=== PATIENT | male | born 1955 | race Caucasian/White ===

== ENCOUNTER 2016-05-22 11:50 | Inpatient (IN) | payer OTHER ==
[2016-05-22] MEDS ORDERED: Haloperidol INJ IV/IM* 5 MG/ML AMP ONE (11:55)
[2016-05-22] MEDS ORDERED: LORazepam INJ* 2 MG/ML 1 ML VIAL ONE ×2 (11:55→12:03)
[2016-05-22] MEDS ORDERED: diPHENhydraMINE IV* 50 MG/ML 1 ml VIAL (BENADRYL) ONE (11:55)
[2016-05-22] MEDS ORDERED: NS 0.9% 1000 ML* 1,000 ML IV ONE ×2 (11:57→13:16)
[2016-05-22] MEDS ORDERED: LORazepam INJ* 2 MG/ML 1 ML VIAL IV PUSH ONE ×3 (12:01→15:13)
[2016-05-22] MEDS ORDERED: Diltiazem IV VIAL* 125 MG/25 ML VIAL ONE (12:24)
[2016-05-22] MEDS ORDERED: Diltiazem IV* 5 MG/ML 5 ML VIAL (for loading dose/IV Push) (25 MG) IV SLOW PU ONE (12:24)
[2016-05-22 12:38] LABS: Hematocrit 53 % (42-52); Hemoglobin 17.6 g/dl (14.0-18.0); Mean Corpuscular HGB Conc 33 g/dl (31-36); Mean Corpuscular Hemoglobin 30 pg (27-31); Mean Corpuscular Volume 91 fL (80-94); Red Blood Count 5.82 10^6/ul (4.0-5.4); Red Cell Distribution Width 14 % (10.5-15); White Blood Count 20.9 10^3/ul (3.5-10.8)
[2016-05-22 12:39] LABS: Add Diff/Slide Review? Slide Review Added; Comments Flag Yes
[2016-05-22 12:45] LABS: ALT 24 U/L (7-52); AST 45 U/L (13-39); Albumin 4.4 g/dL (3.2-5.2); Alkaline Phosphatase 101 U/L (34-104); Anion Gap 15 mmol/L (2-11); Blood Urea Nitrogen 34 mg/dL (6-24); CO2 Carbon Dioxide 18 mmol/L (22-32); Calcium 10.8 mg/dL (8.6-10.3); Chloride 109 mmol/L (101-111); Creatine Kinase 1302 U/L (10-223); EGFR African American 71.8 (>60); EGFR Non-African American 55.8 (>60); Globulin 4.2 g/dL (2-4); Glucose 141 mg/dL (70-100); Potassium 3.7 mmol/L (3.5-5.0); Sodium 142 mmol/L (133-145); Total Protein 8.6 g/dL (6.4-8.9)
--- NOTE | 2016-05-22 13:02 | RAD ---
INDICATION: Altered mental status COMPARISON: Similar CT of the brain dated November 12, 2013 TECHNIQUE: Contiguous axial sections of the brain were obtained from the skull base to the vertex without contrast. FINDINGS: The ventricles, cisterns and sulci are within normal limits. There is mild periventricular and subcortical white matter hypoattenuation with more focal areas of hypoattenuation at the left frontal lobe white matter tracts and bilateral basal ganglia that are similar to the previous CT examination.. Otherwise the reynolds-white matter differentiation is adequately maintained and there is no sulcal effacement. No significant focal abnormality or mass effect is present. There is no evidence for intracranial hemorrhage. There are coarse atherosclerotic calcifications at the right greater than left vertebral artery and bilateral petrous carotid arteries. No significant focal osseous abnormality is present. There is moderate mucosal thickening of the left greater than right maxillary sinuses, sphenoid sinuses and ethmoid air cells. This has all progressed compared to the previous CT examination. The calvarium is grossly intact and the mastoid air cells are adequately aerated. IMPRESSION: 1. CT findings are most compatible with chronic microvascular disease that appears mostly similar to the November 12, 2013 CT examination. If the patient is exhibiting focal neurologic deficits further characterization of low-density foci in the basal ganglia can be obtained with MRI of the brain. 2. Interval increase in severity of paranasal sinus mucosal disease.
[2016-05-22 13:14] LABS: Mean Platelet Volume 10 um3 (7.4-10.4)
--- NOTE | 2016-05-22 13:20 | RAD ---
Indication: Confusion. Single frontal view of the chest performed at 1245 hours was reviewed. Comparison is made with previous exam dated December 26, 2013. Cardiomegaly is noted. Lung burleson demonstrate no pleural fluid, pneumonia or pneumothorax. IMPRESSION: NO ACTIVE CARDIOPULMONARY DISEASE IS NOTED.
[2016-05-22] MEDS ORDERED: Diltiazem DRIP* 100 MG/100 ML ADDV.BAG IVPB ONE (13:26)
[2016-05-22 13:28] LABS: PCO2 Arterial 28 mmHg (35-45)
[2016-05-22 13:34] LABS: Acetaminophen < 15 mcg/mL; Alcohol < 10 mg/dL (<10); Salicylate < 2.50 mg/dL (<30)
[2016-05-22 13:38] LABS: Troponin I 0.04 ng/mL (<0.04)
[2016-05-22 13:43] LABS: TSH (Thyroid Stimulating Horm) 0.48 mcIU/mL (0.34-5.60)
[2016-05-22] MEDS ORDERED: NS 0.9% 1000 ML* 1,000 ML IV SCH ×3 (13:45→16:00)
[2016-05-22] MEDS: NS 0.9% 1000 ML* 2,000 ML IV ONE ×2 (14:00→14:38)
[2016-05-22 14:23] LABS: Urine Bacteria Absent (Absent); Urine Bilirubin Negative (Negative); Urine Glucose Negative (Negative); Urine Nitrite Negative (Negative)
[2016-05-22] MEDS ORDERED: Ondansetron INJ* 2 MG/ML VIAL IV PRN (14:24)
[2016-05-22] MEDS ORDERED: Acetaminophen SUPP* 650 MG SUPP PR PRN (14:24)
[2016-05-22 14:26] LABS: Benzodiazepine Urine Screen None Detected (None Detect)
[2016-05-22] MEDS ORDERED: Albuterol 2.5 MG/3 ML NEB.SOL* (0.083%) INH PRN (14:39)
[2016-05-22] MEDS ORDERED: Diltiazem DRIP* 100 MG/100 ML ADDV.BAG IVPB SCH (15:00)
[2016-05-22] MEDS ORDERED: Vancomycin(*) 1,000 MG in NS 0.9% 250 ML* 250 ML IVPB ONE (15:00)
[2016-05-22 15:04] LABS: Phosphorus 2.9 mg/dL (2.5-5.0)
[2016-05-22] MEDS ORDERED: Dexmedetomidine* 50 ML ONE (15:08)
[2016-05-22] MEDS ORDERED: Propofol* 10 MG/ML 20 ML BTL IV PUSH ONE (15:25)
[2016-05-22] MEDS ORDERED: Propofol* 100 ML ONE (15:25)
[2016-05-22] MEDS ORDERED: Acyclovir IV(*) 780 MG in NS 0.9% 250 ML* 250 ML IVPB SCH (15:30)
[2016-05-22] MEDS ORDERED: Rocuronium* 10 MG/ML VIAL IV ONE (15:56)
[2016-05-22 16:14] LABS: Troponin I 0.04 ng/mL (<0.04)
[2016-05-22 16:15] LABS: BUN/Creatinine Ratio 30.4 (8-20); Calcium 9.1 mg/dL (8.6-10.3); EGFR African American 95.8 (>60); EGFR Non-African American 74.5 (>60)
[2016-05-22 16:21] LABS: Potassium 3.6 mmol/L (3.5-5.0)
--- NOTE | 2016-05-22 16:24 | RAD ---
INDICATION: Status post intubation. COMPARISON: Comparison is made with a prior study of the same date from approximately 3 hours earlier. TECHNIQUE: A portable view of the chest was obtained. FINDINGS: The patient is status post intubation. There is an endotracheal tube which projects over the midline located approximately 3 cm above the maki. There is a nasogastric tube which demonstrates normal course. The catheter tip projects in the left upper quadrant. The heart is within normal limits in size. The lungs are underinflated and clear with the exception of minimal atelectasis at both lung bases. IMPRESSION: STATUS POST INTUBATION AND NASOGASTRIC TUBE PLACEMENT.
[2016-05-22] MEDS ORDERED: Piperac/Tazob 3.375 gm in NS* 3.375 GM/100 ML BAG IVPB ONE (16:30)
[2016-05-22] MEDS ORDERED: Digoxin IV* 0.5 MG/2 ML AMP (0.25 MG/ML) IV SLOW PU ONE ×2 (16:38→20:00)
--- NOTE | 2016-05-22 16:53 | PN ---
Progress Note - Progress Note Note: Critical Care Procedure Note Endotracheal intubation Indication..respiratory distress and encephalopathy Propofol 100 mcg IV x1 Rocuronium 75 mg IV x1 Fiberoptic Intubation Copious secretions...green and very tenacious suctioned overlying airway and within airway #8 ETT passed w/o difficulty Epiglottis and cords sharp Inserted to 25 cm and secured Good BS bilat Good color change with Easy Cap CXR with good position of ETT No complications
[2016-05-22] MEDS: Pantoprazole IV* 40 MG IV SCH (16:57)
[2016-05-22] MEDS: Propofol* 100 ML IV SCH ×2 (16:58→21:12)
[2016-05-22] MEDS ORDERED: fentaNYL* 50 MCG/ML 5 ML VIAL (250 MCG VIAL) IV ONE (17:00)
--- NOTE | 2016-05-22 17:24 | HP ---
H&P (Free Text) History and Physical: Critical Care Medicine Admission Note (H&P) 60 yo male presenting to ER with encephalopathy. Patient known to staff re prior admitts involving EtOH and other substance abuse. Patient has apparently been on couch "sleeping" for some 36 hours or more. In ER data revealed a prominent leucocytosis, hemoconcentration c/w hypovolemia, and he was quite delirious requiring IV sedative pushes. He was given a few liters of IV fluids and started on antibiotics. He was quite delirious and hyperactive in bed. A CT Head was without acute findings and his tox screen reveals cocaine metabolites. Tried Precedex infusion which failed to settle patient. Finally elected to intubate patient to ride out what appears to be a toxic-metabolic encephalopathy.. At intubation copious purulent secretions encountered. Also course in ER remarkable for rapid A Fib for which Cardizem gtt initiated. Upon arrival to ICU asked to assume care of patient by Hospitalist service ( Gus Vega). PMH Chronic Pain, L1 compression fracture, BPH, COPD, MRSA bacteremia due to septic thrombophlebitis of upper extremity veins, Erosive Esophagitis NKDA Fam Hx, Soc Hx, and ROS unable to querry because of his condition SBP 100-150 HR 140 irreg FiO2 50% PEEP 5 TV 500 Freq 16 SpO2 100 Skin no diaphoresis, no cyanosis Sclerae anicteric Oral mucosa pink Oral ETT and GT Lungs with bilateral BS, no wheezes Cor Irreg, tachy no rub, no murmur Abd soft distension russ Ext no edema PIV x2 LUE PIV x1 RUE CXR ETT in place no atelectasis, no PVC, possibly small Lt and Rt basilar infiltrate WBC 20.9 Hgb 17.6 Plt 345 Lact 1.6 Trop 0.04 x2 CPK 1934 Mg 2.0 Pi 2.9 Gluc 127 K 3.6 Na 146 Cl 114 BUN/Creat 31/1.0 AST 45 ALT 24 Alb 4.4 IMP: Toxic-Metabolic Encephalopathy manifest as agitated delirium due to a combination of dehydration, sepsis, substance abuse and withdrawal Acute Respiratory Failure secondary to above with need to secure airway in face of sedation management Suspect purulent tracheobronchitis if not incipient pneumonia given what I was suctioning from his airway Lactic acidosis resolved Hyperchloremia due to dehydration and NS infusions Hemoconcentration due to hypovolemia Very mild rhabdomyolysis Hx COPD Hx MRSA Bacteremia due to septic thrombophlebitis Hx Chronic pain disorder PLAN/REC: Full MV support Propofol and Fentanyl gtts Vanco and zosyn for now Check Sput Cx...collected Keep HOB raised Protonix DVT Prophyl Suctioning PRN IV hydration Thiamine, folate, MVI Proventil PRN Bedrest for now Monitor labs including chems, ABG, CPK T>55 min CCM services rendered...exclusive of intubation related time Discussed with Nursing multiple times, Pharmacy, and Rekha Vega
[2016-05-22] MEDS: fentaNYL PCA* 20 ML PCA SCH (17:28)
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
[2016-05-22 18:16] LABS: FIO2 45; Resp Rate 16; Ventilator Volume 500
[2016-05-22 18:21] LABS: PCO2 Arterial 36 mmHg (35-45)
[2016-05-22] MEDS ORDERED: Thiamine IV* 100 MG/ML 2 ML VIAL IV ONE (18:34)
[2016-05-22] MEDS ORDERED: Folic Acid IV* 1 MG/0.2 ML SYRINGE IV SCH (19:00)
[2016-05-22] MEDS ORDERED: NS 0.9% 50 ML* 50 ML ONE (20:03)
[2016-05-22] MEDS: Folic Acid IV* 1 MG in NS 0.9% 50 ML* 50 ML IV SCH (20:15)
[2016-05-22] MEDS: Heparin VIAL(*) 5000 UNITS/ML VIAL (FIVE THOUSAND) SUBCUT SCH (21:11)
[2016-05-22] MEDS ORDERED: Vancomycin per Pharmacy* NOTE FOLLOW UP PRN (21:22)
[2016-05-22] MEDS: Vancomycin(*) 1,250 MG in NS 0.9% 250 ML* 250 ML IVPB SCH (22:04)
[2016-05-22] MEDS: Piperac/Tazob 3.375 gm in NS* 3.375 GM/100 ML BAG IVPB SCH (22:13)
--- NOTE | 2016-05-22 23:35 | HP ---
HISTORY AND PHYSICAL: DATE OF ADMISSION: 05/22/16 PRIMARY CARE PROVIDER: Unknown. ATTENDING PHYSICIAN WHILE IN THE HOSPITAL: Dr. Aaron Justin *(report dictated by Gus Vega, JOE). CONSULTING FILLER WIPER: Dr. Levon Kent. CHIEF COMPLAINT: Altered mental status. HISTORY OF PRESENT ILLNESS: I would like to preface this report by saying the patient has a significant amount of altered mental status. He is really unable to give much history at this point. Most of the H and P is obtained from discussion with the bedside nurse, discussion with the patient's significant other, in addition to this discussion with and reviewing EMS reports. Mr. Conway is a 60-year-old male patient who has had a pretty significant medical history. He has a history of DTs in the past, polysubstance abuse, psychosis. He has had toxic metabolic encephalopathy in the past, ETOH abuse, hypertension, hyperlipidemia, GERD, chronic back pain, COPD. He has a history of kidney stones in the past; history of a septic thrombophlebitis of the basilic subclavian, cephalic, and right internal jugular veins in the past requiring 6 weeks of IV antibiotics. He comes in today with an altered mental status of unclear etiology. According to the patient's girlfriend and significant other, yesterday he seemed very drowsy, lethargic. He had slept most of the day. He basically was in bed all day. At some point, he had gotten up in the middle of the night to go to the couch and she found him this morning on the couch incontinent of urine, also drooling, and he was swinging his arms and he was restless and appeared to be extremely agitated. She knew something was wrong. She called 911. He had not taken his medications in the last couple of days, and to her knowledge, he had not been ingesting any substances or using any substances to her knowledge and there has been no ETOH reported. The patient was picked up by EMS. He was noted to be combative. He was given Haldol and Ativan and came in to the ER, and EMS reported to the nursing staff that he was noted to be again essentially nonverbal, combative, and swinging, and by the time he came here, he was noted to be lethargic, responsive to pain only, and there were no reports recently of change in medications and no reports of any nausea, vomiting, diarrhea, or any urinary symptoms per the significant other, and there has been no reports of recent fevers, URI symptoms, or any complaints of abdominal discomfort or shortness of breath. The patient is really unable to give any complaints now. It was found in the ER that he had multiple electrolyte abnormalities. In addition to this, he had a white count of almost 21,000. Hospitalist service was asked to evaluate for admission. PAST MEDICAL HISTORY: Significant for: 1. DTs. 2. Polysubstance abuse. 3. Psychosis. 4. History of toxic metabolic encephalopathy. 5. ETOH abuse. 6. Hypertension. 7. Hyperlipidemia. 8. GERD. 9. Chronic back pain. 10. COPD. 11. Nephrolithiasis. 12. DVT. 13. History of bacteremia secondary to a septic thrombophlebitis and requiring 6 weeks of IV antibiotics. PAST SURGICAL HISTORY: Unable to be obtained at this point. HOME MEDICATIONS: According to the pharmacy that we are able to obtain include: 1. Baclofen 5 to 10 mg every 8 hours as needed. 2. Requip 0.5 mg p.o. at bedtime. 3. Glucosamine chondroitin 1 tablet daily. 4. Gabapentin 1200 mg p.o. q.i.d. 5. Benadryl 25 mg at bedtime as needed. 6. Ambien 10 mg at bedtime as needed. 7. Magnesium oxide 400 mg daily. 8. Colace 100 mg p.o. b.i.d. as needed. 9. Ultram 50 mg every 4 hours as needed. 10. Ibuprofen 600 mg p.o. every 6 hours. 11. Percocet 1 tablet p.o. every 12 hours. 12. Lisinopril/hydrochlorothiazide 1 tablet p.o. daily. 13. Omeprazole 40 mg p.o. b.i.d. ALLERGIES TO MEDICATIONS: Include no known drug allergies. FAMILY HISTORY: Unable to be obtained. SOCIAL HISTORY: He lives with his friend who is also the surrogate decision maker, Rosa M, and a significant other. Rosa M does state that he does continue to smoke. There has been no reports of ETOH abuse. He rarely drinks alcohol now according to her, and there have been no reports of illicit drug use according to Rosa M. REVIEW OF SYSTEMS: Unable to be obtained. PHYSICAL EXAMINATION GENERAL: At this time, Mr. Conway is a 60-year-old male patient. He is sitting in the ER bed. He appears to be lethargic. He does not appear to be in any acute distress. He appears to be older than the listed age. VITAL SIGNS: Last blood pressure was 126/85 with a pulse of 150, respirations are 26, his O2 sat was 94% on 2 L. HEENT: Head atraumatic. Eyes: Pupils are equal and reactive to light. Sclerae are anicteric. Throat: Oral mucosa appears to be dry. No oropharyngeal erythema. NECK: Supple. LUNGS: He had rhonchi in the upper lobes. Equal diaphragmatic expansion. HEART: Sounds S1, S2. Irregularly irregular rate. No murmurs, rubs, or gallops. ABDOMEN: Soft, flat, nontender. Bowel sounds present. EXTREMITIES: Pulses 2+ throughout. He is moving all 4 extremities, restless. NEUROLOGIC: He will respond to pain only with sternal rub. He will try to fight me and remove my arms, but that is it. He will not follow any commands. He has no gross focal deficits. He is moving all 4 extremities, particularly when arousing him with painful stimuli, he withdraws all 4 extremities, and there is no facial drooping. SKIN: Intact. LABORATORY DATA AND DIAGNOSTIC STUDIES: Today reveal a WBC of 20.9, RBC of 5.82, hemoglobin 17.6, hematocrit 53, platelet count 345. Blood gas revealed a pH of 7.45, PCO2 of 28, his PO2 was 66, bicarb 22. His sodium was 142, potassium of 3.7, chloride of 109, bicarb 18, BUN 34, creatinine of 1.30, his baseline is 0.9. His glucose is 141. His lactic was 3.6. His calcium was 10.8. His magnesium was 2.0. Total bili 0.9, AST 45, ALT 24, alk phos 101. Ammonia 51. CK was 1302. Troponin 0.04. TSH of 0.48. Albumin 4.4. Urine showed trace ketones, 1+ blood, 1+ wbc. Toxicology was positive for cocaine. He had an EKG obtained today, initially showing a sinus tachycardia with a rate of [address] depressions. He has had ST depressions in the past, it is more pronounced now. He is now noted to be in atrial fibrillation. He had a chest x-ray obtained today, and on my review, I did not appreciate any acute infiltrates, effusions, or pulmonary edema. He had a brain CT obtained today, which showed CT findings most compatible with chronic microvascular disease, appears mostly similar to the 2014 CT exam. The patient is exhibiting focal neurological deficits. Further characterization of low density foci in the basal ganglia can be obtained with MRI of the brain, interval increase in the severity of paranasal sinus mucosal disease. Old medical records were reviewed. ASSESSMENT AND PLAN: Mr. Conway is a 60-year-old male patient coming in to the ER today with complaints of altered mental status. Hospitalist service was asked to evaluate for admission. He will be admitted under inpatient status for : 1. Altered mental status: Etiology is unclear. Certainly, the differential is broad. He appears to be septic, which may be causing a toxic encephalopathy causing the altered mental status. His U-Tox was negative with the exception of cocaine. So, I think at this point what we need to do is focus on trying to find an infectious component that may be causing the altered mental status. So , I am going to go ahead and panculture him and I think he needs to have a spinal tap, but unfortunately at this point, I do not think he would be able to tolerate it. He would be fighting us and combative, so I am going to treat him empirically with acyclovir, vancomycin, and Rocephin and we will do neuro checks every 2 hours. In addition to this, I am going to get an EEG. I am also getting an elevator mechanic apprentice consult. 2. Sepsis: Again, source is unclear. He has had septic thrombophlebitis in the past. His white count is up. He appears to be severely septic at this point. He will get 3 L of fluids upfront. He will have vancomycin and Rocephin ordered. We will go ahead and we will continue to follow his blood cultures, flu swab. Chest x- ray was done. Try to get a spinal tap when it is safe to do so. His lactic was 3.6. I am going to repeat this after the fluid boluses. 3. Atrial fibrillation: Again, his troponin is up with the atrial fibrillation. I suspect this is probably demand. He also was cocaine positive. This all can cause the troponin to be elevated. We are just going to trend those for the time being, and the atrial fibrillation also could be from the cocaine as well. We will put him on a diltiazem drip. I am not going to anticoagulate him in case we need to do any invasive procedures. I think the AFib is probably being brought on by the cocaine; in addition to this, the fact that he appears to be profoundly ill and I think if we treat the underlying cause, this should hopefully fix his atrial fibrillation. At some point, he may benefit from anticoagulation. 4. Elevated CK: Again, could be from the cocaine, but again I am also concerned that he may have had a seizure. So, we will get an EEG. We will trend these and hydrate him. 5. Acute renal failure, probably secondary to prerenal causes such as dehydration, but I am sending off a FENa and a renal ultrasound. In addition to this, there may be some acute tubular necrosis from the septic picture. We will monitor these and hold nephrotoxic drugs. 6. History of polysubstance abuse and cocaine use: Again, when he is better, we will get a Social Work consult. The says he has not been drinking. We will monitor him for delirium tremens if need to. Anyways, if he does exhibit any signs of withdrawal, obviously we will start him on the [facility] protocol. 7. Hyperlipidemia: We will hold medications at this point. 8. History of chronic obstructive pulmonary disease: We will continue with p.r.n. albuterol. 9. History of DVT: I am just going to put him on prophylactic heparin. He is no longer on full anticoagulation. 10. Chronic pain: We are going to hold any narcotics at this point. 11. Hypertension: We will hold his lisinopril and hydrochlorothiazide in the setting of acute illness. 12. Gastroesophageal reflux disease: He is n.p.o. I will put him on IV Protonix. 13. DVT prophylaxis: Again, he will be placed on subcu heparin. 14. Code status: He is a full code. 15. Fluids, electrolytes, and nutrition: He is n.p.o. TIME SPENT: Time spent on the admission with critical care time was 80 minutes ; greater than half the time was spent [id number] with the patient obtaining my history and physical, other half the time spent implementing the plan of care. I did discuss the plan of care with my attending and I also placed a consult to our elevator mechanic apprentice, Dr. Levon Kent. GUS VEGA NP CC: Dr. Levon Kent. * [id number]/CPS #: [id number] STEPH
[2016-05-23] MEDS ORDERED: Chlorhexidine MOUTHWASH 0.12%* 15 ML UDC ONE (00:28)
[2016-05-23] MEDS: Propofol* 100 ML IV SCH ×7 (00:39→22:32)
[2016-05-23] MEDS: Chlorhexidine MOUTHWASH 0.12%* 15 ML UDC TOPICAL SCH ×6 (01:06→20:45)
[2016-05-23] MEDS ORDERED: NS 0.9% 250 ML* 250 ML ONE (04:50)
[2016-05-23] MEDS: Vancomycin(*) 1,250 MG in NS 0.9% 250 ML* 250 ML IVPB SCH ×3 (05:25→22:29)
[2016-05-23] MEDS: Piperac/Tazob 3.375 gm in NS* 3.375 GM/100 ML BAG IVPB SCH ×3 (05:26→22:29)
[2016-05-23] MEDS: Heparin VIAL(*) 5000 UNITS/ML VIAL (FIVE THOUSAND) SUBCUT SCH ×3 (05:26→22:29)
[2016-05-23 05:34] LABS: Hematocrit 42 % (42-52); Hemoglobin 13.9 g/dl (14.0-18.0); Mean Corpuscular HGB Conc 33 g/dl (31-36); Mean Corpuscular Hemoglobin 31 pg (27-31); Mean Corpuscular Volume 92 fL (80-94); Mean Platelet Volume 9 um3 (7.4-10.4); Red Blood Count 4.55 10^6/ul (4.0-5.4); Red Cell Distribution Width 15 % (10.5-15); White Blood Count 9.8 10^3/ul (3.5-10.8)
[2016-05-23 05:50] LABS: BUN/Creatinine Ratio 29.3 (8-20); Calcium 8.7 mg/dL (8.6-10.3); EGFR African American 107.9 (>60); EGFR Non-African American 83.9 (>60)
[2016-05-23 05:52] LABS: Potassium 4.2 mmol/L (3.5-5.0); Troponin I 0.04 ng/mL (<0.04)
[2016-05-23 06:05] LABS: FIO2 35; Resp Rate 18; Ventilator Volume 500
[2016-05-23 06:06] LABS: PCO2 Arterial 37 mmHg (35-45)
--- NOTE | 2016-05-23 08:10 | PN ---
Progress Note - Progress Note Note: CCM Progress Note Quiet night overall Sedated with Propofol and Fentanyl gtts Converted back to SR Large volume gastric drainage at one point overnight...subsided SBP 86-96 MAP 66 HR 68 reg UO OK I/Os (+)5.4 liters APV/CMV FiO2 35% PEEP 5 TV 500 Freq 16 SpO2 97-98 Skin no diaphoresis, no cyanosis, (+)tattoos Sclerae anicteric Oral mucosa pink Oral ETT and GT Lungs with bilateral BS, no wheezes, no rhonchi Cor RRR no rub, no murmur Abd soft distension, nontender russ Ext no edema PIV x2 LUE PIV x1 RUE CXR ETT in place no PVC, small retrocardiac infiltrate and possibly small Rt medial-basilar infiltrate WBC 9.8 Hgb 13.9 Plt 182 7.43/37/75 Trop 0.04 x3 CPK 1414 K 4.2 Na 144 BUN/Creat 27/0.9 Sput Cx 4(+) WBC with 4(+) GPC IMP: Toxic-Metabolic Encephalopathy manifest as agitated delirium due to a combination of dehydration, sepsis, substance abuse and withdrawal Acute Respiratory Failure secondary to above with need to secure airway in face of sedation management Purulent tracheobronchitis and perhaps small basilar pneumonic infiltrates (vs atelectasis) Sepsis...resolution of leucocytosis suggests appropriate Abx choices in place Hypovolemia....I believe he is now adequately hydrated Hemoconcentration ....subside Very mild rhabdomyolysis...CPK trending down Hx COPD...no bronchospasm evident Hx MRSA Bacteremia due to septic thrombophlebitis Hx Chronic pain disorder PLAN/REC: Full MV support...pending subsidence of delirium Wean down Propofol and Fentanyl gtts as tolerated...goal of enough to secure synchrony with ventilator and permit effective care delivery Vanco and Zosyn for now Daily review of cultures for data to direct Abx Keep HOB raised Protonix DVT Prophyl Suctioning PRN IV hydration to continue Thiamine, folate, Proventil PRN Bedrest for now Monitor labs T>35 min CCM services rendered Discussed with Nursing, Pharmacy, Nutrition, and the rest of the ICU Multidisciplinary team this AM
--- NOTE | 2016-05-23 08:20 | RAD ---
HISTORY: Respiratory failure, dyspnea COMPARISONS: May 22, 2016 VIEWS:1: Single frontal portable view of the chest at 6:17 AM FINDINGS: LINES AND TUBES: The endotracheal tube is noted with the tip overlying the trachea between the clavicles and the maki. A gastric tube is noted. The tip is in the left upper quadrant in a prepyloric position. CARDIOMEDIASTINAL SILHOUETTE: The cardiomediastinal silhouette is normal for portable technique. PLEURA: The costophrenic angles are sharp. No pleural abnormalities are noted. LUNG PARENCHYMA: The lung volumes are low. There is minimal linear opacification of the left lung base ABDOMEN: The upper abdomen is clear. There is no subphrenic gas. BONES AND SOFT TISSUES: No bone or soft tissue abnormalities are noted. IMPRESSION: 1. LINES AND TUBES ABOVE. 2. LOW LUNG VOLUMES WITH LINEAR ATELECTASIS OF THE LEFT LUNG BASE
--- NOTE | 2016-05-23 08:48 | EEG ---
ELECTROENCEPHALOGRAPHY: DATE OF STUDY: 05/22/16 PATIENT OF: Gus Vega NP CLINICAL PROBLEM: This is a 60-year-old patient of Gus Vega NP, who is evaluated for encephalopathy after being apparently encephalopathic and down on the ground between 24 and 36 hours. He had a positive tox screen for cocaine and has a history of polysubstance abuse. REPORT: With the patient intubated, background cerebral activity consisted of moderate amplitude 3 to 5 Hz diffuse slowing with periods of 1 to 2 seconds of relative attenuation. At times, this slowing reaches 6 to 7 Hz and occasionally sharply contoured. There is no clearcut epileptiform potentials. No subclinical seizures are noted. CLINICAL IMPRESSION: This EEG is abnormal because of diffuse slowing with periods of attenuation as described above. This finding is consistent with a significant generalized encephalopathy, but not specific as to etiology. [id number]/CPS #: [id number] MTDD
[2016-05-23] MEDS ORDERED: NS 0.9% 50 ML* 50 ML ONE (10:12)
--- NOTE | 2016-05-23 10:18 | ECHO ---
Patient: CHRISTOPH MONTENEGRO Rec#: [id number] : 1955 Date: 05/23/2016 Age: 60y Height: 188 cm / 74.0 in Weight: 97.1 kg / 214.0 lbs Sex: M BSA: 2.2 Room#: ICU 5 Admit Date#: 05/22/2016 Type: Inpatient Referring: Levon Kent MD Reading: Brian Barrera MD Retail Salesworker: Rocio Botello RN RDCS CC: Guru Pappas MD Transthoracic Echocardiogram Indication: Atrial fibrillation BP: 93/64 HR: 67 Rhythm: NSR Findings History: COPD, HTN, HLD, ETOH use, polysubstance abuse, toxic metabolic encephalopathy, psychosis, erosive esophagitis, chronic pain disorder Technical Comments: The study is technically limited due to poor parasternal windows. The study is technically limited due to the patient's history of COPD. The study is technically limited due to the patient's smoking history. The study is technically limited due to patient being intubated and on a ventilator. Completed at 0945. Left Ventricle: The left ventricular chamber size is normal. Mild to moderate concentric left ventricular hypertrophy is observed. There is normal left ventricular systolic function.Focal wall motion analysis is not possible due to poor images. The estimated ejection fraction is 55-60%. The assessment of diastolic function is non-diagnostic. The patient was unable to perform a Valsalva maneuver. Left Atrium: The left atrial chamber size is normal. Right Ventricle: The right ventricle is not well visualized. The right ventricular cavity size is normal. Right Atrium: The right atrium is mildly dilated. Aortic Valve: The aortic valve is trileaflet. There is no evidence of aortic regurgitation. There is no evidence of aortic stenosis. Mitral Valve: The mitral valve leaflets appear normal. There is a trace of mitral regurgitation. There is no evidence of mitral stenosis. Tricuspid Valve: The tricuspid valve leaflets are normal. There is trace tricuspid regurgitation. Unable to estimate the right ventricular systolic pressure. Pulmonic Valve: The pulmonic valve structure is not well visualized. There is a trace pulmonic regurgitation. There is no pulmonic stenosis. Pericardium: There is no significant pericardial effusion. A pericardial fat pad is visualized. Aorta: There is mild dilatation of the ascending aorta. The aortic arch is not well visualized. There is mild dilatation of the aortic root. Pulmonary Artery: The main pulmonary artery appears normal. Venous: Unable to accurately comment on the size collapsibility of the IVC as the patient in known to be on mechanical ventilation. Conclusions Poor quality study with suboptimal images foer interpretation. Mild to moderate concentric left ventricular hypertrophy is observed. There is normal left ventricular systolic function. Focal wall motion analysis is not possible due to poor images. The estimated ejection fraction is 55-60%. No significant valvular disease as best as can be assessed due to poor images: There is a trace of mitral regurgitation. There is trace tricuspid regurgitation. There is a trace pulmonic regurgitation. No significant change compared to report of study from 12/08/2013, LVEF slightly less (was 55-60%), but accuracy of this is limited given poor images for accurate assessment. Measurements Name Value Normal Range RVDdMajor (2D) 3.5 cm (2.2 - 4.4) RVAW (2D) 0.8 cm (0.2 - 0.5) RAd ISD 4CH 5.3 cm (3.4 - 4.9) RA (A4C)W 3.7 cm (2.9 - 4.6) IVSd (2D) 1.5 cm (0.6 - 1) LVPWd (2D) 1.1 cm (0.6 - 1) LVIDd (2D) 4.1 cm (3.6 - 5.4) Aortic Annulus 2.5 cm (1.4 - 2.6) Ao root diameter (2D) 3.8 cm (2.1 - 3.5) Ascending Ao 3.5 cm (2.1 - 3.4) LA dimension (AP) 2D 3.4 cm (2.3 - 3.8) LAd ISD 4CH 5.1 cm (2.9 - 5.3) LA ISD 4CH W 4.2 cm (2.5 - 4.5) Name Value Normal Range LA ESV SP 4CH (A/L) 51 ml - LA ESV SP 2CH (A/L) 49 ml - LA ESV BP (A/L) 52 ml - LA ESV BP (A/L) index 23 ml/m2 - LA ESV SP 4CH (MOD) 47 ml - LA ESV SP 2CH (MOD) 46 ml - Name Value Normal Range MV E-wave Vmax 0.68 m/sec - MV deceleration time 230 msec - MV A-wave Vmax 0.56 m/sec - MV E:A ratio 1.2 ratio - LV septal e' Vmax 0.08 m/sec - LV lateral e' Vmax 0.13 m/sec - LV E:e' septal ratio 8.5 ratio - LV E:e' lateral ratio 5.2 ratio - Name Value Normal Range AV Vmax 1.4 m/sec - LVOT Vmax 1.3 m/sec - Name Value Normal Range PV Vmax 0.72 m/sec -
[2016-05-23] MEDS: Folic Acid IV* 1 MG in NS 0.9% 50 ML* 50 ML IV SCH (10:27)
[2016-05-23] MEDS: D5NS 0.9% 1000 ML BAG* 1,000 ML IV SCH ×2 (10:29→18:38)
[2016-05-23] MEDS ORDERED: Digoxin IV* 0.5 MG/2 ML AMP (0.25 MG/ML) IV SLOW PU ONE (10:41)
[2016-05-23] MEDS: fentaNYL PCA* 20 ML PCA SCH ×2 (10:45→19:23)
[2016-05-23] MEDS: Pantoprazole IV* 40 MG IV SCH (13:45)
[2016-05-23] MEDS ORDERED: Vancomycin Trough Check NOTE FOLLOW UP ONE (14:00)
[2016-05-23] MEDS ORDERED: Pantoprazole IV* 80 MG in NS 0.9% 250 ML* 250 ML IVPB SCH (22:30)
[2016-05-23] MEDS ORDERED: Pantoprazole IV* 40 MG ONE (22:43)
[2016-05-23] MEDS: Dexmedetomidine* 50 ML IVPB SCH (22:52)
[2016-05-24] MEDS: Chlorhexidine MOUTHWASH 0.12%* 15 ML UDC TOPICAL SCH ×7 (00:15→23:27)
[2016-05-24] MEDS: D5NS 0.9% 1000 ML BAG* 1,000 ML IV SCH (02:00)
[2016-05-24] MEDS: Propofol* 100 ML IV SCH ×7 (02:00→23:23)
[2016-05-24] MEDS: Dexmedetomidine* 50 ML IVPB SCH ×2 (02:13→05:06)
--- NOTE | 2016-05-24 03:43 | PN ---
Progress Note - Progress Note Note: Nursing called for change in OG tube output. Upon arrival he is now draining fine coffee ground material which is heme positive. He is on pantoprazole 40mg IV daily. He was given an additional 40mg IV and started on pantoprazole GTT 8mg /hr [id number]. His heparin held & SCDs initiated. CBC in AM & H/H Q6H x3 afterwards.
[2016-05-24] MEDS: fentaNYL PCA* 20 ML PCA SCH ×2 (04:12→13:05)
[2016-05-24] MEDS: Piperac/Tazob 3.375 gm in NS* 3.375 GM/100 ML BAG IVPB SCH (05:17)
[2016-05-24] MEDS: Vancomycin(*) 1,250 MG in NS 0.9% 250 ML* 250 ML IVPB SCH (05:17)
[2016-05-24 06:22] LABS: Hematocrit 38 % (42-52); Hemoglobin 12.7 g/dl (14.0-18.0); Mean Corpuscular HGB Conc 34 g/dl (31-36); Mean Corpuscular Hemoglobin 31 pg (27-31); Mean Corpuscular Volume 92 fL (80-94); Mean Platelet Volume 9 um3 (7.4-10.4); Red Blood Count 4.11 10^6/ul (4.0-5.4); Red Cell Distribution Width 14 % (10.5-15); White Blood Count 6.1 10^3/ul (3.5-10.8)
[2016-05-24 06:33] LABS: BUN/Creatinine Ratio 32.9 (8-20); Calcium 8.3 mg/dL (8.6-10.3); EGFR African American 147.9 (>60); Magnesium 1.7 mg/dL (1.9-2.7); Phosphorus 3.1 mg/dL (2.5-5.0); Potassium 3.2 mmol/L (3.5-5.0)
[2016-05-24] MEDS ORDERED: Atropine SYRINGE* 0.1 MG/ML 10 ML SYRINGE (1 MG) ONE (06:42)
[2016-05-24 06:51] LABS: Digoxin 0.9 ng/ml (0.8-2.0)
[2016-05-24] MEDS ORDERED: Pantoprazole IV* 40 MG ONE (07:34)
[2016-05-24] MEDS ORDERED: Magnesium Sulfate 2 GM IV* 2 GM/50 ML BAG IVPB ONE (07:38)
--- NOTE | 2016-05-24 08:17 | PN ---
Progress Note - Progress Note Note: [facility] Progress Note Resumption of Precedex gtt overnight in addition to Fentanyl and Propofol gtts noted....met with hypotension and bradycardia....,Precedex gtt stopped Some coffee grounds overnight....Protonix gtt initiated and SCDs applied (with discontinuation of SQ Heparin) SBP ~100 HR 58 reg UO ~1400 ml I/Os ~(+)5.1 liters I/Os total last 2 days (+)10 liters APV/CMV FiO2 35% PEEP 5 TV 500 PkAWP ~27 EtCO2 27 SpO2 97 Skin no diaphoresis, no cyanosis, (+)tattoos Sclerae anicteric Oral mucosa pink Oral ETT and GT Lungs with bilateral BS, no wheezes, no rhonchi Cor RRR no rub, no murmur Abd soft distension, nontender russ Ext no edema PIV x2 LUE PIV x1 RUE WBC 6.1 Hgb 12.7 Plt 181 K 3.2 Na 146 BUN/Creat 27/0.7 Mg 1.7 Pi 3.1 Dig 0.9 Sput Cx 4(+) WBC with 4(+) GPC......3(+) S aureus IMP: Toxic-Metabolic Encephalopathy manifest as agitated delirium due to a combination of dehydration, sepsis, substance abuse and withdrawal Acute Respiratory Failure secondary to above with need to secure airway in face of sedation management Purulent tracheobronchitis and perhaps small basilar pneumonic infiltrates (vs atelectasis) ...S aureus identified Sepsis...resolution of leucocytosis suggests appropriate Abx choices in place Hypovolemia....resolved Coffee grds....suspect due to suction trauma from continuos suction Hx COPD...no bronchospasm evident Hx MRSA Bacteremia due to septic thrombophlebitis Hx Chronic pain disorder Hypokalemia Hypomagnesemia PLAN/REC: Wean down Propofol and Fentanyl gtts progressively Assess for weaning and if reasonable to advance weaning from ventilator as tolerated Vanco to continue pending identification whether is MRSA or not Expect to D/C Zosyn if no other microbes identified Daily review of cultures for data to direct Abx Keep HOB raised D/C Protonix gtt.....use Protonix BID IVPB and stop continuous NG suction DVT Prophyl with SCDs Suctioning via ETT PRN Change IVF to D5 1/2 NS with K D/C Folate Proventil PRN Bedrest for now Monitor labs T>35 min CCM services rendered Discussed with Nurse and ICU Multidisciplinary team this AM
[2016-05-24] MEDS: Pantoprazole IV* 40 MG IV SCH ×2 (09:26→20:33)
[2016-05-24] MEDS: D5W 1/2 NS 40 Meq KCL 1000 ML* 1,000 ML IV SCH ×2 (09:27→23:00)
[2016-05-24] MEDS ORDERED: Haloperidol INJ IV/IM* 5 MG/ML AMP IV SLOW PU PRN (11:25)
[2016-05-24] MEDS ORDERED: Haloperidol INJ IV/IM* 5 MG/ML AMP ONE (11:29)
[2016-05-24] MEDS: ceFAZolin 2 GM PREMIX(*) 2 GM/50 ML BAG IVPB SCH ×2 (14:22→21:46)
[2016-05-24 18:30] LABS: Hematocrit 39 % (42-52); Hemoglobin 13.1 g/dl (14.0-18.0); Mean Corpuscular HGB Conc 33 g/dl (31-36); Mean Corpuscular Hemoglobin 31 pg (27-31); Mean Corpuscular Volume 91 fL (80-94); Mean Platelet Volume 9 um3 (7.4-10.4); Red Blood Count 4.31 10^6/ul (4.0-5.4); Red Cell Distribution Width 15 % (10.5-15); White Blood Count 6.2 10^3/ul (3.5-10.8)
[2016-05-25] MEDS: Propofol* 100 ML IV SCH ×3 (02:17→08:21)
[2016-05-25] MEDS: Chlorhexidine MOUTHWASH 0.12%* 15 ML UDC TOPICAL SCH ×5 (05:24→21:58)
[2016-05-25] MEDS: ceFAZolin 2 GM PREMIX(*) 2 GM/50 ML BAG IVPB SCH ×3 (05:24→21:59)
[2016-05-25 06:00] LABS: Hematocrit 39 % (42-52); Mean Corpuscular HGB Conc 33 g/dl (31-36); Mean Corpuscular Hemoglobin 30 pg (27-31); Mean Corpuscular Volume 92 fL (80-94); Mean Platelet Volume 9 um3 (7.4-10.4); Red Blood Count 4.28 10^6/ul (4.0-5.4); Red Cell Distribution Width 14 % (10.5-15); White Blood Count 6.5 10^3/ul (3.5-10.8)
[2016-05-25 06:18] LABS: BUN/Creatinine Ratio 24.3 (8-20); Calcium 8.5 mg/dL (8.6-10.3); EGFR African American 147.9 (>60); Magnesium 1.9 mg/dL (1.9-2.7); Potassium 3.8 mmol/L (3.5-5.0)
[2016-05-25] MEDS: Pantoprazole IV* 40 MG IV SCH ×2 (09:14→21:34)
[2016-05-25] MEDS ORDERED: Furosemide IV* 10 MG/ML VIAL (40 MG) IV SLOW PU ONE (10:37)
[2016-05-25] MEDS ORDERED: Thiamine IV* 100 MG/ML 2 ML VIAL IV ONE (10:43)
--- NOTE | 2016-05-25 10:50 | PN ---
Progress Note - Progress Note Note: CRITICAL CARE MEDICINE Date: 05/25/16 Time: 900 SUBJECTIVE: Patient seen and examined. Sedation held. agitated. PHYSICAL EXAM: Vital Signs: Reviewed. Neurologic: not following commands, but HANSON, agitated. Eyes open and looking about with delirium. HEENT: pupils equal. Sclera anicteric. Trachea midline. Cardiovascular: S1 S2 Respiratory: coarse bl; cpap 8/5 with volumes at times >1500ml Abdomen: Soft, nt. No r/g/r. Extremities: Warm. Disheveled LABS: Reviewed. IMAGING: Reviewed. MEDICATIONS: Reviewed. ASSESSMENT: 60 M Toxic metabolic encephalopathy Acute resp failure sec to above Treatment for bronchitis with sputum +mssa and tx for sepsis sec to this Heme + gastricult - gastritis? on ppi COPD Chronic pain Etoh abuse PLAN: Neurologic: hold fent and propofol gtt. question if our rx and ett inhibiting improvement. Delirum still present it seems. Empiric thiamine replacement x1. Cardiovascular: Perfusing. interstitial volume up. see if he can mobilize otherwise loop to help Respiratory: catie well on cpap. will remain with secretions and perhaps even moreso with ett. Liberate today and give him an oppurtunity to thrive without ett. Hopefully can manage secretions, ventilation and improve neuro status. Gastrointestinal: on ppi bid for another day. H&H stable. hold off on feeds with liberation and see when MS allows for po intake. amm ok on admission. Renal/Metabolic: stable. can hold Ivf today. Infectious Disease: on ancef for bronchitis. 5 day course anticipated. Hematology: stable. resume hsq. Endocrine: stable. Musculoskeletal: oob when ms permits. f/u narc needs. Psych/Social: social work f/u. Haldol prn Supportive and preventative care as ordered. SUP: ppi VTE prophylaxis: heparin Steen catheter given critical illness, monitoring needs for accurate assessment of JEWELS and KDIGO criteria for critically ill patients and to avoid potential harms of urinary retention, skin breakdown/ulcers. Disposition: ICU Code Status: Full Critical Care Time: 42min Audrey Sheehan DO
[2016-05-25] MEDS ORDERED: fentaNYL* 50 MCG/ML 2 ML VIAL (100 MCG VIAL) IV SLOW PU PRN ×2 (12:20→13:35)
[2016-05-25] MEDS ORDERED: fentaNYL* 50 MCG/ML 2 ML VIAL (100 MCG VIAL) IV SLOW PU ONE (12:58)
[2016-05-25] MEDS ORDERED: fentaNYL* 50 MCG/ML 2 ML VIAL (100 MCG VIAL) ONE (13:00)
[2016-05-25] MEDS: oxyCODONE TAB* 5 MG TAB PO PRN ×2 (14:45→21:42)
[2016-05-25] MEDS: Baclofen TAB* 10 MG PO SCH ×2 (14:45→21:42)
[2016-05-25] MEDS: Heparin VIAL(*) 5000 UNITS/ML VIAL (FIVE THOUSAND) SUBCUT SCH ×2 (15:12→21:59)
[2016-05-25] MEDS: fentaNYL* 50 MCG/ML 2 ML VIAL (100 MCG VIAL) IV SLOW PU PRN (21:36)
[2016-05-26] MEDS: Chlorhexidine MOUTHWASH 0.12%* 15 ML UDC TOPICAL SCH ×3 (00:28→07:45)
[2016-05-26] MEDS: fentaNYL* 50 MCG/ML 2 ML VIAL (100 MCG VIAL) IV SLOW PU PRN ×2 (00:38→04:43)
[2016-05-26 05:29] LABS: Urine Bacteria Absent (Absent); Urine Bilirubin Negative (Negative); Urine Glucose Negative (Negative); Urine Nitrite Negative (Negative)
[2016-05-26] MEDS: ceFAZolin 2 GM PREMIX(*) 2 GM/50 ML BAG IVPB SCH ×3 (05:29→21:28)
[2016-05-26] MEDS: Heparin VIAL(*) 5000 UNITS/ML VIAL (FIVE THOUSAND) SUBCUT SCH ×3 (05:30→21:28)
[2016-05-26 05:34] LABS: BUN/Creatinine Ratio 21.1 (8-20); Calcium 8.8 mg/dL (8.6-10.3); EGFR African American 187.5 (>60); EGFR Non-African American 145.8 (>60); Potassium 3.1 mmol/L (3.5-5.0)
[2016-05-26] MEDS: Baclofen TAB* 10 MG PO SCH ×3 (08:31→20:02)
[2016-05-26] MEDS: Pantoprazole IV* 40 MG IV SCH (08:31)
[2016-05-26] MEDS: oxyCODONE TAB* 5 MG TAB PO PRN ×2 (08:44→19:52)
[2016-05-26] MEDS ORDERED: Alteplase (CATHFLO)* 2 MG VIAL IV ONE (10:07)
[2016-05-26] MEDS ORDERED: Ibuprofen TAB* 600 MG PO PRN (10:59)
--- NOTE | 2016-05-26 11:05 | PN ---
Progress Note - Progress Note Note: CRITICAL CARE MEDICINE Date: 05/26/16 Time: 900 SUBJECTIVE: Patient seen and examined. on RA. communicating. just slow. PHYSICAL EXAM: Vital Signs: Reviewed. Neurologic: following commands. mild delirium. HEENT: pupils equal. Sclera anicteric. Trachea midline. Cardiovascular: S1 S2 Respiratory: mild rhonchi clears with cough Abdomen: Soft, nt. Back: superficial ecchymosis from oupt heating pad Extremities: Warm. Disheveled LABS: Reviewed. IMAGING: Reviewed. MEDICATIONS: Reviewed. ASSESSMENT: 60 M Toxic metabolic encephalopathy Acute resp failure sec to above - recovered Treatment for bronchitis with sputum +mssa and tx for sepsis sec to this on admission Heme + gastricult - gastritis? ppi daily h/o COPD Chronic pain Etoh abuse PLAN: Neurologic: resuming partial outpt pain regimen. Going slow. Tramadol may not benefit him at this stage and cerainly can contribute to delirum. Baclofen and gabapentin resumed. oxy prn. Cardiovascular: Perfusing. interstitial volume stable post lasix. Respiratory: RA. oob. Gastrointestinal: advance to po diet. ppi daily Renal/Metabolic: stable. replete lytes and f/u Infectious Disease: on ancef for bronchitis for 5 day course. Hematology: stable. hsq. Endocrine: stable. Musculoskeletal: oob. ambulate Psych/Social: social work f/u. Haldol prn. mvi, thiamine. Supportive and preventative care as ordered. SUP: ppi VTE prophylaxis: heparin Steen catheter out Disposition: floor Code Status: Full Critical Care Time: 30min Audrey Sheehan DO
[2016-05-26] MEDS: Vitamin THERAPEUTIC TAB PO SCH (13:04)
[2016-05-26] MEDS: Gabapentin CAP(*) 300 MG PO SCH ×2 (13:04→20:02)
[2016-05-26] MEDS: Potassium Chlor TAB* 20 MEQ TAB.ER PO SCH ×2 (13:05→20:02)
[2016-05-26] MEDS ORDERED: HYDROmorphone* 1 MG/ML 1 ML SYR IV ONE (21:00)
[2016-05-27] MEDS: oxyCODONE TAB* 5 MG TAB PO PRN ×5 (01:15→21:54)
[2016-05-27] MEDS ORDERED: HYDROmorphone* 1 MG/ML 1 ML SYR IV SLOW PU ONE (02:32)
[2016-05-27] MEDS ORDERED: HYDROmorphone* 1 MG/ML 1 ML SYR ONE (02:39)
[2016-05-27] MEDS: ceFAZolin 2 GM PREMIX(*) 2 GM/50 ML BAG IVPB SCH ×3 (05:51→23:00)
[2016-05-27] MEDS: Heparin VIAL(*) 5000 UNITS/ML VIAL (FIVE THOUSAND) SUBCUT SCH ×3 (05:52→23:11)
[2016-05-27] MEDS: Omeprazole CAP* 20 MG PO SCH (05:52)
[2016-05-27 06:22] LABS: BUN/Creatinine Ratio 22.6 (8-20); Calcium 9.2 mg/dL (8.6-10.3); EGFR African American 170.2 (>60); EGFR Non-African American 132.3 (>60); Magnesium 1.8 mg/dL (1.9-2.7); Potassium 3.3 mmol/L (3.5-5.0)
[2016-05-27] MEDS: Gabapentin CAP(*) 300 MG PO SCH ×3 (07:53→19:46)
[2016-05-27] MEDS: Baclofen TAB* 10 MG PO SCH ×3 (07:54→19:46)
[2016-05-27] MEDS: Vitamin THERAPEUTIC TAB PO SCH (07:56)
[2016-05-27] MEDS: Potassium Chlor TAB* 20 MEQ TAB.ER PO SCH ×2 (07:56→13:21)
[2016-05-27] MEDS: Thiamine TAB* 100 MG TAB PO SCH (07:56)
[2016-05-27] MEDS ORDERED: Acetaminophen TAB* 325 MG PO PRN (14:24)
--- NOTE | 2016-05-27 14:30 | PN ---
Subjective Date of Service: 05/27/16 Interval History: C/O back pain, states he takes oxycodone 5 mg for this at home. Objective Active Medications: Acetaminophen (Tylenol Supp*) 650 mg NE Q4H PRN PRN Reason: FEVER/PAIN Acetaminophen (Tylenol Tab*) 650 mg PO Q4H PRN PRN Reason: PAIN Albuterol (Ventolin 2.5 Mg/3 Ml Neb.Jessica*) 2.5 mg INH Q2H PRN PRN Reason: SOB/WHEEZING Baclofen (Lioresal Tab*) 10 mg PO TID [facility] Last Admin: 05/27/16 13:21 Dose: 10 mg Gabapentin (Neurontin Cap(*)) 600 mg PO TID [facility] Last Admin: 05/27/16 13:22 Dose: 600 mg Heparin Sodium (Porcine) (Heparin Flush Picc/Ml/Cvc(*)) 1 - 3 ml FLUSH 0600, 1800 [facility] PRN Reason: Protocol Last Admin: 05/27/16 07:58 Dose: 2 ml Heparin Sodium (Porcine) (Heparin Vial(*)) 5,000 units SUBCUT Q8HR [facility] Last Admin: 05/27/16 13:24 Dose: 5,000 units Cefazolin Sodium/Dextrose (Kefzol Premix(*)) 2 gm in 50 mls @ 100 mls/hr IVPB Q8H [facility] Stop: 05/28/16 14:01 Last Admin: 05/27/16 05:51 Dose: 100 mls/hr Multivitamins (Theragran Tab*) 1 tab PO DAILY [facility] Last Admin: 05/27/16 07:56 Dose: 1 tab Omeprazole (Prilosec Cap*) 20 mg PO 0600 [facility] Last Admin: 05/27/16 05:52 Dose: 20 mg Oxycodone HCl (Roxycodone Tab*) 5 mg PO Q4H PRN PRN Reason: PAIN Last Admin: 05/27/16 13:21 Dose: 5 mg Thiamine HCl (Vitamin B-1 Tab*) 100 mg PO DAILY [facility] Last Admin: 05/27/16 07:56 Dose: 100 mg Vital Signs 05/26/16 05/26/16 05/26/16 14:30 15:00 15:30 Temperature Pulse Rate 102 95 88 Respiratory 31 16 Rate Blood Pressure 164/96 155/83 140/122 (mmHg) O2 Sat by Pulse 95 94 94 Oximetry 05/26/16 05/26/16 05/26/16 16:00 16:30 17:00 Temperature 100 F Pulse Rate 83 80 75 Respiratory Rate Blood Pressure 151/101 159/92 143/90 (mmHg) O2 Sat by Pulse 94 95 94 Oximetry 05/26/16 05/26/16 05/26/16 17:30 18:00 18:30 Temperature Pulse Rate 78 81 79 Respiratory Rate Blood Pressure 158/101 (mmHg) O2 Sat by Pulse 95 96 95 Oximetry 05/26/16 05/26/16 05/26/16 19:00 19:30 19:57 Temperature 99.4 F Pulse Rate 89 90 Respiratory Rate Blood Pressure 158/87 184/108 (mmHg) O2 Sat by Pulse 94 95 Oximetry 05/26/16 05/26/16 05/26/16 20:00 20:30 20:43 Temperature Pulse Rate 96 103 Respiratory 38 38 Rate Blood Pressure 199/118 169/115 (mmHg) O2 Sat by Pulse 96 95 Oximetry 05/26/16 05/26/16 05/26/16 21:00 21:15 21:30 Temperature Pulse Rate 86 85 Respiratory 28 Rate Blood Pressure 171/96 156/87 (mmHg) O2 Sat by Pulse 92 94 Oximetry 05/26/16 05/26/16 05/26/16 21:51 22:00 22:30 Temperature Pulse Rate 86 85 82 Respiratory Rate Blood Pressure 146/88 129/90 (mmHg) O2 Sat by Pulse 95 93 93 Oximetry 05/26/16 05/26/16 05/27/16 23:00 23:30 00:00 Temperature Pulse Rate 79 75 87 Respiratory 18 Rate Blood Pressure 131/97 142/86 (mmHg) O2 Sat by Pulse 94 95 94 Oximetry 05/27/16 05/27/16 05/27/16 01:15 02:50 03:15 Temperature Pulse Rate Respiratory 18 18 18 Rate Blood Pressure (mmHg) O2 Sat by Pulse Oximetry 05/27/16 05/27/16 05/27/16 03:37 07:53 07:54 Temperature 98.9 F Pulse Rate 81 Respiratory 18 20 14 Rate Blood Pressure 157/87 (mmHg) O2 Sat by Pulse 95 Oximetry 05/27/16 05/27/16 05/27/16 10:26 13:21 13:22 Temperature Pulse Rate 94 Respiratory 16 14 12 Rate Blood Pressure (mmHg) O2 Sat by Pulse 95 Oximetry Oxygen Devices in Use Now: None Appearance: Alert, supine in bed. In good spirits. Looks comfortable. Ears/Nose/Mouth/Throat: Clear Oropharnyx, Mucous Membranes Moist Neck: NL Appearance and Movements; NL JVP, No Thyroid Enlargement, Masses Respiratory: Symmetrical Chest Expansion and Respiratory Effort, Clear to Auscultation, Clear to Percussion Extremities: No Edema, No Clubbing, Cyanosis, - Skin: No Rash or Ulcers, No Nodules or Sclerosis, - Neurological: Alert and Oriented x 3, NL Sensation - He knew the present year and the name of this facility. No tremor. Result Diagrams: 05/25/16 05:40 05/27/16 05:45 Additional Lab and Data: Lab Results 05/22/16 Range/Units 12:15 WBC 20.9 H (3.5-10.8) 10^3/ul RBC 5.82 H (4.0-5.4) 10^6/ul Hgb 17.6 (14.0-18.0) g/dl Hct 53 H (42-52) % MCV 91 (80-94) fL MCH 30 (27-31) pg MCHC 33 (31-36) g/dl RDW 14 (10.5-15) % Plt Count Pending MPV Pending Neut % (Auto) 87.3 H (38-83) % Lymph % (Auto) 5.0 L (25-47) % [place] % (Auto) 6.3 (1-9) % Eos % (Auto) 0 (0-6) % Baso % (Auto) 1.4 (0-2) % Absolute Neuts (auto) 18.3 H (1.5-7.7) 10^3/ul Absolute Lymphs (auto) 1.0 (1.0-4.8) 10^3/ul Absolute Monos (auto) 1.3 H (0-0.8) 10^3/ul Absolute Eos (auto) 0 (0-0.6) 10^3/ul Absolute Basos (auto) 0.3 H (0-0.2) 10^3/ul Absolute Nucleated RBC 0.05 10^3/ul Nucleated RBC % 0.2 Microbiology and Other Data: Microbiology 05/26/16 05:00 Urine Culture - Final Urine No Growth (<1,000 CFU/mL) 05/22/16 16:00 Gram Stain - Final Sputum Sputum Culture - Final Staphylococcus Aureus 05/23/16 23:30 Gastric Occult Blood - Final Gastric Fluid 05/22/16 15:45 Nasal Screen MRSA (PCR)([facility]) - Final Nasal Mrsa Negative 05/22/16 15:45 Influenza Types A,B Antigen ([facility]) - Final Nasal Specimen received for Influenza A/B Molecular testing Assess/Plan/Problems-Billing Assessment: - Patient Problems (1) Encephalopathy Current Visit: Yes Status: Acute Code(s): G93.40 - ENCEPHALOPATHY, UNSPECIFIED SNOMED Code(s): 15500829 Comment: Improved. Continue thiamin, stop PRN hlaoperidol. (2) Chronic back pain Current Visit: No Status: Chronic Priority: Medium Code(s): M54.9 - DORSALGIA, UNSPECIFIED; G89.29 - OTHER CHRONIC PAIN SNOMED Code(s): 492415521 Comment: Continue PRN oxycodone. Add scheduled APAP. (3) Tobacco abuse Current Visit: Yes Status: Acute Code(s): Z72.0 - TOBACCO USE SNOMED Code( s): 171994744 Comment: Pt advised to quid smoking and avoid second hand smoke.
[2016-05-27] MEDS: Acetaminophen TAB* 325 MG PO SCH ×2 (17:38→19:46)
[2016-05-28] MEDS: oxyCODONE TAB* 5 MG TAB PO PRN ×3 (02:21→10:11)
[2016-05-28] MEDS: ceFAZolin 2 GM PREMIX(*) 2 GM/50 ML BAG IVPB SCH (05:24)
[2016-05-28] MEDS: Heparin VIAL(*) 5000 UNITS/ML VIAL (FIVE THOUSAND) SUBCUT SCH (05:24)
[2016-05-28] MEDS: Omeprazole CAP* 20 MG PO SCH (06:25)
[2016-05-28] MEDS: Thiamine TAB* 100 MG TAB PO SCH (09:19)
[2016-05-28] MEDS: Acetaminophen TAB* 325 MG PO SCH (09:19)
[2016-05-28] MEDS: Gabapentin CAP(*) 300 MG PO SCH (09:19)
[2016-05-28] MEDS: Baclofen TAB* 10 MG PO SCH (09:19)
[2016-05-28] MEDS: Vitamin THERAPEUTIC TAB PO SCH (09:20)
--- NOTE | 2016-05-28 10:53 | PN ---
"Progress Note - Progress Note Note: pharmacies. This report was requested by: Hernan Coppola | Reference #: [id number] Others' Prescriptions Patient Name: Jj Conway Date: 1955 Address: [address] [place] [address] [place] [address] Sex: Male Rx Written Rx Dispensed Drug Quantity Days Supply Prescriber Name 05/17/2016 05/17/2016 oxycodone-acetaminophen 5-325 mg tablet 45 23 MarletteFrance MD 04/25/2016 04/25/2016 oxycodone-acetaminophen 5-325 mg tablet 45 23 MarletteFrance patino MD 04/25/2016 04/25/2016 tramadol hcl 50 mg tablet 180 30 MarletteGuru patino MD Patient Name: Jj Conway Date: 1955 Address: [facility] [place] [address] Sex: Male Rx Written Rx Dispensed Drug Quantity Days Supply Prescriber Name 12/10/2015 04/28/2016 zolpidem tartrate 10 mg tablet 15 15 MarletteGuru patino MD 12/10/2015 03/24/2016 zolpidem tartrate 10 mg tablet 15 15 MarletteGuru patino MD 02/18/2016 03/24/2016 tramadol hcl 50 mg tablet 180 30 MarletteGuru patino MD 03/10/2016 03/15/2016 oxycodone-acetaminophen 5-325 mg tablet 45 23 MarletteFrance MD 12/10/2015 02/24/2016 zolpidem tartrate 10 mg tablet 15 15 MarletteGuru MD 02/18/2016 02/18/2016 tramadol hcl 50 mg tablet 180 30 MarletteGuru patino MD 02/18/2016 02/18/2016 oxycodone-acetaminophen 5-325 mg tablet 45 23 MarletteFrance MD 12/10/2015 01/25/2016 zolpidem tartrate 10 mg tablet 15 15 MarletteGuru patino MD 01/20/2016 01/25/2016 oxycodone-acetaminophen 5-325 mg tablet 45 23 MarletteFrance patino MD 12/10/2015 01/20/2016 tramadol hcl 50 mg tablet 180 30 MarletteGuru MD 12/10/2015 12/30/2015 zolpidem tartrate 10 mg tablet 15 15 Guru Pappas MD 12/10/2015 12/21/2015 oxycodone-acetaminophen 5-325 mg tablet 45 30 MarletteFrance MD 12/10/2015 12/16/2015 tramadol hcl 50 mg tablet 180 30 MarletteGuru MD 10/01/2015 12/02/2015 zolpidem tartrate 10 mg tablet 15 15 Jared Dyer MD 11/17/2015 11/17/2015 oxycodone-acetaminophen 5-325 mg tablet 45 30 PachJared rhodes MD 11/17/2015 11/17/2015 tramadol hcl 50 mg tablet 90 30 PachJared rhodes MD 10/01/2015 11/02/2015 zolpidem tartrate 10 mg tablet 15 15 Jared Dyer MD 10/19/2015 10/19/2015 tramadol hcl 50 mg tablet 90 30 PachJared rhodes MD 10/19/2015 10/19/2015 oxycodone-acetaminophen 5-325 mg tablet 45 30 PachJared rhodes MD 10/01/2015 10/01/2015 zolpidem tartrate 10 mg tablet 15 15 Jared Dyer MD 09/15/2015 09/16/2015 tramadol hcl 50 mg tablet 90 30 Jared Dyer MD 09/15/2015 09/16/2015 oxycodone-acetaminophen 5-325 mg tablet 45 23 PachJared rhodes MD 08/04/2015 08/30/2015 zolpidem tartrate 10 mg tablet 15 30 Jared Dyer MD 08/13/2015 08/13/2015 oxycodone-acetaminophen 5-325 mg tablet 60 30 Jared Dyer MD 07/23/2015 08/10/2015 tramadol hcl 50 mg tablet 90 30 Jared Dyer MD 08/04/2015 08/10/2015 zolpidem tartrate 10 mg tablet 15 30 Jared Dyer MD 07/23/2015 07/23/2015 oxycodone-acetaminophen 5-325 mg tablet 45 22 Jared Dyer MD 06/10/2015 07/13/2015 tramadol hcl 50 mg tablet 90 30 MarletteGuru MD 06/10/2015 06/11/2015 tramadol hcl 50 mg tablet 90 30 Guru Pappas MD 06/10/2015 06/11/2015 oxycodone-acetaminophen 5-325 45 30 Guru Pappas MD"
[2016-05-28] MEDS ORDERED: Ibuprofen TAB* 600 MG PO PRN (11:04)
--- NOTE | 2016-05-28 11:44 | DCNOTE ---
Subjective Date of Service: 05/28/16 Interval History: C/O back pain. Objective Active Medications: Acetaminophen (Tylenol Supp*) 650 mg [place] Q4H PRN PRN Reason: FEVER/PAIN Acetaminophen (Tylenol Tab*) 650 mg PO Q4H PRN PRN Reason: PAIN Acetaminophen (Tylenol Tab*) 650 mg PO QID [facility] Last Admin: 05/28/16 09:19 Dose: 650 mg Albuterol (Ventolin 2.5 Mg/3 Ml Neb.Jessica*) 2.5 mg INH Q2H PRN PRN Reason: SOB/WHEEZING Baclofen (Lioresal Tab*) 10 mg PO TID [facility] Last Admin: 05/28/16 09:19 Dose: 10 mg Gabapentin (Neurontin Cap(*)) 600 mg PO QID [facility] Heparin Sodium (Porcine) (Heparin Flush Picc/Ml/Cvc(*)) 1 - 3 ml FLUSH 0600, 1800 [facility] PRN Reason: Protocol Last Admin: 05/28/16 06:25 Dose: 1 ml Heparin Sodium (Porcine) (Heparin Vial(*)) 5,000 units SUBCUT Q8HR [facility] Last Admin: 05/28/16 05:24 Dose: 5,000 units Cefazolin Sodium/Dextrose (Kefzol Premix(*)) 2 gm in 50 mls @ 100 mls/hr IVPB Q8H [facility] Stop: 05/28/16 14:01 Last Admin: 05/28/16 05:24 Dose: 100 mls/hr Ibuprofen (Motrin Tab*) 600 mg PO Q6H PRN PRN Reason: PAIN Multivitamins (Theragran Tab*) 1 tab PO DAILY [facility] Last Admin: 05/28/16 09:20 Dose: 1 tab Omeprazole (Prilosec Cap*) 20 mg PO 0600 [facility] Last Admin: 05/28/16 06:25 Dose: 20 mg Oxycodone HCl (Roxycodone Tab*) 5 mg PO Q4H PRN PRN Reason: PAIN Last Admin: 05/28/16 10:11 Dose: 5 mg Thiamine HCl (Vitamin B-1 Tab*) 100 mg PO DAILY [facility] Last Admin: 05/28/16 09:19 Dose: 100 mg Vital Signs 05/27/16 05/27/16 05/27/16 13:21 13:22 15:21 Temperature Pulse Rate Respiratory 14 12 14 Rate Blood Pressure (mmHg) O2 Sat by Pulse Oximetry 05/27/16 05/27/16 05/27/16 15:22 15:47 17:38 Temperature 98.0 F Pulse Rate 85 Respiratory 14 20 14 Rate Blood Pressure 153/106 (mmHg) O2 Sat by Pulse 94 Oximetry 05/27/16 05/27/16 05/27/16 19:38 19:46 19:52 Temperature 98.0 F Pulse Rate 84 Respiratory 18 18 16 Rate Blood Pressure 149/106 (mmHg) O2 Sat by Pulse 95 Oximetry 05/27/16 05/27/16 05/27/16 19:54 21:46 21:54 Temperature Pulse Rate Respiratory 18 18 16 Rate Blood Pressure (mmHg) O2 Sat by Pulse Oximetry 05/27/16 05/27/16 05/28/16 23:52 23:54 00:27 Temperature 98.2 F Pulse Rate 56 64 Respiratory 20 16 Rate Blood Pressure 139/80 (mmHg) O2 Sat by Pulse 94 Oximetry 05/28/16 05/28/16 05/28/16 02:15 02:21 03:25 Temperature 98.1 F Pulse Rate 52 74 Respiratory 18 18 Rate Blood Pressure 129/72 (mmHg) O2 Sat by Pulse 93 Oximetry 05/28/16 05/28/16 05/28/16 04:21 06:25 09:19 Temperature Pulse Rate Respiratory 18 20 14 Rate Blood Pressure (mmHg) O2 Sat by Pulse Oximetry 05/28/16 10:11 Temperature Pulse Rate Respiratory 14 Rate Blood Pressure (mmHg) O2 Sat by Pulse Oximetry Oxygen Devices in Use Now: None Appearance: Alert, lying on bed. In fair spirits. Looks comfortable. Eyes: No Scleral Icterus, PERRLA, - Respiratory: Symmetrical Chest Expansion and Respiratory Effort, Clear to Auscultation, Clear to Percussion Cardiovascular: NL Sounds; No Murmurs; No JVD, RRR, No Edema, - Extremities: No Edema, No Clubbing, Cyanosis, - Skin: No Rash or Ulcers, No Nodules or Sclerosis, - Neurological: Alert and Oriented x 3, NL Sensation - No tremor. Result Diagrams: 05/25/16 05:40 05/27/16 05:45 Additional Lab and Data: Lab Results 05/22/16 Range/Units 12:15 WBC 20.9 H (3.5-10.8) 10^3/ul RBC 5.82 H (4.0-5.4) 10^6/ul Hgb 17.6 (14.0-18.0) g/dl Hct 53 H (42-52) % MCV 91 (80-94) fL MCH 30 (27-31) pg MCHC 33 (31-36) g/dl RDW 14 (10.5-15) % Plt Count Pending MPV Pending Neut % (Auto) 87.3 H (38-83) % Lymph % (Auto) 5.0 L (25-47) % [place] % (Auto) 6.3 (1-9) % Eos % (Auto) 0 (0-6) % Baso % (Auto) 1.4 (0-2) % Absolute Neuts (auto) 18.3 H (1.5-7.7) 10^3/ul Absolute Lymphs (auto) 1.0 (1.0-4.8) 10^3/ul Absolute Monos (auto) 1.3 H (0-0.8) 10^3/ul Absolute Eos (auto) 0 (0-0.6) 10^3/ul Absolute Basos (auto) 0.3 H (0-0.2) 10^3/ul Absolute Nucleated RBC 0.05 10^3/ul Nucleated RBC % 0.2 Microbiology and Other Data: Microbiology 05/26/16 05:00 Urine Culture - Final Urine No Growth (<1,000 CFU/mL) 05/22/16 16:00 Gram Stain - Final Sputum Sputum Culture - Final Staphylococcus Aureus 05/23/16 23:30 Gastric Occult Blood - Final Gastric Fluid 05/22/16 15:45 Nasal Screen MRSA (PCR)([facility]) - Final Nasal Mrsa Negative 05/22/16 15:45 Influenza Types A,B Antigen ([facility]) - Final Nasal Specimen received for Influenza A/B Molecular testing Assess/Plan/Problems-Billing Assessment: - Patient Problems (1) Encephalopathy Current Visit: Yes Status: Acute Code(s): G93.40 - ENCEPHALOPATHY, UNSPECIFIED SNOMED Code(s): 69716027 Comment: Improved. Continue thiamine. I spoke to his SO Rosa M on the phone and she felt he was at his baseline mentally. She will bring him home this afternoon, and will bring in all his pill bottles for me to look at. Possible role of alcohol use in his illness. (2) Chronic back pain Current Visit: No Status: Chronic Priority: Medium Code(s): M54.9 - DORSALGIA, UNSPECIFIED; G89.29 - OTHER CHRONIC PAIN SNOMED Code(s): 643721143 Comment: Continue PRN oxycodone. Fup Dr. Pappas. (3) Tobacco abuse Current Visit: Yes Status: Acute Code(s): Z72.0 - TOBACCO USE SNOMED Code( s): 767444600 Comment: Pt advised to quit smoking and avoid second hand smoke. Status and Disposition: Discharge now. Fup Dr. Pappas.
--- NOTE | 2016-05-28 12:15 | PN ---
Progress Note - Progress Note Note: Time spent on discharge 55 minutes.
[2016-05-28] MEDS ORDERED: Gabapentin CAP(*) 300 MG PO SCH (13:00)
[2016-05-28 13:19] VITALS: BP 154/88
--- NOTE | 2016-05-29 07:37 | DS ---
DISCHARGE SUMMARY: DATE OF ADMISSION: DATE OF DISCHARGE: 05/28/16 HOSPITAL COURSE: This 60-year-old man that presented with altered mental status. He had been lying on the couch unresponsive about 36 hours or more, as it had been thought he was asleep. In the emergency room, he was delirious and required IV sedation. He was given intravenous fluids and antibiotics. CT scan showed no acute findings. Tox screen showed evidence of cocaine use. He was intubated due to his agitation and to protect his airways. On intubation, copious amount of purulent secretions was encountered. He also had atrial fibrillation in the emergency room and was started on a diltiazem drip. He had an echocardiogram on 05/23/16, which showed an ejection fraction of 55% to 60%. It was a poor quality study. There was [id number] concentric left ventricular hypertrophy. No significant valve disease could be detected, although the images were poor. I believe the patient converted to normal sinus rhythm spontaneously. The patient was extubated, he did well on room air. He returned to his normal baseline mental status. I spoke to his significant other who came in and brought all his pill bottles. He had a large a number of bottles, but if anything it seems he was not really using many of them. He had 2 of the identical prescriptions for 45 oxycodone/acetaminophen tablets, one from April and one from May. The one from May only had 3 tablets missing. The one from April probably had about 10 or 15 missing. He also had tramadol , several bottles of gabapentin. I cannot say anything definitive about the cause of his encephalopathy. It did resolve completely. Most likely, it was related to either illicit drugs, prescribed drugs, or a combination. I think he probably would do as well on a smaller dose of gabapentin. They are scored tablets, I told him to take 1-1/2 tablets 4 times a day rather than 2 tablets twice a day, this would be reduction from 1200 to 900 mg q.i.d. Further reductions could be considered in the future. I am not sure if he is actually even taking that amount. I instructed him not to take any Zolpidem at all. I am not sure if the combination of tramadol and oxycodone/acetaminophen is necessary. FINAL DIAGNOSES: 1. Encephalopathy. 2. Chronic back pain. 3. Tobacco use. DISCHARGE MEDICATIONS: 1. Thiamine 100 mg daily. 2. Glucosamine/chondroitin 1 capsule daily. 3. Tramadol 50 mg every 4 hours p.r.n. 4. Docusate 100 mg b.i.d. p.r.n. 5. Diphenhydramine 25 mg h.s. p.r.n. 6. Magnesium oxide 400 mg daily. 7. Omeprazole 40 mg b.i.d. 8. Ibuprofen 600 mg every 6 hours p.r.n. 9. Lisinopril/hydrochlorothiazide 10/12.5 one daily. 10. Ropinirole 0.5 mg h.s. 11. Oxycodone/acetaminophen 5/325 one every 12 hours p.r.n. 12. Baclofen 5 to 10 mg every 8 hours p.r.n. 13. Gabapentin 900 mg 4 times a day. CC: Dr. Pappas* [id number]/CPS #: [id number] [facility]
== END 2016-05-28 13:30 | disposition home or self-care (01) | DRG 720 ==
LOC: ED 11:50 → ICU 13:38 → MED 05-27 01:11
PROVIDERS: ADMIT Hospitalist; ATTEND Internal Medicine
PROC: 5A1945Z Respiratory Ventilation, 24-96 Consecutive Hours (ICD-10-PCS; 2016-05-22)
PROC: 0BH17EZ Insertion of Endotracheal Airway into Trachea, Via Natural or Artificial Opening (ICD-10-PCS; 2016-05-22)
PROC: 4A10X4Z Monitoring of Central Nervous Electrical Activity, External Approach (ICD-10-PCS; 2016-05-22)
PROC: 02HV33Z Insertion of Infusion Device into Superior Vena Cava, Percutaneous Approach (ICD-10-PCS; principal; 2016-05-24)
DX: A41.9 Sepsis, unspecified organism (principal); G92 Toxic encephalopathy; J96.00 Acute respiratory failure, unspecified whether with hypoxia or hypercapnia; N17.9 Acute kidney failure, unspecified; E87.2 Acidosis; I48.91 Unspecified atrial fibrillation; M62.82 Rhabdomyolysis; E83.42 Hypomagnesemia; I10 Essential (primary) hypertension; E86.0 Dehydration; K21.9 Gastro-esophageal reflux disease without esophagitis; Z86.718 Personal history of other venous thrombosis and embolism; J45.909 Unspecified asthma, uncomplicated; J44.9 Chronic obstructive pulmonary disease, unspecified; Z87.442 Personal history of urinary calculi; M19.90 Unspecified osteoarthritis, unspecified site; H91.90 Unspecified hearing loss, unspecified ear; G89.29 Other chronic pain; M54.9 Dorsalgia, unspecified; F17.210 Nicotine dependence, cigarettes, uncomplicated; E78.5 Hyperlipidemia, unspecified; R74.8 Abnormal levels of other serum enzymes; F14.90 Cocaine use, unspecified, uncomplicated; N40.0 Benign prostatic hyperplasia without lower urinary tract symptoms; Z86.14 Personal history of Methicillin resistant Staphylococcus aureus infection; E87.6 Hypokalemia; F10.10 Alcohol abuse, uncomplicated; Y90.9 Presence of alcohol in blood, level not specified; I51.7 Cardiomegaly; T50.905A Adverse effect of unspecified drugs, medicaments and biological substances, initial encounter
CPT/HCPCS: 36415; 36600; 70450; 71010; 80048; 80053; 80162; 80202; 80307; 80320; 80329; 80346; 81003; 81015; 82140; 82271; 82550; 82570; 82803; 83605; 83735; 84100; 84300; 84443; 84484; 85025; 85027; 87040; 87070; 87077; 87086; 87186; 87205; 87502; 87641; 93005; 93306; 94002; 94003; 94760; 95822; 99406; A9270-GY; C1751; G0480; J0133; J0461; J0690; J0696; J1160; J1170; J1200; J1630; J1644; J1940; J2060; J2543; J2704; J2997; J3010; J3370

== ENCOUNTER 2017-02-25 12:43 | Inpatient (IN) | payer OTHER ==
[2017-02-25] MEDS ORDERED: Morphine INJ* 4 MG/ML 1 ML CARPUJECT ONE (13:09)
[2017-02-25] MEDS ORDERED: NS 0.9% 1000 ML* 1,000 ML IV ONE (13:29)
[2017-02-25] MEDS ORDERED: LORazepam INJ* 2 MG/ML 1 ML VIAL IV PUSH ONE (13:32)
[2017-02-25] MEDS ORDERED: Morphine INJ* 4 MG/ML 1 ML CARPUJECT IV ONE (13:33)
[2017-02-25 13:52] LABS: Hematocrit 43 % (42-52); Hemoglobin 14.8 g/dl (14.0-18.0); Mean Corpuscular HGB Conc 34 g/dl (31-36); Mean Corpuscular Hemoglobin 31 pg (27-31); Mean Corpuscular Volume 90 fL (80-94); Mean Platelet Volume 9 um3 (7.4-10.4); Red Blood Count 4.82 10^6/ul (4.0-5.4); Red Cell Distribution Width 14 % (10.5-15); White Blood Count 6.9 10^3/ul (3.5-10.8)
[2017-02-25] MEDS ORDERED: Haloperidol INJ IV/IM* 5 MG/ML AMP IM ONE (13:59)
[2017-02-25] MEDS ORDERED: Midazolam* 1 MG/ML 5 ML VIAL (5 MG) IV ONE (14:00)
[2017-02-25] MEDS ORDERED: Midazolam* 1 MG/ML 5 ML VIAL (5 MG) ONE (14:01)
[2017-02-25 14:06] LABS: ALT 15 U/L (7-52); AST 18 U/L (13-39); Albumin 4.1 g/dL (3.2-5.2); Alkaline Phosphatase 103 U/L (34-104); Anion Gap 9 mmol/L (2-11); Blood Urea Nitrogen 22 mg/dL (6-24); CO2 Carbon Dioxide 25 mmol/L (22-32); Calcium 10.1 mg/dL (8.6-10.3); Chloride 104 mmol/L (101-111); Creatine Kinase 103 U/L (10-223); EGFR African American 113.2 (>60); Globulin 3.7 g/dL (2-4); Glucose 117 mg/dL (70-100); Potassium 3.3 mmol/L (3.5-5.0); Sodium 138 mmol/L (133-145); Total Protein 7.8 g/dL (6.4-8.9)
[2017-02-25 14:07] LABS: Acetaminophen < 15 mcg/mL; Alcohol < 10 mg/dL (<10); Salicylate < 2.50 mg/dL (<30)
[2017-02-25 14:07] LABS: Urine Bilirubin Negative (Negative); Urine Glucose Negative (Negative); Urine Nitrite Negative (Negative)
[2017-02-25 14:20] LABS: TSH (Thyroid Stimulating Horm) 1.09 mcIU/mL (0.34-5.60)
[2017-02-25 14:21] LABS: Benzodiazepine Urine Screen Presumptive Positive (None Detect)
[2017-02-25] MEDS ORDERED: NS 0.9% 1000 ML* 1,000 ML BOLUS SCH (14:45)
[2017-02-25 14:53] LABS: PCO2 Arterial 43 mmHg (35-45)
--- NOTE | 2017-02-25 14:54 | RAD ---
HISTORY: Altered mental status, fall COMPARISONS: January 03, 2017 TECHNIQUE: Multiple contiguous axial CT scans were obtained of the head without intravenous contrast. FINDINGS: HEMORRHAGE/INFARCT: There is no hemorrhage or acute infarct. MASSES/SHIFT: There is no mass or shift. EXTRA-AXIAL SPACES: There are no extra-axial fluid collections. SULCI AND VENTRICLES: The sulci and ventricles are normal in size and position for the patient's stated age. CEREBRUM: There is patchy hypoattenuation of the periventricular and subcortical white matter. BRAINSTEM: There are no focal parenchymal abnormalities. CEREBELLUM: There are no focal parenchymal abnormalities. VESSELS: The vessels are grossly normal. PARANASAL SINUSES: There is a defect of the nasal septum. 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 There is mucosal thickening of the ethmoid air cells. ORBITS: The orbits are unremarkable. BONES AND SOFT TISSUE: No bone or soft tissue abnormalities are noted. OTHER: None IMPRESSION: NO ACUTE INTRACRANIAL PATHOLOGY. CHRONIC SMALL VESSEL ISCHEMIC CHANGES.
--- NOTE | 2017-02-25 15:01 | RAD ---
HISTORY: Altered mental status, fall. No other history is provided. COMPARISONS: February 07, 2009, November 12, 2013 TECHNIQUE: Multiple contiguous axial CT scans were obtained of the cervical, thoracic, and lumbar spine without intravenous contrast, with coronal and sagittal multiplanar reformations. FINDINGS: There is a transitional last lumbar type vertebral body which will be labeled S1 for the purposes of counting. SPINAL CANAL: Evaluation of the central canal is limited on CT technique; however, there is no obvious canalicular mass or epidural hemorrhage. ALIGNMENT: There is straightening of the cervical lordosis. There is mild scoliotic curvature of the spine. VERTEBRAL BODIES: There is multilevel lateral marginal osteophyte formation. There is no displaced fracture or dislocation. There is partial lumbarization of the S1 vertebral body. Noted are small accessory ribs at L1 bilaterally. JOINTS: There is osteoarthritis of the atlantoaxial, uncovertebral, costovertebral, and facet joints MUSCULATURE: There is moderate atrophy of the multifidus musculature. INTERVERTEBRAL DISCS: There is diffuse loss of intervertebral disc height throughout the spine. Vacuum phenomena are noted in the lumbar intervertebral disc spaces. AXIAL IMAGES: At C4-C5, there is broad-based disc bulge, with moderate narrowing of the central canal. At L4-L5, there is broad-based disc bulge with ligamentous hypertrophy. There is moderate narrowing of the central canal. At L5-S1, there is broad-based disc bulge with facet hypertrophy. There is moderate narrowing of central canal. There is diffuse multilevel neural foraminal narrowing throughout the cervical spine. There is bilateral neural foraminal narrowing at L3-L4, L4-L5, and L5-S1 SOFT TISSUES: The visualized soft tissues of the chest and abdomen are unremarkable. OTHER: None IMPRESSION: 1. DEGENERATIVE DISC DISEASE AND OSTEOARTHRITIS MOST PRONOUNCED IN THE CERVICAL AND LOWER LUMBAR SPINE. 2. NO ACUTE OSSEOUS INJURY TO THE CERVICAL, THORACIC, OR LUMBAR SPINE
--- NOTE | 2017-02-25 16:02 | RAD ---
HISTORY: Altered mental status COMPARISONS: January 10, 2017 VIEWS: 2: frontal portable view of the chest at 3:20 PM FINDINGS: LINES AND TUBES: None. CARDIOMEDIASTINAL SILHOUETTE: The cardiomediastinal silhouette is stable. PLEURA: The costophrenic angles are sharp. No pleural abnormalities are noted. LUNG PARENCHYMA: The lungs are clear. ABDOMEN: The upper abdomen is clear. There is no subphrenic gas. BONES AND SOFT TISSUES: No bone or soft tissue abnormalities are noted. IMPRESSION: NO ACTIVE CARDIOPULMONARY DISEASE.
[2017-02-25] MEDS ORDERED: Thiamine IV* 100 MG/ML 2 ML VIAL IM ONE (16:03)
[2017-02-25] MEDS ORDERED: Acetaminophen TAB* 325 MG PO PRN (16:03)
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
[2017-02-25] MEDS: Diazepam SYRINGE* 5 MG/ML 2 ML SYRINGE (10 MG total) IV SCH ×2 (19:44→21:26)
[2017-02-25] MEDS: Metoprolol Tartrate TAB* 100 MG TAB PO SCH (19:48)
[2017-02-25] MEDS: Gabapentin CAP(*) 300 MG PO SCH (19:49)
[2017-02-25] MEDS: Ropinirole TAB* 0.5 MG TAB PO SCH (19:50)
[2017-02-25] MEDS: Haloperidol INJ IV/IM* 5 MG/ML AMP IV SLOW PU PRN (20:10)
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
[2017-02-25] MEDS ORDERED: Ziprasidone IM INJ* 20 MG/ML VIAL IM ONE (21:00)
[2017-02-25] MEDS: Heparin VIAL(*) 5000 UNITS/ML VIAL (FIVE THOUSAND) SUBCUT SCH (21:32)
[2017-02-26] MEDS: Heparin VIAL(*) 5000 UNITS/ML VIAL (FIVE THOUSAND) SUBCUT SCH ×3 (05:21→22:49)
[2017-02-26] MEDS: Folic Acid TAB* 1 MG PO SCH (08:45)
[2017-02-26] MEDS: Metoprolol Tartrate TAB* 100 MG TAB PO SCH ×2 (08:45→20:01)
[2017-02-26] MEDS: Diltiazem CD CAP* 180 MG PO SCH (08:45)
[2017-02-26] MEDS: Magnesium Oxide TAB* 400 MG PO SCH (08:45)
[2017-02-26] MEDS: Multivitamins/Minerals TAB PO SCH (08:46)
[2017-02-26] MEDS: Thiamine TAB* 100 MG TAB PO SCH (08:46)
[2017-02-26] MEDS: Gabapentin CAP(*) 300 MG PO SCH ×2 (08:46→20:00)
[2017-02-26] MEDS: Nicotine PATCH 14 MG/24 HR* PATCH TRANSDERM SCH (08:48)
[2017-02-26] MEDS: Haloperidol INJ IV/IM* 5 MG/ML AMP IV SLOW PU PRN (08:48)
[2017-02-26] MEDS: Diazepam SYRINGE* 5 MG/ML 2 ML SYRINGE (10 MG total) IV SCH (09:50)
[2017-02-26] MEDS ORDERED: NS 0.9% 1000 ML* 1,000 ML IV ONE (10:32)
[2017-02-26] MEDS ORDERED: oxyCODONE TAB* 5 MG TAB PO ONE (10:33)
[2017-02-26] MEDS ORDERED: traMADol TAB* 50 MG ONE (10:55)
[2017-02-26] MEDS: traMADol TAB* 50 MG PO SCH ×4 (10:57→22:41)
[2017-02-26] MEDS: Baclofen TAB* 10 MG PO PRN (10:58)
[2017-02-26] MEDS: Ibuprofen TAB* 600 MG PO PRN ×2 (12:54→17:32)
[2017-02-26] MEDS: oxyCODONE TAB* 5 MG TAB PO PRN ×2 (15:27→22:52)
--- NOTE | 2017-02-26 17:40 | PN ---
Subjective Date of Service: 02/26/17 Interval History: Seen and examined Awake and able to give a complete history Remembers why he was brought to the hospital Reports he was drinking 2 gallons of liquor a week then stopped. Objective Active Medications: Baclofen (Lioresal Tab*) 5 - 10 mg PO Q8HR PRN PRN Reason: SPASMS - MUSCLE Last Admin: 02/26/17 10:58 Dose: 10 mg Diazepam (Valium Syringe*) 0 - 15 mg IV .PER [facility] PROTOCOL [facility] PRN Reason: Protocol Last Admin: 02/26/17 09:50 Dose: 5 mg Diltiazem HCl (Cardizem Cd Cap*) 180 mg PO DAILY [facility] Last Admin: 02/26/17 08:45 Dose: 180 mg Docusate Sodium (Colace Cap*) 100 mg PO BID [facility] Folic Acid (Folvite Tab*) 1 mg PO DAILY [facility] Last Admin: 02/26/17 08:45 Dose: 1 mg Gabapentin (Neurontin Cap(*)) 900 mg PO BID [facility] Last Admin: 02/26/17 08:46 Dose: 900 mg Haloperidol Lactate (Haldol Inj Iv/Im*) 2 mg IV SLOW PU Q4H PRN PRN Reason: AGITATION Last Admin: 02/26/17 08:48 Dose: 2 mg Heparin Sodium (Porcine) (Heparin Vial(*)) 5,000 units SUBCUT Q8HR [facility] Last Admin: 02/26/17 13:38 Dose: 5,000 units Sodium Chloride (Ns 0.9% 1000 Ml*) 1,000 mls @ 0 mls/hr BOLUS .BOLUS DOSE [facility] PRN Reason: Wide Open Last Admin: 02/25/17 15:46 Dose: 999 mls/hr Ibuprofen (Motrin Tab*) 600 mg PO QID PRN PRN Reason: PAIN Last Admin: 02/26/17 17:32 Dose: 600 mg Magnesium Oxide (Magox 400 Tab*) 400 mg PO DAILY [facility] Last Admin: 02/26/17 08:45 Dose: 400 mg Metoprolol Tartrate (Lopressor Tab*) 100 mg PO BID [facility] Last Admin: 02/26/17 08:45 Dose: 100 mg Multivitamins/Minerals (Theragran/Minerals Tab*) 1 tab PO DAILY [facility] Last Admin: 02/26/17 08:46 Dose: 1 tab Nicotine (Nicotine Patch 14 Mg/24 Hr*) 1 patch TRANSDERM DAILY [facility] Last Admin: 02/26/17 08:48 Dose: 1 patch Omeprazole (Prilosec Cap*) 40 mg PO BID [facility] Oxycodone HCl (Roxycodone Tab*) 5 mg PO Q4H PRN PRN Reason: PAIN Last Admin: 02/26/17 15:27 Dose: 5 mg Ropinirole HCl (Requip Tab*) 0.5 mg PO BEDTIME [facility] Last Admin: 02/25/17 19:50 Dose: 0.5 mg Thiamine HCl (Vitamin B-1 Tab*) 100 mg PO DAILY [facility] Last Admin: 02/26/17 08:46 Dose: 100 mg Tramadol HCl (Ultram*) 50 mg PO Q4HR [facility] Last Admin: 02/26/17 17:27 Dose: 50 mg Vital Signs - 8 hr 02/26/17 02/26/17 02/26/17 09:50 10:57 10:58 Temperature Pulse Rate Respiratory 28 28 28 Rate Blood Pressure (mmHg) O2 Sat by Pulse Oximetry 02/26/17 02/26/17 02/26/17 11:22 11:55 13:30 Temperature 97.5 F Pulse Rate 74 Respiratory 28 24 20 Rate Blood Pressure 140/62 (mmHg) O2 Sat by Pulse 97 Oximetry 02/26/17 02/26/17 02/26/17 13:32 13:37 15:22 Temperature 98.1 F 98.2 F Pulse Rate 73 74 Respiratory 24 24 18 Rate Blood Pressure 139/63 150/83 (mmHg) O2 Sat by Pulse 95 97 Oximetry 02/26/17 02/26/17 02/26/17 15:27 17:27 17:29 Temperature Pulse Rate Respiratory 22 23 23 Rate Blood Pressure (mmHg) O2 Sat by Pulse Oximetry Oxygen Devices in Use Now: Nasal Cannula Appearance: disheveled, NAD Eyes: No Scleral Icterus, PERRLA Ears/Nose/Mouth/Throat: - - dry MMM Neck: NL Appearance and Movements; NL JVP, Trachea Midline Respiratory: Symmetrical Chest Expansion and Respiratory Effort, Clear to Auscultation Cardiovascular: RRR Abdominal: NL Sounds; No Tenderness; No Distention, No Hepatosplenomegaly Lymphatic: No Cervical Adenopathy Extremities: No Edema Skin: - - reicular purple rash on back Neurological: Alert and Oriented x 3 Result Diagrams: 02/25/17 13:13 02/25/17 13:13 Additional Lab and Data: Lab Results 02/25/17 02/25/17 02/25/17 Range/Units 13:13 13:13 13:13 WBC 6.9 (3.5-10.8) 10^3/ul RBC 4.82 (4.0-5.4) 10^6/ul Hgb 14.8 (14.0-18.0) g/dl Hct 43 (42-52) % MCV 90 (80-94) fL MCH 31 (27-31) pg MCHC 34 (31-36) g/dl RDW 14 (10.5-15) % Plt Count 308 (150-450) 10^3/ul MPV 9 (7.4-10.4) um3 Neut % (Auto) 65.1 (38-83) % Lymph % (Auto) 19.5 L (25-47) % [place] % (Auto) 12.2 H (1-9) % Eos % (Auto) 2.6 (0-6) % Baso % (Auto) 0.6 (0-2) % Absolute Neuts (auto) 4.5 (1.5-7.7) 10^3/ul Absolute Lymphs (auto) 1.4 (1.0-4.8) 10^3/ul Absolute Monos (auto) 0.9 H (0-0.8) 10^3/ul Absolute Eos (auto) 0.2 (0-0.6) 10^3/ul Absolute Basos (auto) 0 (0-0.2) 10^3/ul Absolute Nucleated RBC 0 10^3/ul Nucleated RBC % 0 INR (Anticoag Therapy) (0.77-1.02) ABG pH (7.35-7.45) ABG pCO2 (35-45) mmHg ABG pO2 (80-100) mmHg ABG HCO3 (19-31) mmol/L ABG O2 Saturation (95-98) % ABG Base Excess (-2.0-2.0) Sodium 138 (133-145) mmol/L Potassium 3.3 L (3.5-5.0) mmol/L Chloride 104 (101-111) mmol/L Carbon Dioxide 25 (22-32) mmol/L Anion Gap 9 (2-11) mmol/L BUN 22 (6-24) mg/dL Creatinine 0.88 (0.67-1.17) mg/dL Est GFR ( Amer) 113.2 (>60) Est GFR (Non-Af Amer) 88.0 (>60) BUN/Creatinine Ratio 25.0 H (8-20) Glucose 117 H (70-100) mg/dL POC Glucose (mg/dL) (70-100) mg/dL Lactic Acid 0.9 (0.5-2.0) mmol/L Calcium 10.1 (8.6-10.3) mg/dL Magnesium 2.0 (1.9-2.7) mg/dL Total Bilirubin 0.30 (0.2-1.0) mg/dL AST 18 (13-39) U/L ALT 15 (7-52) U/L Alkaline Phosphatase 103 (34-104) U/L Ammonia (16-53) mol/L Total Creatine Kinase 103 (10-223) U/L Troponin I 0.00 (<0.04) ng/mL Total Protein 7.8 (6.4-8.9) g/dL Albumin 4.1 (3.2-5.2) g/dL Globulin 3.7 (2-4) g/dL Albumin/Globulin Ratio 1.1 (1-3) TSH 1.09 (0.34-5.60) mcIU/mL Urine Color Urine Appearance Urine pH (5-9) Ur Specific [place] (1.010-1.030) Urine Protein (Negative) Urine Ketones (Negative) Urine Blood (Negative) Urine Nitrate (Negative) Urine Bilirubin (Negative) Urine Urobilinogen (Negative) Ur Leukocyte Esterase (Negative) Urine Glucose (Negative) Urine Ascorbic Acid (Negative) Salicylates < 2.50 (<30) mg/dL Urine Opiates Screen (None Detect) Acetaminophen < 15 mcg/mL Ur Barbiturates Screen (None Detect) Ur Phencyclidine Scrn (None Detect) Ur Amphetamines Screen (None Detect) U Benzodiazepines Scrn (None Detect) Urine Cocaine Screen (None Detect) U Cannabinoids Screen (None Detect) Serum Alcohol < 10 (<10) mg/dL 02/25/17 02/25/17 02/25/17 Range/Units 13:13 13:22 13:50 WBC (3.5-10.8) 10^3/ul RBC (4.0-5.4) 10^6/ul Hgb (14.0-18.0) g/dl Hct (42-52) % MCV (80-94) fL MCH (27-31) pg MCHC (31-36) g/dl RDW (10.5-15) % Plt Count (150-450) 10^3/ul MPV (7.4-10.4) um3 Neut % (Auto) (38-83) % Lymph % (Auto) (25-47) % [place] % (Auto) (1-9) % Eos % (Auto) (0-6) % Baso % (Auto) (0-2) % Absolute Neuts (auto) (1.5-7.7) 10^3/ul Absolute Lymphs (auto) (1.0-4.8) 10^3/ul Absolute Monos (auto) (0-0.8) 10^3/ul Absolute Eos (auto) (0-0.6) 10^3/ul Absolute Basos (auto) (0-0.2) 10^3/ul Absolute Nucleated RBC 10^3/ul Nucleated RBC % INR (Anticoag Therapy) 0.95 (0.77-1.02) ABG pH (7.35-7.45) ABG pCO2 (35-45) mmHg ABG pO2 (80-100) mmHg ABG HCO3 (19-31) mmol/L ABG O2 Saturation (95-98) % ABG Base Excess (-2.0-2.0) Sodium (133-145) mmol/L Potassium (3.5-5.0) mmol/L Chloride (101-111) mmol/L Carbon Dioxide (22-32) mmol/L Anion Gap (2-11) mmol/L BUN (6-24) mg/dL Creatinine (0.67-1.17) mg/dL Est GFR ( Amer) (>60) Est GFR (Non-Af Amer) (>60) BUN/Creatinine Ratio (8-20) Glucose (70-100) mg/dL POC Glucose (mg/dL) 110 H (70-100) mg/dL Lactic Acid (0.5-2.0) mmol/L Calcium (8.6-10.3) mg/dL Magnesium (1.9-2.7) mg/dL Total Bilirubin (0.2-1.0) mg/dL AST (13-39) U/L ALT (7-52) U/L Alkaline Phosphatase (34-104) U/L Ammonia (16-53) mol/L Total Creatine Kinase (10-223) U/L Troponin I (<0.04) ng/mL Total Protein (6.4-8.9) g/dL Albumin (3.2-5.2) g/dL Globulin (2-4) g/dL Albumin/Globulin Ratio (1-3) TSH (0.34-5.60) mcIU/mL Urine Color Yellow Urine Appearance Clear Urine pH 7.0 (5-9) Ur Specific [place] 1.026 (1.010-1.030) Urine Protein Negative (Negative) Urine Ketones 1+ H (Negative) Urine Blood Negative (Negative) Urine Nitrate Negative (Negative) Urine Bilirubin Negative (Negative) Urine Urobilinogen Negative (Negative) Ur Leukocyte Esterase Negative (Negative) Urine Glucose Negative (Negative) Urine Ascorbic Acid * H (Negative) Salicylates (<30) mg/dL Urine Opiates Screen (None Detect) Acetaminophen mcg/mL Ur Barbiturates Screen (None Detect) Ur Phencyclidine Scrn (None Detect) Ur Amphetamines Screen (None Detect) U Benzodiazepines Scrn (None Detect) Urine Cocaine Screen (None Detect) U Cannabinoids Screen (None Detect) Serum Alcohol (<10) mg/dL 02/25/17 02/25/17 02/25/17 Range/Units 13:50 14:35 15:11 WBC (3.5-10.8) 10^3/ul RBC (4.0-5.4) 10^6/ul Hgb (14.0-18.0) g/dl Hct (42-52) % MCV (80-94) fL MCH (27-31) pg MCHC (31-36) g/dl RDW (10.5-15) % Plt Count (150-450) 10^3/ul MPV (7.4-10.4) um3 Neut % (Auto) (38-83) % Lymph % (Auto) (25-47) % [place] % (Auto) (1-9) % Eos % (Auto) (0-6) % Baso % (Auto) (0-2) % Absolute Neuts (auto) (1.5-7.7) 10^3/ul Absolute Lymphs (auto) (1.0-4.8) 10^3/ul Absolute Monos (auto) (0-0.8) 10^3/ul Absolute Eos (auto) (0-0.6) 10^3/ul Absolute Basos (auto) (0-0.2) 10^3/ul Absolute Nucleated RBC 10^3/ul Nucleated RBC % INR (Anticoag Therapy) (0.77-1.02) ABG pH 7.40 (7.35-7.45) ABG pCO2 43 (35-45) mmHg ABG pO2 108 H (80-100) mmHg ABG HCO3 26.0 (19-31) mmol/L ABG O2 Saturation 97.8 (95-98) % ABG Base Excess 1.4 (-2.0-2.0) Sodium (133-145) mmol/L Potassium (3.5-5.0) mmol/L Chloride (101-111) mmol/L Carbon Dioxide (22-32) mmol/L Anion Gap (2-11) mmol/L BUN (6-24) mg/dL Creatinine (0.67-1.17) mg/dL Est GFR ( Amer) (>60) Est GFR (Non-Af Amer) (>60) BUN/Creatinine Ratio (8-20) Glucose (70-100) mg/dL POC Glucose (mg/dL) (70-100) mg/dL Lactic Acid (0.5-2.0) mmol/L Calcium (8.6-10.3) mg/dL Magnesium (1.9-2.7) mg/dL Total Bilirubin (0.2-1.0) mg/dL AST (13-39) U/L ALT (7-52) U/L Alkaline Phosphatase (34-104) U/L Ammonia 57 H (16-53) mol/L Total Creatine Kinase (10-223) U/L Troponin I (<0.04) ng/mL Total Protein (6.4-8.9) g/dL Albumin (3.2-5.2) g/dL Globulin (2-4) g/dL Albumin/Globulin Ratio (1-3) TSH (0.34-5.60) mcIU/mL Urine Color Urine Appearance Urine pH (5-9) Ur Specific [place] (1.010-1.030) Urine Protein (Negative) Urine Ketones (Negative) Urine Blood (Negative) Urine Nitrate (Negative) Urine Bilirubin (Negative) Urine Urobilinogen (Negative) Ur Leukocyte Esterase (Negative) Urine Glucose (Negative) Urine Ascorbic Acid (Negative) Salicylates (<30) mg/dL Urine Opiates Screen Presumptive positive H (None Detect) Acetaminophen mcg/mL Ur Barbiturates Screen None detected (None Detect) Ur Phencyclidine Scrn None detected (None Detect) Ur Amphetamines Screen None detected (None Detect) U Benzodiazepines Scrn Presumptive positive H (None Detect) Urine Cocaine Screen None detected (None Detect) U Cannabinoids Screen None detected (None Detect) Serum Alcohol (<10) mg/dL Assess/Plan/Problems-Billing Assessment: 61 yo M h/o etoh dependance and polysubstance abuse with multiple stays with AMS in setting of DTs - Patient Problems (1) Acute alcohol intoxication with alcoholism with delirium Comment: WAM protocol with diazepam improving since admission unclear why he stopped drinking thiamine and folate (2) Chronic pain Comment: restart home meds confirmed tramadol and oxycodone prescriptions istop (3) Paroxysmal a-fib Comment: c/w cardizem and metoprolol (4) COPD (chronic obstructive pulmonary disease) Comment: stable (5) DVT prophylaxis Comment: SQ heparin
[2017-02-26] MEDS: Docusate CAP* 100 MG PO SCH (20:01)
[2017-02-26] MEDS: Ropinirole TAB* 0.5 MG TAB PO SCH (20:01)
[2017-02-26] MEDS: Omeprazole CAP* 20 MG PO SCH (20:01)
[2017-02-26] MEDS: LORazepam IV 0-3 mg for WAM protocol IV PUSH SCH (20:39)
[2017-02-27] MEDS: traMADol TAB* 50 MG PO SCH ×6 (03:28→21:06)
[2017-02-27] MEDS: oxyCODONE TAB* 5 MG TAB PO PRN ×2 (05:41→13:15)
[2017-02-27] MEDS: LORazepam IV 0-3 mg for WAM protocol IV PUSH SCH (05:42)
[2017-02-27] MEDS: Heparin VIAL(*) 5000 UNITS/ML VIAL (FIVE THOUSAND) SUBCUT SCH ×3 (06:03→21:07)
[2017-02-27] MEDS ORDERED: LORazepam INJ* 2 MG/ML 1 ML VIAL IV PUSH SCH (08:00)
[2017-02-27] MEDS ORDERED: LORazepam IM 0-6 mg for WAM protocol IV PUSH SCH (08:00)
[2017-02-27 08:15] LABS: BUN/Creatinine Ratio 32.4 (8-20); EGFR African American 152.5 (>60); EGFR Non-African American 118.6 (>60); Magnesium 1.7 mg/dL (1.9-2.7); Potassium 3.2 mmol/L (3.5-5.0)
[2017-02-27] MEDS: Docusate CAP* 100 MG PO SCH ×2 (08:50→21:06)
[2017-02-27] MEDS: Gabapentin CAP(*) 300 MG PO SCH ×2 (08:50→21:06)
[2017-02-27] MEDS: Folic Acid TAB* 1 MG PO SCH (08:50)
[2017-02-27] MEDS: Diltiazem CD CAP* 180 MG PO SCH (08:50)
[2017-02-27] MEDS: Multivitamins/Minerals TAB PO SCH (08:51)
[2017-02-27] MEDS: Omeprazole CAP* 20 MG PO SCH ×2 (08:51→21:05)
[2017-02-27] MEDS: Thiamine TAB* 100 MG TAB PO SCH (08:51)
[2017-02-27] MEDS: Metoprolol Tartrate TAB* 100 MG TAB PO SCH ×2 (08:51→21:06)
[2017-02-27] MEDS: Magnesium Oxide TAB* 400 MG PO SCH (08:51)
[2017-02-27] MEDS: Nicotine PATCH 14 MG/24 HR* PATCH TRANSDERM SCH (08:52)
[2017-02-27] MEDS ORDERED: NS 0.9% 1000 ML* 1,000 ML IV ONE ×2 (10:43→12:15)
[2017-02-27] MEDS ORDERED: Potassium Chlor TAB* 20 MEQ TAB.ER PO ONE (14:28)
--- NOTE | 2017-02-27 14:28 | PN ---
Subjective Date of Service: 02/27/17 Interval History: Seen and examined this AM. Nursing notes reviewed Intermittently agitated. Vacillates between hyper and hypoactive states. Decreased usage of benzos Objective Active Medications: Baclofen (Lioresal Tab*) 5 - 10 mg PO Q8HR PRN PRN Reason: SPASMS - MUSCLE Last Admin: 02/26/17 10:58 Dose: 10 mg Diltiazem HCl (Cardizem Cd Cap*) 180 mg PO DAILY [facility] Last Admin: 02/27/17 08:50 Dose: 180 mg Docusate Sodium (Colace Cap*) 100 mg PO BID [facility] Last Admin: 02/27/17 08:50 Dose: 100 mg Folic Acid (Folvite Tab*) 1 mg PO DAILY [facility] Last Admin: 02/27/17 08:50 Dose: 1 mg Gabapentin (Neurontin Cap(*)) 900 mg PO BID [facility] Last Admin: 02/27/17 08:50 Dose: 900 mg Heparin Sodium (Porcine) (Heparin Vial(*)) 5,000 units SUBCUT Q8HR [facility] Last Admin: 02/27/17 13:16 Dose: 5,000 units Sodium Chloride (Ns 0.9% 1000 Ml*) 1,000 mls @ 0 mls/hr BOLUS .BOLUS DOSE [facility] PRN Reason: Wide Open Last Admin: 02/25/17 15:46 Dose: 999 mls/hr Ibuprofen (Motrin Tab*) 600 mg PO QID PRN PRN Reason: PAIN Last Admin: 02/26/17 17:32 Dose: 600 mg Lorazepam (Ativan Inj*) 0 - 6 mg IV PUSH .PER [facility] PROTOCOL [facility] PRN Reason: Protocol Last Admin: 02/27/17 08:51 Dose: 2 mg Magnesium Oxide (Magox 400 Tab*) 400 mg PO DAILY [facility] Last Admin: 02/27/17 08:51 Dose: 400 mg Metoprolol Tartrate (Lopressor Tab*) 100 mg PO BID [facility] Last Admin: 02/27/17 08:51 Dose: 100 mg Multivitamins/Minerals (Theragran/Minerals Tab*) 1 tab PO DAILY [facility] Last Admin: 02/27/17 08:51 Dose: 1 tab Nicotine (Nicotine Patch 14 Mg/24 Hr*) 1 patch TRANSDERM DAILY [facility] Last Admin: 02/27/17 08:52 Dose: 1 patch Omeprazole (Prilosec Cap*) 40 mg PO BID [facility] Last Admin: 02/27/17 08:51 Dose: 40 mg Oxycodone HCl (Roxycodone Tab*) 5 mg PO Q4H PRN PRN Reason: PAIN Last Admin: 02/27/17 13:15 Dose: 5 mg Ropinirole HCl (Requip Tab*) 0.5 mg PO BEDTIME [facility] Last Admin: 02/26/17 20:01 Dose: 0.5 mg Thiamine HCl (Vitamin B-1 Tab*) 100 mg PO DAILY [facility] Last Admin: 02/27/17 08:51 Dose: 100 mg Tramadol HCl (Ultram*) 50 mg PO Q4HR [facility] Last Admin: 02/27/17 13:15 Dose: 50 mg Vital Signs - 8 hr 02/27/17 02/27/17 02/27/17 07:47 07:54 08:30 Temperature 97.5 F Pulse Rate 62 Respiratory 20 18 16 Rate Blood Pressure 109/70 (mmHg) O2 Sat by Pulse 95 Oximetry 02/27/17 02/27/17 02/27/17 08:50 08:51 08:59 Temperature Pulse Rate Respiratory 20 20 21 Rate Blood Pressure 149/89 (mmHg) O2 Sat by Pulse Oximetry 02/27/17 02/27/17 02/27/17 09:41 11:09 13:15 Temperature 98.4 F Pulse Rate 53 Respiratory 18 18 21 Rate Blood Pressure 128/72 (mmHg) O2 Sat by Pulse 96 Oximetry 02/27/17 13:49 Temperature 98.6 F Pulse Rate 57 Respiratory 18 Rate Blood Pressure 122/81 (mmHg) O2 Sat by Pulse 96 Oximetry Oxygen Devices in Use Now: Nasal Cannula Appearance: slow speech, interactive, NAD Ears/Nose/Mouth/Throat: - - dry MM Neck: NL Appearance and Movements; NL JVP, Trachea Midline Respiratory: Symmetrical Chest Expansion and Respiratory Effort, Clear to Auscultation Cardiovascular: RRR Abdominal: NL Sounds; No Tenderness; No Distention, No Hepatosplenomegaly Extremities: No Edema, No Clubbing, Cyanosis Skin: - - reticular rash on back Neurological: Alert and Oriented x 3 Result Diagrams: 02/25/17 13:13 02/27/17 07:56 Additional Lab and Data: Lab Results 02/25/17 02/25/17 02/25/17 Range/Units 13:13 13:13 13:13 WBC 6.9 (3.5-10.8) 10^3/ul RBC 4.82 (4.0-5.4) 10^6/ul Hgb 14.8 (14.0-18.0) g/dl Hct 43 (42-52) % MCV 90 (80-94) fL MCH 31 (27-31) pg MCHC 34 (31-36) g/dl RDW 14 (10.5-15) % Plt Count 308 (150-450) 10^3/ul MPV 9 (7.4-10.4) um3 Neut % (Auto) 65.1 (38-83) % Lymph % (Auto) 19.5 L (25-47) % [place] % (Auto) 12.2 H (1-9) % Eos % (Auto) 2.6 (0-6) % Baso % (Auto) 0.6 (0-2) % Absolute Neuts (auto) 4.5 (1.5-7.7) 10^3/ul Absolute Lymphs (auto) 1.4 (1.0-4.8) 10^3/ul Absolute Monos (auto) 0.9 H (0-0.8) 10^3/ul Absolute Eos (auto) 0.2 (0-0.6) 10^3/ul Absolute Basos (auto) 0 (0-0.2) 10^3/ul Absolute Nucleated RBC 0 10^3/ul Nucleated RBC % 0 INR (Anticoag Therapy) (0.77-1.02) ABG pH (7.35-7.45) ABG pCO2 (35-45) mmHg ABG pO2 (80-100) mmHg ABG HCO3 (19-31) mmol/L ABG O2 Saturation (95-98) % ABG Base Excess (-2.0-2.0) Sodium 138 (133-145) mmol/L Potassium 3.3 L (3.5-5.0) mmol/L Chloride 104 (101-111) mmol/L Carbon Dioxide 25 (22-32) mmol/L Anion Gap 9 (2-11) mmol/L BUN 22 (6-24) mg/dL Creatinine 0.88 (0.67-1.17) mg/dL Est GFR ( Amer) 113.2 (>60) Est GFR (Non-Af Amer) 88.0 (>60) BUN/Creatinine Ratio 25.0 H (8-20) Glucose 117 H (70-100) mg/dL POC Glucose (mg/dL) (70-100) mg/dL Lactic Acid 0.9 (0.5-2.0) mmol/L Calcium 10.1 (8.6-10.3) mg/dL Magnesium 2.0 (1.9-2.7) mg/dL Total Bilirubin 0.30 (0.2-1.0) mg/dL AST 18 (13-39) U/L ALT 15 (7-52) U/L Alkaline Phosphatase 103 (34-104) U/L Ammonia (16-53) mol/L Total Creatine Kinase 103 (10-223) U/L Troponin I 0.00 (<0.04) ng/mL Total Protein 7.8 (6.4-8.9) g/dL Albumin 4.1 (3.2-5.2) g/dL Globulin 3.7 (2-4) g/dL Albumin/Globulin Ratio 1.1 (1-3) TSH 1.09 (0.34-5.60) mcIU/mL Urine Color Urine Appearance Urine pH (5-9) Ur Specific [place] (1.010-1.030) Urine Protein (Negative) Urine Ketones (Negative) Urine Blood (Negative) Urine Nitrate (Negative) Urine Bilirubin (Negative) Urine Urobilinogen (Negative) Ur Leukocyte Esterase (Negative) Urine Glucose (Negative) Urine Ascorbic Acid (Negative) Salicylates < 2.50 (<30) mg/dL Urine Opiates Screen (None Detect) Acetaminophen < 15 mcg/mL Ur Barbiturates Screen (None Detect) Ur Phencyclidine Scrn (None Detect) Ur Amphetamines Screen (None Detect) U Benzodiazepines Scrn (None Detect) Urine Cocaine Screen (None Detect) U Cannabinoids Screen (None Detect) Serum Alcohol < 10 (<10) mg/dL 02/25/17 02/25/17 02/25/17 Range/Units 13:13 13:22 13:50 WBC (3.5-10.8) 10^3/ul RBC (4.0-5.4) 10^6/ul Hgb (14.0-18.0) g/dl Hct (42-52) % MCV (80-94) fL MCH (27-31) pg MCHC (31-36) g/dl RDW (10.5-15) % Plt Count (150-450) 10^3/ul MPV (7.4-10.4) um3 Neut % (Auto) (38-83) % Lymph % (Auto) (25-47) % [place] % (Auto) (1-9) % Eos % (Auto) (0-6) % Baso % (Auto) (0-2) % Absolute Neuts (auto) (1.5-7.7) 10^3/ul Absolute Lymphs (auto) (1.0-4.8) 10^3/ul Absolute Monos (auto) (0-0.8) 10^3/ul Absolute Eos (auto) (0-0.6) 10^3/ul Absolute Basos (auto) (0-0.2) 10^3/ul Absolute Nucleated RBC 10^3/ul Nucleated RBC % INR (Anticoag Therapy) 0.95 (0.77-1.02) ABG pH (7.35-7.45) ABG pCO2 (35-45) mmHg ABG pO2 (80-100) mmHg ABG HCO3 (19-31) mmol/L ABG O2 Saturation (95-98) % ABG Base Excess (-2.0-2.0) Sodium (133-145) mmol/L Potassium (3.5-5.0) mmol/L Chloride (101-111) mmol/L Carbon Dioxide (22-32) mmol/L Anion Gap (2-11) mmol/L BUN (6-24) mg/dL Creatinine (0.67-1.17) mg/dL Est GFR ( Amer) (>60) Est GFR (Non-Af Amer) (>60) BUN/Creatinine Ratio (8-20) Glucose (70-100) mg/dL POC Glucose (mg/dL) 110 H (70-100) mg/dL Lactic Acid (0.5-2.0) mmol/L Calcium (8.6-10.3) mg/dL Magnesium (1.9-2.7) mg/dL Total Bilirubin (0.2-1.0) mg/dL AST (13-39) U/L ALT (7-52) U/L Alkaline Phosphatase (34-104) U/L Ammonia (16-53) mol/L Total Creatine Kinase (10-223) U/L Troponin I (<0.04) ng/mL Total Protein (6.4-8.9) g/dL Albumin (3.2-5.2) g/dL Globulin (2-4) g/dL Albumin/Globulin Ratio (1-3) TSH (0.34-5.60) mcIU/mL Urine Color Yellow Urine Appearance Clear Urine pH 7.0 (5-9) Ur Specific [place] 1.026 (1.010-1.030) Urine Protein Negative (Negative) Urine Ketones 1+ H (Negative) Urine Blood Negative (Negative) Urine Nitrate Negative (Negative) Urine Bilirubin Negative (Negative) Urine Urobilinogen Negative (Negative) Ur Leukocyte Esterase Negative (Negative) Urine Glucose Negative (Negative) Urine Ascorbic Acid * H (Negative) Salicylates (<30) mg/dL Urine Opiates Screen (None Detect) Acetaminophen mcg/mL Ur Barbiturates Screen (None Detect) Ur Phencyclidine Scrn (None Detect) Ur Amphetamines Screen (None Detect) U Benzodiazepines Scrn (None Detect) Urine Cocaine Screen (None Detect) U Cannabinoids Screen (None Detect) Serum Alcohol (<10) mg/dL 02/25/17 02/25/17 02/25/17 Range/Units 13:50 14:35 15:11 WBC (3.5-10.8) 10^3/ul RBC (4.0-5.4) 10^6/ul Hgb (14.0-18.0) g/dl Hct (42-52) % MCV (80-94) fL MCH (27-31) pg MCHC (31-36) g/dl RDW (10.5-15) % Plt Count (150-450) 10^3/ul MPV (7.4-10.4) um3 Neut % (Auto) (38-83) % Lymph % (Auto) (25-47) % [place] % (Auto) (1-9) % Eos % (Auto) (0-6) % Baso % (Auto) (0-2) % Absolute Neuts (auto) (1.5-7.7) 10^3/ul Absolute Lymphs (auto) (1.0-4.8) 10^3/ul Absolute Monos (auto) (0-0.8) 10^3/ul Absolute Eos (auto) (0-0.6) 10^3/ul Absolute Basos (auto) (0-0.2) 10^3/ul Absolute Nucleated RBC 10^3/ul Nucleated RBC % INR (Anticoag Therapy) (0.77-1.02) ABG pH 7.40 (7.35-7.45) ABG pCO2 43 (35-45) mmHg ABG pO2 108 H (80-100) mmHg ABG HCO3 26.0 (19-31) mmol/L ABG O2 Saturation 97.8 (95-98) % ABG Base Excess 1.4 (-2.0-2.0) Sodium (133-145) mmol/L Potassium (3.5-5.0) mmol/L Chloride (101-111) mmol/L Carbon Dioxide (22-32) mmol/L Anion Gap (2-11) mmol/L BUN (6-24) mg/dL Creatinine (0.67-1.17) mg/dL Est GFR ( Amer) (>60) Est GFR (Non-Af Amer) (>60) BUN/Creatinine Ratio (8-20) Glucose (70-100) mg/dL POC Glucose (mg/dL) (70-100) mg/dL Lactic Acid (0.5-2.0) mmol/L Calcium (8.6-10.3) mg/dL Magnesium (1.9-2.7) mg/dL Total Bilirubin (0.2-1.0) mg/dL AST (13-39) U/L ALT (7-52) U/L Alkaline Phosphatase (34-104) U/L Ammonia 57 H (16-53) mol/L Total Creatine Kinase (10-223) U/L Troponin I (<0.04) ng/mL Total Protein (6.4-8.9) g/dL Albumin (3.2-5.2) g/dL Globulin (2-4) g/dL Albumin/Globulin Ratio (1-3) TSH (0.34-5.60) mcIU/mL Urine Color Urine Appearance Urine pH (5-9) Ur Specific Bruno (1.010-1.030) Urine Protein (Negative) Urine Ketones (Negative) Urine Blood (Negative) Urine Nitrate (Negative) Urine Bilirubin (Negative) Urine Urobilinogen (Negative) Ur Leukocyte Esterase (Negative) Urine Glucose (Negative) Urine Ascorbic Acid (Negative) Salicylates (<30) mg/dL Urine Opiates Screen Presumptive positive H (None Detect) Acetaminophen mcg/mL Ur Barbiturates Screen None detected (None Detect) Ur Phencyclidine Scrn None detected (None Detect) Ur Amphetamines Screen None detected (None Detect) U Benzodiazepines Scrn Presumptive positive H (None Detect) Urine Cocaine Screen None detected (None Detect) U Cannabinoids Screen None detected (None Detect) Serum Alcohol (<10) mg/dL Assess/Plan/Problems-Billing Assessment: 61 yo M h/o etoh dependance and polysubstance abuse with multiple stays with AMS in setting of DTs - Patient Problems (1) Acute alcohol intoxication with alcoholism with delirium Comment: [facility] protocol changed to [place] [id number] [place], [place] [id number] of diazepam (none available) improving since admission unclear why he stopped drinking thiamine and folate (2) Chronic pain Comment: restart home meds confirmed tramadol and oxycodone prescriptions istop (3) Paroxysmal a-fib Comment: c/w cardizem and metoprolol (4) COPD (chronic obstructive pulmonary disease) Comment: stable (5) DVT prophylaxis Comment: SQ heparin
[2017-02-27] MEDS ORDERED: Magnesium Sulfate 2 GM IV* 2 GM/50 ML BAG IVPB ONE (14:40)
[2017-02-27] MEDS: NS 0.9% 1000 ML* 1,000 ML IV SCH ×2 (15:36→21:56)
[2017-02-27] MEDS: Baclofen TAB* 10 MG PO PRN (17:22)
[2017-02-27] MEDS: Ropinirole TAB* 0.5 MG TAB PO SCH (21:06)
[2017-02-28] MEDS: traMADol TAB* 50 MG PO SCH ×4 (02:41→14:09)
[2017-02-28] MEDS: oxyCODONE TAB* 5 MG TAB PO PRN ×2 (03:39→14:12)
[2017-02-28] MEDS: Heparin VIAL(*) 5000 UNITS/ML VIAL (FIVE THOUSAND) SUBCUT SCH ×2 (06:16→14:09)
[2017-02-28] MEDS: Gabapentin CAP(*) 300 MG PO SCH (08:36)
[2017-02-28] MEDS: Thiamine TAB* 100 MG TAB PO SCH (08:36)
[2017-02-28] MEDS: Omeprazole CAP* 20 MG PO SCH (08:36)
[2017-02-28] MEDS: Multivitamins/Minerals TAB PO SCH (08:36)
[2017-02-28] MEDS: Docusate CAP* 100 MG PO SCH (08:36)
[2017-02-28] MEDS: Diltiazem CD CAP* 180 MG PO SCH (08:36)
[2017-02-28] MEDS: Metoprolol Tartrate TAB* 100 MG TAB PO SCH (08:36)
[2017-02-28] MEDS: Folic Acid TAB* 1 MG PO SCH (08:36)
[2017-02-28] MEDS: Magnesium Oxide TAB* 400 MG PO SCH (08:36)
[2017-02-28] MEDS: Nicotine PATCH 14 MG/24 HR* PATCH TRANSDERM SCH (08:51)
[2017-02-28] MEDS ORDERED: guaiFENesin ER TAB 600 MG PO SCH (11:00)
[2017-02-28 13:38] VITALS: BP 122/77
--- NOTE | 2017-03-01 07:42 | DS ---
CC: Dr. Guru Pappas.* DISCHARGE SUMMARY: DATE OF ADMISSION: 02/25/17 DATE OF DISCHARGE: 02/28/17 PRIMARY CARE PROVIDER: Dr. Guru Pappas. PRIMARY DIAGNOSIS: Alcohol withdrawal with delirium tremens. SECONDARY DIAGNOSES: Include: 1. Chronic pain. 2. Hypertension. 3. Polysubstance abuse. 4. History of atrial fibrillation. 5. Chronic obstructive pulmonary disease. 6. Gastroesophageal reflux disease. MEDICATIONS ON DISCHARGE: 1. Percocet 5/325 one tablet twice daily as needed. 2. Baclofen 5 to 10 mg every 8 hours as needed. 3. Combivent 1 puff every 4 hours as needed. 4. Docusate 100 mg twice daily. 5. Motrin 600 mg 4 times a day as needed. 6. Omeprazole 40 mg twice daily. 7. Magnesium oxide 400 mg daily. 8. Tramadol 50 mg every 4 hours as needed. 9. Ropinirole 0.5 mg at bedtime. 10. Guaifenesin 1200 mg twice daily for the next 5 days. 11. Metoprolol tartrate 100 mg twice daily. 12. Gabapentin 900 mg twice daily. 13. Diltiazem CD 180 mg daily. PERTINENT LABORATORY DATA: During the course of the hospital stay, urine toxicology positive for opiates on presentation as well as benzodiazepines. It should be noted he received benzodiazepines prior to his presentation to the hospital from EMS. HISTORY OF PRESENT ILLNESS AND HOSPITAL COURSE: This is a 61-year-old man _ past hospital stay is in the setting of alcohol withdrawal and delirium tremens who recently moved in with a new friend who found the patient to be agitated, walking around the apartment without his clothes on. She activated EMS who on arrival administered 5 mg of Versed. [employer] was apparently summoned to assist in the transportation to the hospital. In the emergency room, the patient received an additional 5 mg of Versed, 2 of Ativan, 4 of morphine, 5 of Haldol secondary to agitation, and an order to obtain a CT head without contrast which was negative for pathology. At receipt of his medications, the patient was found remarkably obtunded and was admitted to the hospital for further observation. He received an insignificant amount of Ativan over the ensuing 48 hours. Diagnosis presumptively alcohol withdrawal complicated by delirium tremens. The patient notes he usually drinks one and a half galloons of alcohol per week and has been cut down significantly over the last several days because he felt he was drinking too much. This self-titration of alcohol is likely the etiology of his with-drawal. On the day of discharge, the patient is requiring no benzodiazepines. He was on his home medication regimen and was able to ambulate around the unit. There were no complications to this patient's hospital stay. Of note, the patient was profoundly dehydrated upon hospital stay. He received several liter boluses of fluid during the course of his hospital stay until he had adequate urine output. I suspected dehydration in the setting of his alcohol use. At follow up please; 1. Evaluate for continued abstinence. 2. Continue blood pressure control on home medications. 3. No other specific labs or vitals that need followup. Reasons to return to the hospital included but not limited to recurrent or worsening symptoms, chest pain, shortness of breath, nausea, vomiting, lightheadedness, loss of consciousness, confusion, bleeding from any source, fevers, chills, night sweats. Discussed with the patient, he acknowledged understanding. TIME SPENT: Greater than 60 minutes was spent in the discharge of this patient , greater than half was spent [id number] with the patient. [id number]/[facility] #: [id number] STEPH
== END 2017-02-28 16:05 | disposition home or self-care (01) | DRG 775 ==
LOC: ED 12:43 → MEDTELE 17:55
PROVIDERS: ADMIT Internal Medicine; ATTEND Internal Medicine
DX: F10.231 Alcohol dependence with withdrawal delirium (principal); I48.0 Paroxysmal atrial fibrillation; E86.0 Dehydration; F17.210 Nicotine dependence, cigarettes, uncomplicated; E78.5 Hyperlipidemia, unspecified; F19.20 Other psychoactive substance dependence, uncomplicated; Y90.0 Blood alcohol level of less than 20 mg/100 ml; G89.29 Other chronic pain; I10 Essential (primary) hypertension; J44.9 Chronic obstructive pulmonary disease, unspecified; K21.9 Gastro-esophageal reflux disease without esophagitis; G25.2 Other specified forms of tremor; Z86.718 Personal history of other venous thrombosis and embolism; Z79.1 Long term (current) use of non-steroidal anti-inflammatories (NSAID); Z79.899 Other long term (current) drug therapy
CPT/HCPCS: 36415; 36600; 70450; 71010; 72125; 72128; 72131; 80048; 80053; 80307; 80320; 80329; 81003; 82140; 82550; 82803; 83605; 83735; 84443; 84484; 85025; 85610; 87040; 93005; 99406; A9270-GY; G0480; J1630; J1644; J2060; J2250; J2270; J3360; J3411; J3475; J3486

== ENCOUNTER 2017-04-05 14:50 | Emergency (ER) | payer OTHER ==
[2017-04-05 15:04] VITALS: BP 144/104
[2017-04-05 15:50] LABS: ABS Basophils 0.1 10^3/ul (0-0.2); ABS Eosinophils 0.3 10^3/ul (0-0.6); ABS Lymphocytes 2.8 10^3/ul (1.0-4.8); ABS Monocytes 0.6 10^3/ul (0-0.8); ABS Neutrophils 3.6 10^3/ul (1.5-7.7); ABS Nucleated RBC 0 10^3/ul; Eosinophil % 4.3 % (0-6); Hematocrit 44 % (42-52); Hemoglobin 14.9 g/dl (14.0-18.0); Lymphocyte % 38.3 % (25-47); Mean Corpuscular HGB Conc 34 g/dl (31-36); Mean Corpuscular Hemoglobin 30 pg (27-31); Mean Corpuscular Volume 90 fL (80-94); Mean Platelet Volume 9 um3 (7.4-10.4); Nucleated Red Blood Cells % 0.1; Platelet Count 270 10^3/ul (150-450); Red Cell Distribution Width 14 % (10.5-15); White Blood Count 7.4 10^3/ul (3.5-10.8)
[2017-04-05 16:02] LABS: INR 0.92 (0.77-1.02)
[2017-04-05 16:08] LABS: EGFR Non-African American 76.9 (>60)
--- NOTE | 2017-04-05 16:15 | RAD ---
Indication: Chest pain. Single frontal view of the chest performed at 1557 was reviewed. Comparison is made with previous exam dated February 25, 2017. No mediastinal shift is noted. Heart is of normal size and configuration. There is suggestion of airspace disease in the right midlung zone. IMPRESSION: AIRSPACE DISEASE IN THE RIGHT MIDLUNG ZONE.
== END 2017-04-05 16:35 | disposition left against medical advice (07) ==
LOC: ED 14:50
DX: M54.9 Dorsalgia, unspecified (principal); Z53.21 Procedure and treatment not carried out due to patient leaving prior to being seen by health care provider
CPT/HCPCS: 36415; 71045; 80053; 83605; 83735; 83880; 84484; 85025; 85610

== ENCOUNTER 2017-07-23 17:06 | Inpatient (IN) | payer OTHER ==
[2017-07-23] MEDS ORDERED: NS 0.9% 1000 ML* 1,000 ML IV ONE ×2 (17:38→21:34)
[2017-07-23] MEDS ORDERED: LORazepam INJ* 2 MG/ML 1 ML VIAL IV ONE (17:39)
[2017-07-23 18:06] LABS: ABS Basophils 0 10^3/ul (0-0.2); ABS Eosinophils 0 10^3/ul (0-0.6); ABS Lymphocytes 2.3 10^3/ul (1.0-4.8); ABS Monocytes 1.4 10^3/ul (0-0.8); ABS Neutrophils 5.5 10^3/ul (1.5-7.7); ABS Nucleated RBC 0 10^3/ul; Eosinophil % 0 % (0-6); Hematocrit 42 % (42-52); Hemoglobin 14.4 g/dl (14.0-18.0); Lymphocyte % 25.2 % (25-47); Mean Corpuscular HGB Conc 34 g/dl (31-36); Mean Corpuscular Hemoglobin 30 pg (27-31); Mean Corpuscular Volume 88 fL (80-94); Mean Platelet Volume 8.7 um3 (7.4-10.4); Nucleated Red Blood Cells % 0; Platelet Count 235 10^3/ul (150-450); Red Cell Distribution Width 15 % (10.5-15); White Blood Count 9.3 10^3/ul (3.5-10.8)
[2017-07-23 18:28] LABS: EGFR Non-African American 80.6 (>60)
--- NOTE | 2017-07-23 18:54 | ED ---
Bakari Espino Jennifer, scribed for Darius Hilton MD on 07/23/17 at 1739 . Substance Abuse/Use - HPI Summary HPI Summary: The patient is a 61 y/o M who possibly took too many or mixed up medications today. The patient took the meds for back pain but complains that his back hurts in the ED today and he cant sit still. The patient was agitated in the ED. LEVEL 5 CAVEAT: HPI LIMITED DUE TO AMS. - History Of Current Complaint Chief Complaint: EDAltMentalStatus Stated Complaint: MEDICATION MIXUP Time Seen by Provider: 07/23/17 17:27 Hx From Patient Unobtainable Due To: Altered Mental Status - Allergies/Home Medications Allergies/Adverse Reactions: Allergies Allergy/AdvReac Type Severity Reaction Status Date / Time No Known Allergies Allergy Verified 07/23/17 17:13 Home Medications: Home Medications Gabapentin CAP(*) [Neurontin 300 CAP(*)] 300 mg PO DAILY 07/23/17 [History Confirmed 07/23/17] Gabapentin TAB(NF) [Neurontin 600 mg TAB(NF)] 600 mg PO DAILY 07/23/17 [History Confirmed 07/23/17] Lisinopril/HCTZ 10/12.5(NF) [Zestoretic 10/12.5(NF)] 1 tab PO DAILY 07/23/17 [ History Confirmed 07/23/17] Umeclidin 62.5 MDI(NF) [Incruse ELLIPTA MDI (NF)] 1 inh INH DAILY 07/23/17 [ History Confirmed 07/23/17] dilTIAZem HCl [Cartia Xt] 180 mg PO DAILY 07/23/17 [History Confirmed 07/23/17] PMH/Surg Hx/FS Hx/Imm Hx Endocrine/Hematology History: Denies: Hx Diabetes, Hx Thyroid Disease Cardiovascular History: Reports: Hx Atrial Fibrillation - not on anticoagulants , Hx Deep Vein Thrombosis - right arm , Hx Hypercholesterolemia, Hx Hypertension , Hx Syncope, Other Cardiovascular Problems/Disorders - SEPTRIC THROMBOPHLEBITIS Denies: Hx Pacemaker/ICD Respiratory History: Reports: Hx Asthma, Hx Chronic Obstructive Pulmonary Disease (COPD), Hx Pneumonia - several times, Other Respiratory Problems/ Disorders - COPD GI History: Reports: Hx Gastroesophageal Reflux Disease, Hx Ulcer Comment Only: Other GI Disorders - GERD History: Reports: Hx Acute Renal Failure, Hx Kidney Stones, Other Problems /Disorders - difficulty urinatiing Denies: Hx Renal Disease Musculoskeletal History: Reports: Hx Arthritis, Hx Back Problems, Hx Scoliosis Comment Only: Other Musculoskeletal History - chronic back pain Sensory History: Reports: Hx Hearing Problem - mild hearing loss Denies: Hx Contacts or Glasses, Hx Hearing Aid Opthamlomology History: Denies: Hx Contacts or Glasses Neurological History: Reports: Other Neuro Impairments/Disorders - delirium, inappropriate behavior Psychiatric History: Reports: Hx Substance Abuse, Other Psychiatric Issues/ Disorders - Possibly hx depression,but pt report inconsistent Denies: Hx Panic Disorder - Surgical History Surgery Procedure, Year, and Place: none Infectious Disease History: No Infectious Disease History: Denies: Traveled Outside the [place] in Last 30 Days - Family History Known Family History: Positive: Unknown - unable to obtain, level 5 caveat - Social History Alcohol Use: Daily Alcohol Amount: 2 drinks/day Substance Use Type: Reports: Marijuana Substance Use Comment - Amount & Last Used: unknown other drug use or last used Hx Tobacco Use: Yes Smoking Status (MU): Heavy Every Day Tobacco Smoker Type: Cigarettes Amount Used/How Often: 2 packs/day Length of Time of Smoking/Using Tobacco: 40 years Have You Smoked in the Last Year: Yes - Additional Comments History Additional Comments: LEVEL 5 CAVEAT: ROS LIMITED DUE TO AMS. Review of Systems Positive: Myalgia - back pain Positive: Other - can't sit still, agitated All Other Systems Reviewed And Are Negative: No - Comments Additional Review of Systems Comments: LEVEL 5 CAVEAT: ROS LIMITED DUE TO AMS. Physical Exam - Summary Physical Exam Summary: Appearance: The patient is well-nourished. Skin: The skin is warm and dry and skin color reflects adequate perfusion. HEENT: The head is normocephalic and atraumatic. The pupils are equal and reactive. The conjunctivae are clear and without drainage. Nares are patent and without drainage. Mouth reveals DRY mucous membranes and the throat is without erythema and exudate. The external ears are intact. The ear canals are patent and without drainage. The tympanic membranes are intact. Neck: the neck is supple with full range of motion and non-tender. There are no carotid bruits. There is no neck vein distension. Respiratory: Chest is non-tender. Lungs are clear to auscultation and breath sounds are symmetrical and equal. Cardiovascular: Heart is regular rate and rhythm. There is no murmur or rub auscultated. There is no peripheral edema and pulses are symmetrical and equal. Abdomen: The abdomen is soft and non-tender. There are normal bowel sounds heard in all four quadrants and there is no organomegaly palpated. Musculoskeletal: Extremities are non-tender with full range of motion. There is good capillary refill. There is no peripheral edema or calf tenderness elicited. Neurological: Patient is alert and oriented to person, place and time. The patient has symmetrical motor strength in all four extremities. Cranial nerves are grossly intact. Deep tendon reflexes are symmetrical and equal in all four extremities. Psychiatric: The patient is agitated, in constant motion, and moves everything. LEVEL 5 CAVEAT: PE LIMITED DUE TO AMS. Triage Information Reviewed: Yes Vital Signs On Initial Exam: Initial Vitals Temp Pulse Resp BP Pulse Ox 99.6 F 102 28 139/89 97 07/23/17 17:13 07/23/17 17:13 07/23/17 17:13 07/23/17 17:13 07/23/17 17:13 Vital Signs Reviewed: Yes Diagnostics - Vital Signs Vital Signs Temp Pulse Resp BP Pulse Ox 07/23/17 17:13 99.6 F 102 28 139/89 97 - Laboratory Lab Results: Lab Results 07/23/17 07/23/17 07/23/17 Range/Units 17:57 17:57 17:57 WBC 9.3 (3.5-10.8) 10^3/ul RBC 4.80 (4.0-5.4) 10^6/ul Hgb 14.4 (14.0-18.0) g/dl Hct 42 (42-52) % MCV 88 (80-94) fL MCH 30 (27-31) pg MCHC 34 (31-36) g/dl RDW 15 (10.5-15) % Plt Count 235 (150-450) 10^3/ul MPV 8.7 (7.4-10.4) um3 Neut % (Auto) 59.4 (38-83) % Lymph % (Auto) 25.2 (25-47) % [place] % (Auto) 14.9 H (0-7) % Eos % (Auto) 0 (0-6) % Baso % (Auto) 0.5 (0-2) % Absolute Neuts (auto) 5.5 (1.5-7.7) 10^3/ul Absolute Lymphs (auto) 2.3 (1.0-4.8) 10^3/ul Absolute Monos (auto) 1.4 H (0-0.8) 10^3/ul Absolute Eos (auto) 0 (0-0.6) 10^3/ul Absolute Basos (auto) 0 (0-0.2) 10^3/ul Absolute Nucleated RBC 0 10^3/ul Nucleated RBC % 0 Sodium 141 (139-145) mmol/L Potassium 3.4 L (3.5-5.0) mmol/L Chloride 106 (101-111) mmol/L Carbon Dioxide 22 (22-32) mmol/L Anion Gap 13 H (2-11) mmol/L BUN 24 (6-24) mg/dL Creatinine 0.95 (0.67-1.17) mg/dL Est GFR ( Amer) 103.7 (>60) Est GFR (Non-Af Amer) 80.6 (>60) BUN/Creatinine Ratio 25.3 H (8-20) Glucose 91 (70-100) mg/dL Lactic Acid 1.5 (0.5-2.0) mmol/L Calcium 9.5 (8.6-10.3) mg/dL Total Bilirubin 0.80 (0.2-1.0) mg/dL AST 112 H (13-39) U/L ALT 29 (7-52) U/L Alkaline Phosphatase 82 (34-104) U/L Total Protein 7.4 (6.4-8.9) g/dL Albumin 4.0 (3.2-5.2) g/dL Globulin 3.4 (2-4) g/dL Albumin/Globulin Ratio 1.2 (1-3) TSH 0.55 (0.34-5.60) mcIU/mL Salicylates < 2.50 (<30) mg/dL Acetaminophen < 15 mcg/mL Serum Alcohol < 10 (<10) mg/dL Result Diagrams: 07/23/17 17:57 07/23/17 17:57 Lab Statement: Any lab studies that have been ordered have been reviewed, and results considered in the medical decision making process. - EKG 1810 Cardiac Rate: NL EKG Rhythm: Sinus Rhythm - 95 BPM Re-Evaluation - Re-Evaluation First Eval Re-Evaluation Time: 18:48 Change: Improved Comment: The patient responded well to Ativan. He is now asleep. Course/Dx - Course Course Of Treatment: Mr. Conway was very agitated on arrival to the ED. He wasn't sure if he had mixed up his medications but was C/O his chronic back pain and asking for tramadol. His mucous membranes were quite dry, he was in non-stop motion and he made some remarks that didn't make much sense. In order to try to evaluate him, I gave him one mg of Ativan IV. He responded well and is resting with sonorous respirations while we are obtaining labs and observing him. - Diagnoses Provider Diagnoses: Agitation Discharge - Sign-Out/Discharge Documenting (check all that apply): Sign-Out Patient Signing out patient TO: Darius Damico - pending wake up - Discharge Plan Condition: Stable Referrals: Guru Pappas MD [Primary Care Provider] - Additional Instructions: Follow up with your primary care physician in one week. Return to the emergency department for any new or worsening symptoms. - Billing Disposition and Condition Condition: STABLE The documentation as recorded by the Bakari jerez Jennifer accurately reflects the service I personally performed and the decisions made by me, Darius Hilton MD.
[2017-07-23] MEDS ORDERED: LORazepam INJ* 2 MG/ML 1 ML VIAL IV PUSH ONE (20:25)
[2017-07-23 21:06] LABS: Urine Appearance Clear; Urine Blood Negative (Negative); Urine Color Yellow; Urine Ketones 1+ (Negative); Urine Protein Negative (Negative); Urine Specific Gravity 1.011 (1.010-1.030); Urine Urobilinogen Negative (Negative)
[2017-07-23] MEDS ORDERED: Diltiazem IV* 5 MG/ML 5 ML VIAL (for loading dose/IV Push) (25 MG) IV SLOW PU ONE (21:33)
[2017-07-23] MEDS ORDERED: Ondansetron 40 MG VIAL* 2 MG/ML 20 ML VIAL IV PRN (22:07)
[2017-07-23] MEDS ORDERED: Acetaminophen TAB* 325 MG PO PRN ×2 (22:07)
[2017-07-23] MEDS ORDERED: Baclofen TAB* 10 MG PO PRN (22:11)
--- NOTE | 2017-07-23 22:11 | ED ---
I, Mirela New, scribed for Darius Damico MD on 07/23/17 at 1946 . Progress - Progress Note Progress Note: This pt is a sign out from Dr. Hilton at shift change. - Results/Orders Results/Orders: EKG at 20:36 reveals: 139 BPM, Marked baseline artifact precludes accurate analysis. EKG at 21:26 reveals: Rapid A-fib at 141 BPM, P waves, QRS complex, and T waves are within normal limits, T waves and intervals are normal, no ischemic changes. This is a normal EKG Re-Evaluation - Re-Evaluation First Eval Re-Evaluation Time: 18:48 Change: Improved Comment: The patient responded well to Ativan. He is now asleep. Second Eval Re-Evaluation Time: 20:26 Change: Worse - The pt is in a-fib. Third Eval Re-Evaluation Time: 22:02 Change: Worse Comment: This is a 61 y/o man with a h/o polysubstance abuse and polypharmacy who presents now with acute delirium. During the evaluation he developed rapid atrial fibrillation associated with some dyspnea. He will need admission. He does not wish to stay, but he is delirious and does not seem to be able to understand his condition; I do not feel he is in a position to make medical decisions for himself right now and will have to be kept against his will. Course/Dx - Course Course Of Treatment: Mr. Conway was very agitated on arrival to the ED. He wasn't sure if he had mixed up his medications but was C/O his chronic back pain and asking for tramadol. His mucous membranes were quite dry, he was in non-stop motion and he made some remarks that didn't make much sense. In order to try to evaluate him, I gave him one mg of Ativan IV. He responded well and is resting with sonorous respirations while we are obtaining labs and observing him. Dr. Damico Shift: - Diagnoses Provider Diagnoses: Agitation, Acute delirium, Atrial fibrillation with rapid ventricular response , Dyspnea - Provider Notifications Discussed Care Of Patient With: Nancy Hubbard Time Discussed With Above Provider: 21:34 Instructed by Provider To: Admit As Inpatient Discharge - Sign-Out/Discharge Documenting (check all that apply): Discharge/Admit/Transfer, Receiving Sign-Out Receiving patient FROM: Darius Hilton - Discharge Plan Condition: Guarded Disposition: ADMITTED TO [facility] Referrals: Guru Pappas MD [Primary Care Provider] - Additional Instructions: Follow up with your primary care physician in one week. Return to the emergency department for any new or worsening symptoms. - Billing Disposition and Condition Condition: GUARDED Disposition: [facility] The documentation as recorded by the Shaq jerez Stephanie accurately reflects the service I personally performed and the decisions made by me, Darius Damico MD.
[2017-07-23] MEDS ORDERED: Albuterol 2.5 MG/3 ML NEB.SOL* (0.083%) INH PRN (22:16)
[2017-07-23] MEDS ORDERED: Metoprolol Tartrate TAB* 50 mg ONE (22:22)
[2017-07-23] MEDS ORDERED: LORazepam INJ* 2 MG/ML 1 ML VIAL ONE (22:22)
[2017-07-23] MEDS: Metoprolol Tartrate TAB* 100 MG TAB PO SCH (22:27)
[2017-07-23] MEDS: LORazepam INJ* 2 MG/ML 1 ML VIAL IV PUSH SCH ×2 (22:27→23:56)
[2017-07-23] MEDS ORDERED: Iohexol 350* (CONTRAST) 500 ML MDV IV ONE (22:52)
[2017-07-23] MEDS: NS 0.9% 1000 ML* 1,000 ML IV SCH (23:39)
[2017-07-23] MEDS: KCL 10 MEQ/50 ML IVPREMIX* 10 MEQ/50 ML BAG IV SCH (23:40)
[2017-07-23] MEDS: Diltiazem TAB* 30 MG PO SCH (23:46)
[2017-07-23] MEDS: Omeprazole CAP* 20 MG PO SCH (23:47)
[2017-07-23] MEDS: Ropinirole TAB* 0.5 MG TAB PO SCH (23:47)
[2017-07-24] MEDS: KCL 10 MEQ/50 ML IVPREMIX* 10 MEQ/50 ML BAG IV SCH ×3 (00:48→03:09)
[2017-07-24 00:54] LABS: ABS Basophils 0.1 10^3/ul (0-0.2); ABS Eosinophils 0 10^3/ul (0-0.6); ABS Lymphocytes 2.8 10^3/ul (1.0-4.8); ABS Monocytes 1.1 10^3/ul (0-0.8); ABS Neutrophils 4.9 10^3/ul (1.5-7.7); ABS Nucleated RBC 0 10^3/ul; Eosinophil % 0.5 % (0-6); Hematocrit 42 % (42-52); Hemoglobin 14.1 g/dl (14.0-18.0); Lymphocyte % 31.3 % (25-47); Mean Corpuscular HGB Conc 34 g/dl (31-36); Mean Corpuscular Hemoglobin 30 pg (27-31); Mean Corpuscular Volume 90 fL (80-94); Mean Platelet Volume 8.5 um3 (7.4-10.4); Nucleated Red Blood Cells % 0; Platelet Count 220 10^3/ul (150-450); Red Blood Count 4.65 10^6/ul (4.0-5.4); Red Cell Distribution Width 15 % (10.5-15); White Blood Count 8.9 10^3/ul (3.5-10.8)
[2017-07-24 01:03] LABS: INR 1.04 (0.77-1.02)
[2017-07-24 01:11] LABS: EGFR Non-African American 118.6 (>60)
[2017-07-24] MEDS: LORazepam INJ* 2 MG/ML 1 ML VIAL IV PUSH SCH ×3 (02:14→06:01)
[2017-07-24] MEDS: traMADol TAB* 50 MG PO SCH ×7 (02:16→21:50)
--- NOTE | 2017-07-24 02:24 | HP ---
CC: Dr. Pappas * HISTORY AND PHYSICAL: DATE OF ADMISSION: 07/23/17 PRIMARY CARE PROVIDER: Dr. Pappas ATTENDING PHYSICIAN WHILE IN THE HOSPITAL: Nancy Hubbard DO * (report dictated by Patricia Vega NP) CHIEF COMPLAINT: Altered mental status. HISTORY OF PRESENT ILLNESS: Mr. Conway is a 61-year-old male patient. The patient does have a fair amount of altered mental status. He really is not able to give much history. All he knows is that the mash filter operator were called today by the nurse because there was concern that he took his meds wrong then he ended up here in the hospital. According to the nurse's notes apparently his PCP's office had called the Sales Audit Clerk's office to evaluate him for a well visit. The patient reportedly had taken too many of his medications or mixed them up. There was concern because this and he was acting clearly on the phone and he was sent to the ER. Here in the ER, he is very restless, he was agitated, he was rolling back and forth in the stretcher, talking out loud. He just again very altered and he has had several episodes like this previously. He denies having any fevers, headaches, no chills, no chest pain, or shortness of breath. He does state he was having back pain. He says that he does not want to stay. He says that in the next breath he is talking nonsensical and then he is talking about how he took an extra tramadol today and there was confusion about why he was even here, so again very poor historian, but there was concern because when he was down in the ED, he did end up going into rapid AFib and because of the altered mental status, we were asked to evaluate for admission. PAST MEDICAL HISTORY: Significant for: 1. Polysubstance abuse. 2. Delirium in the past. 3. He has had gabapentin OD in the past. 4. AFib. 5. EtOH abuse. 6. COPD. 7. History of DVT. 8. Nephrolithiasis. 9. Hypertension. 10. Hyperlipidemia. 11. History of erosive esophagitis. 12. Chest pain. PAST SURGICAL HISTORY: Denies. MEDICATIONS: Home meds according to the bottles that we were able to obtain that he brought in include: 1. Baclofen 5 to 10 mg every 8 hours as needed. 2. Neurontin 900 mg p.o. 4 times a day. 3. Ibuprofen 600 mg 4 times a day as needed. 4. Tramadol 50 to 100 mg every 4 hours as needed. 5. Diltiazem CD 180 mg daily. 6. Lopressor 100 mg p.o. b.i.d. 7. Requip 0.5 mg p.o. daily at bedtime. 8. Magnesium oxide 400 mg p.o. daily. 9. Lisinopril/hydrochlorothiazide 1 tablet p.o. daily. 10. Colace 100 mg p.o. b.i.d. 11. Incruse Ellipta one inhalation daily. 12. Prilosec 40 mg p.o. b.i.d. ALLERGIES TO MEDICATIONS: Include no known drug allergies. FAMILY HISTORY: Both of his parents in a car accident. He states his father had colon cancer. SOCIAL HISTORY: He says he is a pack and a half to a pack a day smoker. He has been smoking for 40-plus years. He does state he drinks on a nightly basis. He says he has had history of using marijuana and he has used cocaine in the past, but he says nothing recently. Surrogate decision maker would be his sister. REVIEW OF SYSTEMS: Again, he denied any documented fever. No significant weight change. No double vision. No ear discharge. He denies having any rhinorrhea. There was no sore throat. No thyroid enlargement. Denies having any chest pain. There is no orthopnea. There is no nocturnal dyspnea. He denies having any abdominal pain. Denies having any nauseas, no vomiting. No dysuria, no frequency. No seizure. There was no loss of consciousness. No pruritus, no skin ulceration. Review of 14 systems completed, all others negative. PHYSICAL EXAMINATION GENERAL: At this time, Mr. Conway is a 61-year-old male patient. He is chronically ill appearing. He appears to be older than stated age. He is sitting in the ED stretcher. He does not appear to be in any acute distress. He certainly does appear to be agitated and in restless. VITAL SIGNS: Blood pressure 121/89, pulse 126, respirations 21, O2 sat 100%, temperature 99.6. After the Cardizem bolus, his heart rate was down to the 120s. He was again as high as 160s. HEENT: Head: Atraumatic, normocephalic. Eyes: EOMs are intact. Sclerae are anicteric and not pale. Throat: Oral mucosa appears to be dry. No oropharyngeal erythema. NECK: Supple. LUNGS: Diminished at the bases. No wheezes, rales, or rhonchi. HEART: Sounds S1, S2. Irregular rate and rhythm. No murmurs, rubs, or gallops. ABDOMEN: Soft. It was flat, nontender. Bowel sounds were present. EXTREMITIES: Pulses were 2+ throughout. Moving all 4 extremities with 5/5 strength. NEUROLOGIC: He does awaken, he knows his name, he knows where he is, he knows the month, but he is certainly confused to situation. He is unsure what meds he was taking, unsure of how it came about the mash filter operator are called. His speech is clear. His tongue is midline. No gross focal deficits. SKIN: Intact. DIAGNOSTIC STUDIES/LAB DATA: WBC of 9.3, RBC of 4.80, hemoglobin 14.4, hematocrit 42, platelet count 235. Sodium is 141, his potassium was 3.4, chloride is 106, bicarb 22, BUN 24, creatinine 0.95, glucose 91, lactate 1.6, calcium 9.5. Total bili 0.8. AST 112, ALT 29, his alk phos 82, albumin 4.0, TSH 2.55. He had a U-tox obtained today, which was negative. Serum alcohol was undetectable. He did have a UA, which was negative as well. He had initial EKG, which did show of normal sinus rhythm at 95. No ST elevation or T-wave inversions. His most recent EKG did show atrial fibrillation with rapid ventricular response and he does have PVC along with diffuse ST depression. When we look back previously when he has been in AFib with RVR, he has had a similar ST depression. Old medical records were reviewed. ASSESSMENT AND PLAN: Mr. Conway is a 61-year-old male patient coming into the ED today with complaints of altered mental status. He again in the ED was found to go into atrial fibrillation with rapid ventricular response, his heart rate now is in the 110s. Because of the atrial fibrillation and the fact of the altered mental status, we were asked to evaluate for admission. He will be admitted inpatient status for: 1. Altered mental status: Again, this appears to be an acute delirium of unclear etiology. It could be from polypharmacy, polysubstance abuse. I am checking an ammonia level and also could be from EtOH withdrawal as well . We will put him on the [facility] protocol. Continue supportive care. I will get a brain CT and continue to follow. 2. Atrial fibrillation with rapid ventricular response: I am going to get him back on his Lopressor, he had not taken this today. I will get him 100 Lopressor now and continue him on diltiazem, I am going to actually get him 30 every 6 hours of the immediate release and if we need to we can give him p.r.n. pushes. His heart rate again after the 20 of diltiazem, it did fluctuate down into the 110s. Again, we are going to give him another 100 of Lopressor to see if we can get that heart rate better controlled. He will be placed him on telemetry. If I need to, we will start him on a drip and I will not give him anticoagulation because of the history of polysubstance abuse, delirium, I think the risks at this point outweighs the benefit. 3. History of polysubstance abuse: Continue supportive care. 4. History of ethanol abuse: We will put him on [facility] protocol. 5. Chronic obstructive pulmonary disease: I will go ahead and continue his Incruse Ellipta and p.r.n. nebs. 6. History of deep vein thrombosis: We will place him on heparin subcu for DVT prophylaxis. 7. History of hypertension: Continue meds as prescribed. 8. Hyperlipidemia: Continue statin therapy. 9. Gastroesophageal reflux disease with a history of erosive esophagitis: Continue meds as prescribed. 10. Chronic pain: I have continued his meds at a reduced rate as prescribed. Again, I have cut his baclofen down to 5 as needed every 8 hours and his tramadol to 50 as needed every 4 hours and we will continue his gabapentin. 11. DVT prophylaxis: High risk, place him on heparin subcu. 12. Hypokalemia: We will go ahead and replace. 13. Code status: Full code. 14. Fluids, electrolytes, and nutrition: He can have a regular diet. TIME SPENT: On the admission 60 minutes, greater than half the time was spent face- to-face with the patient obtaining my history and physical; other half time was spent going over the plan of care with the patient and implementing plan of care. I did discuss the plan of care with my attending, Dr. Hubbard; she is in agreement. PATRICIA VEGA NP [id number]/[facility] #: [id number] STEPH
[2017-07-24] MEDS: Diltiazem TAB* 30 MG PO SCH (05:35)
[2017-07-24] MEDS: Heparin VIAL(*) 5000 UNITS/ML VIAL (FIVE THOUSAND) SUBCUT SCH ×3 (05:35→21:14)
[2017-07-24 06:03] LABS: INR 0.97 (0.77-1.02)
[2017-07-24 06:11] LABS: EGFR Non-African American 131.9 (>60)
[2017-07-24 06:46] LABS: ABS Basophils 0 10^3/ul (0-0.2); ABS Eosinophils 0.1 10^3/ul (0-0.6); ABS Lymphocytes 2.2 10^3/ul (1.0-4.8); ABS Monocytes 0.8 10^3/ul (0-0.8); ABS Nucleated RBC 0 10^3/ul; Eosinophil % 0.7 % (0-6); Hematocrit 42 % (42-52); Hemoglobin 14.6 g/dl (14.0-18.0); Lymphocyte % 30.7 % (25-47); Mean Corpuscular HGB Conc 35 g/dl (31-36); Mean Corpuscular Hemoglobin 31 pg (27-31); Mean Corpuscular Volume 89 fL (80-94); Mean Platelet Volume 8.6 um3 (7.4-10.4); Nucleated Red Blood Cells % 0.1; Platelet Count 208 10^3/ul (150-450); Red Blood Count 4.71 10^6/ul (4.0-5.4); Red Cell Distribution Width 15 % (10.5-15); White Blood Count 7.1 10^3/ul (3.5-10.8)
--- NOTE | 2017-07-24 07:38 | RAD ---
HISTORY: Altered mental status COMPARISONS: February 25, 2017 TECHNIQUE: Multiple contiguous axial CT scans were obtained of the head without intravenous contrast. FINDINGS: HEMORRHAGE/INFARCT: There is no hemorrhage or acute infarct. MASSES/SHIFT: There is no mass or shift. EXTRA-AXIAL SPACES: There are no extra-axial fluid collections. SULCI AND VENTRICLES: The sulci and ventricles are normal in size and position for the patient's stated age. CEREBRUM: There is hypoattenuation of the periventricular and subcortical white matter. BRAINSTEM: There are no focal parenchymal abnormalities. CEREBELLUM: There are no focal parenchymal abnormalities. VESSELS: The vessels are grossly normal. PARANASAL SINUSES: There is opacification of the left maxillary sinus. There is postsurgical change to the nasal cavity. ORBITS: The orbits are unremarkable. BONES AND SOFT TISSUE: No bone or soft tissue abnormalities are noted. OTHER: None IMPRESSION: NO ACUTE INTRACRANIAL PATHOLOGY. CHRONIC SMALL VESSEL ISCHEMIC CHANGE
--- NOTE | 2017-07-24 07:42 | RAD ---
HISTORY: Back pain, rule out dissection COMPARISONS: November 15, 2013 TECHNIQUE: Multiple contiguous axial CT scans of the chest were obtained after the administration of nonionic intravenous contrast, timed to the systemic arterial phase of contrast enhancement.. Coronal and sagittal multiplanar reformations are also submitted for review. FINDINGS: Evaluation is limited by patient breathing motion artifact. NECK AND THYROID: The lower neck and thyroid are unremarkable. CHEST WALL: There is no lower cervical, axillary, or supraclavicular lymphadenopathy by size criteria. HEART AND PERICARDIUM: The heart is unremarkable. AORTA AND PULMONARY VASCULATURE: The aorta is tortuous. There is no aneurysmal dilatation or intimal flap. There is no periaortic hematoma. There is mild atheromatous disease of the thoracic aorta. The pulmonary vasculature is normal for the phase of contrast demonstration. MEDIASTINUM: There is no mediastinal lymphadenopathy by size criteria. KARLOS: There is no hilar lymphadenopathy by size criteria. AIRWAY AND ESOPHAGUS: The airway is unremarkable, without endobronchial filling defect. The esophagus is grossly normal. LUNG PARENCHYMA: The lungs are clear. PLEURA: No pleural abnormalities are noted. UPPER ABDOMEN: A small left adrenal nodule can be identified. This is stable when compared to 2013. BONES AND SOFT TISSUES: Mild degenerative changes are noted OTHER: None. IMPRESSION: NO AORTIC ANEURYSMAL DILATATION OR INTIMAL FLAP TO SUGGEST DISSECTION
[2017-07-24] MEDS: Umeclidin 62.5 MDI(NF) 1 INH MDI INH SCH (08:41)
--- NOTE | 2017-07-24 08:54 | PN ---
Subjective Date of Service: 07/24/17 Interval History: Pt not able to make his needs known. Objective Active Medications: Acetaminophen (Tylenol Tab*) 650 mg PO Q4H PRN PRN Reason: FEVER/PAIN Albuterol (Ventolin 2.5 Mg/3 Ml Neb.Jessica*) 2.5 mg INH Q2H PRN PRN Reason: SOB/WHEEZING Baclofen (Lioresal Tab*) 5 mg PO Q8HR PRN PRN Reason: PAIN Chlordiazepoxide (Librium Cap*) 50 mg PO TID [facility] Chlordiazepoxide (Librium Cap*) 25 mg PO Q3H PRN PRN Reason: ANXIETY Diltiazem HCl (Cardizem Cd Cap*) 240 mg PO DAILY [facility] Folic Acid (Folvite Tab*) 1 mg PO DAILY [facility] Heparin Sodium (Porcine) (Heparin Vial(*)) 5,000 units SUBCUT Q8HR [facility] Last Admin: 07/24/17 05:35 Dose: 5,000 units Hydrochlorothiazide (Hydrodiuril Tab*) 12.5 mg PO DAILY [facility] Sodium Chloride (Ns 0.9% 1000 Ml*) 1,000 mls @ 125 mls/hr IV PER RATE [facility] Stop: 07/25/17 06:14 Last Admin: 07/23/17 23:39 Dose: 125 mls/hr Lorazepam (Ativan Inj*) 0 - 6 mg IV PUSH .PER [facility] PROTOCOL [facility] PRN Reason: Protocol Last Admin: 07/24/17 06:01 Dose: 4 mg Lorazepam (Ativan Inj*) 1 mg IV PUSH Q2H PRN PRN Reason: AGITATION Magnesium Oxide (Magox 400 Tab*) 400 mg PO DAILY [facility] Metoprolol Tartrate (Lopressor Tab*) 100 mg PO BID [facility] Last Admin: 07/23/17 22:27 Dose: 100 mg Multivitamins/Minerals (Theragran/Minerals Tab*) 1 tab PO DAILY [facility] Omeprazole (Prilosec Cap*) 40 mg PO BID [facility] Last Admin: 07/23/17 23:47 Dose: 40 mg Ondansetron HCl (Zofran 40 Mg Vial*) 4 mg IV Q6H PRN PRN Reason: NAUSEA Ropinirole HCl (Requip Tab*) 0.5 mg PO BEDTIME [facility] Last Admin: 07/23/17 23:47 Dose: 0.5 mg Thiamine HCl (Vitamin B-1 Tab*) 100 mg PO DAILY [facility] Tramadol HCl (Ultram*) 50 mg PO Q4HR [facility] Last Admin: 07/24/17 05:40 Dose: Not Given Umeclidinium [place] (Incruse Ellipta Mdi (Nf)) 1 inh INH DAILY [facility] Last Admin: 07/24/17 08:41 Dose: Not Given Vital Signs - 8 hr 07/24/17 07/24/17 07/24/17 01:12 02:05 02:14 Temperature 97.8 F Pulse Rate 106 Respiratory 24 16 20 Rate Blood Pressure 130/59 (mmHg) O2 Sat by Pulse 93 Oximetry 07/24/17 07/24/17 07/24/17 02:16 03:29 03:56 Temperature 99.1 F Pulse Rate 103 Respiratory 20 20 26 Rate Blood Pressure 130/98 (mmHg) O2 Sat by Pulse 92 Oximetry 07/24/17 07/24/17 07/24/17 04:05 05:27 05:55 Temperature 98.7 F Pulse Rate 110 Respiratory 24 22 24 Rate Blood Pressure 152/88 (mmHg) O2 Sat by Pulse 100 Oximetry 07/24/17 06:01 Temperature Pulse Rate Respiratory 24 Rate Blood Pressure (mmHg) O2 Sat by Pulse Oximetry Oxygen Devices in Use Now: None Appearance: Alert, supine in bed with hips and knees flexed. Neutral affect. Some rocking motion of body. Eyes: No Scleral Icterus Result Diagrams: 07/24/17 06:30 07/24/17 05:45 Additional Lab and Data: Lab Results 07/23/17 07/23/17 07/23/17 Range/Units 17:57 17:57 17:57 WBC 9.3 (3.5-10.8) 10^3/ul RBC 4.80 (4.0-5.4) 10^6/ul Hgb 14.4 (14.0-18.0) g/dl Hct 42 (42-52) % MCV 88 (80-94) fL MCH 30 (27-31) pg MCHC 34 (31-36) g/dl RDW 15 (10.5-15) % Plt Count 235 (150-450) 10^3/ul MPV 8.7 (7.4-10.4) um3 Neut % (Auto) 59.4 (38-83) % Lymph % (Auto) 25.2 (25-47) % [place] % (Auto) 14.9 H (0-7) % Eos % (Auto) 0 (0-6) % Baso % (Auto) 0.5 (0-2) % Absolute Neuts (auto) 5.5 (1.5-7.7) 10^3/ul Absolute Lymphs (auto) 2.3 (1.0-4.8) 10^3/ul Absolute Monos (auto) 1.4 H (0-0.8) 10^3/ul Absolute Eos (auto) 0 (0-0.6) 10^3/ul Absolute Basos (auto) 0 (0-0.2) 10^3/ul Absolute Nucleated RBC 0 10^3/ul Nucleated RBC % 0 Sodium 141 (139-145) mmol/L Potassium 3.4 L (3.5-5.0) mmol/L Chloride 106 (101-111) mmol/L Carbon Dioxide 22 (22-32) mmol/L Anion Gap 13 H (2-11) mmol/L BUN 24 (6-24) mg/dL Creatinine 0.95 (0.67-1.17) mg/dL Est GFR ( Amer) 103.7 (>60) Est GFR (Non-Af Amer) 80.6 (>60) BUN/Creatinine Ratio 25.3 H (8-20) Glucose 91 (70-100) mg/dL Lactic Acid 1.5 (0.5-2.0) mmol/L Calcium 9.5 (8.6-10.3) mg/dL Total Bilirubin 0.80 (0.2-1.0) mg/dL AST 112 H (13-39) U/L ALT 29 (7-52) U/L Alkaline Phosphatase 82 (34-104) U/L Total Protein 7.4 (6.4-8.9) g/dL Albumin 4.0 (3.2-5.2) g/dL Globulin 3.4 (2-4) g/dL Albumin/Globulin Ratio 1.2 (1-3) TSH 0.55 (0.34-5.60) mcIU/mL Salicylates < 2.50 (<30) mg/dL Acetaminophen < 15 mcg/mL Serum Alcohol < 10 (<10) mg/dL Assess/Plan/Problems-Billing Assessment: - Patient Problems (1) Altered mental state Current Visit: Yes Status: Acute Code(s): R41.82 - ALTERED MENTAL STATUS, UNSPECIFIED SNOMED Code(s): 079011820 Comment: EEG pending. Dr. Marcum's consult note appreciated. TTE unremarkable. Scheduled and PRN chlordiazepoxide ordered for possible DT's. (2) Paroxysmal atrial fibrillation Current Visit: Yes Status: Acute Code(s): I48.0 - PAROXYSMAL ATRIAL FIBRILLATION SNOMED Code(s): 719648873 Comment: Afib resolved by 8:40 AM 07/24/17. Continue metoprolol, diltiazem.
[2017-07-24] MEDS ORDERED: Docusate CAP* 100 MG PO SCH (09:00)
[2017-07-24] MEDS ORDERED: Lisinopril TAB* 10 MG PO SCH (09:00)
[2017-07-24] MEDS ORDERED: Gabapentin TAB(NF) 600 MG PO SCH (09:00)
[2017-07-24] MEDS ORDERED: Lisinopril/HCTZ 10/12.5(NF) TAB PO SCH (09:00)
[2017-07-24] MEDS ORDERED: Gabapentin CAP(*) 300 MG PO SCH (09:00)
[2017-07-24] MEDS: NS 0.9% 1000 ML* 1,000 ML IV SCH (09:07)
[2017-07-24] MEDS: Thiamine TAB* 100 MG TAB PO SCH (09:08)
[2017-07-24] MEDS: chlordiazePOXIDE CAP* 25 MG PO SCH ×3 (09:08→21:15)
[2017-07-24] MEDS: Hydrochlorothiazide TAB* 25 MG PO SCH (09:08)
[2017-07-24] MEDS: Metoprolol Tartrate TAB* 100 MG TAB PO SCH ×2 (09:08→21:07)
[2017-07-24] MEDS: Multivitamins/Minerals TAB PO SCH (09:08)
[2017-07-24] MEDS: Diltiazem CD CAP* 240 MG PO SCH (09:08)
[2017-07-24] MEDS: Magnesium Oxide TAB* 400 MG PO SCH (09:09)
[2017-07-24] MEDS: Folic Acid TAB* 1 MG PO SCH (09:09)
[2017-07-24] MEDS: Omeprazole CAP* 20 MG PO SCH ×2 (09:09→21:15)
--- NOTE | 2017-07-24 12:38 | CONS ---
CONSULTATION REPORT: DATE OF CONSULT: 07/24/2017. PATIENT OF: Dr. Pappas and Dr. Coppola. HISTORY OF PRESENT ILLNESS: This is a 61-year-old man whose history is from the chart since he gives limited history at this point. I am seeing him for altered mental status. He was brought in by the police last evening because apparently he had mixed up with taking too many of his medications and he is very restless and agitated, moving back and forth and talking out loud. Apparently last evening when he came in, he stated he was having back pain, he did not want to stay; however, he wound up going into rapid AFib and he was evaluated for admission. PAST MEDICAL HISTORY: He has a history of polysubstance abuse delirium in the past, gabapentin overdose in the past, AFib, alcohol abuse, COPD, history of DVT , history of nephrolithiasis, hypertension, hyperlipidemia, erosive esophagitis , and chest pain. PAST SURGICAL HISTORY: There have been no surgeries. MEDICATIONS: He at home is on, 1. Baclofen 5 to 10 mg every 8 hours as needed. 2. Neurontin 900 four times a day. 3. Tramadol 50 to 100 q. 4 hours as needed. 4. Diltiazem 180 CD daily. 5. Lopressor 100 mg b.i.d. 6. Requip 0.5 at bedtime. 7. Mag oxide 400 mg daily. 8. Lisinopril hydrochlorothiazide 1 tab daily. 9. Colace 100 b.i.d. 10. Ellipta inhaler daily. 11. Prilosec 40 mg b.i.d. ALLERGIES: He has no known drug allergies. SOCIAL HISTORY: Both parents in a car accident. Father had colon cancer. He smokes one and a half packs of cigarettes a day for 40 years. He drinks on a nightly basis and has had a history of marijuana use and cocaine use in the past, nothing recently. REVIEW OF SYSTEMS: He was unable to give me any review of systems and did not respond when I asked his name or his age. He did, when I asked him if he was in a pain, shake his head back and forth. I have reviewed his old chart and significantly he has had few neurological evaluations for this specific problem. The last time was in December of [address] Garcia when he was in the ICU with an agitated delirium and had needed to be intubated for his diminished responsiveness. This was thought to be from medication, partly from gabapentin withdrawal, although at that point he had an ammonia level of 62. He had some atrophy on his CT scan at that point. He had also seen Dr. Morales for similar problem back in 2013, but also with profound hypotension and acute renal failure and he had a change in mental status and was trashing and snarling and was on Ativan. He also was noted to have some psychotic functioning in the past and has been seen by Dr. Adams from Psychiatry a number of times back in 2013 and was felt to have delirium and possibly sensitivity to medications. He also was noted to have prior psychiatric hospitalizations, but did not have the specific diagnosis. He was noted to have some emotional regressive behavior, such as talking in childish voice per Dr. Adams at that point. He has also as an outpatient had an EEG in March of 2017 which was normal. PHYSICAL EXAM: Temperature 98.9, pulse 74, respirations 28, blood pressure 136/ 83. He appeared alert and would fix and follow. He is not answering questions other than to shake his head "no" that he was not in pain. Cranial nerves II through XII were normal. Pupils were 2 mm. I did not get to look in his disk. He moved all extremities with power and was rocking back and forth on his back with his arms clenched around his knees. He did not cooperate with exam but strength at least appeared to be 5/5 throughout when I tried to move his arms, legs in different directions. Sensation is hard to assess. Reflexes were 1+. Chest: Clear. Cardiovascular: Regular rate and rhythm at this point. Abdomen: Soft. DIAGNOSTIC STUDIES/LAB DATA: He has some chronic small vessel ischemic disease on his CT scan. Labs which I have reviewed, labs include normal CBC, INR normal, normal PTT, electrolytes were normal. His AST was 112. His ammonia level was 53. Negative troponin. TSH 0.55. Drug screen: Alcohol levels were negative. UA was negative. An EEG is being done. ASSESSMENT AND PLAN: It is unclear from his limited history whether this just is his reaction to when he takes medicines inappropriately or abuses other substances. We do not have any clear evidence for this other than historical. It is possible that there may be a psychological component. EEG may be helpful in terms of assessing his background while he is in one of his agitated fits. He has what appears to be small vessel ischemic disease on his CT scan. I do not think that this is acutely responsible for his symptoms, but he is only 61, depending on how he does and if he is able to sit in the next day or two before he goes home, possibly getting MRI scan might provide a useful baseline and more detail. Thank you for sharing his case. [id number]/[facility] #: [id number] STEPH
[2017-07-24] MEDS: LORazepam INJ* 2 MG/ML 1 ML VIAL IV PUSH PRN ×4 (12:42→22:51)
[2017-07-24] MEDS ORDERED: Perflutren Lipid Microsphere* 3 ML VIAL ONE (15:06)
--- NOTE | 2017-07-24 16:33 | ECHO ---
Patient: CHRISTOPH MONTENEGRO [facility] Rec#: [id number] : 1955 Date: 07/24/2017 Age: 61y Height: 182.9 cm / 72.0 in Weight: 88.9 kg / 195.9 lbs Sex: M BSA: 2.1 Room#: [facility] Admit Date#: 07/23/2017 Type: Inpatient Referring: Hernan Coppola MD Reading: Denny Jones MD Hole Digger Operator: Rocio Botello RN RDCS CC: Guru Pappas MD Transthoracic Echocardiogram Indication: Atrial fibrillation BP: 136/83 HR: 56 Rhythm: Bradycardia Findings History: A. fib, HTN, HLD, COPD, smoker, polysubstance abuse, ETOH abuse, DVT, erosive esophagitis Technical Comments: The study is technically limited due to poor acoustic windows. The study is technically limited due to the patient's history of COPD. The study is technically limited due to the patient's smoking history. The study was technically limited due to the patient's inability to lay in the left lateral decubitus position. The exam was performed with the patient supine in a lounge chair. Respiratory interference made imaging more difficult. Completed at 1612. Left Ventricle: The left ventricular chamber size is normal. Septal wall hypertrophy is observed. Global left ventricular wall motion and contractility are within normal limits. There is normal left ventricular systolic function. The estimated ejection fraction is 60-65%. The assessment of diastolic function is non-diagnostic. Left Atrium: The left atrium is not well visualized. The left atrium is mildly dilated. Right Ventricle: The right ventricle wall thickness is moderately increased. The right ventricular cavity size is normal. The right ventricular global systolic function is mildly reduced. Right Atrium: The right atrium is not well visualized. Aortic Valve: The aortic valve is trileaflet. The aortic valve leaflets are mildly thickened. There is no evidence of aortic regurgitation. There is no evidence of aortic stenosis. Mitral Valve: The mitral valve leaflets are mildly thickened. There is no evidence of mitral regurgitation. There is no evidence of mitral stenosis. Tricuspid Valve: The tricuspid valve leaflets are normal. There is trace tricuspid regurgitation. Unable to estimate the right ventricular systolic pressure. There is no tricuspid stenosis. Pulmonic Valve: The pulmonic valve structure is not well visualized. There is trace to mild pulmonic regurgitation. There is no pulmonic stenosis. Pericardium: There is no significant pericardial effusion. Aorta: There is mild dilatation of the ascending aorta. There is no dilatation of the aortic arch. There is mild dilatation of the aortic root. Pulmonary Artery: The main pulmonary artery is not well visualized. Venous: The venous system is not well visualized. The inferior vena cava is not visualized. Contrast: Definity was used to optimize study. A total of 4 ml of diluted Definity was given IV. Summary: There are no significant changes when compared to the previous study done on 01/11/17 Conclusions Global left ventricular wall motion and contractility are within normal limits. There is normal left ventricular systolic function. The estimated ejection fraction is 60-65%. The right ventricular global systolic function is mildly reduced. There is no evidence of aortic stenosis. There is no evidence of mitral regurgitation. There is trace tricuspid regurgitation. Unable to estimate the right ventricular systolic pressure. There is no significant pericardial effusion. Measurements Name Value Normal Range RVDdMajor (2D) 3.2 cm (2.2 - 4.4) RVAW (2D) 1.2 cm (0.2 - 0.5) IVSd (2D) 1.2 cm (0.6 - 1) LVPWd (2D) 1 cm (0.6 - 1) LVIDd (2D) 3.7 cm (3.6 - 5.4) LVIDs (2D) 2.7 cm - LV FS (2D) 27 % (25 - 45) Aortic Annulus 2.5 cm (1.4 - 2.6) Ao root diameter (2D) 3.7 cm (2.1 - 3.5) Ascending Ao 3.8 cm (2.1 - 3.4) Aortic arch 3.1 cm (1.8 - 3.4) LA dimension (AP) 2D 3.7 cm (2.3 - 3.8) LAd ISD 4CH 6.1 cm (2.9 - 5.3) LA ISD 4CH W 4.3 cm (2.5 - 4.5) Name Value Normal Range MV E-wave Vmax 0.51 m/sec - MV deceleration time 278 msec - MV A-wave Vmax 0.59 m/sec - MV E:A ratio 0.88 ratio - LV septal e' Vmax 0.1 m/sec - LV lateral e' Vmax 0.12 m/sec - LV E:e' septal ratio 5.1 ratio - LV E:e' lateral ratio 4.3 ratio - Name Value Normal Range AV Vmax 1.3 m/sec - AV VTI 24.4 cm - AV peak gradient 6.2 mmHg - AV mean gradient 3.9 mmHg - LVOT Vmax 0.81 m/sec - LVOT VTI 16.9 cm - LVOT peak gradient 2.6 mmHg - LVOT mean gradient 1.4 mmHg - JELENA Vmax 0.65 m/sec - Name Value Normal Range PV Vmax 0.77 m/sec -
[2017-07-24] MEDS: chlordiazePOXIDE CAP* 25 MG PO PRN (17:26)
[2017-07-24] MEDS: Ropinirole TAB* 0.5 MG TAB PO SCH (21:14)
[2017-07-24] MEDS ORDERED: Diltiazem TAB* 30 MG PO SCH (22:13)
[2017-07-25] MEDS: chlordiazePOXIDE CAP* 25 MG PO PRN ×3 (00:10→23:45)
[2017-07-25] MEDS: traMADol TAB* 50 MG PO SCH ×4 (01:23→14:16)
[2017-07-25] MEDS: LORazepam INJ* 2 MG/ML 1 ML VIAL IV PUSH PRN ×4 (01:23→23:45)
--- NOTE | 2017-07-25 04:56 | EEG ---
ELECTROENCEPHALOGRAPHY: DATE OF STUDY: 07/24/2017. PATIENT OF: Dr. Coppola. CLINICAL PROBLEM: This is a 61-year-old man being evaluated for confusion and altered mental status. He is being treated for alcohol abuse and of note he was given 4 mg of IV Ativan at 6 a.m. Other medications include; 1. Librium. 2. Cardizem. 3. HydroDIURIL. 4. Mag oxide. 5. Lopressor. 6. Prilosec. 7. Ellipta. 8. Ultram. 9. Requip. 10. Ventolin. 11. Lioresal. 12. Zofran. REPORT: With the patient awake, rocking back and forth, background consists of diffuse 6 to 7 Hz rhythm, occasionally rhythm reaches 8 Hz. No focal abnormalities or major asymmetries of background are noted. No epileptiform potentials are present. CLINICAL IMPRESSION: This awake EEG is abnormal because of diffuse slowing. This is consistent with a generalized encephalopathy, but not specific as to etiology. Medications the patient is consuming may contribute to the slowing. [id number]/[facility] #: [id number] MTDD
[2017-07-25] MEDS: Heparin VIAL(*) 5000 UNITS/ML VIAL (FIVE THOUSAND) SUBCUT SCH ×3 (05:21→20:27)
[2017-07-25] MEDS: Umeclidin 62.5 MDI(NF) 1 INH MDI INH SCH (07:42)
[2017-07-25] MEDS: Thiamine TAB* 100 MG TAB PO SCH (08:59)
[2017-07-25] MEDS: Magnesium Oxide TAB* 400 MG PO SCH (08:59)
[2017-07-25] MEDS: Omeprazole CAP* 20 MG PO SCH ×2 (08:59→20:26)
[2017-07-25] MEDS: chlordiazePOXIDE CAP* 25 MG PO SCH ×3 (08:59→20:27)
[2017-07-25] MEDS: Metoprolol Tartrate TAB* 100 MG TAB PO SCH ×2 (08:59→20:31)
[2017-07-25] MEDS: Folic Acid TAB* 1 MG PO SCH (08:59)
[2017-07-25] MEDS: Hydrochlorothiazide TAB* 25 MG PO SCH (08:59)
[2017-07-25] MEDS: Diltiazem CD CAP* 240 MG PO SCH (09:00)
[2017-07-25] MEDS: Multivitamins/Minerals TAB PO SCH (09:00)
--- NOTE | 2017-07-25 11:19 | PN ---
Subjective Date of Service: 07/25/17 Objective Active Medications: Acetaminophen (Tylenol Tab*) 650 mg PO Q4H PRN PRN Reason: FEVER/PAIN Albuterol (Ventolin 2.5 Mg/3 Ml Neb.Jessica*) 2.5 mg INH Q2H PRN PRN Reason: SOB/WHEEZING Chlordiazepoxide (Librium Cap*) 25 mg PO Q3H PRN PRN Reason: ANXIETY Last Admin: 07/25/17 05:46 Dose: 25 mg Chlordiazepoxide (Librium Cap*) 25 mg PO TID [facility] Last Admin: 07/25/17 08:59 Dose: 25 mg Diltiazem HCl (Cardizem Cd Cap*) 240 mg PO DAILY [facility] Last Admin: 07/25/17 09:00 Dose: 240 mg Folic Acid (Folvite Tab*) 1 mg PO DAILY [facility] Last Admin: 07/25/17 08:59 Dose: 1 mg Heparin Sodium (Porcine) (Heparin Vial(*)) 5,000 units SUBCUT Q8HR [facility] Last Admin: 07/25/17 05:21 Dose: 5,000 units Hydrochlorothiazide (Hydrodiuril Tab*) 12.5 mg PO DAILY [facility] Last Admin: 07/25/17 08:59 Dose: 12.5 mg Lorazepam (Ativan Inj*) 0 - 6 mg IV PUSH .PER [facility] PROTOCOL [facility] PRN Reason: Protocol Last Admin: 07/24/17 06:01 Dose: 4 mg Lorazepam (Ativan Inj*) 1 mg IV PUSH Q2H PRN PRN Reason: AGITATION Last Admin: 07/25/17 05:21 Dose: 1 mg Magnesium Oxide (Magox 400 Tab*) 400 mg PO DAILY [facility] Last Admin: 07/25/17 08:59 Dose: 400 mg Metoprolol Tartrate (Lopressor Tab*) 100 mg PO BID [facility] Last Admin: 07/25/17 08:59 Dose: 100 mg Multivitamins/Minerals (Theragran/Minerals Tab*) 1 tab PO DAILY [facility] Last Admin: 07/25/17 09:00 Dose: 1 tab Omeprazole (Prilosec Cap*) 40 mg PO BID [facility] Last Admin: 07/25/17 08:59 Dose: 40 mg Ondansetron HCl (Zofran 40 Mg Vial*) 4 mg IV Q6H PRN PRN Reason: NAUSEA Ropinirole HCl (Requip Tab*) 0.5 mg PO BEDTIME [facility] Last Admin: 07/24/17 21:14 Dose: 0.5 mg Thiamine HCl (Vitamin B-1 Tab*) 100 mg PO DAILY [facility] Last Admin: 07/25/17 08:59 Dose: 100 mg Tramadol HCl (Ultram*) 50 mg PO Q4HR [facility] Last Admin: 07/25/17 09:00 Dose: 50 mg Umeclidinium [place] (Incruse Ellipta Mdi (Nf)) 1 inh INH DAILY [facility] Last Admin: 07/25/17 07:42 Dose: Not Given Vital Signs - 8 hr 07/25/17 07/25/17 07/25/17 04:00 05:21 05:46 Temperature Pulse Rate Respiratory 20 22 22 Rate Blood Pressure (mmHg) O2 Sat by Pulse Oximetry 07/25/17 07/25/17 07/25/17 06:15 08:00 08:47 Temperature 98.0 F Pulse Rate 71 Respiratory 22 22 15 Rate Blood Pressure 115/73 (mmHg) O2 Sat by Pulse 98 Oximetry 07/25/17 07/25/17 08:59 09:00 Temperature Pulse Rate Respiratory 16 16 Rate Blood Pressure (mmHg) O2 Sat by Pulse Oximetry Oxygen Devices in Use Now: None Result Diagrams: 07/24/17 06:30 07/24/17 05:45 Additional Lab and Data: Lab Results 07/23/17 07/23/17 07/23/17 Range/Units 17:57 17:57 17:57 WBC 9.3 (3.5-10.8) 10^3/ul RBC 4.80 (4.0-5.4) 10^6/ul Hgb 14.4 (14.0-18.0) g/dl Hct 42 (42-52) % MCV 88 (80-94) fL MCH 30 (27-31) pg MCHC 34 (31-36) g/dl RDW 15 (10.5-15) % Plt Count 235 (150-450) 10^3/ul MPV 8.7 (7.4-10.4) um3 Neut % (Auto) 59.4 (38-83) % Lymph % (Auto) 25.2 (25-47) % [place] % (Auto) 14.9 H (0-7) % Eos % (Auto) 0 (0-6) % Baso % (Auto) 0.5 (0-2) % Absolute Neuts (auto) 5.5 (1.5-7.7) 10^3/ul Absolute Lymphs (auto) 2.3 (1.0-4.8) 10^3/ul Absolute Monos (auto) 1.4 H (0-0.8) 10^3/ul Absolute Eos (auto) 0 (0-0.6) 10^3/ul Absolute Basos (auto) 0 (0-0.2) 10^3/ul Absolute Nucleated RBC 0 10^3/ul Nucleated RBC % 0 Sodium 141 (139-145) mmol/L Potassium 3.4 L (3.5-5.0) mmol/L Chloride 106 (101-111) mmol/L Carbon Dioxide 22 (22-32) mmol/L Anion Gap 13 H (2-11) mmol/L BUN 24 (6-24) mg/dL Creatinine 0.95 (0.67-1.17) mg/dL Est GFR ( Amer) 103.7 (>60) Est GFR (Non-Af Amer) 80.6 (>60) BUN/Creatinine Ratio 25.3 H (8-20) Glucose 91 (70-100) mg/dL Lactic Acid 1.5 (0.5-2.0) mmol/L Calcium 9.5 (8.6-10.3) mg/dL Total Bilirubin 0.80 (0.2-1.0) mg/dL AST 112 H (13-39) U/L ALT 29 (7-52) U/L Alkaline Phosphatase 82 (34-104) U/L Total Protein 7.4 (6.4-8.9) g/dL Albumin 4.0 (3.2-5.2) g/dL Globulin 3.4 (2-4) g/dL Albumin/Globulin Ratio 1.2 (1-3) TSH 0.55 (0.34-5.60) mcIU/mL Salicylates < 2.50 (<30) mg/dL Acetaminophen < 15 mcg/mL Serum Alcohol < 10 (<10) mg/dL Assess/Plan/Problems-Billing Assessment: - Patient Problems (1) Altered mental state Current Visit: Yes Status: Acute Code(s): R41.82 - ALTERED MENTAL STATUS, UNSPECIFIED SNOMED Code(s): 916638433 Comment: EEG pending. Dr. Marcum's consult note appreciated. TTE unremarkable. Scheduled and PRN chlordiazepoxide ordered for possible DT's. (2) Paroxysmal atrial fibrillation Current Visit: Yes Status: Acute Code(s): I48.0 - PAROXYSMAL ATRIAL FIBRILLATION SNOMED Code(s): 187625200 Comment: Afib resolved by 8:40 AM 07/24/17. Continue metoprolol, diltiazem.
[2017-07-25] MEDS: Acetaminophen TAB* 325 MG PO SCH ×2 (16:58→20:26)
[2017-07-25] MEDS: Ropinirole TAB* 0.5 MG TAB PO SCH (20:26)
[2017-07-26] MEDS: LORazepam INJ* 2 MG/ML 1 ML VIAL IV PUSH PRN ×4 (01:50→19:27)
[2017-07-26] MEDS: Acetaminophen TAB* 325 MG PO SCH ×4 (04:04→22:01)
[2017-07-26] MEDS: Heparin VIAL(*) 5000 UNITS/ML VIAL (FIVE THOUSAND) SUBCUT SCH ×3 (04:54→22:02)
[2017-07-26 06:44] LABS: ABS Basophils 0 10^3/ul (0-0.2); ABS Eosinophils 0.2 10^3/ul (0-0.6); ABS Lymphocytes 1.8 10^3/ul (1.0-4.8); ABS Monocytes 0.7 10^3/ul (0-0.8); ABS Neutrophils 3.6 10^3/ul (1.5-7.7); ABS Nucleated RBC 0 10^3/ul; Eosinophil % 2.6 % (0-6); Hematocrit 43 % (42-52); Hemoglobin 14.7 g/dl (14.0-18.0); Lymphocyte % 28.4 % (25-47); Mean Corpuscular HGB Conc 34 g/dl (31-36); Mean Corpuscular Hemoglobin 30 pg (27-31); Mean Corpuscular Volume 88 fL (80-94); Mean Platelet Volume 8.6 um3 (7.4-10.4); Nucleated Red Blood Cells % 0; Platelet Count 221 10^3/ul (150-450); Red Blood Count 4.85 10^6/ul (4.0-5.4); Red Cell Distribution Width 15 % (10.5-15); White Blood Count 6.2 10^3/ul (3.5-10.8)
[2017-07-26 06:58] LABS: EGFR Non-African American 129.5 (>60)
--- NOTE | 2017-07-26 08:50 | PN ---
NEUROLOGICAL FOLLOWUP NOTE: DATE OF SERVICE: PATIENT OF: Dr. Coppola. HISTORY: This is a neurological followup on this 61-year-old man who had altered mental status yesterday. He is now nodding and speaking more than yesterday.. He is in acute back pain. His rocking is better than it was yesterday. He has no other complaints. MEDICATIONS: His medications continue to be: 1. Ventolin. 2. Librium p.r.n. as well as 3 times a day. 3. Cardizem. 4. HydroDIURIL. 5. Ativan. 6. Mag oxide. 7. Metoprolol. 8. Requip. 9. Tramadol. PHYSICAL EXAMINATION: Temperature 98, pulse 71, respirations 24, blood pressure 115/73. He is alert and speaking in sentences today, although he appears distracted. Cranial nerves II through XII were intact. He is clasping his nape, but is not rocking back and forth as he was yesterday. He is moving all extremities with power. Chest: Clear. Cardiovascular: Regular rate and rhythm. DIAGNOSTIC STUDIES: His EEG showed slowing, but this could be secondary to medications the patient is consuming. There are no epileptiform potentials. IMPRESSION AND PLAN: Mr. Conway is clearly better than he was yesterday. He is more alert and interactive and speaking in complete sentences. I think his symptoms were secondary to both pain meds and with pain perhaps yesterday even though he still has pain today. I have a call in to Dr. Coppola to discuss whether pain management either as an inpatient or outpatient should be involved to help him both with his pain and to minimize his pain medications as much as possible. I will be glad to see him in the hospital as needed from this point on. Thank you for sharing this case. [id number]/[facility] #: [id number] STEPH
[2017-07-26] MEDS: chlordiazePOXIDE CAP* 25 MG PO SCH ×3 (08:52→22:01)
[2017-07-26] MEDS: Multivitamins/Minerals TAB PO SCH (08:52)
[2017-07-26] MEDS: Magnesium Oxide TAB* 400 MG PO SCH (08:53)
[2017-07-26] MEDS: Omeprazole CAP* 20 MG PO SCH ×2 (08:53→20:55)
[2017-07-26] MEDS: Diltiazem CD CAP* 240 MG PO SCH (08:53)
[2017-07-26] MEDS: Metoprolol Tartrate TAB* 100 MG TAB PO SCH ×2 (08:54→20:55)
[2017-07-26] MEDS: Thiamine TAB* 100 MG TAB PO SCH (08:54)
[2017-07-26] MEDS: Folic Acid TAB* 1 MG PO SCH (08:54)
[2017-07-26] MEDS: Hydrochlorothiazide TAB* 25 MG PO SCH (08:55)
[2017-07-26] MEDS: Umeclidin 62.5 MDI(NF) 1 INH MDI INH SCH (09:00)
[2017-07-26] MEDS ORDERED: Potassium Chlor TAB* 20 MEQ TAB.ER PO ONE (09:33)
[2017-07-26] MEDS: chlordiazePOXIDE CAP* 25 MG PO PRN ×3 (10:31→19:27)
[2017-07-26] MEDS ORDERED: Haloperidol INJ IV/IM* 5 MG/ML AMP IM STA (13:40)
--- NOTE | 2017-07-26 18:34 | PN ---
Hospitalist Progress Note Date of Service: 07/26/17 Pt seen and examined. Meds and labs reviewed. ROS: Although responding, unable to reliably provide 14 point review of system. PHYSICAL EXAM: GEN APPEARANCE: Awake, not in acute distress HEENT: NC/AT, PERRLA, moist oral mucosa, (-) throat erythema NECK: Soft, supple, (-) cervical LAD, (-)JVD HEART: S1S2 WNL, RRR, No MRG CHEST: CTA, BL, GAE, No W/R/R ABD: Soft, ND/NT, NABS 4x Q EXT: No C/C/E SKIN: Warm to touch PSYCH: No active psychosis, hallucinations, depression, SI/HI ASSESSMENT AND PLAN: #Altered mental state -Continue scheduled and PRN chlordiazepoxide ordered for possible DT's. -EEG shows diffuse slowing consistent with generalized encephalopathy #Paroxysmal atrial fibrillation -Afib resolved by 8:40 AM 07/24/17. -Continue metoprolol, diltiazem. #DVT prophylaxis: -Continue Heparin SQ #Dispo: -Awaiting STR placement
[2017-07-26] MEDS: Ropinirole TAB* 0.5 MG TAB PO SCH (20:55)
[2017-07-27] MEDS: Acetaminophen TAB* 325 MG PO SCH ×4 (03:39→20:12)
[2017-07-27] MEDS: Heparin VIAL(*) 5000 UNITS/ML VIAL (FIVE THOUSAND) SUBCUT SCH ×3 (05:47→21:24)
[2017-07-27] MEDS: Umeclidin 62.5 MDI(NF) 1 INH MDI INH SCH (08:13)
[2017-07-27] MEDS: LORazepam INJ* 2 MG/ML 1 ML VIAL IV PUSH PRN ×2 (08:47→23:20)
[2017-07-27] MEDS: Metoprolol Tartrate TAB* 100 MG TAB PO SCH ×2 (08:52→20:12)
[2017-07-27] MEDS: Hydrochlorothiazide TAB* 25 MG PO SCH (08:52)
[2017-07-27] MEDS: Folic Acid TAB* 1 MG PO SCH (08:52)
[2017-07-27] MEDS: Diltiazem CD CAP* 240 MG PO SCH (08:52)
[2017-07-27] MEDS: Thiamine TAB* 100 MG TAB PO SCH (08:52)
[2017-07-27] MEDS: Omeprazole CAP* 20 MG PO SCH ×2 (08:54→20:12)
[2017-07-27] MEDS: Multivitamins/Minerals TAB PO SCH (08:54)
[2017-07-27] MEDS: Magnesium Oxide TAB* 400 MG PO SCH (08:54)
[2017-07-27] MEDS: chlordiazePOXIDE CAP* 25 MG PO SCH ×2 (08:55→20:12)
[2017-07-27] MEDS: Ketorolac INJ* 15 MG/ML 1 ML VIAL IV PUSH PRN ×2 (15:29→23:23)
[2017-07-27] MEDS: Lidocaine PATCH 5%* 1 PATCH TRANSDERM SCH (15:34)
--- NOTE | 2017-07-27 17:24 | PN ---
Hospitalist Progress Note Date of Service: 07/27/17 Pt seen and examined. Meds and labs reviewed. RN reports that pt has back pain , although the pt himself did not express this to me during my visit ROS: Back pain per RN report. Pt himself cannot provide a reliable 14 point ROS. PHYSICAL EXAM: GEN APPEARANCE: Awake, not oriented x3 HEENT: NC/AT, PERRLA, moist oral mucosa, (-) throat erythema NECK: Soft, supple, (-) cervical LAD, (-)JVD HEART: S1S2 WNL, RRR, No MRG CHEST: CTA, BL, GAE, No W/R/R ABD: Soft, ND/NT, NABS 4x Q EXT: No C/C/E SKIN: Warm to touch PSYCH: No active psychosis, hallucinations, depression, SI/HI ASSESSMENT AND PLAN: #Altered mental state: -Continue scheduled and PRN chlordiazepoxide ordered for possible DT's. -EEG shows diffuse slowing consistent with generalized encephalopathy -Touched base with Dr. Marcum and mentioned that pts altered mental state is likely due to poplypharmacy and recommends avoiding any other meds that can further decrease mentation. Pt is recommended to go to pain clinic instead if pain cannot be controlled by conservative means. #Paroxysmal atrial fibrillation -Afib resolved by 8:40 AM 07/24/17. -Continue metoprolol, diltiazem. #Back pain/Chronic pain: -Will place pt on PRN Toradol q6H and will place on Lidocaine patch #DVT prophylaxis: -Continue Heparin SQ #Dispo: -Awaiting STR placement
[2017-07-27] MEDS: LORazepam INJ* 2 MG/ML 1 ML VIAL IV PUSH SCH (17:40)
[2017-07-27] MEDS: Ropinirole TAB* 0.5 MG TAB PO SCH (20:12)
[2017-07-27] MEDS: Lidocaine Patch REMOVE* 1 NOTE MISC SCH (21:28)
[2017-07-28] MEDS: Acetaminophen TAB* 325 MG PO SCH ×4 (03:48→21:34)
[2017-07-28] MEDS: chlordiazePOXIDE CAP* 25 MG PO PRN (03:51)
[2017-07-28] MEDS: Heparin VIAL(*) 5000 UNITS/ML VIAL (FIVE THOUSAND) SUBCUT SCH ×3 (05:29→21:34)
[2017-07-28] MEDS: Umeclidin 62.5 MDI(NF) 1 INH MDI INH SCH (06:59)
[2017-07-28] MEDS ORDERED: Potassium Chlor TAB* 20 MEQ TAB.ER PO STA (09:25)
[2017-07-28] MEDS ORDERED: Magnesium Sulfate 2 GM IV* 2 GM/50 ML BAG IVPB ONE (09:25)
[2017-07-28] MEDS: Lidocaine PATCH 5%* 1 PATCH TRANSDERM SCH (10:00)
[2017-07-28] MEDS: chlordiazePOXIDE CAP* 25 MG PO SCH ×2 (10:05→21:33)
[2017-07-28] MEDS: Diltiazem CD CAP* 240 MG PO SCH (10:07)
[2017-07-28] MEDS: Metoprolol Tartrate TAB* 100 MG TAB PO SCH ×2 (10:08→21:34)
[2017-07-28] MEDS: Hydrochlorothiazide TAB* 25 MG PO SCH (10:10)
[2017-07-28] MEDS: LORazepam INJ* 2 MG/ML 1 ML VIAL IV PUSH PRN ×2 (10:11→23:32)
[2017-07-28] MEDS: Ketorolac INJ* 15 MG/ML 1 ML VIAL IV PUSH PRN ×2 (10:59→19:58)
[2017-07-28] MEDS: Omeprazole CAP* 20 MG PO SCH ×2 (11:14→21:34)
[2017-07-28] MEDS: Multivitamins/Minerals TAB PO SCH (11:14)
[2017-07-28] MEDS: Thiamine TAB* 100 MG TAB PO SCH (11:14)
[2017-07-28] MEDS: Folic Acid TAB* 1 MG PO SCH (11:15)
[2017-07-28] MEDS: Magnesium Oxide TAB* 400 MG PO SCH (11:19)
[2017-07-28] MEDS: Senna TAB PO SCH (14:23)
[2017-07-28] MEDS: Analgesic BALM* 114 GM TOPICAL SCH ×2 (14:23→21:33)
--- NOTE | 2017-07-28 19:09 | PN ---
Hospitalist Progress Note Date of Service: 07/28/17 Pt seen and examined. Meds and labs reviewed. ROS: Denied SALEH/dizziness, F/C, N/V, CP, SOB, increased cough, sputum production , abd pain, diarrhea, constipation, dysuria, myalgias, arthralgias, throat pain , and new skin lesions. The rest of the 14 point ROS are unremarkable. PHYSICAL EXAM: GEN APPEARANCE: Awake, not in acute distress HEENT: NC/AT, PERRLA, moist oral mucosa, (-) throat erythema NECK: Soft, supple, (-) cervical LAD, (-)JVD HEART: S1S2 WNL, RRR, No MRG CHEST: CTA, BL, GAE, No W/R/R ABD: Soft, ND/NT, NABS 4x Q EXT: No C/C/E SKIN: Warm to touch PSYCH: No active psychosis, hallucinations, depression, SI/HI ASSESSMENT AND PLAN: #Altered mental state: -Continue scheduled and PRN chlordiazepoxide ordered for possible DT's. -EEG shows diffuse slowing consistent with generalized encephalopathy -Touched base with Dr. Marcum and mentioned that pts altered mental state is likely due to poplypharmacy and recommends avoiding any other meds that can further decrease mentation. Pt is recommended to go to pain clinic instead if pain cannot be controlled by conservative means. #Paroxysmal atrial fibrillation -Afib resolved by 8:40 AM 07/24/17. -Continue metoprolol, diltiazem. #Back pain/Chronic pain: -Will place pt on PRN Toradol q6H and will place on Lidocaine patch #DVT prophylaxis: -Continue Heparin SQ #Dispo: -Awaiting STR placement
[2017-07-28] MEDS: Ropinirole TAB* 0.5 MG TAB PO SCH (21:33)
[2017-07-28] MEDS: Lidocaine Patch REMOVE* 1 NOTE MISC SCH (21:44)
[2017-07-29] MEDS: Ketorolac INJ* 15 MG/ML 1 ML VIAL IV PUSH PRN ×2 (03:11→07:54)
[2017-07-29] MEDS: Acetaminophen TAB* 325 MG PO SCH ×4 (03:11→22:23)
[2017-07-29] MEDS: chlordiazePOXIDE CAP* 25 MG PO PRN ×3 (03:40→18:17)
[2017-07-29] MEDS: LORazepam INJ* 2 MG/ML 1 ML VIAL IV PUSH PRN ×4 (03:41→17:07)
[2017-07-29] MEDS: Heparin VIAL(*) 5000 UNITS/ML VIAL (FIVE THOUSAND) SUBCUT SCH ×3 (05:13→22:24)
[2017-07-29] MEDS: Analgesic BALM* 114 GM TOPICAL SCH ×3 (08:00→22:24)
[2017-07-29] MEDS: Lidocaine PATCH 5%* 1 PATCH TRANSDERM SCH (08:02)
[2017-07-29] MEDS: Omeprazole CAP* 20 MG PO SCH ×2 (08:04→22:24)
[2017-07-29] MEDS: Senna TAB PO SCH (08:04)
[2017-07-29] MEDS: Multivitamins/Minerals TAB PO SCH (08:05)
[2017-07-29] MEDS: Folic Acid TAB* 1 MG PO SCH (08:05)
[2017-07-29] MEDS: Metoprolol Tartrate TAB* 100 MG TAB PO SCH ×2 (08:05→22:23)
[2017-07-29] MEDS: chlordiazePOXIDE CAP* 25 MG PO SCH ×2 (08:05→22:23)
[2017-07-29] MEDS: Diltiazem CD CAP* 240 MG PO SCH (08:05)
[2017-07-29] MEDS: Thiamine TAB* 100 MG TAB PO SCH (08:05)
[2017-07-29] MEDS: Magnesium Oxide TAB* 400 MG PO SCH (08:05)
[2017-07-29] MEDS: Hydrochlorothiazide TAB* 25 MG PO SCH (08:07)
[2017-07-29] MEDS: Umeclidin 62.5 MDI(NF) 1 INH MDI INH SCH (08:33)
[2017-07-29] MEDS ORDERED: Magnesium Sulfate 2 GM IV* 2 GM/50 ML BAG IVPB ONE (09:25)
[2017-07-29] MEDS ORDERED: Potassium Chlor TAB* 20 MEQ TAB.ER PO STA (09:25)
[2017-07-29] MEDS ORDERED: Haloperidol INJ IV/IM* 5 MG/ML AMP ONE (12:46)
[2017-07-29] MEDS: Haloperidol INJ IV/IM* 5 MG/ML AMP IM PRN ×2 (12:52→22:24)
--- NOTE | 2017-07-29 17:07 | PN ---
Hospitalist Progress Note Date of Service: 07/29/17 Pt seen and examined. Meds and labs reviewed. Staff reports intermittent episodes of behaviors. Added PRN Haldol to regimen ROS: Could not provide a reliable 14 point ROS PHYSICAL EXAM: GEN APPEARANCE: Awake, not in acute distress HEENT: NC/AT, PERRLA, moist oral mucosa, (-) throat erythema NECK: Soft, supple, (-) cervical LAD, (-)JVD HEART: S1S2 WNL, RRR, No MRG CHEST: CTA, BL, GAE, No W/R/R ABD: Soft, ND/NT, NABS 4x Q EXT: No C/C/E SKIN: Warm to touch PSYCH: No active psychosis, hallucinations, depression, SI/HI ASSESSMENT AND PLAN: #Altered mental state: -Continue scheduled and PRN chlordiazepoxide ordered for possible DT's. -EEG shows diffuse slowing consistent with generalized encephalopathy -Touched base with Dr. Marcum and mentioned that pts altered mental state is likely due to poplypharmacy and recommends avoiding any other meds that can further decrease mentation. Pt is recommended to go to pain clinic instead if pain cannot be controlled by conservative means. -Provided PRN 2.5 mg IV/IM Haldol q6HPRN #Paroxysmal atrial fibrillation -Afib resolved by 8:40 AM 07/24/17. -Continue metoprolol, diltiazem. #Back pain/Chronic pain: -Will place pt on PRN Toradol q6H and will place on Lidocaine patch #DVT prophylaxis: -Continue Heparin SQ #Dispo: -Awaiting STR placement
[2017-07-29] MEDS: Lidocaine Patch REMOVE* 1 NOTE MISC SCH (22:23)
[2017-07-29] MEDS: Ropinirole TAB* 0.5 MG TAB PO SCH (22:24)
[2017-07-30] MEDS: Haloperidol INJ IV/IM* 5 MG/ML AMP IM PRN (04:38)
[2017-07-30] MEDS: Acetaminophen TAB* 325 MG PO SCH ×4 (04:38→21:11)
[2017-07-30] MEDS: LORazepam INJ* 2 MG/ML 1 ML VIAL IV PUSH PRN ×2 (05:33→21:59)
[2017-07-30] MEDS: Heparin VIAL(*) 5000 UNITS/ML VIAL (FIVE THOUSAND) SUBCUT SCH ×3 (05:33→21:10)
[2017-07-30] MEDS: Umeclidin 62.5 MDI(NF) 1 INH MDI INH SCH (07:46)
[2017-07-30] MEDS ORDERED: Potassium Chlor TAB* 20 MEQ TAB.ER PO STA (09:08)
[2017-07-30] MEDS ORDERED: Magnesium Sulfate 2 GM IV* 2 GM/50 ML BAG IVPB ONE (09:44)
[2017-07-30] MEDS: Hydrochlorothiazide TAB* 25 MG PO SCH (10:03)
[2017-07-30] MEDS: Metoprolol Tartrate TAB* 100 MG TAB PO SCH ×2 (10:04→21:12)
[2017-07-30] MEDS: Thiamine TAB* 100 MG TAB PO SCH (10:05)
[2017-07-30] MEDS: Senna TAB PO SCH (10:06)
[2017-07-30] MEDS: chlordiazePOXIDE CAP* 25 MG PO SCH ×2 (10:08→21:11)
[2017-07-30] MEDS: Magnesium Oxide TAB* 400 MG PO SCH (10:09)
[2017-07-30] MEDS: Folic Acid TAB* 1 MG PO SCH (10:11)
[2017-07-30] MEDS: Diltiazem CD CAP* 240 MG PO SCH (10:12)
[2017-07-30] MEDS: Multivitamins/Minerals TAB PO SCH (10:14)
[2017-07-30] MEDS: Omeprazole CAP* 20 MG PO SCH ×2 (10:19→21:11)
[2017-07-30] MEDS: Analgesic BALM* 114 GM TOPICAL SCH ×3 (10:20→21:14)
[2017-07-30] MEDS: Lidocaine PATCH 5%* 1 PATCH TRANSDERM SCH (10:20)
--- NOTE | 2017-07-30 18:41 | PN ---
Hospitalist Progress Note Date of Service: 07/30/17 Pt seen and examined. Meds and labs reviewed. Electrolytes corrected. Per staff, they were able to find a daughter and would like to touch base prior to his planned D/C. ROS: Denied SALEH/dizziness, F/C, N/V, CP, SOB, increased cough, sputum production , abd pain, diarrhea, constipation, dysuria, myalgias, arthralgias, throat pain , and new skin lesions. The rest of the 14 point ROS are unremarkable. GEN APPEARANCE: Awake, not in acute distress HEENT: NC/AT, PERRLA, moist oral mucosa, (-) throat erythema NECK: Soft, supple, (-) cervical LAD, (-)JVD HEART: S1S2 WNL, RRR, No MRG CHEST: CTA, BL, GAE, No W/R/R ABD: Soft, ND/NT, NABS 4x Q EXT: No C/C/E SKIN: Warm to touch PSYCH: No active psychosis, hallucinations, depression, SI/HI ASSESSMENT AND PLAN: #Altered mental state: -Continue scheduled and PRN chlordiazepoxide ordered for possible DT's. -EEG shows diffuse slowing consistent with generalized encephalopathy -Touched base with Dr. Marcum and mentioned that pts altered mental state is likely due to poplypharmacy and recommends avoiding any other meds that can further decrease mentation. Pt is recommended to go to pain clinic instead if pain cannot be controlled by conservative means. -Provided PRN 2.5 mg IV/IM Haldol q6HPRN #Paroxysmal atrial fibrillation -Afib resolved by 8:40 AM 07/24/17. -Continue metoprolol, diltiazem. #Back pain/Chronic pain: -Continue PRN pain meds #DVT prophylaxis: -Continue Heparin SQ #Dispo: -Awaiting STR placement -Please call pts daughter in AM for an update
[2017-07-30] MEDS: Ropinirole TAB* 0.5 MG TAB PO SCH (21:11)
[2017-07-30] MEDS: Lidocaine Patch REMOVE* 1 NOTE MISC SCH ×2 (21:12→21:22)
[2017-07-31] MEDS: Heparin VIAL(*) 5000 UNITS/ML VIAL (FIVE THOUSAND) SUBCUT SCH ×3 (04:51→22:55)
[2017-07-31] MEDS: Acetaminophen TAB* 325 MG PO SCH ×4 (04:51→22:53)
[2017-07-31 07:01] LABS: Hematocrit 51 % (42-52); Hemoglobin 17.3 g/dl (14.0-18.0); Mean Corpuscular HGB Conc 34 g/dl (31-36); Mean Corpuscular Hemoglobin 30 pg (27-31); Mean Corpuscular Volume 89 fL (80-94); Platelet Count 272 10^3/ul (150-450); Red Blood Count 5.67 10^6/ul (4.0-5.4); Red Cell Distribution Width 16 % (10.5-15); White Blood Count 7.6 10^3/ul (3.5-10.8)
[2017-07-31 07:38] LABS: EGFR Non-African American 98.3 (>60)
[2017-07-31] MEDS: Umeclidin 62.5 MDI(NF) 1 INH MDI INH SCH (07:54)
[2017-07-31] MEDS: Lidocaine PATCH 5%* 1 PATCH TRANSDERM SCH (08:51)
[2017-07-31] MEDS: Omeprazole CAP* 20 MG PO SCH ×2 (08:53→22:54)
[2017-07-31] MEDS: chlordiazePOXIDE CAP* 25 MG PO SCH (08:53)
[2017-07-31] MEDS: Hydrochlorothiazide TAB* 25 MG PO SCH (08:53)
[2017-07-31] MEDS: Multivitamins/Minerals TAB PO SCH (08:53)
[2017-07-31] MEDS: Thiamine TAB* 100 MG TAB PO SCH (08:53)
[2017-07-31] MEDS: Metoprolol Tartrate TAB* 100 MG TAB PO SCH ×2 (08:53→22:53)
[2017-07-31] MEDS: Analgesic BALM* 114 GM TOPICAL SCH ×3 (08:54→22:57)
[2017-07-31] MEDS: Folic Acid TAB* 1 MG PO SCH (08:54)
[2017-07-31] MEDS: Magnesium Oxide TAB* 400 MG PO SCH (08:54)
[2017-07-31] MEDS: Senna TAB PO SCH (08:54)
[2017-07-31] MEDS: Diltiazem CD CAP* 240 MG PO SCH (08:54)
--- NOTE | 2017-07-31 10:20 | PN ---
Subjective Date of Service: 07/31/17 Interval History: Pt is unable to answer any questions as he is sleeping. The aide in the room states this AM the patient was as clear as she had ever seen. She states he was oriented to place and situation. He showered and shaved this AM. He recently received tylenol and librium. Objective Active Medications: Acetaminophen (Tylenol Tab*) 650 mg PO Q6H [facility] Last Admin: 07/31/17 09:01 Dose: 650 mg Albuterol (Ventolin 2.5 Mg/3 Ml Neb.Jessica*) 2.5 mg INH Q2H PRN PRN Reason: SOB/WHEEZING Chlordiazepoxide (Librium Cap*) 25 mg PO BID [facility] Last Admin: 07/31/17 08:53 Dose: 25 mg Diltiazem HCl (Cardizem Cd Cap*) 240 mg PO DAILY [facility] Last Admin: 07/31/17 08:54 Dose: 240 mg Folic Acid (Folvite Tab*) 1 mg PO DAILY [facility] Last Admin: 07/31/17 08:54 Dose: 1 mg Haloperidol Lactate (Haldol Inj Iv/Im*) 2.5 mg IM Q6H PRN PRN Reason: AGITATION Last Admin: 07/30/17 04:38 Dose: 2.5 mg Heparin Sodium (Porcine) (Heparin Vial(*)) 5,000 units SUBCUT Q8HR [facility] Last Admin: 07/31/17 04:51 Dose: 5,000 units Hydrochlorothiazide (Hydrodiuril Tab*) 12.5 mg PO DAILY [facility] Last Admin: 07/31/17 08:53 Dose: 12.5 mg Lidocaine (Lidoderm 5% Patch*) 1 patch TRANSDERM DAILY [facility] Last Admin: 07/31/17 08:51 Dose: 1 patch Magnesium Oxide (Magox 400 Tab*) 400 mg PO DAILY [facility] Last Admin: 07/31/17 08:54 Dose: 400 mg Metoprolol Tartrate (Lopressor Tab*) 100 mg PO BID [facility] Last Admin: 07/31/17 08:53 Dose: 100 mg Multi-Ingredient Liniment/Rub (Espinoza Bright*) 1 applic TOPICAL TID [facility] Last Admin: 07/31/17 08:54 Dose: 1 applic Multivitamins/Minerals (Theragran/Minerals Tab*) 1 tab PO DAILY [facility] Last Admin: 07/31/17 08:53 Dose: 1 tab Omeprazole (Prilosec Cap*) 40 mg PO BID [facility] Last Admin: 07/31/17 08:53 Dose: 40 mg Pharmacy Profile Note (Lidocaine Patch Remove*) 1 note N/A 2100 [facility] Last Admin: 07/30/17 21:22 Dose: Not Given Ropinirole HCl (Requip Tab*) 0.5 mg PO BEDTIME [facility] Last Admin: 07/30/17 21:11 Dose: 0.5 mg Senna (Senokot Tab*) 1 tab PO DAILY [facility] Last Admin: 07/31/17 08:54 Dose: 1 tab Thiamine HCl (Vitamin B-1 Tab*) 100 mg PO DAILY [facility] Last Admin: 07/31/17 08:53 Dose: 100 mg Umeclidinium [place] (Incruse Ellipta Mdi (Nf)) 1 inh INH DAILY [facility] Last Admin: 07/31/17 07:54 Dose: Not Given Vital Signs - 8 hr 07/31/17 07/31/17 07/31/17 06:59 08:53 09:19 Temperature 98.8 F Pulse Rate 68 Respiratory 18 18 16 Rate Blood Pressure 113/79 (mmHg) O2 Sat by Pulse 97 Oximetry Oxygen Devices in Use Now: None Appearance: Middle aged male lying flat in bed, sleeping, does not wake to voice or light touch. Eyes: No Scleral Icterus Ears/Nose/Mouth/Throat: Mucous Membranes Moist Respiratory: Symmetrical Chest Expansion and Respiratory Effort, Clear to Auscultation - anteriorly Cardiovascular: NL Sounds; No Murmurs; No JVD, RRR, No Edema Abdominal: - - BS+ soft, ND, he grimmaces when I palpate his abdomen Extremities: No Clubbing, Cyanosis Skin: No Nodules or Sclerosis Neurological: - - sleeping very deeply Result Diagrams: 07/31/17 06:56 07/31/17 06:56 Additional Lab and Data: Lab Results 07/23/17 07/23/17 07/23/17 Range/Units 17:57 17:57 17:57 WBC 9.3 (3.5-10.8) 10^3/ul RBC 4.80 (4.0-5.4) 10^6/ul Hgb 14.4 (14.0-18.0) g/dl Hct 42 (42-52) % MCV 88 (80-94) fL MCH 30 (27-31) pg MCHC 34 (31-36) g/dl RDW 15 (10.5-15) % Plt Count 235 (150-450) 10^3/ul MPV 8.7 (7.4-10.4) um3 Neut % (Auto) 59.4 (38-83) % Lymph % (Auto) 25.2 (25-47) % [place] % (Auto) 14.9 H (0-7) % Eos % (Auto) 0 (0-6) % Baso % (Auto) 0.5 (0-2) % Absolute Neuts (auto) 5.5 (1.5-7.7) 10^3/ul Absolute Lymphs (auto) 2.3 (1.0-4.8) 10^3/ul Absolute Monos (auto) 1.4 H (0-0.8) 10^3/ul Absolute Eos (auto) 0 (0-0.6) 10^3/ul Absolute Basos (auto) 0 (0-0.2) 10^3/ul Absolute Nucleated RBC 0 10^3/ul Nucleated RBC % 0 Sodium 141 (139-145) mmol/L Potassium 3.4 L (3.5-5.0) mmol/L Chloride 106 (101-111) mmol/L Carbon Dioxide 22 (22-32) mmol/L Anion Gap 13 H (2-11) mmol/L BUN 24 (6-24) mg/dL Creatinine 0.95 (0.67-1.17) mg/dL Est GFR ( Amer) 103.7 (>60) Est GFR (Non-Af Amer) 80.6 (>60) BUN/Creatinine Ratio 25.3 H (8-20) Glucose 91 (70-100) mg/dL Lactic Acid 1.5 (0.5-2.0) mmol/L Calcium 9.5 (8.6-10.3) mg/dL Total Bilirubin 0.80 (0.2-1.0) mg/dL AST 112 H (13-39) U/L ALT 29 (7-52) U/L Alkaline Phosphatase 82 (34-104) U/L Total Protein 7.4 (6.4-8.9) g/dL Albumin 4.0 (3.2-5.2) g/dL Globulin 3.4 (2-4) g/dL Albumin/Globulin Ratio 1.2 (1-3) TSH 0.55 (0.34-5.60) mcIU/mL Salicylates < 2.50 (<30) mg/dL Acetaminophen < 15 mcg/mL Serum Alcohol < 10 (<10) mg/dL Assess/Plan/Problems-Billing Mr Conway is a 61 yo M who has a h/o chronic back pain, past gabapentin overdose, HTN, afib and COPD who presented to the ER with c/o altered mental status and went into rapid afib in the ER. - Patient Problems (1) Altered mental state Current Visit: Yes Status: Acute Code(s): R41.82 - ALTERED MENTAL STATUS, UNSPECIFIED SNOMED Code(s): 932588447 Comment: No clear cause to the AMS. ? polypharmacy ? EtOH withdrawal. Today he was reportedly the best he has been. He at this time is not seeming like he will be able to be discharged home. Case management is looking for placement. Will wean off librium. (2) Chronic pain Current Visit: Yes Status: Acute Code(s): G89.29 - OTHER CHRONIC PAIN SNOMED Code(s): 05549075 Comment: Once pt was awake and alert this AM he complained of severe back pain. He has been off gabapentin, tramadol and baclofen this admission. Will ask for pain consult. (3) Paroxysmal atrial fibrillation Current Visit: Yes Status: Acute Code(s): I48.0 - PAROXYSMAL ATRIAL FIBRILLATION SNOMED Code(s): 891194029 Comment: Pt has h/o afib. Continue metoprolol and diltiazem. His CHADS-vasc score is 1. No anticoagulation at this point. (4) COPD (chronic obstructive pulmonary disease) Current Visit: Yes Status: Chronic Code(s): J44.9 - CHRONIC OBSTRUCTIVE PULMONARY DISEASE, UNSPECIFIED SNOMED Code(s): 54313255 Comment: No signs of exacerbation. (5) DVT prophylaxis Current Visit: Yes Status: Acute Code(s): LHI6820 - SNOMED Code(s): 572005867 Comment: SQ heparin (6) Full code status Current Visit: Yes Status: Acute Code(s): Z78.9 - OTHER SPECIFIED HEALTH STATUS SNOMED Code(s): 101364131
[2017-07-31] MEDS ORDERED: traMADol TAB* 50 MG PO ONE ×2 (13:16→19:25)
[2017-07-31] MEDS: Ropinirole TAB* 0.5 MG TAB PO SCH (22:53)
[2017-07-31] MEDS: Lidocaine Patch REMOVE* 1 NOTE MISC SCH (22:57)
[2017-08-01] MEDS ORDERED: traMADol TAB* 50 MG PO ONE ×2 (02:06→09:20)
[2017-08-01] MEDS: Acetaminophen TAB* 325 MG PO SCH ×4 (03:42→21:38)
[2017-08-01] MEDS: Heparin VIAL(*) 5000 UNITS/ML VIAL (FIVE THOUSAND) SUBCUT SCH ×3 (06:59→21:38)
[2017-08-01] MEDS: Umeclidin 62.5 MDI(NF) 1 INH MDI INH SCH (07:37)
[2017-08-01] MEDS: Omeprazole CAP* 20 MG PO SCH ×2 (08:11→21:38)
[2017-08-01] MEDS: Diltiazem CD CAP* 240 MG PO SCH (08:12)
[2017-08-01] MEDS: chlordiazePOXIDE CAP* 25 MG PO SCH (08:12)
[2017-08-01] MEDS: Senna TAB PO SCH (08:12)
[2017-08-01] MEDS: Metoprolol Tartrate TAB* 100 MG TAB PO SCH ×2 (08:12→21:39)
[2017-08-01] MEDS: Thiamine TAB* 100 MG TAB PO SCH (08:12)
[2017-08-01] MEDS: Multivitamins/Minerals TAB PO SCH (08:12)
[2017-08-01] MEDS: Lidocaine PATCH 5%* 1 PATCH TRANSDERM SCH (08:12)
[2017-08-01] MEDS: Hydrochlorothiazide TAB* 25 MG PO SCH (08:12)
[2017-08-01] MEDS: Folic Acid TAB* 1 MG PO SCH (08:12)
[2017-08-01] MEDS: Magnesium Oxide TAB* 400 MG PO SCH (08:12)
[2017-08-01] MEDS: Analgesic BALM* 114 GM TOPICAL SCH ×3 (08:13→21:39)
[2017-08-01] MEDS ORDERED: Spiriva Inhaler DEVICE* 1 EACH DEVICE SCH (09:00)
--- NOTE | 2017-08-01 13:01 | CONSULT ---
Consult Consult: INPATIENT PAIN CONSULT Jj Conway is a 61 year old male with a history of alcohol abuse. He continues to drink-he says he has two vodkas a day, unclear what size. He has had several hospitalizations for altered mental status, as well as delirium tremens. He was admitted July 23 with acute change in mental status. He has a history of back pain. He had an MRI of his lumbar spine in May,, showing degenerative disc disease and a small disc protrusion at L2/3. No nerve root compression was seen. He has seen Dr. Pappas for his pain medications. Most recently, by report, he has been on Gabapentin 900 mg TID and Tramadol 50 mg up to 8 tablets a day for his back pain. On this admission, he was tapered off his medications for pain. His mental status improved, but now he has a lot more back pain. I am asked to see him PAST MEDICAL HISTORY: COPD, Asthma ALLERGIES: NKDA Current Medications Acetaminophen (Tylenol Tab*) 650 mg PO Q6H [facility] Last Admin: 08/01/17 09:38 Dose: 650 mg Albuterol (Ventolin 2.5 Mg/3 Ml Neb.Jessica*) 2.5 mg INH Q2H PRN PRN Reason: SOB/WHEEZING Chlordiazepoxide (Librium Cap*) 25 mg PO DAILY [facility] Last Admin: 08/01/17 08:12 Dose: 25 mg Device (Tiotropium Inhaler Device*) 1 each .SEE ORDER .USE w/ SPIRIVA CAPS [facility] Diltiazem HCl (Cardizem Cd Cap*) 240 mg PO DAILY [facility] Last Admin: 08/01/17 08:12 Dose: 240 mg Folic Acid (Folvite Tab*) 1 mg PO DAILY [facility] Last Admin: 08/01/17 08:12 Dose: 1 mg Haloperidol Lactate (Haldol Inj Iv/Im*) 2.5 mg IM Q6H PRN PRN Reason: AGITATION Last Admin: 07/30/17 04:38 Dose: 2.5 mg Heparin Sodium (Porcine) (Heparin Vial(*)) 5,000 units SUBCUT Q8HR [facility] Last Admin: 08/01/17 06:59 Dose: Not Given Hydrochlorothiazide (Hydrodiuril Tab*) 12.5 mg PO DAILY [facility] Last Admin: 08/01/17 08:12 Dose: 12.5 mg Lidocaine (Lidoderm 5% Patch*) 1 patch TRANSDERM DAILY [facility] Last Admin: 08/01/17 08:12 Dose: 1 patch Magnesium Oxide (Magox 400 Tab*) 400 mg PO DAILY [facility] Last Admin: 08/01/17 08:12 Dose: 400 mg Metoprolol Tartrate (Lopressor Tab*) 100 mg PO BID [facility] Last Admin: 08/01/17 08:12 Dose: 100 mg Multi-Ingredient Liniment/Rub (Espinoza Bright*) 1 applic TOPICAL TID [facility] Last Admin: 08/01/17 08:13 Dose: 1 applic Multivitamins/Minerals (Theragran/Minerals Tab*) 1 tab PO DAILY [facility] Last Admin: 08/01/17 08:12 Dose: 1 tab Omeprazole (Prilosec Cap*) 40 mg PO BID [facility] Last Admin: 08/01/17 08:11 Dose: 40 mg Pharmacy Profile Note (Lidocaine Patch Remove*) 1 note N/A 2100 [facility] Last Admin: 07/31/17 22:57 Dose: Not Given Ropinirole HCl (Requip Tab*) 0.5 mg PO BEDTIME [facility] Last Admin: 07/31/17 22:53 Dose: 0.5 mg Senna (Senokot Tab*) 1 tab PO DAILY [facility] Last Admin: 08/01/17 08:12 Dose: 1 tab Thiamine HCl (Vitamin B-1 Tab*) 100 mg PO DAILY [facility] Last Admin: 08/01/17 08:12 Dose: 100 mg Tiotropium [place] (Spiriva Cap.Inh*) 1 cap INH DAILY [facility] Last Admin: 08/01/17 13:03 Dose: Not Given SOCIAL HISTORY: 2 ppd smoker, drinks 2 vodkas ("straight up") a day. Currently homeless Vital Signs Temp Pulse Resp BP Pulse Ox 97.3 F 60 18 121/74 97 08/01/17 08:12 08/01/17 08:12 08/01/17 12:05 08/01/17 08:12 08/01/17 08:12 EXAM: LUNGS: Scattered wheeze HEART: Reg rhythm ABDOMEN: Soft BACK: Skin changes from chronic heating pad use. No scoliosis. Tenderness at the thoracolumbar junction. NEUROLOGIC: Alert, oriented to person and place. Able to move all 4 extremities. Non-focal exam ASSESSMENT: Low Back Pain PLAN: I don't think he is capable of self administration of his pain medications as he has had two recent hospitalizations for MS changes. As he appears headed for a facility, I think it is not unreasonable to put him on Tramadol, 50 mg Q 6 PRN , MDD=4. I have written for this. Would hold gabapentin for now. May benefit from a muscle relaxant, but will hold off to assess effects of Tramadol. I will follow.
[2017-08-01] MEDS: Tiotropium CAP.INH* CAP.INH/18 MCG (USE ORDER SET !) INH SCH (13:03)
--- NOTE | 2017-08-01 14:55 | PN ---
Subjective Date of Service: 08/01/17 Interval History: Patient seen and examined at bedside. Reports doing better after Tramadol was given. Has chronic back pain, await consult by Dr. Ramirez's recommendations. Denies agitations, tremors, seizure, headaches, chest pain or SOB. Family History: Unchanged from Admission Social History: Unchanged from Admission Past Medical History: Unchanged from Admission Objective Active Medications: Acetaminophen (Tylenol Tab*) 650 mg PO Q6H [facility] Last Admin: 08/01/17 09:38 Dose: 650 mg Albuterol (Ventolin 2.5 Mg/3 Ml Neb.Jessica*) 2.5 mg INH Q2H PRN PRN Reason: SOB/WHEEZING Chlordiazepoxide (Librium Cap*) 25 mg PO DAILY [facility] Last Admin: 08/01/17 08:12 Dose: 25 mg Device (Tiotropium Inhaler Device*) 1 each .SEE ORDER .USE w/ SPIRIVA CAPS [facility] Diltiazem HCl (Cardizem Cd Cap*) 240 mg PO DAILY [facility] Last Admin: 08/01/17 08:12 Dose: 240 mg Folic Acid (Folvite Tab*) 1 mg PO DAILY [facility] Last Admin: 08/01/17 08:12 Dose: 1 mg Haloperidol Lactate (Haldol Inj Iv/Im*) 2.5 mg IM Q6H PRN PRN Reason: AGITATION Last Admin: 07/30/17 04:38 Dose: 2.5 mg Heparin Sodium (Porcine) (Heparin Vial(*)) 5,000 units SUBCUT Q8HR [facility] Last Admin: 08/01/17 14:42 Dose: 5,000 units Hydrochlorothiazide (Hydrodiuril Tab*) 12.5 mg PO DAILY [facility] Last Admin: 08/01/17 08:12 Dose: 12.5 mg Lidocaine (Lidoderm 5% Patch*) 1 patch TRANSDERM DAILY [facility] Last Admin: 08/01/17 08:12 Dose: 1 patch Magnesium Oxide (Magox 400 Tab*) 400 mg PO DAILY [facility] Last Admin: 08/01/17 08:12 Dose: 400 mg Metoprolol Tartrate (Lopressor Tab*) 100 mg PO BID [facility] Last Admin: 08/01/17 08:12 Dose: 100 mg Multi-Ingredient Liniment/Rub (Espinoza Rbight*) 1 applic TOPICAL TID [facility] Last Admin: 08/01/17 14:42 Dose: 1 applic Multivitamins/Minerals (Theragran/Minerals Tab*) 1 tab PO DAILY [facility] Last Admin: 08/01/17 08:12 Dose: 1 tab Omeprazole (Prilosec Cap*) 40 mg PO BID [facility] Last Admin: 08/01/17 08:11 Dose: 40 mg Pharmacy Profile Note (Lidocaine Patch Remove*) 1 note N/A 2100 [facility] Last Admin: 07/31/17 22:57 Dose: Not Given Ropinirole HCl (Requip Tab*) 0.5 mg PO BEDTIME [facility] Last Admin: 07/31/17 22:53 Dose: 0.5 mg Senna (Senokot Tab*) 1 tab PO DAILY [facility] Last Admin: 08/01/17 08:12 Dose: 1 tab Thiamine HCl (Vitamin B-1 Tab*) 100 mg PO DAILY [facility] Last Admin: 08/01/17 08:12 Dose: 100 mg Tiotropium [place] (Spiriva Cap.Inh*) 1 cap INH DAILY [facility] Last Admin: 08/01/17 13:03 Dose: Not Given Tramadol HCl (Ultram*) 50 mg PO Q6H PRN PRN Reason: PAIN - MODERATE Vital Signs - 8 hr 08/01/17 08/01/17 08/01/17 06:58 07:56 08:12 Temperature 97.3 F Pulse Rate 58 60 Respiratory 16 17 24 Rate Blood Pressure 121/74 (mmHg) O2 Sat by Pulse 99 97 Oximetry 08/01/17 08/01/17 08/01/17 08:15 09:38 10:10 Temperature Pulse Rate Respiratory 20 18 18 Rate Blood Pressure (mmHg) O2 Sat by Pulse Oximetry 08/01/17 12:05 Temperature Pulse Rate Respiratory 18 Rate Blood Pressure (mmHg) O2 Sat by Pulse Oximetry Oxygen Devices in Use Now: None Appearance: Eating his lunch, sitting on edge of bed, appears comfortable and in NAD. Eyes: No Scleral Icterus, PERRLA Ears/Nose/Mouth/Throat: Clear Oropharnyx, Mucous Membranes Moist Neck: NL Appearance and Movements; NL JVP, Trachea Midline Respiratory: Symmetrical Chest Expansion and Respiratory Effort, Clear to Auscultation Cardiovascular: NL Sounds; No Murmurs; No JVD, RRR Extremities: No Edema Neurological: NL Sensation, - - Alert, but slow to respond to questions, oriented x3 Nutrition: Taking PO's Result Diagrams: 07/31/17 06:56 07/31/17 09:22 Additional Lab and Data: Microbiology and Other Data: Microbiology 07/31/17 12:25 Nasal Screen MRSA (PCR)(OWEN) - Final Nasal Mrsa Detected Diagnostic Imaging: . EKG Data: . Assess/Plan/Problems-Billing Mr Conway is a 61 yo M who has a h/o chronic back pain, past gabapentin overdose, HTN, afib and COPD who presented to the ER with c/o altered mental status and went into rapid afib in the ER. - Patient Problems (1) Altered mental state Current Visit: Yes Status: Acute Priority: High Comment: - No clear cause to the AMS. ? polypharmacy ? EtOH withdrawal. - Today he continues to improve from a cognitive standpoint. I doubt he would be able to discharge to home. I worry about adminstering meds at home, with possible OD since it happened in the past. - Case management is looking for placement. - Patient expressed interest for [employer] (2) Chronic pain Current Visit: Yes Status: Chronic Comment: - He continues to have intermittent severe back pain. - He has been off gabapentin, tramadol and baclofen this admission. - Pain consult appreciated. Resume Tramadol Q6 hours, reassess. (3) Paroxysmal atrial fibrillation Current Visit: Yes Status: Acute Comment: - Pt has h/o afib. Continue metoprolol and diltiazem. - His CHADS-vasc score is 1. - No anticoagulation at this point. (4) COPD (chronic obstructive pulmonary disease) Current Visit: Yes Status: Chronic Comment: - No signs of exacerbation. (5) Tobacco abuse Current Visit: No Status: Chronic Comment: - Encourage smoking cessation. (6) DVT prophylaxis Current Visit: Yes Status: Acute Comment: - SQ heparin (7) Full code status Current Visit: Yes Status: Acute Status and Disposition: Inpatient. Anticipate discharge to assisted living once medically stable.
[2017-08-01] MEDS: traMADol TAB* 50 MG PO PRN ×2 (15:35→21:38)
[2017-08-01] MEDS: Ropinirole TAB* 0.5 MG TAB PO SCH (21:38)
[2017-08-01] MEDS: Lidocaine Patch REMOVE* 1 NOTE MISC SCH (21:43)
[2017-08-02] MEDS: Acetaminophen TAB* 325 MG PO SCH ×4 (04:03→22:03)
[2017-08-02] MEDS: traMADol TAB* 50 MG PO PRN ×4 (04:04→22:04)
[2017-08-02] MEDS: Heparin VIAL(*) 5000 UNITS/ML VIAL (FIVE THOUSAND) SUBCUT SCH ×3 (05:14→22:11)
[2017-08-02 06:40] LABS: ABS Basophils 0.1 10^3/ul (0-0.2); ABS Eosinophils 0.2 10^3/ul (0-0.6); ABS Lymphocytes 3.5 10^3/ul (1.0-4.8); ABS Monocytes 0.7 10^3/ul (0-0.8); ABS Neutrophils 1.9 10^3/ul (1.5-7.7); ABS Nucleated RBC 0 10^3/ul; Eosinophil % 3.8 % (0-6); Hematocrit 49 % (42-52); Hemoglobin 16.9 g/dl (14.0-18.0); Lymphocyte % 54.5 % (25-47); Mean Corpuscular HGB Conc 35 g/dl (31-36); Mean Corpuscular Hemoglobin 31 pg (27-31); Mean Corpuscular Volume 89 fL (80-94); Nucleated Red Blood Cells % 0.2; Platelet Count 281 10^3/ul (150-450); Red Blood Count 5.46 10^6/ul (4.0-5.4); Red Cell Distribution Width 16 % (10.5-15); White Blood Count 6.4 10^3/ul (3.5-10.8)
[2017-08-02] MEDS: Analgesic BALM* 114 GM TOPICAL SCH ×3 (08:08→21:02)
[2017-08-02] MEDS: Folic Acid TAB* 1 MG PO SCH (08:09)
[2017-08-02] MEDS: Diltiazem CD CAP* 240 MG PO SCH (08:09)
[2017-08-02] MEDS: Omeprazole CAP* 20 MG PO SCH ×2 (08:09→21:00)
[2017-08-02] MEDS: Hydrochlorothiazide TAB* 25 MG PO SCH (08:09)
[2017-08-02] MEDS: Magnesium Oxide TAB* 400 MG PO SCH (08:10)
[2017-08-02] MEDS: chlordiazePOXIDE CAP* 25 MG PO SCH (08:10)
[2017-08-02] MEDS: Metoprolol Tartrate TAB* 100 MG TAB PO SCH ×2 (08:10→21:03)
[2017-08-02] MEDS: Lidocaine PATCH 5%* 1 PATCH TRANSDERM SCH (08:10)
[2017-08-02] MEDS: Multivitamins/Minerals TAB PO SCH (08:10)
[2017-08-02] MEDS: Thiamine TAB* 100 MG TAB PO SCH (08:10)
[2017-08-02] MEDS: Senna TAB PO SCH (08:10)
[2017-08-02] MEDS: Tiotropium CAP.INH* CAP.INH/18 MCG (USE ORDER SET !) INH SCH (08:23)
--- NOTE | 2017-08-02 15:21 | PN ---
Subjective Date of Service: 08/02/17 Interval History: Jj reports feeling better today. He has less pain, ambulating and eating better. No new c/o today. Family History: Unchanged from Admission Social History: Unchanged from Admission Past Medical History: Unchanged from Admission Objective Active Medications: Acetaminophen (Tylenol Tab*) 650 mg PO Q6H [facility] Last Admin: 08/02/17 10:48 Dose: 650 mg Albuterol (Ventolin 2.5 Mg/3 Ml Neb.Jessica*) 2.5 mg INH Q2H PRN PRN Reason: SOB/WHEEZING Chlordiazepoxide (Librium Cap*) 25 mg PO DAILY [facility] Last Admin: 08/02/17 08:10 Dose: 25 mg Device (Tiotropium Inhaler Device*) 1 each .SEE ORDER .USE w/ SPIRIVA CAPS [facility] Diltiazem HCl (Cardizem Cd Cap*) 240 mg PO DAILY [facility] Last Admin: 08/02/17 08:09 Dose: 240 mg Folic Acid (Folvite Tab*) 1 mg PO DAILY [facility] Last Admin: 08/02/17 08:09 Dose: 1 mg Haloperidol Lactate (Haldol Inj Iv/Im*) 2.5 mg IM Q6H PRN PRN Reason: AGITATION Last Admin: 07/30/17 04:38 Dose: 2.5 mg Heparin Sodium (Porcine) (Heparin Vial(*)) 5,000 units SUBCUT Q8HR [facility] Last Admin: 08/02/17 14:16 Dose: 5,000 units Hydrochlorothiazide (Hydrodiuril Tab*) 12.5 mg PO DAILY [facility] Last Admin: 08/02/17 08:09 Dose: 12.5 mg Lidocaine (Lidoderm 5% Patch*) 1 patch TRANSDERM DAILY [facility] Last Admin: 08/02/17 08:10 Dose: 1 patch Magnesium Oxide (Magox 400 Tab*) 400 mg PO DAILY [facility] Last Admin: 08/02/17 08:10 Dose: 400 mg Metoprolol Tartrate (Lopressor Tab*) 100 mg PO BID [facility] Last Admin: 08/02/17 08:10 Dose: 100 mg Multi-Ingredient Liniment/Rub (Espinoza Bright*) 1 applic TOPICAL TID [facility] Last Admin: 08/02/17 14:16 Dose: 1 applic Multivitamins/Minerals (Theragran/Minerals Tab*) 1 tab PO DAILY [facility] Last Admin: 08/02/17 08:10 Dose: 1 tab Omeprazole (Prilosec Cap*) 40 mg PO BID [facility] Last Admin: 08/02/17 08:09 Dose: 40 mg Pharmacy Profile Note (Lidocaine Patch Remove*) 1 note N/A 2100 [facility] Last Admin: 08/01/17 21:43 Dose: Not Given Ropinirole HCl (Requip Tab*) 0.5 mg PO BEDTIME [facility] Last Admin: 08/01/17 21:38 Dose: 0.5 mg Senna (Senokot Tab*) 1 tab PO DAILY [facility] Last Admin: 08/02/17 08:10 Dose: 1 tab Thiamine HCl (Vitamin B-1 Tab*) 100 mg PO DAILY [facility] Last Admin: 08/02/17 08:10 Dose: 100 mg Tiotropium [place] (Spiriva Cap.Inh*) 1 cap INH DAILY [facility] Last Admin: 08/02/17 08:23 Dose: Not Given Tramadol HCl (Ultram*) 50 mg PO Q6H PRN PRN Reason: PAIN - MODERATE Last Admin: 08/02/17 10:47 Dose: 50 mg Vital Signs - 8 hr 08/02/17 08/02/17 08/02/17 08:00 08:10 08:14 Temperature 97.8 F Pulse Rate 59 Respiratory 20 18 16 Rate Blood Pressure 114/81 (mmHg) O2 Sat by Pulse 98 Oximetry 08/02/17 08/02/17 08/02/17 10:47 10:51 14:17 Temperature Pulse Rate Respiratory 18 18 16 Rate Blood Pressure (mmHg) O2 Sat by Pulse Oximetry Oxygen Devices in Use Now: None Appearance: More alert and talkative today. Comfortable and in NAD. Ears/Nose/Mouth/Throat: Clear Oropharnyx, Mucous Membranes Moist Neck: NL Appearance and Movements; NL JVP, Trachea Midline Respiratory: Symmetrical Chest Expansion and Respiratory Effort, Clear to Auscultation Cardiovascular: NL Sounds; No Murmurs; No JVD, RRR Abdominal: NL Sounds; No Tenderness; No Distention Extremities: No Edema Neurological: Alert and Oriented x 3, NL Sensation, NL Muscle Strength and Tone Nutrition: Taking PO's Result Diagrams: 08/02/17 06:29 07/31/17 09:22 Additional Lab and Data: Microbiology and Other Data: Microbiology 07/31/17 12:25 Nasal Screen MRSA (PCR)([facility]EN) - Final Nasal Mrsa Detected Diagnostic Imaging: . EKG Data: . Assess/Plan/Problems-Billing Mr Conway is a 61 yo M who has a h/o chronic back pain, past gabapentin overdose, HTN, afib and COPD who presented to the ER with c/o altered mental status and went into rapid afib in the ER. - Patient Problems (1) Altered mental state Current Visit: Yes Status: Acute Priority: High Comment: - No clear cause to the AMS. ? polypharmacy ? EtOH withdrawal. - Today he continues to improve from a cognitive standpoint. I doubt he would be able to discharge to home. I worry about adminstering meds at home, with possible OD since it happened in the past. - Case management is looking for placement. - Patient expressed interest for [facility] (2) Chronic pain Current Visit: Yes Status: Chronic Comment: - Improving - He has been off gabapentin, tramadol and baclofen this admission. - Pain consult appreciated. Resume Tramadol Q6 hours, reassess. (3) Paroxysmal atrial fibrillation Current Visit: Yes Status: Acute Comment: - Pt has h/o afib. Continue metoprolol and diltiazem. - His CHADS-vasc score is 1. - No anticoagulation at this point. (4) COPD (chronic obstructive pulmonary disease) Current Visit: Yes Status: Chronic Comment: - No signs of exacerbation. (5) Tobacco abuse Current Visit: No Status: Chronic Comment: - Encourage smoking cessation. - Will provide Nicotine patch and mouth piece (6) DVT prophylaxis Current Visit: Yes Status: Acute Comment: - SQ heparin (7) Full code status Current Visit: Yes Status: Acute Status and Disposition: Inpatient. Anticipate discharge to assisted living once bed available.
[2017-08-02] MEDS ORDERED: Mouth Piece, Nicotine* 1 EACH CARTRIDGE INH PRN (15:22)
[2017-08-02] MEDS: Ropinirole TAB* 0.5 MG TAB PO SCH (21:00)
[2017-08-02] MEDS: Lidocaine Patch REMOVE* 1 NOTE MISC SCH (21:03)
[2017-08-03] MEDS: Acetaminophen TAB* 325 MG PO SCH ×4 (03:39→21:33)
[2017-08-03] MEDS: traMADol TAB* 50 MG PO PRN ×3 (03:39→16:44)
[2017-08-03] MEDS: Heparin VIAL(*) 5000 UNITS/ML VIAL (FIVE THOUSAND) SUBCUT SCH ×3 (05:44→21:33)
[2017-08-03] MEDS: Tiotropium CAP.INH* CAP.INH/18 MCG (USE ORDER SET !) INH SCH (08:01)
[2017-08-03] MEDS: Hydrochlorothiazide TAB* 25 MG PO SCH (08:09)
[2017-08-03] MEDS: Magnesium Oxide TAB* 400 MG PO SCH (08:09)
[2017-08-03] MEDS: Metoprolol Tartrate TAB* 100 MG TAB PO SCH ×2 (08:09→21:38)
[2017-08-03] MEDS: Diltiazem CD CAP* 240 MG PO SCH (08:09)
[2017-08-03] MEDS: Omeprazole CAP* 20 MG PO SCH ×2 (08:09→21:34)
[2017-08-03] MEDS: chlordiazePOXIDE CAP* 25 MG PO SCH (08:09)
[2017-08-03] MEDS: Senna TAB PO SCH (08:09)
[2017-08-03] MEDS: Multivitamins/Minerals TAB PO SCH (08:10)
[2017-08-03] MEDS: Folic Acid TAB* 1 MG PO SCH (08:11)
[2017-08-03] MEDS: Lidocaine PATCH 5%* 1 PATCH TRANSDERM SCH (08:11)
[2017-08-03] MEDS: Thiamine TAB* 100 MG TAB PO SCH (08:11)
[2017-08-03] MEDS: Analgesic BALM* 114 GM TOPICAL SCH ×3 (08:11→21:38)
--- NOTE | 2017-08-03 16:34 | PN ---
Subjective Date of Service: 08/03/17 Interval History: Mr. Conway has no complaints today. He continues to improve, denies any pain , headache or dizziness. Ambulatory. Family History: Unchanged from Admission Social History: Unchanged from Admission Past Medical History: Unchanged from Admission Objective Active Medications: Acetaminophen (Tylenol Tab*) 650 mg PO Q6H [facility] Last Admin: 08/03/17 09:44 Dose: 650 mg Albuterol (Ventolin 2.5 Mg/3 Ml Neb.Jessica*) 2.5 mg INH Q2H PRN PRN Reason: SOB/WHEEZING Chlordiazepoxide (Librium Cap*) 25 mg PO DAILY [facility] Last Admin: 08/03/17 08:09 Dose: 25 mg Device (Tiotropium Inhaler Device*) 1 each .SEE ORDER .USE w/ SPIRIVA CAPS [facility] Device (Nicotine Mouth Piece*) 1 each INH .USE WITH NICOTROL PRN PRN Reason: CRAVING Diltiazem HCl (Cardizem Cd Cap*) 240 mg PO DAILY [facility] Last Admin: 08/03/17 08:09 Dose: 240 mg Folic Acid (Folvite Tab*) 1 mg PO DAILY [facility] Last Admin: 08/03/17 08:11 Dose: 1 mg Haloperidol Lactate (Haldol Inj Iv/Im*) 2.5 mg IM Q6H PRN PRN Reason: AGITATION Last Admin: 07/30/17 04:38 Dose: 2.5 mg Heparin Sodium (Porcine) (Heparin Vial(*)) 5,000 units SUBCUT Q8HR [facility] Last Admin: 08/03/17 14:14 Dose: 5,000 units Hydrochlorothiazide (Hydrodiuril Tab*) 12.5 mg PO DAILY [facility] Last Admin: 08/03/17 08:09 Dose: 12.5 mg Lidocaine (Lidoderm 5% Patch*) 1 patch TRANSDERM DAILY [facility] Last Admin: 08/03/17 08:11 Dose: 1 patch Magnesium Oxide (Magox 400 Tab*) 400 mg PO DAILY [facility] Last Admin: 08/03/17 08:09 Dose: 400 mg Metoprolol Tartrate (Lopressor Tab*) 100 mg PO BID [facility] Last Admin: 08/03/17 08:09 Dose: 100 mg Multi-Ingredient Liniment/Rub (Espinoza Bright*) 1 applic TOPICAL TID [facility] Last Admin: 08/03/17 14:15 Dose: 1 applic Multivitamins/Minerals (Theragran/Minerals Tab*) 1 tab PO DAILY [facility] Last Admin: 08/03/17 08:10 Dose: 1 tab Omeprazole (Prilosec Cap*) 40 mg PO BID [facility] Last Admin: 08/03/17 08:09 Dose: 40 mg Pharmacy Profile Note (Lidocaine Patch Remove*) 1 note N/A 2100 [facility] Last Admin: 08/02/17 21:03 Dose: 1 note Ropinirole HCl (Requip Tab*) 0.5 mg PO BEDTIME [facility] Last Admin: 08/02/17 21:00 Dose: 0.5 mg Senna (Senokot Tab*) 1 tab PO DAILY [facility] Last Admin: 08/03/17 08:09 Dose: 1 tab Thiamine HCl (Vitamin B-1 Tab*) 100 mg PO DAILY [facility] Last Admin: 08/03/17 08:11 Dose: 100 mg Tiotropium [place] (Spiriva Cap.Inh*) 1 cap INH DAILY [facility] Last Admin: 08/03/17 08:01 Dose: 1 cap Tramadol HCl (Ultram*) 50 mg PO Q6H PRN PRN Reason: PAIN - MODERATE Last Admin: 08/03/17 09:44 Dose: 50 mg Vital Signs - 8 hr 08/03/17 08/03/17 08/03/17 09:44 10:31 10:59 Temperature Pulse Rate 88 Respiratory 24 16 16 Rate Blood Pressure (mmHg) O2 Sat by Pulse 98 Oximetry 08/03/17 08/03/17 11:37 12:35 Temperature 97.9 F Pulse Rate 52 Respiratory 16 18 Rate Blood Pressure 106/54 (mmHg) O2 Sat by Pulse 95 Oximetry Oxygen Devices in Use Now: None Appearance: Appears comfortable and in NAD Eyes: No Scleral Icterus, PERRLA Ears/Nose/Mouth/Throat: Clear Oropharnyx, Mucous Membranes Moist Neck: NL Appearance and Movements; NL JVP, Trachea Midline Respiratory: Symmetrical Chest Expansion and Respiratory Effort, Clear to Auscultation Cardiovascular: NL Sounds; No Murmurs; No JVD, RRR Abdominal: NL Sounds; No Tenderness; No Distention Extremities: No Edema Skin: No Rash or Ulcers Neurological: Alert and Oriented x 3, NL Sensation, NL Muscle Strength and Tone Nutrition: Taking PO's Result Diagrams: 08/02/17 06:29 07/31/17 09:22 Additional Lab and Data: Microbiology and Other Data: Microbiology 07/31/17 12:25 Nasal Screen MRSA (PCR)(OWEN) - Final Nasal Mrsa Detected Diagnostic Imaging: . EKG Data: . Assess/Plan/Problems-Billing Mr Conway is a 61 yo M who has a h/o chronic back pain, past gabapentin overdose, HTN, afib and COPD who presented to the ER with c/o altered mental status and went into rapid afib in the ER. - Patient Problems (1) Altered mental state Current Visit: Yes Status: Acute Priority: High Comment: - No clear cause to the AMS. ? polypharmacy ? EtOH withdrawal. - Today he continues to improve from a cognitive standpoint. I doubt he would be able to discharge to home. I worry about adminstering meds at home, with possible OD since it happened in the past. - Case management is looking for placement. - Patient expressed interest for [facility] (2) Chronic pain Current Visit: Yes Status: Chronic Comment: - Improving - He has been off gabapentin, tramadol and baclofen this admission. - Pain consult appreciated. Resume Tramadol Q6 hours, reassess. (3) Paroxysmal atrial fibrillation Current Visit: Yes Status: Acute Comment: - Pt has h/o afib. Continue metoprolol and diltiazem. - His CHADS-vasc score is 1. - No anticoagulation at this point. (4) COPD (chronic obstructive pulmonary disease) Current Visit: Yes Status: Chronic Comment: - No signs of exacerbation. (5) Tobacco abuse Current Visit: No Status: Chronic Comment: - Encourage smoking cessation. - Will provide Nicotine patch and mouth piece (6) DVT prophylaxis Current Visit: Yes Status: Acute Comment: - SQ heparin (7) Full code status Current Visit: Yes Status: Acute Status and Disposition: Inpatient. Anticipate discharge to assisted living once bed available.
[2017-08-03] MEDS ORDERED: oxyCODONE/Acetamin 5/325 MG* TAB PO ONE (18:20)
[2017-08-03] MEDS: Ropinirole TAB* 0.5 MG TAB PO SCH (21:35)
[2017-08-03] MEDS: Lidocaine Patch REMOVE* 1 NOTE MISC SCH (21:36)
[2017-08-04] MEDS: Acetaminophen TAB* 325 MG PO SCH ×4 (05:23→21:14)
[2017-08-04] MEDS: Heparin VIAL(*) 5000 UNITS/ML VIAL (FIVE THOUSAND) SUBCUT SCH ×3 (05:24→21:18)
[2017-08-04] MEDS: Tiotropium CAP.INH* CAP.INH/18 MCG (USE ORDER SET !) INH SCH (07:34)
[2017-08-04] MEDS: Omeprazole CAP* 20 MG PO SCH ×2 (08:13→21:15)
[2017-08-04] MEDS: Thiamine TAB* 100 MG TAB PO SCH (08:13)
[2017-08-04] MEDS: Multivitamins/Minerals TAB PO SCH (08:13)
[2017-08-04] MEDS: Metoprolol Tartrate TAB* 100 MG TAB PO SCH ×2 (08:13→21:15)
[2017-08-04] MEDS: chlordiazePOXIDE CAP* 25 MG PO SCH (08:13)
[2017-08-04] MEDS: Magnesium Oxide TAB* 400 MG PO SCH (08:13)
[2017-08-04] MEDS: Diltiazem CD CAP* 240 MG PO SCH (08:13)
[2017-08-04] MEDS: Senna TAB PO SCH (08:13)
[2017-08-04] MEDS: Folic Acid TAB* 1 MG PO SCH (08:13)
[2017-08-04] MEDS: Analgesic BALM* 114 GM TOPICAL SCH ×3 (08:14→21:17)
[2017-08-04] MEDS: Hydrochlorothiazide TAB* 25 MG PO SCH (08:14)
[2017-08-04] MEDS: Lidocaine PATCH 5%* 1 PATCH TRANSDERM SCH (08:15)
[2017-08-04] MEDS: traMADol TAB* 50 MG PO PRN ×3 (10:07→21:14)
--- NOTE | 2017-08-04 14:27 | PN ---
Subjective Date of Service: 08/04/17 Interval History: Patient states his back hurts and he cant get comfortable. He reports good appetite. He denies any fever or chills. Is frustrated by my presence and states "I cant talk to you". Family History: Unchanged from Admission Social History: Unchanged from Admission Past Medical History: Unchanged from Admission Objective Active Medications: Acetaminophen (Tylenol Tab*) 650 mg PO Q6H [facility] Last Admin: 08/04/17 10:07 Dose: 650 mg Albuterol (Ventolin 2.5 Mg/3 Ml Neb.Jessica*) 2.5 mg INH Q2H PRN PRN Reason: SOB/WHEEZING Chlordiazepoxide (Librium Cap*) 25 mg PO DAILY [facility] Last Admin: 08/04/17 08:13 Dose: 25 mg Device (Tiotropium Inhaler Device*) 1 each .SEE ORDER .USE w/ SPIRIVA CAPS [facility] Device (Nicotine Mouth Piece*) 1 each INH .USE WITH NICOTROL PRN PRN Reason: CRAVING Diltiazem HCl (Cardizem Cd Cap*) 240 mg PO DAILY [facility] Last Admin: 08/04/17 08:13 Dose: 240 mg Folic Acid (Folvite Tab*) 1 mg PO DAILY [facility] Last Admin: 08/04/17 08:13 Dose: 1 mg Haloperidol Lactate (Haldol Inj Iv/Im*) 2.5 mg IM Q6H PRN PRN Reason: AGITATION Last Admin: 07/30/17 04:38 Dose: 2.5 mg Heparin Sodium (Porcine) (Heparin Vial(*)) 5,000 units SUBCUT Q8HR [facility] Last Admin: 08/04/17 05:24 Dose: 5,000 units Hydrochlorothiazide (Hydrodiuril Tab*) 12.5 mg PO DAILY [facility] Last Admin: 08/04/17 08:14 Dose: 12.5 mg Lidocaine (Lidoderm 5% Patch*) 1 patch TRANSDERM DAILY [facility] Last Admin: 08/04/17 08:15 Dose: 1 patch Magnesium Oxide (Magox 400 Tab*) 400 mg PO DAILY [facility] Last Admin: 08/04/17 08:13 Dose: 400 mg Metoprolol Tartrate (Lopressor Tab*) 100 mg PO BID [facility] Last Admin: 08/04/17 08:13 Dose: 100 mg Multi-Ingredient Liniment/Rub (Espinoza Bright*) 1 applic TOPICAL TID [facility] Last Admin: 08/04/17 08:14 Dose: 1 applic Multivitamins/Minerals (Theragran/Minerals Tab*) 1 tab PO DAILY [facility] Last Admin: 08/04/17 08:13 Dose: 1 tab Omeprazole (Prilosec Cap*) 40 mg PO BID [facility] Last Admin: 08/04/17 08:13 Dose: 40 mg Pharmacy Profile Note (Lidocaine Patch Remove*) 1 note N/A 2100 [facility] Last Admin: 08/03/17 21:36 Dose: 1 note Ropinirole HCl (Requip Tab*) 0.5 mg PO BEDTIME [facility] Last Admin: 08/03/17 21:35 Dose: 0.5 mg Senna (Senokot Tab*) 1 tab PO DAILY [facility] Last Admin: 08/04/17 08:13 Dose: 1 tab Thiamine HCl (Vitamin B-1 Tab*) 100 mg PO DAILY [facility] Last Admin: 08/04/17 08:13 Dose: 100 mg Tiotropium [place] (Spiriva Cap.Inh*) 1 cap INH DAILY [facility] Last Admin: 08/04/17 07:34 Dose: 1 cap Tramadol HCl (Ultram*) 50 mg PO Q6H PRN PRN Reason: PAIN - MODERATE Last Admin: 08/04/17 10:07 Dose: 50 mg Vital Signs - 8 hr 08/04/17 08/04/17 08/04/17 07:35 07:59 08:00 Temperature 98.2 F Pulse Rate 59 55 Respiratory 16 16 24 Rate Blood Pressure 110/74 (mmHg) O2 Sat by Pulse 97 98 Oximetry 08/04/17 08/04/17 08/04/17 08:13 10:07 11:29 Temperature Pulse Rate Respiratory 24 20 16 Rate Blood Pressure (mmHg) O2 Sat by Pulse Oximetry 08/04/17 13:04 Temperature Pulse Rate Respiratory 16 Rate Blood Pressure (mmHg) O2 Sat by Pulse Oximetry Oxygen Devices in Use Now: None Appearance: chronically ill male Alert and oriented in NAD Eyes: No Scleral Icterus, PERRLA Respiratory: Symmetrical Chest Expansion and Respiratory Effort, Clear to Auscultation Cardiovascular: NL Sounds; No Murmurs; No JVD, RRR, No Edema Abdominal: NL Sounds; No Tenderness; No Distention Extremities: No Edema, No Clubbing, Cyanosis, - - strength 5/5 throughout Skin: No Rash or Ulcers, No Nodules or Sclerosis Neurological: Alert and Oriented x 3, NL Sensation, NL Gait, NL Muscle Strength and Tone Lines/Tubes/Other Access: Clean, Dry and Intact Peripheral IV Nutrition: Taking PO's Result Diagrams: 08/02/17 06:29 07/31/17 09:22 Additional Lab and Data: Microbiology and Other Data: Microbiology 07/31/17 12:25 Nasal Screen MRSA (PCR)(OWEN) - Final Nasal Mrsa Detected Diagnostic Imaging: . EKG Data: . Assess/Plan/Problems-Billing Mr Conway is a 61 yo M who has a h/o chronic back pain, past gabapentin overdose, HTN, afib and COPD who presented to the ER with c/o altered mental status and went into rapid afib in the ER. - Patient Problems (1) Altered mental state Comment: - No clear cause to the AMS. polypharmacy ? EtOH withdrawal? - He continues to improve from a cognitive standpoint. Concerns about discharge to home, Per PCP pt has hx of OD on meds multiple times. - Case management is looking for placement. - Patient expressed interest for [facility] (2) Chronic back pain Comment: Appreciate Pain Management consult Continue Tramadol, APAP, oxycodone, Lidoderm patch (3) DVT prophylaxis Comment: - SQ heparin (4) Paroxysmal atrial fibrillation Comment: - Pt has h/o afib. Continue metoprolol and diltiazem. - His CHADS-vasc score is 1. - No anticoagulation at this point. He is a poor canidate for anticoagulation with the ETOH abuse (5) COPD (chronic obstructive pulmonary disease) Comment: - No signs of exacerbation. (6) Tobacco abuse Comment: - Encourage smoking cessation. - Will provide Nicotine patch and mouth piece (7) Full code status Status and Disposition: Inpatient. Anticipate discharge to assisted living once bed available.
[2017-08-04] MEDS ORDERED: Cyclobenzaprine TAB* 10 MG PO ONE (14:39)
[2017-08-04] MEDS ORDERED: Cyclobenzaprine TAB* 10 MG ONE (14:48)
[2017-08-04] MEDS: Ropinirole TAB* 0.5 MG TAB PO SCH (21:15)
[2017-08-04] MEDS: Lidocaine Patch REMOVE* 1 NOTE MISC SCH (21:17)
[2017-08-05] MEDS: Acetaminophen TAB* 325 MG PO SCH ×4 (03:43→21:01)
[2017-08-05] MEDS: traMADol TAB* 50 MG PO PRN ×3 (03:44→21:49)
[2017-08-05] MEDS: Heparin VIAL(*) 5000 UNITS/ML VIAL (FIVE THOUSAND) SUBCUT SCH ×3 (05:42→21:03)
[2017-08-05 05:44] LABS: ABS Basophils 0 10^3/ul (0-0.2); ABS Eosinophils 0.3 10^3/ul (0-0.6); ABS Lymphocytes 2.7 10^3/ul (1.0-4.8); ABS Monocytes 0.8 10^3/ul (0-0.8); ABS Neutrophils 2.8 10^3/ul (1.5-7.7); ABS Nucleated RBC 0 10^3/ul; Hematocrit 46 % (42-52); Hemoglobin 15.7 g/dl (14.0-18.0); Lymphocyte % 41.1 % (25-47); Mean Corpuscular HGB Conc 34 g/dl (31-36); Mean Corpuscular Hemoglobin 31 pg (27-31); Mean Corpuscular Volume 90 fL (80-94); Mean Platelet Volume 9.4 um3 (7.4-10.4); Nucleated Red Blood Cells % 0.1; Platelet Count 264 10^3/ul (150-450); Red Blood Count 5.12 10^6/ul (4.0-5.4); Red Cell Distribution Width 16 % (10.5-15); White Blood Count 6.6 10^3/ul (3.5-10.8)
[2017-08-05 05:59] LABS: EGFR Non-African American 89.2 (>60)
[2017-08-05] MEDS: Analgesic BALM* 114 GM TOPICAL SCH ×3 (08:49→21:04)
[2017-08-05] MEDS: Lidocaine PATCH 5%* 1 PATCH TRANSDERM SCH (08:50)
[2017-08-05] MEDS: Multivitamins/Minerals TAB PO SCH (08:51)
[2017-08-05] MEDS: Omeprazole CAP* 20 MG PO SCH ×2 (08:51→21:00)
[2017-08-05] MEDS: Senna TAB PO SCH (08:51)
[2017-08-05] MEDS: Cyclobenzaprine TAB* 10 MG PO PRN ×3 (08:52→21:49)
[2017-08-05] MEDS: Thiamine TAB* 100 MG TAB PO SCH (08:52)
[2017-08-05] MEDS: Diltiazem CD CAP* 240 MG PO SCH (08:52)
[2017-08-05] MEDS: Folic Acid TAB* 1 MG PO SCH (08:52)
[2017-08-05] MEDS: Magnesium Oxide TAB* 400 MG PO SCH ×2 (08:52→21:02)
[2017-08-05] MEDS: Metoprolol Tartrate TAB* 100 MG TAB PO SCH ×2 (08:52→21:02)
[2017-08-05] MEDS: chlordiazePOXIDE CAP* 25 MG PO SCH (08:52)
[2017-08-05] MEDS: Hydrochlorothiazide TAB* 25 MG PO SCH (08:53)
[2017-08-05] MEDS: Tiotropium CAP.INH* CAP.INH/18 MCG (USE ORDER SET !) INH SCH (10:07)
--- NOTE | 2017-08-05 10:54 | PN ---
Subjective Date of Service: 08/05/17 Interval History: Pt reports he still has back pain and it moves around. Today his left upper back is hurting and has moved the lidocaine patch to there instead of his lower back today. He was started on flexeril yesterday and reports "maybe some improvement'. Per nursing staff he appears a little better today, not yelling out as much Family History: Unchanged from Admission Social History: Unchanged from Admission Past Medical History: Unchanged from Admission Objective Active Medications: Acetaminophen (Tylenol Tab*) 650 mg PO Q6H [facility] Last Admin: 08/05/17 08:51 Dose: 650 mg Albuterol (Ventolin 2.5 Mg/3 Ml Neb.Jessica*) 2.5 mg INH Q2H PRN PRN Reason: SOB/WHEEZING Chlordiazepoxide (Librium Cap*) 25 mg PO DAILY [facility] Last Admin: 08/05/17 08:52 Dose: 25 mg Cyclobenzaprine HCl (Flexeril Tab*) 10 mg PO TID PRN PRN Reason: pain/spasm hold for sedation Last Admin: 08/05/17 08:52 Dose: 10 mg Device (Tiotropium Inhaler Device*) 1 each .SEE ORDER .USE w/ SPIRIVA CAPS [facility] Device (Nicotine Mouth Piece*) 1 each INH .USE WITH NICOTROL PRN PRN Reason: CRAVING Diltiazem HCl (Cardizem Cd Cap*) 240 mg PO DAILY [facility] Last Admin: 08/05/17 08:52 Dose: 240 mg Folic Acid (Folvite Tab*) 1 mg PO DAILY [facility] Last Admin: 08/05/17 08:52 Dose: 1 mg Heparin Sodium (Porcine) (Heparin Vial(*)) 5,000 units SUBCUT Q8HR [facility] Last Admin: 08/05/17 05:42 Dose: 5,000 units Hydrochlorothiazide (Hydrodiuril Tab*) 12.5 mg PO DAILY [facility] Last Admin: 08/05/17 08:53 Dose: 12.5 mg Lidocaine (Lidoderm 5% Patch*) 1 patch TRANSDERM DAILY [facility] Last Admin: 08/05/17 08:50 Dose: 1 patch Magnesium Oxide (Magox 400 Tab*) 400 mg PO BID [facility] Metoprolol Tartrate (Lopressor Tab*) 100 mg PO BID [facility] Last Admin: 08/05/17 08:52 Dose: 100 mg Multi-Ingredient Liniment/Rub (Espinoza Bright*) 1 applic TOPICAL TID [facility] Last Admin: 08/05/17 08:49 Dose: 1 applic Multivitamins/Minerals (Theragran/Minerals Tab*) 1 tab PO DAILY [facility] Last Admin: 08/05/17 08:51 Dose: 1 tab Omeprazole (Prilosec Cap*) 40 mg PO BID [facility] Last Admin: 08/05/17 08:51 Dose: 40 mg Pharmacy Profile Note (Lidocaine Patch Remove*) 1 note N/A 2100 [facility] Last Admin: 08/04/17 21:17 Dose: 1 note Ropinirole HCl (Requip Tab*) 0.5 mg PO BEDTIME [facility] Last Admin: 08/04/17 21:15 Dose: 0.5 mg Senna (Senokot Tab*) 1 tab PO DAILY [facility] Last Admin: 08/05/17 08:51 Dose: 1 tab Thiamine HCl (Vitamin B-1 Tab*) 100 mg PO DAILY [facility] Last Admin: 08/05/17 08:52 Dose: 100 mg Tiotropium [place] (Spiriva Cap.Inh*) 1 cap INH DAILY [facility] Last Admin: 08/05/17 10:07 Dose: Not Given Tramadol HCl (Ultram*) 50 mg PO Q6H PRN PRN Reason: PAIN - MODERATE Last Admin: 08/05/17 03:44 Dose: 50 mg Vital Signs - 8 hr 08/05/17 08/05/17 08/05/17 03:44 05:33 05:42 Temperature 97.8 F Pulse Rate 50 60 Respiratory 16 16 18 Rate Blood Pressure 101/74 (mmHg) O2 Sat by Pulse 96 96 Oximetry 08/05/17 08/05/17 08/05/17 06:36 08:00 08:30 Temperature 98.1 F Pulse Rate 42 Respiratory 16 16 Rate Blood Pressure 96/54 118/64 (mmHg) O2 Sat by Pulse 100 Oximetry 08/05/17 08:52 Temperature Pulse Rate Respiratory 16 Rate Blood Pressure (mmHg) O2 Sat by Pulse Oximetry Oxygen Devices in Use Now: None Appearance: chronically ill male A+O x3 - appears disheaveled Eyes: No Scleral Icterus, PERRLA Ears/Nose/Mouth/Throat: NL Teeth, Lips, Gums Respiratory: Symmetrical Chest Expansion and Respiratory Effort Cardiovascular: NL Sounds; No Murmurs; No JVD, RRR, No Edema Abdominal: NL Sounds; No Tenderness; No Distention Extremities: No Edema, No Clubbing, Cyanosis, - - strength is 5/5 throughout Skin: No Rash or Ulcers, No Nodules or Sclerosis Neurological: Alert and Oriented x 3, NL Sensation, NL Gait, NL Muscle Strength and Tone Lines/Tubes/Other Access: Clean, Dry and Intact Peripheral IV Nutrition: Taking PO's Result Diagrams: 08/05/17 05:26 08/05/17 05:26 Additional Lab and Data: Microbiology and Other Data: Microbiology 07/31/17 12:25 Nasal Screen MRSA (PCR)([facility]EN) - Final Nasal Mrsa Detected Diagnostic Imaging: . EKG Data: . Assess/Plan/Problems-Billing Mr Conway is a 61 yo M who has a h/o chronic back pain, past gabapentin overdose, HTN, afib and COPD who presented to the ER with c/o altered mental status and went into rapid afib in the ER. - Patient Problems (1) Altered mental state Comment: - No clear cause to the AMS. polypharmacy ? EtOH withdrawal? Now back to baseline- - He continues to improve from a cognitive standpoint. Concerns about discharge to home, Per PCP pt has hx of OD on meds multiple times. - Case management is looking for placement. (2) Chronic back pain Comment: Appreciate Pain Management consult Continue Tramadol, APAP, oxycodone, Lidoderm patch - started on flexeril with some improvement MRI 2017 - showing degenrative disc disease and osteoarthritis, right sided disc protrusion L2-L3 and mild narrowing of central charlie at L3-L4 and L4-L5 (3) Paroxysmal atrial fibrillation Comment: - Pt has h/o afib. Continue metoprolol and diltiazem. - His CHADS-vasc score is 1. - No anticoagulation at this point. He is a poor canidate for anticoagulation with the ETOH abuse (4) COPD (chronic obstructive pulmonary disease) Comment: - No signs of exacerbation. (5) Tobacco abuse Comment: - Encourage smoking cessation. - Will provide Nicotine patch and mouth piece (6) Full code status (7) DVT prophylaxis Comment: - SQ heparin Status and Disposition: Inpatient. Anticipate discharge to assisted living once bed available.
[2017-08-05] MEDS: Ropinirole TAB* 0.5 MG TAB PO SCH (21:01)
[2017-08-05] MEDS: Lidocaine Patch REMOVE* 1 NOTE MISC SCH (21:04)
[2017-08-06] MEDS: Acetaminophen TAB* 325 MG PO SCH ×4 (06:10→22:48)
[2017-08-06] MEDS: Heparin VIAL(*) 5000 UNITS/ML VIAL (FIVE THOUSAND) SUBCUT SCH ×3 (06:11→22:48)
[2017-08-06] MEDS: Tiotropium CAP.INH* CAP.INH/18 MCG (USE ORDER SET !) INH SCH (08:34)
[2017-08-06] MEDS ORDERED: Magnesium Oxide TAB* 400 MG PO ONE (08:41)
[2017-08-06] MEDS: Omeprazole CAP* 20 MG PO SCH ×2 (09:24→20:17)
[2017-08-06] MEDS: Folic Acid TAB* 1 MG PO SCH (09:24)
[2017-08-06] MEDS: Diltiazem CD CAP* 240 MG PO SCH (09:24)
[2017-08-06] MEDS: Hydrochlorothiazide TAB* 25 MG PO SCH (09:24)
[2017-08-06] MEDS: Senna TAB PO SCH (09:25)
[2017-08-06] MEDS: chlordiazePOXIDE CAP* 25 MG PO SCH (09:26)
[2017-08-06] MEDS: Magnesium Oxide TAB* 400 MG PO SCH ×2 (09:27→20:17)
[2017-08-06] MEDS: Multivitamins/Minerals TAB PO SCH (09:27)
[2017-08-06] MEDS: Thiamine TAB* 100 MG TAB PO SCH (09:28)
[2017-08-06] MEDS: Lidocaine PATCH 5%* 1 PATCH TRANSDERM SCH (09:29)
[2017-08-06] MEDS: Analgesic BALM* 114 GM TOPICAL SCH ×3 (09:29→22:48)
[2017-08-06] MEDS: Metoprolol Tartrate TAB* 100 MG TAB PO SCH ×2 (09:29→20:15)
--- NOTE | 2017-08-06 12:40 | PN ---
Subjective Date of Service: 08/06/17 Interval History: Patient found resting comfortable in bed with his eyes closed. He awakes easily and states his pain is currently controlled and better today. He is not yelling out like he has been the last several days. He denies numbness/tingling Family History: Unchanged from Admission Social History: Unchanged from Admission Past Medical History: Unchanged from Admission Objective Active Medications: Acetaminophen (Tylenol Tab*) 650 mg PO Q6H [facility] Last Admin: 08/06/17 09:26 Dose: 650 mg Albuterol (Ventolin 2.5 Mg/3 Ml Neb.Jessica*) 2.5 mg INH Q2H PRN PRN Reason: SOB/WHEEZING Chlordiazepoxide (Librium Cap*) 25 mg PO DAILY [facility] Last Admin: 08/06/17 09:26 Dose: 25 mg Cyclobenzaprine HCl (Flexeril Tab*) 10 mg PO TID PRN PRN Reason: pain/spasm hold for sedation Last Admin: 08/05/17 21:49 Dose: 10 mg Device (Tiotropium Inhaler Device*) 1 each .SEE ORDER .USE w/ SPIRIVA CAPS [facility] Device (Nicotine Mouth Piece*) 1 each INH .USE WITH NICOTROL PRN PRN Reason: CRAVING Diltiazem HCl (Cardizem Cd Cap*) 240 mg PO DAILY [facility] Last Admin: 08/06/17 09:24 Dose: 240 mg Folic Acid (Folvite Tab*) 1 mg PO DAILY [facility] Last Admin: 08/06/17 09:24 Dose: 1 mg Heparin Sodium (Porcine) (Heparin Vial(*)) 5,000 units SUBCUT Q8HR [facility] Last Admin: 08/06/17 06:11 Dose: 5,000 units Hydrochlorothiazide (Hydrodiuril Tab*) 12.5 mg PO DAILY [facility] Last Admin: 08/06/17 09:24 Dose: 12.5 mg Lidocaine (Lidoderm 5% Patch*) 1 patch TRANSDERM DAILY [facility] Last Admin: 08/06/17 09:29 Dose: 1 patch Magnesium Oxide (Magox 400 Tab*) 400 mg PO BID [facility] Last Admin: 08/06/17 09:27 Dose: 400 mg Metoprolol Tartrate (Lopressor Tab*) 100 mg PO BID [facility] Last Admin: 08/06/17 09:29 Dose: Not Given Multi-Ingredient Liniment/Rub (Espinoza Bright*) 1 applic TOPICAL TID [facility] Last Admin: 08/06/17 09:29 Dose: 1 applic Multivitamins/Minerals (Theragran/Minerals Tab*) 1 tab PO DAILY [facility] Last Admin: 08/06/17 09:27 Dose: 1 tab Omeprazole (Prilosec Cap*) 40 mg PO BID [facility] Last Admin: 08/06/17 09:24 Dose: 40 mg Pharmacy Profile Note (Lidocaine Patch Remove*) 1 note N/A 2100 [facility] Last Admin: 08/05/17 21:04 Dose: 1 note Ropinirole HCl (Requip Tab*) 0.5 mg PO BEDTIME [facility] Last Admin: 08/05/17 21:01 Dose: 0.5 mg Senna (Senokot Tab*) 1 tab PO DAILY [facility] Last Admin: 08/06/17 09:25 Dose: 1 tab Thiamine HCl (Vitamin B-1 Tab*) 100 mg PO DAILY [facility] Last Admin: 08/06/17 09:28 Dose: 100 mg Tiotropium [place] (Spiriva Cap.Inh*) 1 cap INH DAILY [facility] Last Admin: 08/06/17 08:34 Dose: 1 cap Tramadol HCl (Ultram*) 50 mg PO Q6H PRN PRN Reason: PAIN - MODERATE Last Admin: 08/05/17 21:49 Dose: 50 mg Vital Signs - 8 hr 08/06/17 08/06/17 08/06/17 07:49 08:35 08:44 Temperature 97.7 F Pulse Rate 48 Respiratory 18 14 16 Rate Blood Pressure 99/62 (mmHg) O2 Sat by Pulse 93 Oximetry 08/06/17 08/06/17 08/06/17 09:26 11:31 12:23 Temperature 97.9 F Pulse Rate 111 Respiratory 16 18 18 Rate Blood Pressure 123/98 (mmHg) O2 Sat by Pulse 96 Oximetry Oxygen Devices in Use Now: None Appearance: chronically ill male A+O x3, disheveled appearance, tongue rolling ( baseline) Eyes: No Scleral Icterus, PERRLA Ears/Nose/Mouth/Throat: Mucous Membranes Moist Respiratory: Symmetrical Chest Expansion and Respiratory Effort, Clear to Auscultation Cardiovascular: NL Sounds; No Murmurs; No JVD, RRR, No Edema Abdominal: NL Sounds; No Tenderness; No Distention Extremities: No Edema, No Clubbing, Cyanosis Skin: No Rash or Ulcers, No Nodules or Sclerosis Neurological: Alert and Oriented x 3, NL Sensation, NL Muscle Strength and Tone Lines/Tubes/Other Access: Clean, Dry and Intact Peripheral IV Nutrition: Taking PO's Result Diagrams: 08/05/17 05:26 08/05/17 05:26 Additional Lab and Data: Microbiology and Other Data: Microbiology 07/31/17 12:25 Nasal Screen MRSA (PCR)([facility]) - Final Nasal Mrsa Detected Diagnostic Imaging: . EKG Data: . Assess/Plan/Problems-Billing Mr Conway is a 61 yo M who has a h/o chronic back pain, past gabapentin overdose, HTN, afib and COPD who presented to the ER with c/o altered mental status and went into rapid afib in the ER. - Patient Problems (1) Altered mental state Comment: - No clear cause to the AMS. polypharmacy ? EtOH withdrawal? Now back to baseline- - He continues to improve from a cognitive standpoint. Concerns about discharge to home, Per PCP pt has hx of OD on meds multiple times. - Case management is looking for placement, initially [facility] was discussed but pt requires close monitoring of meds. PCP and I did discuss only prescribing one week at a time which could be an option. (2) Chronic back pain Comment: Appreciate Pain Management consult Pain today appears to be improving since starting the Flexeril. Continue Tramadol, APAP, Flexeril. Lidoderm patch MRI 2017 - showing degenrative disc disease and osteoarthritis, right sided disc protrusion L2-L3 and mild narrowing of central charlie at L3-L4 and L4-L5 (3) Paroxysmal atrial fibrillation Comment: - Pt has h/o afib. Continue metoprolol and diltiazem. - His CHADS-vasc score is 1. - No anticoagulation at this point. He is a poor canidate for anticoagulation with the ETOH abuse and medication noncompliance (4) COPD (chronic obstructive pulmonary disease) Comment: - No signs of exacerbation. (5) Tobacco abuse Comment: - Encourage smoking cessation. - Will provide Nicotine patch and mouth piece (6) Full code status (7) DVT prophylaxis Comment: - SQ heparin Status and Disposition: Inpatient. Anticipate discharge to assisted living once bed available.
[2017-08-06] MEDS: traMADol TAB* 50 MG PO PRN ×2 (14:15→20:23)
[2017-08-06] MEDS: Cyclobenzaprine TAB* 10 MG PO PRN ×2 (14:45→20:22)
[2017-08-06] MEDS ORDERED: Ketorolac INJ* 15 MG/ML 1 ML VIAL IV PUSH ONE (16:39)
[2017-08-06] MEDS: Lidocaine Patch REMOVE* 1 NOTE MISC SCH (20:18)
[2017-08-06] MEDS: Ropinirole TAB* 0.5 MG TAB PO SCH (20:18)
[2017-08-07] MEDS: Acetaminophen TAB* 325 MG PO SCH ×4 (03:57→22:04)
[2017-08-07] MEDS: traMADol TAB* 50 MG PO PRN ×2 (03:57→11:43)
[2017-08-07 05:51] LABS: ABS Basophils 0.1 10^3/ul (0-0.2); ABS Eosinophils 0.3 10^3/ul (0-0.6); ABS Lymphocytes 2.8 10^3/ul (1.0-4.8); ABS Monocytes 0.7 10^3/ul (0-0.8); ABS Neutrophils 2.9 10^3/ul (1.5-7.7); ABS Nucleated RBC 0 10^3/ul; Eosinophil % 3.9 % (0-6); Hematocrit 42 % (42-52); Hemoglobin 14.2 g/dl (14.0-18.0); Lymphocyte % 41.8 % (25-47); Mean Corpuscular HGB Conc 34 g/dl (31-36); Mean Corpuscular Hemoglobin 30 pg (27-31); Mean Corpuscular Volume 90 fL (80-94); Mean Platelet Volume 9.1 um3 (7.4-10.4); Nucleated Red Blood Cells % 0.1; Platelet Count 243 10^3/ul (150-450); Red Blood Count 4.69 10^6/ul (4.0-5.4); Red Cell Distribution Width 16 % (10.5-15); White Blood Count 6.8 10^3/ul (3.5-10.8)
[2017-08-07 06:02] LABS: EGFR Non-African American 96.9 (>60)
[2017-08-07] MEDS: Heparin VIAL(*) 5000 UNITS/ML VIAL (FIVE THOUSAND) SUBCUT SCH ×3 (06:19→22:06)
[2017-08-07] MEDS: Lidocaine PATCH 5%* 1 PATCH TRANSDERM SCH (08:22)
[2017-08-07] MEDS: Magnesium Oxide TAB* 400 MG PO SCH ×2 (08:23→22:06)
[2017-08-07] MEDS: Omeprazole CAP* 20 MG PO SCH ×2 (08:24→22:06)
[2017-08-07] MEDS: Folic Acid TAB* 1 MG PO SCH (08:24)
[2017-08-07] MEDS: Senna TAB PO SCH (08:24)
[2017-08-07] MEDS: Thiamine TAB* 100 MG TAB PO SCH (08:25)
[2017-08-07] MEDS: Multivitamins/Minerals TAB PO SCH (08:25)
[2017-08-07] MEDS: Diltiazem CD CAP* 240 MG PO SCH (08:25)
[2017-08-07] MEDS: Cyclobenzaprine TAB* 10 MG PO PRN (08:25)
[2017-08-07] MEDS: Hydrochlorothiazide TAB* 25 MG PO SCH (08:25)
[2017-08-07] MEDS: Metoprolol Tartrate TAB* 100 MG TAB PO SCH ×2 (08:26→22:05)
[2017-08-07] MEDS: Analgesic BALM* 114 GM TOPICAL SCH ×3 (08:26→22:20)
[2017-08-07] MEDS: Tiotropium CAP.INH* CAP.INH/18 MCG (USE ORDER SET !) INH SCH (08:56)
--- NOTE | 2017-08-07 14:57 | PN ---
Subjective Date of Service: 08/07/17 Interval History: Patient is in severe pain unable to sit still. Helped with Bengay cream over his whole back. Patient states the pain in only in his lower back. Patient denies F/C, N/V, abdominal pain, CP, SOB, diarrhea, Constipation. Patient has moderate pain control with current medication regimen. Patient annoyed about having to go to rehab. Family History: Unchanged from Admission Social History: Unchanged from Admission Past Medical History: Unchanged from Admission Objective Active Medications: Acetaminophen (Tylenol Tab*) 650 mg PO Q6H [facility] Last Admin: 08/07/17 08:24 Dose: 650 mg Albuterol (Ventolin 2.5 Mg/3 Ml Neb.Jessica*) 2.5 mg INH Q2H PRN PRN Reason: SOB/WHEEZING Cyclobenzaprine HCl (Flexeril Tab*) 10 mg PO TID PRN PRN Reason: pain/spasm hold for sedation Last Admin: 08/07/17 08:25 Dose: 10 mg Device (Tiotropium Inhaler Device*) 1 each .SEE ORDER .USE w/ SPIRIVA CAPS [facility] Device (Nicotine Mouth Piece*) 1 each INH .USE WITH NICOTROL PRN PRN Reason: CRAVING Diltiazem HCl (Cardizem Cd Cap*) 240 mg PO DAILY [facility] Last Admin: 08/07/17 08:25 Dose: 240 mg Folic Acid (Folvite Tab*) 1 mg PO DAILY [facility] Last Admin: 08/07/17 08:24 Dose: 1 mg Heparin Sodium (Porcine) (Heparin Vial(*)) 5,000 units SUBCUT Q8HR [facility] Last Admin: 08/07/17 06:19 Dose: 5,000 units Hydrochlorothiazide (Hydrodiuril Tab*) 12.5 mg PO DAILY [facility] Last Admin: 08/07/17 08:25 Dose: 12.5 mg Lidocaine (Lidoderm 5% Patch*) 1 patch TRANSDERM DAILY [facility] Last Admin: 08/07/17 08:22 Dose: 1 patch Magnesium Oxide (Magox 400 Tab*) 400 mg PO BID [facility] Last Admin: 08/07/17 08:23 Dose: 400 mg Metoprolol Tartrate (Lopressor Tab*) 100 mg PO BID [facility] Last Admin: 08/07/17 08:26 Dose: Not Given Multi-Ingredient Liniment/Rub (Espinoza Bright*) 1 applic TOPICAL TID [facility] Last Admin: 08/07/17 08:26 Dose: Not Given Multivitamins/Minerals (Theragran/Minerals Tab*) 1 tab PO DAILY [facility] Last Admin: 08/07/17 08:25 Dose: 1 tab Omeprazole (Prilosec Cap*) 40 mg PO BID [facility] Last Admin: 08/07/17 08:24 Dose: 40 mg Pharmacy Profile Note (Lidocaine Patch Remove*) 1 note N/A 2100 [facility] Last Admin: 08/06/17 20:18 Dose: 1 note Ropinirole HCl (Requip Tab*) 0.5 mg PO BEDTIME [facility] Last Admin: 08/06/17 20:18 Dose: 0.5 mg Senna (Senokot Tab*) 1 tab PO DAILY [facility] Last Admin: 08/07/17 08:24 Dose: 1 tab Thiamine HCl (Vitamin B-1 Tab*) 100 mg PO DAILY [facility] Last Admin: 08/07/17 08:25 Dose: 100 mg Tiotropium [place] (Spiriva Cap.Inh*) 1 cap INH DAILY [facility] Last Admin: 08/07/17 08:56 Dose: 1 cap Tramadol HCl (Ultram*) 50 mg PO Q6H PRN PRN Reason: PAIN - MODERATE Last Admin: 08/07/17 11:43 Dose: 50 mg Vital Signs - 8 hr 08/07/17 08/07/17 08/07/17 07:27 08:25 08:59 Temperature 97.4 F Pulse Rate 53 55 Respiratory 16 16 12 Rate Blood Pressure 101/65 (mmHg) O2 Sat by Pulse 97 99 Oximetry 08/07/17 08/07/17 11:43 12:38 Temperature Pulse Rate Respiratory 24 18 Rate Blood Pressure (mmHg) O2 Sat by Pulse Oximetry Oxygen Devices in Use Now: None Appearance: Patient is a 61yo male who appears older than stated age and is sitting in the bed in moderate distress. Eyes: No Scleral Icterus, PERRLA Ears/Nose/Mouth/Throat: NL Teeth, Lips, Gums, Clear Oropharnyx, Mucous Membranes Moist Neck: NL Appearance and Movements; NL JVP, Trachea Midline Respiratory: Symmetrical Chest Expansion and Respiratory Effort, Clear to Auscultation Cardiovascular: NL Sounds; No Murmurs; No JVD, RRR, No Edema Abdominal: NL Sounds; No Tenderness; No Distention, No Hepatosplenomegaly Lymphatic: No Cervical Adenopathy Extremities: No Edema, No Clubbing, Cyanosis Skin: No Nodules or Sclerosis, - - Reticulated rash on back consistent with erythema ab igne. Neurological: Alert and Oriented x 3, NL Sensation, NL Gait, NL Muscle Strength and Tone, - - CN II-XII intact. Result Diagrams: 08/07/17 05:38 08/07/17 05:38 Additional Lab and Data: Microbiology and Other Data: Microbiology Diagnostic Imaging: . EKG Data: . Assess/Plan/Problems-Billing Mr Conway is a 61 yo M who has a h/o chronic back pain, past gabapentin overdose, HTN, afib and COPD who presented to the ER with c/o altered mental status and went into rapid afib in the ER and has hard to control pain and needs placement due to medication compliance concerns. - Patient Problems (1) Altered mental state Current Visit: Yes Status: Acute Priority: High Code(s): R41.82 - ALTERED MENTAL STATUS, UNSPECIFIED SNOMED Code(s): 127964158 Comment: No clear cause to the AMS. Likely toxic encaphalopathy from polypharmacy. Now back to baseline- He continues to improve from a cognitive standpoint. Concerns about discharge to home, Per PCP pt has hx of OD on meds multiple times. Case management is looking for placement. Will swing when authorization available. (2) Paroxysmal atrial fibrillation Current Visit: Yes Status: Acute Code(s): I48.0 - PAROXYSMAL ATRIAL FIBRILLATION SNOMED Code(s): 706646409 Comment: Pt has h/o afib. Continue metoprolol and diltiazem. His CHADS-vasc score is 1. No anticoagulation at this point. He is a poor candidate for anticoagulation with the ETOH abuse and medication noncompliance (3) COPD (chronic obstructive pulmonary disease) Current Visit: Yes Status: Chronic Code(s): J44.9 - CHRONIC OBSTRUCTIVE PULMONARY DISEASE, UNSPECIFIED SNOMED Code(s): 04765662 Comment: No signs of exacerbation. (4) Chronic back pain Current Visit: Yes Status: Chronic Code(s): M54.9 - DORSALGIA, UNSPECIFIED; G89.29 - OTHER CHRONIC PAIN SNOMED Code(s): 119398083 Comment: Appreciate Pain Management consult Pain today appears to be improving since starting the Flexeril. Continue Tramadol, APAP, Flexeril. Lidoderm patch MRI 2017 - showing degenrative disc disease and osteoarthritis, right sided disc protrusion L2-L3 and mild narrowing of central charlie at L3-L4 and L4-L5 (5) Chronic pain Current Visit: Yes Status: Chronic Code(s): G89.29 - OTHER CHRONIC PAIN SNOMED Code(s): 27916488 Comment: Improving, only moderate control. Pain consult appreciated. Tramadol Q6 hours, Flexeril, lidoderm patch. (6) DVT prophylaxis Current Visit: Yes Status: Acute Code(s): UPV8953 - SNOMED Code(s): 088699938 Comment: SQ heparin (7) Full code status Current Visit: Yes Status: Acute Code(s): Z78.9 - OTHER SPECIFIED HEALTH STATUS SNOMED Code(s): 765338825 Status and Disposition: Inpatient. Anticipate discharge when bed available.
[2017-08-07] MEDS: Ropinirole TAB* 0.5 MG TAB PO SCH (22:05)
[2017-08-07] MEDS: Lidocaine Patch REMOVE* 1 NOTE MISC SCH (22:19)
[2017-08-08] MEDS: Acetaminophen TAB* 325 MG PO SCH ×4 (03:25→22:42)
[2017-08-08] MEDS: Heparin VIAL(*) 5000 UNITS/ML VIAL (FIVE THOUSAND) SUBCUT SCH ×3 (05:21→22:43)
[2017-08-08] MEDS: Tiotropium CAP.INH* CAP.INH/18 MCG (USE ORDER SET !) INH SCH (07:44)
[2017-08-08] MEDS: Lidocaine PATCH 5%* 1 PATCH TRANSDERM SCH (10:52)
[2017-08-08] MEDS: Omeprazole CAP* 20 MG PO SCH ×2 (10:53→20:32)
[2017-08-08] MEDS: Hydrochlorothiazide TAB* 25 MG PO SCH (10:53)
[2017-08-08] MEDS: Magnesium Oxide TAB* 400 MG PO SCH ×2 (10:54→20:32)
[2017-08-08] MEDS: Metoprolol Tartrate TAB* 100 MG TAB PO SCH ×3 (10:54→20:32)
[2017-08-08] MEDS: Analgesic BALM* 114 GM TOPICAL SCH ×3 (10:54→22:38)
[2017-08-08] MEDS: Thiamine TAB* 100 MG TAB PO SCH (10:54)
[2017-08-08] MEDS: Diltiazem CD CAP* 240 MG PO SCH (10:54)
[2017-08-08] MEDS: Multivitamins/Minerals TAB PO SCH (10:54)
[2017-08-08] MEDS: Folic Acid TAB* 1 MG PO SCH (10:54)
[2017-08-08] MEDS: Senna TAB PO SCH (10:54)
[2017-08-08] MEDS: Cyclobenzaprine TAB* 10 MG PO PRN ×2 (12:37→20:32)
[2017-08-08] MEDS: traMADol TAB* 50 MG PO PRN ×2 (12:37→20:33)
--- NOTE | 2017-08-08 14:46 | PN ---
Subjective Date of Service: 08/08/17 Interval History: Patient's pain better controlled today. Patient very agitated about going to rehab because even though he agrees that he needs help with medication management, he feels as if he will lose all his furniture when he is discharged. Patient denies F/C, N/V, abdominal pain, diarrhea, CP, SOB, or other pain. Patient complains of moderate pain in his lower back. Family History: Unchanged from Admission Social History: Unchanged from Admission Past Medical History: Unchanged from Admission Objective Active Medications: Acetaminophen (Tylenol Tab*) 650 mg PO Q6H [facility] Last Admin: 08/08/17 10:53 Dose: 650 mg Albuterol (Ventolin 2.5 Mg/3 Ml Neb.Jessica*) 2.5 mg INH Q2H PRN PRN Reason: SOB/WHEEZING Cyclobenzaprine HCl (Flexeril Tab*) 10 mg PO TID PRN PRN Reason: pain/spasm hold for sedation Last Admin: 08/08/17 12:37 Dose: 10 mg Device (Tiotropium Inhaler Device*) 1 each .SEE ORDER .USE w/ SPIRIVA CAPS [facility] Device (Nicotine Mouth Piece*) 1 each INH .USE WITH NICOTROL PRN PRN Reason: CRAVING Diltiazem HCl (Cardizem Cd Cap*) 240 mg PO DAILY [facility] Last Admin: 08/08/17 10:54 Dose: 240 mg Folic Acid (Folvite Tab*) 1 mg PO DAILY [facility] Last Admin: 08/08/17 10:54 Dose: 1 mg Heparin Sodium (Porcine) (Heparin Vial(*)) 5,000 units SUBCUT Q8HR [facility] Last Admin: 08/08/17 13:51 Dose: 5,000 units Lidocaine (Lidoderm 5% Patch*) 1 patch TRANSDERM DAILY [facility] Last Admin: 08/08/17 10:52 Dose: 1 patch Magnesium Oxide (Magox 400 Tab*) 400 mg PO BID [facility] Last Admin: 08/08/17 10:54 Dose: 400 mg Metoprolol Tartrate (Lopressor Tab*) 100 mg PO BID [facility] Last Admin: 08/08/17 10:57 Dose: Not Given Multi-Ingredient Liniment/Rub (Espinoza Bright*) 1 applic TOPICAL TID [facility] Last Admin: 08/08/17 13:51 Dose: 1 applic Multivitamins/Minerals (Theragran/Minerals Tab*) 1 tab PO DAILY [facility] Last Admin: 08/08/17 10:54 Dose: 1 tab Omeprazole (Prilosec Cap*) 40 mg PO BID [facility] Last Admin: 08/08/17 10:53 Dose: 40 mg Pharmacy Profile Note (Lidocaine Patch Remove*) 1 note N/A 2100 [facility] Last Admin: 08/07/17 22:19 Dose: Not Given Ropinirole HCl (Requip Tab*) 0.5 mg PO BEDTIME [facility] Last Admin: 08/07/17 22:05 Dose: 0.5 mg Senna (Senokot Tab*) 1 tab PO DAILY [facility] Last Admin: 08/08/17 10:54 Dose: 1 tab Thiamine HCl (Vitamin B-1 Tab*) 100 mg PO DAILY [facility] Last Admin: 08/08/17 10:54 Dose: 100 mg Tiotropium [place] (Spiriva Cap.Inh*) 1 cap INH DAILY [facility] Last Admin: 08/08/17 07:44 Dose: 1 cap Tramadol HCl (Ultram*) 50 mg PO Q6H PRN PRN Reason: PAIN - MODERATE Last Admin: 08/08/17 12:37 Dose: 50 mg Vital Signs - 8 hr 08/08/17 08/08/17 08/08/17 07:45 07:50 08:00 Temperature 97.6 F Pulse Rate 82 60 Respiratory 14 18 18 Rate Blood Pressure 96/66 (mmHg) O2 Sat by Pulse 98 96 Oximetry 08/08/17 08/08/17 11:56 12:37 Temperature Pulse Rate 60 Respiratory 18 24 Rate Blood Pressure 111/87 (mmHg) O2 Sat by Pulse 97 Oximetry Oxygen Devices in Use Now: None Appearance: Patient is a 61yo male who appears stated age and is sitting in the bed in [facility]. Eyes: No Scleral Icterus, PERRLA Ears/Nose/Mouth/Throat: NL Teeth, Lips, Gums, Clear Oropharnyx, Mucous Membranes Moist Neck: NL Appearance and Movements; NL JVP, Trachea Midline Respiratory: Symmetrical Chest Expansion and Respiratory Effort, Clear to Auscultation Cardiovascular: NL Sounds; No Murmurs; No JVD, RRR, No Edema Abdominal: NL Sounds; No Tenderness; No Distention, No Hepatosplenomegaly Lymphatic: No Cervical Adenopathy Extremities: No Edema, No Clubbing, Cyanosis Skin: No Nodules or Sclerosis, - - Erythema ab Igne on back. Neurological: Alert and Oriented x 3, NL Sensation, NL Muscle Strength and Tone , - - CN II-XII intact. Result Diagrams: 08/07/17 05:38 08/07/17 05:38 Additional Lab and Data: Microbiology and Other Data: Microbiology Diagnostic Imaging: . EKG Data: . Assess/Plan/Problems-Billing Mr Conway is a 61 yo M who has a h/o chronic back pain, past gabapentin overdose, HTN, afib and COPD who presented to the ER with c/o altered mental status and went into rapid afib in the ER and has hard to control pain and needs placement due to medication compliance concerns. - Patient Problems (1) Altered mental state Current Visit: Yes Status: Acute Priority: High Code(s): R41.82 - ALTERED MENTAL STATUS, UNSPECIFIED SNOMED Code(s): 125968772 Comment: No clear cause to the AMS. Likely toxic encaphalopathy from polypharmacy. Now back to baseline- He continues to improve from a cognitive standpoint. Concerns about discharge to home, Per PCP pt has hx of OD on meds multiple times. Case management is looking for placement. Hopeful discharge to [facility] tomorrow. (2) Paroxysmal atrial fibrillation Current Visit: Yes Status: Acute Code(s): I48.0 - PAROXYSMAL ATRIAL FIBRILLATION SNOMED Code(s): 701593273 Comment: Pt has h/o afib. Continue metoprolol and diltiazem. His CHADS-vasc score is 1. He is a poor candidate for full anticoagulation with the ETOH abuse and medication noncompliance Will start on ASA. (3) COPD (chronic obstructive pulmonary disease) Current Visit: Yes Status: Chronic Code(s): J44.9 - CHRONIC OBSTRUCTIVE PULMONARY DISEASE, UNSPECIFIED SNOMED Code(s): 77521050 Comment: No signs of exacerbation. (4) Chronic back pain Current Visit: Yes Status: Chronic Code(s): M54.9 - DORSALGIA, UNSPECIFIED; G89.29 - OTHER CHRONIC PAIN SNOMED Code(s): 305630898 Comment: Appreciate Pain Management consult Pain stable today on current regimen. Continue Tramadol, APAP, Flexeril. Lidoderm patch MRI 2017 - showing degenrative disc disease and osteoarthritis, right sided disc protrusion L2-L3 and mild narrowing of central charlie at L3-L4 and L4-L5 (5) Chronic pain Current Visit: Yes Status: Chronic Code(s): G89.29 - OTHER CHRONIC PAIN SNOMED Code(s): 39014718 Comment: Improving, only moderate control. Pain consult appreciated. Tramadol Q6 hours, Flexeril, lidoderm patch. Will not resume gabpentin at this time. (6) DVT prophylaxis Current Visit: Yes Status: Acute Code(s): VRB4671 - SNOMED Code(s): 868846510 Comment: SQ heparin (7) Hypertension Current Visit: Yes Status: Acute Code(s): I10 - ESSENTIAL (PRIMARY) HYPERTENSION SNOMED Code(s): 17280655 Comment: BP low on Dilitazem, Metoprolol, HCTZ. Will discontinue HCTZ. (8) Full code status Current Visit: Yes Status: Acute Code(s): Z78.9 - OTHER SPECIFIED HEALTH STATUS SNOMED Code(s): 034923457 Status and Disposition: Inpatient. Anticipate discharge when bed available.
[2017-08-08] MEDS: Ropinirole TAB* 0.5 MG TAB PO SCH (20:32)
[2017-08-08] MEDS: Lidocaine Patch REMOVE* 1 NOTE MISC SCH (22:38)
[2017-08-09] MEDS: traMADol TAB* 50 MG PO PRN ×2 (01:46→19:37)
[2017-08-09] MEDS: Acetaminophen TAB* 325 MG PO SCH ×4 (05:31→22:04)
[2017-08-09] MEDS: Heparin VIAL(*) 5000 UNITS/ML VIAL (FIVE THOUSAND) SUBCUT SCH ×3 (05:39→22:06)
[2017-08-09 06:05] LABS: ABS Basophils 0 10^3/ul (0-0.2); ABS Eosinophils 0.2 10^3/ul (0-0.6); ABS Lymphocytes 2.3 10^3/ul (1.0-4.8); ABS Monocytes 0.9 10^3/ul (0-0.8); ABS Neutrophils 4.2 10^3/ul (1.5-7.7); ABS Nucleated RBC 0 10^3/ul; Eosinophil % 2.8 % (0-6); Hematocrit 42 % (42-52); Hemoglobin 14.4 g/dl (14.0-18.0); Lymphocyte % 30.4 % (25-47); Mean Corpuscular HGB Conc 35 g/dl (31-36); Mean Corpuscular Hemoglobin 31 pg (27-31); Mean Corpuscular Volume 89 fL (80-94); Mean Platelet Volume 9.5 um3 (7.4-10.4); Nucleated Red Blood Cells % 0.1; Platelet Count 261 10^3/ul (150-450); Red Blood Count 4.68 10^6/ul (4.0-5.4); Red Cell Distribution Width 15 % (10.5-15); White Blood Count 7.7 10^3/ul (3.5-10.8)
[2017-08-09 06:24] LABS: EGFR Non-African American 107.5 (>60)
[2017-08-09] MEDS: Tiotropium CAP.INH* CAP.INH/18 MCG (USE ORDER SET !) INH SCH (07:13)
[2017-08-09] MEDS: Aspirin EC TAB* 81 MG TAB.EC PO SCH (09:24)
[2017-08-09] MEDS: Multivitamins/Minerals TAB PO SCH (09:24)
[2017-08-09] MEDS: Analgesic BALM* 114 GM TOPICAL SCH ×3 (09:24→19:38)
[2017-08-09] MEDS: Diltiazem CD CAP* 240 MG PO SCH (09:24)
[2017-08-09] MEDS: Cyclobenzaprine TAB* 10 MG PO PRN ×3 (09:24→19:36)
[2017-08-09] MEDS: Senna TAB PO SCH (09:25)
[2017-08-09] MEDS: Magnesium Oxide TAB* 400 MG PO SCH ×2 (09:26→19:37)
[2017-08-09] MEDS: Omeprazole CAP* 20 MG PO SCH ×2 (09:26→19:35)
[2017-08-09] MEDS: Thiamine TAB* 100 MG TAB PO SCH (09:26)
[2017-08-09] MEDS: Folic Acid TAB* 1 MG PO SCH (09:27)
[2017-08-09] MEDS: Metoprolol Tartrate TAB* 100 MG TAB PO SCH (09:27)
[2017-08-09] MEDS: Lidocaine PATCH 5%* 1 PATCH TRANSDERM SCH (09:28)
[2017-08-09] MEDS: Docusate CAP* 100 MG PO SCH ×2 (13:15→19:36)
--- NOTE | 2017-08-09 13:39 | PN ---
Subjective Date of Service: 08/09/17 Interval History: Patient is not agitated today. Patient states that he is amenable to going to [facility] and that he was able to get ahold of his sister and this was reassuring to him. Complains of intermittent pain but his pain is minimal at the time of evaluation. Patient states that he had been constipated and that he was able to have a BM yesterday. Patient denies F/C, N/V, abdominal pain, diarrhea, CP, SOB, dysuria. weakness, dizziness. Family History: Unchanged from Admission Social History: Unchanged from Admission Past Medical History: Unchanged from Admission Objective Active Medications: Acetaminophen (Tylenol Tab*) 650 mg PO Q6H [facility] Last Admin: 08/09/17 09:20 Dose: 650 mg Albuterol (Ventolin 2.5 Mg/3 Ml Neb.Jessica*) 2.5 mg INH Q2H PRN PRN Reason: SOB/WHEEZING Aspirin (Aspirin Ec Tab*) 81 mg PO DAILY [facility] Last Admin: 08/09/17 09:24 Dose: 81 mg Cyclobenzaprine HCl (Flexeril Tab*) 10 mg PO TID PRN PRN Reason: pain/spasm hold for sedation Last Admin: 08/09/17 09:24 Dose: 10 mg Device (Tiotropium Inhaler Device*) 1 each .SEE ORDER .USE w/ SPIRIVA CAPS [facility] Device (Nicotine Mouth Piece*) 1 each INH .USE WITH NICOTROL PRN PRN Reason: CRAVING Diltiazem HCl (Cardizem Cd Cap*) 180 mg PO DAILY [facility] Docusate Sodium (Colace Cap*) 200 mg PO BID [facility] Last Admin: 08/09/17 13:15 Dose: 200 mg Folic Acid (Folvite Tab*) 1 mg PO DAILY [facility] Last Admin: 08/09/17 09:27 Dose: 1 mg Heparin Sodium (Porcine) (Heparin Vial(*)) 5,000 units SUBCUT Q8HR [facility] Last Admin: 08/09/17 13:15 Dose: 5,000 units Lidocaine (Lidoderm 5% Patch*) 1 patch TRANSDERM DAILY [facility] Last Admin: 08/09/17 09:28 Dose: 1 patch Magnesium Oxide (Magox 400 Tab*) 400 mg PO BID [facility] Last Admin: 08/09/17 09:26 Dose: 400 mg Metoprolol Tartrate (Lopressor Tab*) 100 mg PO BID [facility] Multi-Ingredient Liniment/Rub (Espinoza Bright*) 1 applic TOPICAL TID [facility] Last Admin: 08/09/17 13:15 Dose: 1 applic Multivitamins/Minerals (Theragran/Minerals Tab*) 1 tab PO DAILY [facility] Last Admin: 08/09/17 09:24 Dose: 1 tab Omeprazole (Prilosec Cap*) 40 mg PO BID [facility] Last Admin: 08/09/17 09:26 Dose: 40 mg Pharmacy Profile Note (Lidocaine Patch Remove*) 1 note N/A 2100 [facility] Last Admin: 08/08/17 22:38 Dose: 1 note Ropinirole HCl (Requip Tab*) 0.5 mg PO BEDTIME [facility] Last Admin: 08/08/17 20:32 Dose: 0.5 mg Senna (Senokot Tab*) 1 tab PO DAILY [facility] Last Admin: 08/09/17 09:25 Dose: 1 tab Thiamine HCl (Vitamin B-1 Tab*) 100 mg PO DAILY [facility] Last Admin: 08/09/17 09:26 Dose: 100 mg Tiotropium [place] (Spiriva Cap.Inh*) 1 cap INH DAILY [facility] Last Admin: 08/09/17 07:13 Dose: 1 cap Tramadol HCl (Ultram*) 50 mg PO Q6H PRN PRN Reason: PAIN - MODERATE Last Admin: 08/09/17 01:46 Dose: 50 mg Vital Signs - 8 hr 08/09/17 08/09/17 08/09/17 07:14 07:59 09:24 Temperature 97.3 F Pulse Rate 51 Respiratory 14 16 18 Rate Blood Pressure 100/74 (mmHg) O2 Sat by Pulse 99 Oximetry 08/09/17 08/09/17 08/09/17 10:18 11:13 11:52 Temperature 98.3 F Pulse Rate 60 Respiratory 18 16 16 Rate Blood Pressure 105/74 (mmHg) O2 Sat by Pulse 97 Oximetry Oxygen Devices in Use Now: None Appearance: Patient is a 61yo male who appears older than stated age and is sitting in the bed in [facility]. Eyes: No Scleral Icterus, PERRLA Ears/Nose/Mouth/Throat: NL Teeth, Lips, Gums, Clear Oropharnyx, Mucous Membranes Moist Neck: NL Appearance and Movements; NL JVP, Trachea Midline Respiratory: Symmetrical Chest Expansion and Respiratory Effort, Clear to Auscultation Cardiovascular: NL Sounds; No Murmurs; No JVD, RRR, No Edema Abdominal: NL Sounds; No Tenderness; No Distention, No Hepatosplenomegaly Lymphatic: No Cervical Adenopathy Extremities: No Edema, No Clubbing, Cyanosis Skin: No Nodules or Sclerosis, - - Erythema Ab Igne on back. Neurological: Alert and Oriented x 3, NL Sensation, NL Muscle Strength and Tone , - - CN II-XII intact Result Diagrams: 08/09/17 05:31 08/09/17 05:31 Additional Lab and Data: Microbiology and Other Data: Microbiology Diagnostic Imaging: . EKG Data: . Assess/Plan/Problems-Billing Mr Conway is a 61 yo M who has a h/o chronic back pain, past gabapentin overdose, HTN, afib and COPD who presented to the ER with c/o altered mental status and went into rapid afib in the ER and has hard to control pain and needs placement due to medication compliance concerns. - Patient Problems (1) Altered mental state Current Visit: Yes Status: Acute Priority: High Code(s): R41.82 - ALTERED MENTAL STATUS, UNSPECIFIED SNOMED Code(s): 264162327 Comment: No clear cause to the AMS. Likely toxic encaphalopathy from polypharmacy. Now back to baseline- Concerns about discharge to home, Per PCP pt has hx of OD on meds multiple times. Hopeful discharge to [facility] when authorization available. (2) Paroxysmal atrial fibrillation Current Visit: Yes Status: Acute Code(s): I48.0 - PAROXYSMAL ATRIAL FIBRILLATION SNOMED Code(s): 602362171 Comment: Pt has h/o afib. Continue metoprolol and diltiazem. His CHADS-vasc score is 1. He is a poor candidate for full anticoagulation with the ETOH abuse and medication noncompliance Will start on ASA. Anticoagulation should be further discussed with PCP when stabilized at [facility]. (3) COPD (chronic obstructive pulmonary disease) Current Visit: Yes Status: Chronic Code(s): J44.9 - CHRONIC OBSTRUCTIVE PULMONARY DISEASE, UNSPECIFIED SNOMED Code(s): 05150211 Comment: No signs of exacerbation. (4) Chronic back pain Current Visit: Yes Status: Chronic Code(s): M54.9 - DORSALGIA, UNSPECIFIED; G89.29 - OTHER CHRONIC PAIN SNOMED Code(s): 588337488 Comment: Appreciate Pain Management consult Pain stable today on current regimen. Continue Tramadol, APAP, Flexeril. Lidoderm patch MRI 2017 - showing degenrative disc disease and osteoarthritis, right sided disc protrusion L2-L3 and mild narrowing of central charlie at L3-L4 and L4-L5 (5) Chronic pain Current Visit: Yes Status: Chronic Code(s): G89.29 - OTHER CHRONIC PAIN SNOMED Code(s): 26337487 Comment: Improving, only moderate control. Pain consult appreciated. Tramadol Q6 hours, Flexeril, lidoderm patch. Will not resume gabpentin at this time. (6) DVT prophylaxis Current Visit: Yes Status: Acute Code(s): NWU3311 - SNOMED Code(s): 795747416 Comment: SQ heparin (7) Hypertension Current Visit: Yes Status: Acute Code(s): I10 - ESSENTIAL (PRIMARY) HYPERTENSION SNOMED Code(s): 11677124 Comment: BP low on Dilitazem, Metoprolol, HCTZ. Will discontinue HCTZ and decrease dose of Diltiazem. (8) Full code status Current Visit: Yes Status: Acute Code(s): Z78.9 - OTHER SPECIFIED HEALTH STATUS SNOMED Code(s): 660483957 Status and Disposition: Inpatient. Anticipate discharge when bed available.
[2017-08-09] MEDS: Ropinirole TAB* 0.5 MG TAB PO SCH (19:36)
[2017-08-09] MEDS ORDERED: Metoprolol Tartrate TAB* 100 MG TAB PO SCH ×2 (21:00)
[2017-08-09] MEDS: Lidocaine Patch REMOVE* 1 NOTE MISC SCH (22:09)
[2017-08-10] MEDS: Cyclobenzaprine TAB* 10 MG PO PRN ×3 (01:07→16:01)
[2017-08-10] MEDS: traMADol TAB* 50 MG PO PRN ×3 (01:07→15:14)
[2017-08-10] MEDS: Acetaminophen TAB* 325 MG PO SCH ×4 (07:23→21:55)
[2017-08-10] MEDS: Heparin VIAL(*) 5000 UNITS/ML VIAL (FIVE THOUSAND) SUBCUT SCH ×3 (07:24→21:59)
[2017-08-10] MEDS: Tiotropium CAP.INH* CAP.INH/18 MCG (USE ORDER SET !) INH SCH (07:28)
[2017-08-10] MEDS ORDERED: Diltiazem CD CAP* 180 MG ONE (07:40)
[2017-08-10] MEDS: Docusate CAP* 100 MG PO SCH ×2 (07:45→21:57)
[2017-08-10] MEDS: Omeprazole CAP* 20 MG PO SCH ×2 (07:45→21:56)
[2017-08-10] MEDS: Aspirin EC TAB* 81 MG TAB.EC PO SCH (07:46)
[2017-08-10] MEDS: Thiamine TAB* 100 MG TAB PO SCH (07:46)
[2017-08-10] MEDS: Metoprolol Tartrate TAB* 25 MG PO SCH ×2 (07:47→21:55)
[2017-08-10] MEDS: Analgesic BALM* 114 GM TOPICAL SCH ×2 (07:48→15:17)
[2017-08-10] MEDS: Folic Acid TAB* 1 MG PO SCH (07:48)
[2017-08-10] MEDS: Senna TAB PO SCH (07:48)
[2017-08-10] MEDS: Multivitamins/Minerals TAB PO SCH (07:48)
[2017-08-10] MEDS: Diltiazem CD CAP* 120 MG PO SCH (07:53)
[2017-08-10] MEDS: Lidocaine PATCH 5%* 1 PATCH TRANSDERM SCH (07:55)
[2017-08-10] MEDS: Magnesium Oxide TAB* 400 MG PO SCH ×2 (07:56→21:57)
[2017-08-10] MEDS ORDERED: Diltiazem CD CAP* 180 MG PO SCH (09:00)
[2017-08-10] MEDS ORDERED: oxyCODONE TAB* 5 MG TAB PO ONE (09:28)
[2017-08-10] MEDS ORDERED: oxyCODONE TAB* 5 MG TAB ONE (09:36)
[2017-08-10] MEDS: Gabapentin CAP(*) 300 MG PO SCH ×2 (16:00→21:56)
--- NOTE | 2017-08-10 16:01 | CONSULT ---
Consult Consult: Consultation for Medical Decision Making Capacity: S: Psychiatry is asked to evaluate capacity for the 61 y.o. single, recently homeless, white male with a history of chronic pain who is admitted to the Hospitalist service following his third significant overdose on pain meds in the recent past. As per hospitalist Cruz Tomas, the patient would benefit from placement in long-term nursing care due to perceived cognitive deficits and chronic mismanagement of his medications, placing him at significant risk for untoward outcomes such as further overdose and . The patient apparently disputes these risks and is demanding discharge to the streets, where he insists that he could find a friend to take him in. On exam, Mr. Conway is slightly irritable but otherwise cooperative. "My old lady kicked me out of the trailer seven months ago. She's got a restraining order against me, so I can't go back there." I suggest the SNF at [facility] as a possible alternative, to which he replies, "Yeah, I'd take that. Can you get me there?" Mr. Conway denies the primary team assertions that he was misutilizing his pain meds, but later reverses himself, stating that the pills are confusing and he couldn't tell the gabapentin from the other analgesics. After denying that he ever mistakenly overdosed, he clarifies "Well , I was drinking beer when I was taking them, so who knows." I ask Mr. Conway what the possible risks might be if he left the hospital AMA and went to stay with a friend without further medical services. "As long as I've got the right medicine I'll be alright." O: the patient is an aging, hirsute white male with scrub bottoms and no shirt laying in bed; speech is within normal limits; he is irritable but cooperative; mood is euthymic with full affect; thought process is linear; denies SI or HI; denies AH or VH; insight and judgment are impaired; cognitively he is awake and alert with mild deficits in spacial and temporal orientation; immediate and delayed recall intact; attention is good A/P: Capacity: the patient lacks capacity to refuse SNF placement. Although he is cognitively intact at this time he demonstrates not the slightest understanding of the possible risks involved in leaving the hospital against medical advice. My sense is that he can be easily coaxed back into accepting SNF placement, given his homeless status, but either way, lacks true capacity to make an informed decision about this. Psychiatry is signing off.
--- NOTE | 2017-08-10 16:09 | PN ---
Subjective Date of Service: 08/10/17 Interval History: Patient severely agitated this AM due to wanting to leave. Patient states that he will walk out unless he is discharged today. Patient treated for pain and became much more calm. Patient denies CP, SOB, N/V, abdominal pain, diarrhea, constipation, or other pain. Patient seen by psych and deemed to lack capacity to make medical decisions and leave the hospital. Patient in the afternoon examined and complains of new chest pain which he states was present in the AM, is worse with breathing, reproducible with palpation, no associated symptoms. Family History: Unchanged from Admission Social History: Unchanged from Admission Past Medical History: Unchanged from Admission Objective Active Medications: Acetaminophen (Tylenol Tab*) 650 mg PO Q6H [facility] Last Admin: 08/10/17 15:14 Dose: 650 mg Albuterol (Ventolin 2.5 Mg/3 Ml Neb.Jessica*) 2.5 mg INH Q2H PRN PRN Reason: SOB/WHEEZING Aspirin (Aspirin Ec Tab*) 81 mg PO DAILY [facility] Last Admin: 08/10/17 07:46 Dose: 81 mg Cyclobenzaprine HCl (Flexeril Tab*) 10 mg PO TID PRN PRN Reason: pain/spasm hold for sedation Last Admin: 08/10/17 16:01 Dose: 10 mg Device (Tiotropium Inhaler Device*) 1 each .SEE ORDER .USE w/ SPIRIVA CAPS [facility] Device (Nicotine Mouth Piece*) 1 each INH .USE WITH NICOTROL PRN PRN Reason: CRAVING Diltiazem HCl (Cardizem Cd Cap*) 120 mg PO DAILY [facility] Last Admin: 08/10/17 07:53 Dose: 120 mg Docusate Sodium (Colace Cap*) 200 mg PO BID [facility] Last Admin: 08/10/17 07:45 Dose: 200 mg Folic Acid (Folvite Tab*) 1 mg PO DAILY [facility] Last Admin: 08/10/17 07:48 Dose: 1 mg Gabapentin (Neurontin Cap(*)) 300 mg PO TID [facility] Last Admin: 08/10/17 16:00 Dose: 300 mg Heparin Sodium (Porcine) (Heparin Vial(*)) 5,000 units SUBCUT Q8HR [facility] Last Admin: 08/10/17 15:14 Dose: 5,000 units Lidocaine (Lidoderm 5% Patch*) 1 patch TRANSDERM DAILY [facility] Last Admin: 08/10/17 07:55 Dose: 1 patch Magnesium Oxide (Magox 400 Tab*) 400 mg PO BID [facility] Last Admin: 08/10/17 07:56 Dose: 400 mg Metoprolol Tartrate (Lopressor Tab*) 75 mg PO BID [facility] Last Admin: 08/10/17 07:47 Dose: 75 mg Multi-Ingredient Liniment/Rub (Espinoza Bright*) 1 applic TOPICAL TID [facility] Last Admin: 08/10/17 15:17 Dose: 1 applic Multivitamins/Minerals (Theragran/Minerals Tab*) 1 tab PO DAILY [facility] Last Admin: 08/10/17 07:48 Dose: 1 tab Omeprazole (Prilosec Cap*) 40 mg PO BID [facility] Last Admin: 08/10/17 07:45 Dose: 40 mg Pharmacy Profile Note (Lidocaine Patch Remove*) 1 note N/A 2100 [facility] Last Admin: 08/09/17 22:09 Dose: 1 note Ropinirole HCl (Requip Tab*) 0.5 mg PO BEDTIME [facility] Last Admin: 08/09/17 19:36 Dose: 0.5 mg Senna (Senokot Tab*) 1 tab PO DAILY [facility] Last Admin: 08/10/17 07:48 Dose: 1 tab Thiamine HCl (Vitamin B-1 Tab*) 100 mg PO DAILY [facility] Last Admin: 08/10/17 07:46 Dose: 100 mg Tiotropium [place] (Spiriva Cap.Inh*) 1 cap INH DAILY [facility] Last Admin: 08/10/17 07:28 Dose: 1 cap Tramadol HCl (Ultram*) 50 mg PO Q6H PRN PRN Reason: PAIN - MODERATE Last Admin: 08/10/17 15:14 Dose: 50 mg Vital Signs - 8 hr 08/10/17 08/10/17 08/10/17 09:37 09:54 11:16 Temperature 97.9 F Pulse Rate 47 Respiratory 22 20 16 Rate Blood Pressure 109/69 (mmHg) O2 Sat by Pulse 94 Oximetry 08/10/17 08/10/17 08/10/17 12:12 15:14 16:00 Temperature Pulse Rate Respiratory 18 18 20 Rate Blood Pressure (mmHg) O2 Sat by Pulse Oximetry 08/10/17 16:01 Temperature Pulse Rate Respiratory 20 Rate Blood Pressure (mmHg) O2 Sat by Pulse Oximetry Oxygen Devices in Use Now: None Appearance: Patient is a disheveled 61yo male who appears older than stated age and is sitting in the bed in moderate distress from pain and agitation. Eyes: No Scleral Icterus, PERRLA Ears/Nose/Mouth/Throat: NL Teeth, Lips, Gums, Clear Oropharnyx, Mucous Membranes Moist Neck: NL Appearance and Movements; NL JVP, Trachea Midline Respiratory: Symmetrical Chest Expansion and Respiratory Effort, Clear to Auscultation Cardiovascular: NL Sounds; No Murmurs; No JVD, RRR, No Edema, - - Chest pain reproducible with palpation. Abdominal: NL Sounds; No Tenderness; No Distention, No Hepatosplenomegaly Lymphatic: No Cervical Adenopathy Extremities: No Edema, No Clubbing, Cyanosis Skin: No Nodules or Sclerosis, - - Erythema Ab Igne on back. Neurological: Alert and Oriented x 3, NL Sensation, NL Muscle Strength and Tone , - - CN II-XII intact. Result Diagrams: 08/09/17 05:31 08/09/17 05:31 Additional Lab and Data: Microbiology and Other Data: Microbiology Diagnostic Imaging: . EKG Data: . Assess/Plan/Problems-Billing Mr Conway is a 61 yo M who has a h/o chronic back pain, past gabapentin overdose, HTN, afib and COPD who presented to the ER with c/o altered mental status and went into rapid afib in the ER and has hard to control pain and needs placement due to medication compliance concerns. - Patient Problems (1) Altered mental state Current Visit: Yes Status: Acute Priority: High Code(s): R41.82 - ALTERED MENTAL STATUS, UNSPECIFIED SNOMED Code(s): 126187526 Comment: No clear cause to the AMS. Likely toxic encaphalopathy from polypharmacy. Now back to baseline- Concerns about discharge to home, Per PCP pt has hx of OD on meds multiple times. Hopeful discharge to [facility] when authorization available. (2) Paroxysmal atrial fibrillation Current Visit: Yes Status: Acute Code(s): I48.0 - PAROXYSMAL ATRIAL FIBRILLATION SNOMED Code(s): 190456490 Comment: Pt has h/o afib. Continue metoprolol and diltiazem. His CHADS-vasc score is 1. He is a poor candidate for full anticoagulation with the ETOH abuse and medication noncompliance Will start on ASA. Anticoagulation should be further discussed with PCP when stabilized at [facility]. (3) COPD (chronic obstructive pulmonary disease) Current Visit: Yes Status: Chronic Code(s): J44.9 - CHRONIC OBSTRUCTIVE PULMONARY DISEASE, UNSPECIFIED SNOMED Code(s): 27969609 Comment: No signs of exacerbation. (4) Chronic back pain Current Visit: Yes Status: Chronic Code(s): M54.9 - DORSALGIA, UNSPECIFIED; G89.29 - OTHER CHRONIC PAIN SNOMED Code(s): 689296354 Comment: Appreciate Pain Management consult Pain increased today with spasms and allodynia. Continue Tramadol, APAP, Flexeril. Lidoderm patch. Reintroduce Gabapentin. MRI 2017 - showing degenrative disc disease and osteoarthritis, right sided disc protrusion L2-L3 and mild narrowing of central charlie at L3-L4 and L4-L5 (5) Chronic pain Current Visit: Yes Status: Chronic Code(s): G89.29 - OTHER CHRONIC PAIN SNOMED Code(s): 62843029 Comment: Improving, only moderate control. Pain consult appreciated. Tramadol Q6 hours, Flexeril, lidoderm patch. Resume gabapentin. (6) DVT prophylaxis Current Visit: Yes Status: Acute Code(s): ALN0591 - SNOMED Code(s): 871120652 Comment: SQ heparin (7) Chest pain Current Visit: No Status: Acute Code(s): R07.9 - CHEST PAIN, UNSPECIFIED SNOMED Code(s): 41807825 Comment: Likely musculoskeletal from extreme movements in bed. Is reproducible with palpation, has no associated symptoms, and is worse with breathing. EKG pending. (8) Hypertension Current Visit: Yes Status: Acute Code(s): I10 - ESSENTIAL (PRIMARY) HYPERTENSION SNOMED Code(s): 85745930 Comment: BP low on Dilitazem, Metoprolol. Decreased dose of both medications. (9) Full code status Current Visit: Yes Status: Acute Code(s): Z78.9 - OTHER SPECIFIED HEALTH STATUS SNOMED Code(s): 236192076 Status and Disposition: Inpatient. Anticipate discharge when bed available.
[2017-08-10] MEDS: Ropinirole TAB* 0.5 MG TAB PO SCH (21:55)
[2017-08-10] MEDS: Lidocaine Patch REMOVE* 1 NOTE MISC SCH (22:00)
[2017-08-11] MEDS: Analgesic BALM* 114 GM TOPICAL SCH ×4 (00:06→19:50)
[2017-08-11] MEDS: Acetaminophen TAB* 325 MG PO SCH ×4 (05:22→20:32)
[2017-08-11] MEDS: Heparin VIAL(*) 5000 UNITS/ML VIAL (FIVE THOUSAND) SUBCUT SCH ×3 (05:24→21:24)
[2017-08-11 08:25] LABS: EGFR Non-African American 94.2 (>60)
[2017-08-11 08:30] LABS: ABS Basophils 0 10^3/ul (0-0.2); ABS Eosinophils 0.2 10^3/ul (0-0.6); ABS Lymphocytes 1.9 10^3/ul (1.0-4.8); ABS Monocytes 0.6 10^3/ul (0-0.8); ABS Neutrophils 4.3 10^3/ul (1.5-7.7); ABS Nucleated RBC 0 10^3/ul; Eosinophil % 3.1 % (0-6); Hematocrit 41 % (42-52); Hemoglobin 13.7 g/dl (14.0-18.0); Lymphocyte % 27.1 % (25-47); Mean Corpuscular HGB Conc 34 g/dl (31-36); Mean Corpuscular Hemoglobin 30 pg (27-31); Mean Corpuscular Volume 90 fL (80-94); Mean Platelet Volume 9.2 um3 (7.4-10.4); Nucleated Red Blood Cells % 0; Platelet Count 268 10^3/ul (150-450); Red Cell Distribution Width 15 % (10.5-15); White Blood Count 7.1 10^3/ul (3.5-10.8)
[2017-08-11] MEDS: Omeprazole CAP* 20 MG PO SCH ×2 (08:56→20:32)
[2017-08-11] MEDS: Docusate CAP* 100 MG PO SCH ×2 (08:56→20:32)
[2017-08-11] MEDS: Aspirin EC TAB* 81 MG TAB.EC PO SCH (08:56)
[2017-08-11] MEDS: Lidocaine PATCH 5%* 1 PATCH TRANSDERM SCH (08:56)
[2017-08-11] MEDS: Diltiazem CD CAP* 120 MG PO SCH (08:57)
[2017-08-11] MEDS: Thiamine TAB* 100 MG TAB PO SCH (08:57)
[2017-08-11] MEDS: Multivitamins/Minerals TAB PO SCH (08:57)
[2017-08-11] MEDS: Senna TAB PO SCH (08:57)
[2017-08-11] MEDS: Cyclobenzaprine TAB* 10 MG PO PRN ×3 (08:57→16:02)
[2017-08-11] MEDS: Magnesium Oxide TAB* 400 MG PO SCH ×2 (08:58→20:34)
[2017-08-11] MEDS: Tiotropium CAP.INH* CAP.INH/18 MCG (USE ORDER SET !) INH SCH (08:58)
[2017-08-11] MEDS: traMADol TAB* 50 MG PO PRN ×2 (08:58→16:03)
[2017-08-11] MEDS: Gabapentin CAP(*) 300 MG PO SCH ×3 (08:59→20:33)
[2017-08-11] MEDS: Folic Acid TAB* 1 MG PO SCH (09:00)
[2017-08-11] MEDS: Metoprolol Tartrate TAB* 25 MG PO SCH ×2 (11:37→20:34)
--- NOTE | 2017-08-11 14:29 | PN ---
Subjective Date of Service: 08/11/17 Interval History: Patient is more cooperative but still very agitated about delay in D/C. No sedation from Gabapentin. Continued pain in chest and back. Worse with breathing and movement in bed. Better when walking in hallway. Patient denies F/ C, N/V, abdominal pain, SOB, dysuria, dizziness, or other pain. Family History: Unchanged from Admission Social History: Unchanged from Admission Past Medical History: Unchanged from Admission Objective Active Medications: Acetaminophen (Tylenol Tab*) 650 mg PO Q6H [facility] Last Admin: 08/11/17 08:58 Dose: 650 mg Albuterol (Ventolin 2.5 Mg/3 Ml Neb.Jessica*) 2.5 mg INH Q2H PRN PRN Reason: SOB/WHEEZING Aspirin (Aspirin Ec Tab*) 81 mg PO DAILY [facility] Last Admin: 08/11/17 08:56 Dose: 81 mg Cyclobenzaprine HCl (Flexeril Tab*) 10 mg PO TID PRN PRN Reason: pain/spasm hold for sedation Last Admin: 08/11/17 08:59 Dose: 10 mg Device (Tiotropium Inhaler Device*) 1 each .SEE ORDER .USE w/ SPIRIVA CAPS [facility] Device (Nicotine Mouth Piece*) 1 each INH .USE WITH NICOTROL PRN PRN Reason: CRAVING Diltiazem HCl (Cardizem Cd Cap*) 120 mg PO DAILY [facility] Last Admin: 08/11/17 08:57 Dose: 120 mg Docusate Sodium (Colace Cap*) 200 mg PO BID [facility] Last Admin: 08/11/17 08:56 Dose: 200 mg Folic Acid (Folvite Tab*) 1 mg PO DAILY [facility] Last Admin: 08/11/17 09:00 Dose: 1 mg Gabapentin (Neurontin Cap(*)) 300 mg PO TID [facility] Last Admin: 08/11/17 08:59 Dose: 300 mg Heparin Sodium (Porcine) (Heparin Vial(*)) 5,000 units SUBCUT Q8HR [facility] Last Admin: 08/11/17 05:24 Dose: 5,000 units Lidocaine (Lidoderm 5% Patch*) 1 patch TRANSDERM DAILY [facility] Last Admin: 08/11/17 08:56 Dose: 1 patch Magnesium Oxide (Magox 400 Tab*) 400 mg PO BID [facility] Last Admin: 08/11/17 08:58 Dose: 400 mg Metoprolol Tartrate (Lopressor Tab*) 75 mg PO BID [facility] Last Admin: 08/11/17 11:37 Dose: Not Given Multi-Ingredient Liniment/Rub (Espinoza Bright*) 1 applic TOPICAL TID [facility] Last Admin: 08/11/17 08:56 Dose: 1 applic Multivitamins/Minerals (Theragran/Minerals Tab*) 1 tab PO DAILY [facility] Last Admin: 08/11/17 08:57 Dose: 1 tab Omeprazole (Prilosec Cap*) 40 mg PO BID [facility] Last Admin: 08/11/17 08:56 Dose: 40 mg Pharmacy Profile Note (Lidocaine Patch Remove*) 1 note N/A [facility]100 [facility] Last Admin: 08/10/17 22:00 Dose: 1 note Ropinirole HCl (Requip Tab*) 0.5 mg PO BEDTIME [facility] Last Admin: 08/10/17 21:55 Dose: 0.5 mg Senna (Senokot Tab*) 1 tab PO DAILY [facility] Last Admin: 08/11/17 08:57 Dose: 1 tab Thiamine HCl (Vitamin B-1 Tab*) 100 mg PO DAILY [facility] Last Admin: 08/11/17 08:57 Dose: 100 mg Tiotropium [place] (Spiriva Cap.Inh*) 1 cap INH DAILY [facility] Last Admin: 08/11/17 08:58 Dose: 1 cap Tramadol HCl (Ultram*) 50 mg PO Q6H PRN PRN Reason: PAIN - MODERATE Last Admin: 08/11/17 08:58 Dose: 50 mg Vital Signs - 8 hr 08/11/17 08/11/17 08/11/17 07:40 08:57 08:58 Temperature 98.2 F Pulse Rate 58 Respiratory 22 14 14 Rate Blood Pressure 97/65 (mmHg) O2 Sat by Pulse 98 Oximetry 08/11/17 08:59 Temperature Pulse Rate 60 Respiratory 16 Rate Blood Pressure (mmHg) O2 Sat by Pulse 98 Oximetry Oxygen Devices in Use Now: None Appearance: Patient is a 61yo male who appears stated age and is sitting in the bed in [facility]. Eyes: No Scleral Icterus, PERRLA Ears/Nose/Mouth/Throat: NL Teeth, Lips, Gums, Clear Oropharnyx, Mucous Membranes Moist Neck: NL Appearance and Movements; NL JVP, Trachea Midline Respiratory: Symmetrical Chest Expansion and Respiratory Effort, Clear to Auscultation Cardiovascular: NL Sounds; No Murmurs; No JVD, RRR, No Edema Abdominal: NL Sounds; No Tenderness; No Distention, No Hepatosplenomegaly Lymphatic: No Cervical Adenopathy Extremities: No Edema, No Clubbing, Cyanosis Skin: No Nodules or Sclerosis, - - Erythma Ab Igne. Neurological: Alert and Oriented x 3, NL Sensation, NL Gait, NL Muscle Strength and Tone, - - CN II-XII intact Result Diagrams: 08/11/17 07:41 08/11/17 07:41 Additional Lab and Data: Microbiology and Other Data: Microbiology Diagnostic Imaging: . EKG Data: . Assess/Plan/Problems-Billing Mr Conway is a 61 yo M who has a h/o chronic back pain, past gabapentin overdose, HTN, afib and COPD who presented to the ER with c/o altered mental status and went into rapid afib in the ER and has hard to control pain and needs placement due to medication compliance concerns. - Patient Problems (1) Altered mental state Current Visit: Yes Status: Acute Priority: High Code(s): R41.82 - ALTERED MENTAL STATUS, UNSPECIFIED SNOMED Code(s): 217910417 Comment: No clear cause to the AMS. Likely toxic encaphalopathy from polypharmacy. Now back to baseline- Concerns about discharge to home, Per PCP pt has hx of OD on meds multiple times. Hopeful discharge to [facility] when authorization available. (2) Paroxysmal atrial fibrillation Current Visit: Yes Status: Acute Code(s): I48.0 - PAROXYSMAL ATRIAL FIBRILLATION SNOMED Code(s): 372093734 Comment: Pt has h/o afib. Continue metoprolol and diltiazem at reduced doses His CHADS-vasc score is 1. He is a poor candidate for full anticoagulation with the ETOH abuse and medication noncompliance Will start on ASA. Anticoagulation should be further discussed with PCP when stabilized at [facility] [place]. (3) COPD (chronic obstructive pulmonary disease) Current Visit: Yes Status: Chronic Code(s): J44.9 - CHRONIC OBSTRUCTIVE PULMONARY DISEASE, UNSPECIFIED SNOMED Code(s): 66544021 Comment: No signs of exacerbation. (4) Chronic back pain Current Visit: Yes Status: Chronic Code(s): M54.9 - DORSALGIA, UNSPECIFIED; G89.29 - OTHER CHRONIC PAIN SNOMED Code(s): 729553578 Comment: Appreciate Pain Management consult Pain increased today with spasms and allodynia. Continue Tramadol, APAP, Flexeril. Lidoderm patch. Reintroduce Gabapentin. Dose increased today. Previously took 2,700mg daily. MRI 2017 - showing degenrative disc disease and osteoarthritis, right sided disc protrusion L2-L3 and mild narrowing of central charlie at L3-L4 and L4-L5 (5) Chronic pain Current Visit: Yes Status: Chronic Code(s): G89.29 - OTHER CHRONIC PAIN SNOMED Code(s): 95552220 Comment: Improving, only moderate control. Pain consult appreciated. Tramadol Q6 hours, Flexeril, lidoderm patch. Resume gabapentin. (6) DVT prophylaxis Current Visit: Yes Status: Acute Code(s): WPD7568 - SNOMED Code(s): 042342416 Comment: SQ heparin (7) Chest pain Current Visit: No Status: Acute Code(s): R07.9 - CHEST PAIN, UNSPECIFIED SNOMED Code(s): 68848617 Comment: Likely musculoskeletal from extreme movements in bed. Is reproducible with palpation, has no associated symptoms, and is worse with breathing. EKG shows no ischemic changes. Slight relief by relocation of lidocaine patch. (8) Hypertension Current Visit: Yes Status: Acute Code(s): I10 - ESSENTIAL (PRIMARY) HYPERTENSION SNOMED Code(s): 88384412 Comment: BP low on Dilitazem, Metoprolol. Decreased dose of both medications. (9) Full code status Current Visit: Yes Status: Acute Code(s): Z78.9 - OTHER SPECIFIED HEALTH STATUS SNOMED Code(s): 542583357 Status and Disposition: Inpatient. Anticipate discharge when bed available.
[2017-08-11] MEDS: Ropinirole TAB* 0.5 MG TAB PO SCH (20:32)
[2017-08-11] MEDS: Lidocaine Patch REMOVE* 1 NOTE MISC SCH (20:39)
[2017-08-12] MEDS: Acetaminophen TAB* 325 MG PO SCH ×4 (04:06→20:59)
[2017-08-12] MEDS: Heparin VIAL(*) 5000 UNITS/ML VIAL (FIVE THOUSAND) SUBCUT SCH ×3 (05:20→21:00)
[2017-08-12] MEDS: Tiotropium CAP.INH* CAP.INH/18 MCG (USE ORDER SET !) INH SCH (07:50)
[2017-08-12] MEDS: Omeprazole CAP* 20 MG PO SCH ×2 (08:03→21:00)
[2017-08-12] MEDS: Metoprolol Tartrate TAB* 25 MG PO SCH ×2 (08:03→20:58)
[2017-08-12] MEDS: Diltiazem CD CAP* 120 MG PO SCH (08:04)
[2017-08-12] MEDS: Gabapentin CAP(*) 300 MG PO SCH ×3 (08:04→20:59)
[2017-08-12] MEDS: Thiamine TAB* 100 MG TAB PO SCH (08:04)
[2017-08-12] MEDS: Senna TAB PO SCH (08:04)
[2017-08-12] MEDS: Lidocaine PATCH 5%* 1 PATCH TRANSDERM SCH (08:04)
[2017-08-12] MEDS: Folic Acid TAB* 1 MG PO SCH (08:04)
[2017-08-12] MEDS: Docusate CAP* 100 MG PO SCH ×2 (08:04→20:59)
[2017-08-12] MEDS: Multivitamins/Minerals TAB PO SCH (08:04)
[2017-08-12] MEDS: Aspirin EC TAB* 81 MG TAB.EC PO SCH (08:04)
[2017-08-12] MEDS: Magnesium Oxide TAB* 400 MG PO SCH ×2 (08:05→20:58)
[2017-08-12] MEDS: Cyclobenzaprine TAB* 10 MG PO PRN (08:05)
[2017-08-12] MEDS: Analgesic BALM* 114 GM TOPICAL SCH ×3 (08:34→21:05)
--- NOTE | 2017-08-12 09:01 | RAD ---
Indication: Pleuritic chest pain. History of chronic obstructive pulmonary disease. Comparison: July 23, 2017 CT. Technique: Upright AP 0842 hours Report: Mild prominence of interstitial markings. No alveolar consolidation concerning for pneumonia. Negative for pleural effusion or pneumothorax. Upper normal heart size. Unremarkable central pulmonary vasculature and mediastinal contours accounting for portable technique. IMPRESSION: Stigmata of obstructive lung disease corresponding with history. No acute pulmonary or cardiac process evident.
--- NOTE | 2017-08-12 14:21 | PN ---
Subjective Date of Service: 08/12/17 Interval History: Patient has no changes in pain or mood overnight. Still very irritable and has continued pain in Right chest and back. Requests to ambulate independently more frequently. Denies F/C, N/V, abdominal pain, diarrhea, dysuria, SOB, or other changes in pain. Family History: Unchanged from Admission Social History: Unchanged from Admission Past Medical History: Unchanged from Admission Objective Active Medications: Acetaminophen (Tylenol Tab*) 650 mg PO Q6H [facility] Last Admin: 08/12/17 08:03 Dose: 650 mg Albuterol (Ventolin 2.5 Mg/3 Ml Neb.Jessica*) 2.5 mg INH Q2H PRN PRN Reason: SOB/WHEEZING Aspirin (Aspirin Ec Tab*) 81 mg PO DAILY [facility] Last Admin: 08/12/17 08:04 Dose: 81 mg Cyclobenzaprine HCl (Flexeril Tab*) 10 mg PO TID PRN PRN Reason: pain/spasm hold for sedation Last Admin: 08/12/17 08:05 Dose: 10 mg Device (Tiotropium Inhaler Device*) 1 each .SEE ORDER .USE w/ SPIRIVA CAPS [facility] Device (Nicotine Mouth Piece*) 1 each INH .USE WITH NICOTROL PRN PRN Reason: CRAVING Diltiazem HCl (Cardizem Cd Cap*) 120 mg PO DAILY [facility] Last Admin: 08/12/17 08:04 Dose: 120 mg Docusate Sodium (Colace Cap*) 200 mg PO BID [facility] Last Admin: 08/12/17 08:04 Dose: 200 mg Folic Acid (Folvite Tab*) 1 mg PO DAILY [facility] Last Admin: 08/12/17 08:04 Dose: 1 mg Gabapentin (Neurontin Cap(*)) 600 mg PO TID [facility] Last Admin: 08/12/17 08:04 Dose: 600 mg Heparin Sodium (Porcine) (Heparin Vial(*)) 5,000 units SUBCUT Q8HR [facility] Last Admin: 08/12/17 05:20 Dose: 5,000 units Lidocaine (Lidoderm 5% Patch*) 1 patch TRANSDERM DAILY [facility] Last Admin: 08/12/17 08:04 Dose: 1 patch Magnesium Oxide (Magox 400 Tab*) 400 mg PO BID [facility] Last Admin: 08/12/17 08:05 Dose: 400 mg Metoprolol Tartrate (Lopressor Tab*) 75 mg PO BID [facility] Last Admin: 08/12/17 08:03 Dose: 75 mg Multi-Ingredient Liniment/Rub (Espinoza Bright*) 1 applic TOPICAL TID [facility] Last Admin: 08/12/17 08:34 Dose: 1 applic Multivitamins/Minerals (Theragran/Minerals Tab*) 1 tab PO DAILY [facility] Last Admin: 08/12/17 08:04 Dose: 1 tab Omeprazole (Prilosec Cap*) 40 mg PO BID [facility] Last Admin: 08/12/17 08:03 Dose: 40 mg Pharmacy Profile Note (Lidocaine Patch Remove*) 1 note N/A 2100 [facility] Last Admin: 08/11/17 20:39 Dose: 1 note Ropinirole HCl (Requip Tab*) 0.5 mg PO BEDTIME [facility] Last Admin: 08/11/17 20:32 Dose: 0.5 mg Senna (Senokot Tab*) 1 tab PO DAILY [facility] Last Admin: 08/12/17 08:04 Dose: 1 tab Thiamine HCl (Vitamin B-1 Tab*) 100 mg PO DAILY [facility] Last Admin: 08/12/17 08:04 Dose: 100 mg Tiotropium [place] (Spiriva Cap.Inh*) 1 cap INH DAILY [facility] Last Admin: 08/12/17 07:50 Dose: 1 cap Tramadol HCl (Ultram*) 50 mg PO Q6H PRN PRN Reason: PAIN - MODERATE Last Admin: 08/11/17 16:03 Dose: 50 mg Vital Signs - 8 hr 08/12/17 08/12/17 08:04 08:05 Respiratory 16 14 Rate Oxygen Devices in Use Now: None Appearance: Patient is a 61yo disheveled who appears older than stated age and is sitting in the bed in [facility]. Eyes: No Scleral Icterus, PERRLA Ears/Nose/Mouth/Throat: NL Teeth, Lips, Gums, Clear Oropharnyx, Mucous Membranes Moist Neck: NL Appearance and Movements; NL JVP, Trachea Midline Respiratory: Symmetrical Chest Expansion and Respiratory Effort, Clear to Auscultation Cardiovascular: NL Sounds; No Murmurs; No JVD, RRR, No Edema Abdominal: NL Sounds; No Tenderness; No Distention, No Hepatosplenomegaly Lymphatic: No Cervical Adenopathy Extremities: No Edema, No Clubbing, Cyanosis Skin: No Nodules or Sclerosis, - - Erythema Ab Igne Neurological: Alert and Oriented x 3, NL Sensation, NL Muscle Strength and Tone , - - CN II-XII intact Result Diagrams: 08/11/17 07:41 08/11/17 07:41 Additional Lab and Data: Microbiology and Other Data: Microbiology Diagnostic Imaging: . EKG Data: . Assess/Plan/Problems-Billing Mr Conway is a 61 yo M who has a h/o chronic back pain, past gabapentin overdose, HTN, afib and COPD who presented to the ER with c/o altered mental status and went into rapid afib in the ER and has hard to control pain and needs placement due to medication compliance concerns. - Patient Problems (1) Altered mental state Current Visit: Yes Status: Acute Priority: High Code(s): R41.82 - ALTERED MENTAL STATUS, UNSPECIFIED SNOMED Code(s): 745558905 Comment: No clear cause to the AMS. Likely toxic encaphalopathy from polypharmacy. Now back to baseline- Concerns about discharge to home, Per PCP pt has hx of OD on meds multiple times. Hopeful discharge to [facility] when authorization available. (2) Paroxysmal atrial fibrillation Current Visit: Yes Status: Acute Code(s): I48.0 - PAROXYSMAL ATRIAL FIBRILLATION SNOMED Code(s): 830372380 Comment: Pt has h/o afib. Continue metoprolol and diltiazem at reduced doses His CHADS-vasc score is 1. He is a poor candidate for full anticoagulation with the ETOH abuse and medication noncompliance Will start on ASA. Anticoagulation should be further discussed with PCP when stabilized at [facility]. (3) COPD (chronic obstructive pulmonary disease) Current Visit: Yes Status: Chronic Code(s): J44.9 - CHRONIC OBSTRUCTIVE PULMONARY DISEASE, UNSPECIFIED SNOMED Code(s): 61631279 Comment: No signs of exacerbation. (4) Chronic back pain Current Visit: Yes Status: Chronic Code(s): M54.9 - DORSALGIA, UNSPECIFIED; G89.29 - OTHER CHRONIC PAIN SNOMED Code(s): 510804245 Comment: Appreciate Pain Management consult Pain increased today with spasms and allodynia. Continue Tramadol, APAP, Flexeril. Lidoderm patch. Reintroduce Gabapentin. Dose increased today. Previously took 2,700mg daily. MRI 2017 - showing degenrative disc disease and osteoarthritis, right sided disc protrusion L2-L3 and mild narrowing of central charlie at L3-L4 and L4-L5 (5) Chronic pain Current Visit: Yes Status: Chronic Code(s): G89.29 - OTHER CHRONIC PAIN SNOMED Code(s): 17579285 Comment: Improving, only moderate control. Pain consult appreciated. Tramadol Q6 hours, Flexeril, lidoderm patch. Resume gabapentin. (6) DVT prophylaxis Current Visit: Yes Status: Acute Code(s): HVK0550 - SNOMED Code(s): 934156578 Comment: SQ heparin (7) Chest pain Current Visit: No Status: Acute Code(s): R07.9 - CHEST PAIN, UNSPECIFIED SNOMED Code(s): 46448063 Comment: Likely musculoskeletal from extreme movements in bed. Is reproducible with palpation, has no associated symptoms, and is worse with breathing. EKG shows no ischemic changes. Slight relief by relocation of lidocaine patch. CXR shows no acute pathology. (8) Hypertension Current Visit: Yes Status: Acute Code(s): I10 - ESSENTIAL (PRIMARY) HYPERTENSION SNOMED Code(s): 86990874 Comment: BP low on Dilitazem, Metoprolol. Decreased dose of both medications. (9) Full code status Current Visit: Yes Status: Acute Code(s): Z78.9 - OTHER SPECIFIED HEALTH STATUS SNOMED Code(s): 462222841 Status and Disposition: Inpatient. Anticipate discharge when bed available.
[2017-08-12] MEDS ORDERED: Nicotine Inhaler* 10 MG AMP INH PRN (18:55)
[2017-08-12] MEDS: Ropinirole TAB* 0.5 MG TAB PO SCH (20:58)
[2017-08-12] MEDS: Lidocaine Patch REMOVE* 1 NOTE MISC SCH (21:01)
[2017-08-13] MEDS: Acetaminophen TAB* 325 MG PO SCH ×4 (05:05→22:11)
[2017-08-13] MEDS: traMADol TAB* 50 MG PO PRN ×3 (05:05→17:29)
[2017-08-13] MEDS: Heparin VIAL(*) 5000 UNITS/ML VIAL (FIVE THOUSAND) SUBCUT SCH ×3 (05:06→22:12)
[2017-08-13] MEDS: Cyclobenzaprine TAB* 10 MG PO PRN ×3 (06:36→20:10)
[2017-08-13] MEDS: Tiotropium CAP.INH* CAP.INH/18 MCG (USE ORDER SET !) INH SCH (07:54)
--- NOTE | 2017-08-13 08:19 | PN ---
Subjective Date of Service: 08/13/17 Interval History: Mr. Conway reports worsening of his chronic low back pain today. He denies other complaint including chest pain, SOB, nausea, or abdominal pain. He is eager for discharge to [facility] as he hopes this will bring him one step closer to returning to independent living at some point in the future. Family History: Unchanged from Admission Social History: Unchanged from Admission Past Medical History: Unchanged from Admission Objective Active Medications: Acetaminophen (Tylenol Tab*) 650 mg PO Q6H [facility] Albuterol (Ventolin 2.5 Mg/3 Ml Neb.Jessica*) 2.5 mg INH Q2H PRN Aspirin (Aspirin Ec Tab*) 81 mg PO DAILY [facility] Cyclobenzaprine HCl (Flexeril Tab*) 10 mg PO TID PRN Device (Tiotropium Inhaler Device*) 1 each .SEE ORDER .USE w/ SPIRIVA CAPS [facility] Device (Nicotine Mouth Piece*) 1 each INH .USE WITH NICOTROL PRN Diltiazem HCl (Cardizem Cd Cap*) 120 mg PO DAILY [facility] Docusate Sodium (Colace Cap*) 200 mg PO BID [facility] Folic Acid (Folvite Tab*) 1 mg PO DAILY [facility] Gabapentin (Neurontin Cap(*)) 600 mg PO TID [facility] Heparin Sodium (Porcine) (Heparin Vial(*)) 5,000 units SUBCUT Q8HR [facility] Lidocaine (Lidoderm 5% Patch*) 1 patch TRANSDERM DAILY [facility] Magnesium Oxide (Magox 400 Tab*) 400 mg PO BID [facility] Metoprolol Tartrate (Lopressor Tab*) 75 mg PO BID [facility] Multi-Ingredient Liniment/Rub (Espinoza Bright*) 1 applic TOPICAL TID [facility] Multivitamins/Minerals (Theragran/Minerals Tab*) 1 tab PO DAILY [facility] Nicotine (Nicotine Inhaler*) 10 mg INH Q2H PRN Omeprazole (Prilosec Cap*) 40 mg PO BID [facility] Pharmacy Profile Note (Lidocaine Patch Remove*) 1 note N/A 2100 [facility] Ropinirole HCl (Requip Tab*) 0.5 mg PO BEDTIME [facility] Senna (Senokot Tab*) 1 tab PO DAILY [facility] Thiamine HCl (Vitamin B-1 Tab*) 100 mg PO DAILY [facility] Tiotropium [place] (Spiriva Cap.Inh*) 1 cap INH DAILY [facility] Tramadol HCl (Ultram*) 50 mg PO Q6H PRN Vital Signs: Temp Pulse Resp BP Pulse Ox 98.0 F 60 22 122/69 98 08/13/17 03:29 08/13/17 04:02 08/13/17 06:36 08/13/17 03:29 08/13/17 04:02 Oxygen Devices in Use Now: None Appearance: Male pacing in halls, rolling around in bed, holding back, appears visibly uncomfortable Eyes: No Scleral Icterus Ears/Nose/Mouth/Throat: Mucous Membranes Moist Neck: Trachea Midline Respiratory: Symmetrical Chest Expansion and Respiratory Effort, Clear to Auscultation Cardiovascular: NL Sounds; No Murmurs; No JVD, No Edema Abdominal: NL Sounds; No Tenderness; No Distention Lymphatic: No Cervical Adenopathy Extremities: No Edema Skin: No Rash or Ulcers Neurological: Alert and Oriented x 3, NL Muscle Strength and Tone Nutrition: Taking PO's Result Diagrams: 08/11/17 07:41 08/11/17 07:41 Additional Lab and Data: . Microbiology and Other Data: . Diagnostic Imaging: . EKG Data: . Assess/Plan/Problems-Billing Assessment: Mr Conway is a 61 yo M who has a h/o chronic back pain, past overdoses, HTN, afib and COPD who presented to the ER with c/o altered mental status found to be in rapid afib in the ER who has hard to control pain and needs placement due to medication compliance concerns. - Patient Problems (1) Chronic pain Comment: - Worse today. - Pain consult appreciated. - Plan for one dose oxycodone now to get pain under better control and then to increase tramadol to 100mg Q6 hours. Continue flexeril, lidoderm patch, gabapentin. (2) Hypertension Comment: - BP 90-120s. - Continued lowered dose of cardizem and metoprolol. (3) Paroxysmal atrial fibrillation Comment: - Pt has h/o afib, rate controlled. Continue metoprolol and diltiazem at reduced doses. - His CHADS-vasc score is 1. He is a poor candidate for full anticoagulation with the ETOH abuse and medication noncompliance. Continue aspirin. (4) Tobacco abuse Comment: - Encourage smoking cessation. - Nicotine replacement therapy available. (5) Chest pain Comment: - Denies today. - Likely musculoskeletal from extreme movements in bed. Is reproducible with palpation, has no associated symptoms, and is worse with breathing. EKG shows no ischemic changes. Slight relief by relocation of lidocaine patch. CXR shows no acute pathology. (6) COPD (chronic obstructive pulmonary disease) Comment: - No signs of exacerbation. (7) Altered mental state Comment: - Resolved. - No clear cause to the AMS. Likely toxic encaphalopathy from polypharmacy. - Continued concerns about discharge to home, per PCP pt has hx of OD on meds multiple times. Appreciate consult from psych who note that he lacks capacity to refuse alf placement. (8) DVT prophylaxis Comment: SQ heparin (9) Full code status Comment: Status and Disposition: Inpatient. Anticipate discharge to [facility] when bed available and approved per insurance, patient lacks decision-making capacity to refuse placement, previously homeless.
[2017-08-13] MEDS: Analgesic BALM* 114 GM TOPICAL SCH ×3 (09:13→20:11)
[2017-08-13] MEDS: Senna TAB PO SCH (09:14)
[2017-08-13] MEDS: Gabapentin CAP(*) 300 MG PO SCH ×3 (09:14→20:10)
[2017-08-13] MEDS: Omeprazole CAP* 20 MG PO SCH ×2 (09:15→20:10)
[2017-08-13] MEDS: Multivitamins/Minerals TAB PO SCH (09:15)
[2017-08-13] MEDS: Aspirin EC TAB* 81 MG TAB.EC PO SCH (09:15)
[2017-08-13] MEDS: Docusate CAP* 100 MG PO SCH ×2 (09:15→20:11)
[2017-08-13] MEDS: Diltiazem CD CAP* 120 MG PO SCH (09:15)
[2017-08-13] MEDS: Lidocaine PATCH 5%* 1 PATCH TRANSDERM SCH (09:16)
[2017-08-13] MEDS: Magnesium Oxide TAB* 400 MG PO SCH ×2 (09:16→20:11)
[2017-08-13] MEDS: Metoprolol Tartrate TAB* 25 MG PO SCH ×2 (09:16→20:11)
[2017-08-13] MEDS: Folic Acid TAB* 1 MG PO SCH (09:16)
[2017-08-13] MEDS ORDERED: oxyCODONE TAB* 5 MG TAB PO ONE (09:44)
[2017-08-13] MEDS: Thiamine TAB* 100 MG TAB PO SCH (10:00)
[2017-08-13] MEDS: Ropinirole TAB* 0.5 MG TAB PO SCH (20:10)
[2017-08-13] MEDS: Lidocaine Patch REMOVE* 1 NOTE MISC SCH (20:15)
[2017-08-14] MEDS: Acetaminophen TAB* 325 MG PO SCH ×4 (03:25→21:31)
[2017-08-14] MEDS: traMADol TAB* 50 MG PO PRN ×2 (03:28→16:46)
[2017-08-14] MEDS: Heparin VIAL(*) 5000 UNITS/ML VIAL (FIVE THOUSAND) SUBCUT SCH ×3 (05:02→21:32)
--- NOTE | 2017-08-14 07:34 | PN ---
Subjective Date of Service: 08/14/17 Interval History: Mr. Conway reports that he is feeling better today and that is chronic back pain is better controlled. He denies other complaint including chest pain, SOB , nausea, or abdominal pain. Family History: Unchanged from Admission Social History: Unchanged from Admission Past Medical History: Unchanged from Admission Objective Active Medications: Acetaminophen (Tylenol Tab*) 650 mg PO Q6H [facility] Albuterol (Ventolin 2.5 Mg/3 Ml Neb.Jessica*) 2.5 mg INH Q2H PRN Aspirin (Aspirin Ec Tab*) 81 mg PO DAILY [facility] Cyclobenzaprine HCl (Flexeril Tab*) 10 mg PO TID PRN Device (Tiotropium Inhaler Device*) 1 each .SEE ORDER .USE w/ SPIRIVA CAPS [facility] Device (Nicotine Mouth Piece*) 1 each INH .USE WITH NICOTROL PRN Diltiazem HCl (Cardizem Cd Cap*) 120 mg PO DAILY [facility] Docusate Sodium (Colace Cap*) 200 mg PO BID [facility] Folic Acid (Folvite Tab*) 1 mg PO DAILY [facility] Gabapentin (Neurontin Cap(*)) 600 mg PO TID [facility] Heparin Sodium (Porcine) (Heparin Vial(*)) 5,000 units SUBCUT Q8HR [facility] Lidocaine (Lidoderm 5% Patch*) 1 patch TRANSDERM DAILY [facility] Magnesium Oxide (Magox 400 Tab*) 400 mg PO BID [facility] Metoprolol Tartrate (Lopressor Tab*) 75 mg PO BID [facility] Multi-Ingredient Liniment/Rub (Espinoza Bright*) 1 applic TOPICAL TID [facility] Multivitamins/Minerals (Theragran/Minerals Tab*) 1 tab PO DAILY [facility] Nicotine (Nicotine Inhaler*) 10 mg INH Q2H PRN Omeprazole (Prilosec Cap*) 40 mg PO BID [facility] Pharmacy Profile Note (Lidocaine Patch Remove*) 1 note N/A 2100 [facility] Ropinirole HCl (Requip Tab*) 0.5 mg PO BEDTIME [facility] Senna (Senokot Tab*) 1 tab PO DAILY [facility] Thiamine HCl (Vitamin B-1 Tab*) 100 mg PO DAILY [facility] Tiotropium [place] (Spiriva Cap.Inh*) 1 cap INH DAILY [facility] Tramadol HCl (Ultram*) 100 mg PO Q6H PRN Vital Signs: Temp Pulse Resp BP Pulse Ox 97.8 F 52 22 88/56 93 08/14/17 07:22 08/14/17 07:22 08/14/17 03:58 08/14/17 07:22 08/14/17 07:22 Oxygen Devices in Use Now: None Appearance: Male lying in bed in NAD Eyes: No Scleral Icterus Ears/Nose/Mouth/Throat: Mucous Membranes Moist Neck: Trachea Midline Respiratory: Symmetrical Chest Expansion and Respiratory Effort, Clear to Auscultation Cardiovascular: NL Sounds; No Murmurs; No JVD, No Edema Abdominal: NL Sounds; No Tenderness; No Distention Lymphatic: No Cervical Adenopathy Extremities: No Edema Skin: No Rash or Ulcers Neurological: Alert and Oriented x 3, NL Muscle Strength and Tone Nutrition: Taking PO's Result Diagrams: 08/11/17 07:41 08/11/17 07:41 Additional Lab and Data: . Microbiology and Other Data: . Diagnostic Imaging: . EKG Data: . Assess/Plan/Problems-Billing Assessment: Mr Conway is a 61 yo M who has a h/o chronic back pain, past overdoses, HTN, afib and COPD who presented to the ER with c/o altered mental status found to be in rapid afib in the ER who has hard to control pain and needs placement due to medication compliance concerns. - Patient Problems (1) Chronic pain Comment: - Pain improved today. - Pain consult appreciated. - Continue tramadol 100mg Q6 hours. Continue flexeril, lidoderm patch, gabapentin. (2) Altered mental state Comment: - Resolved. - No clear cause to the AMS. Likely toxic encaphalopathy from polypharmacy. - Continued concerns about discharge to home, per PCP pt has hx of OD on meds multiple times. Appreciate consult from psych who note that he lacks capacity to refuse jail placement. (3) Hypertension Comment: - BP 90-120s. - Continued lowered dose of cardizem and metoprolol. (4) Paroxysmal atrial fibrillation Comment: - Pt has h/o afib, rate controlled. Continue metoprolol and diltiazem at reduced doses. - His CHADS-vasc score is 1. He is a poor candidate for full anticoagulation with the ETOH abuse and medication noncompliance. Continue aspirin. (5) Tobacco abuse Comment: - Encourage smoking cessation. - Nicotine replacement therapy available. (6) Chest pain Comment: - Denies. - Likely musculoskeletal from extreme movements in bed. Is reproducible with palpation, has no associated symptoms, and is worse with breathing. EKG shows no ischemic changes. Slight relief by relocation of lidocaine patch. CXR shows no acute pathology. (7) COPD (chronic obstructive pulmonary disease) Comment: - No signs of exacerbation. (8) DVT prophylaxis Comment: SQ heparin (9) Full code status Comment: Status and Disposition: Inpatient. Anticipate discharge to [facility] when bed available and approved per insurance, patient lacks decision-making capacity to refuse placement, previously homeless.
[2017-08-14] MEDS: Tiotropium CAP.INH* CAP.INH/18 MCG (USE ORDER SET !) INH SCH (08:40)
[2017-08-14] MEDS: Docusate CAP* 100 MG PO SCH ×2 (08:53→21:30)
[2017-08-14] MEDS: Multivitamins/Minerals TAB PO SCH (08:54)
[2017-08-14] MEDS: Omeprazole CAP* 20 MG PO SCH ×2 (08:54→21:30)
[2017-08-14] MEDS: Aspirin EC TAB* 81 MG TAB.EC PO SCH (08:54)
[2017-08-14] MEDS: Thiamine TAB* 100 MG TAB PO SCH (08:54)
[2017-08-14] MEDS: Gabapentin CAP(*) 300 MG PO SCH ×3 (08:54→21:31)
[2017-08-14] MEDS: Magnesium Oxide TAB* 400 MG PO SCH ×2 (08:54→21:43)
[2017-08-14] MEDS: Cyclobenzaprine TAB* 10 MG PO PRN ×2 (08:54→16:46)
[2017-08-14] MEDS: Senna TAB PO SCH (08:54)
[2017-08-14] MEDS: Metoprolol Tartrate TAB* 25 MG PO SCH ×2 (08:55→21:30)
[2017-08-14] MEDS: Lidocaine PATCH 5%* 1 PATCH TRANSDERM SCH (08:55)
[2017-08-14] MEDS: Folic Acid TAB* 1 MG PO SCH (08:55)
[2017-08-14] MEDS: Analgesic BALM* 114 GM TOPICAL SCH ×3 (08:55→21:32)
[2017-08-14] MEDS: Diltiazem CD CAP* 120 MG PO SCH (08:55)
[2017-08-14] MEDS: Lidocaine Patch REMOVE* 1 NOTE MISC SCH (21:30)
[2017-08-14] MEDS: Ropinirole TAB* 0.5 MG TAB PO SCH (21:31)
[2017-08-15] MEDS: Acetaminophen TAB* 325 MG PO SCH ×4 (04:42→20:54)
[2017-08-15] MEDS: Heparin VIAL(*) 5000 UNITS/ML VIAL (FIVE THOUSAND) SUBCUT SCH ×3 (04:43→20:55)
[2017-08-15] MEDS: Tiotropium CAP.INH* CAP.INH/18 MCG (USE ORDER SET !) INH SCH (08:01)
[2017-08-15] MEDS: Gabapentin CAP(*) 300 MG PO SCH ×3 (09:46→20:53)
[2017-08-15] MEDS: Metoprolol Tartrate TAB* 25 MG PO SCH ×3 (09:47→20:58)
[2017-08-15] MEDS: Senna TAB PO SCH (09:48)
[2017-08-15] MEDS: Magnesium Oxide TAB* 400 MG PO SCH ×2 (09:49→20:54)
[2017-08-15] MEDS: Folic Acid TAB* 1 MG PO SCH (09:49)
[2017-08-15] MEDS: Omeprazole CAP* 20 MG PO SCH ×2 (09:49→20:51)
[2017-08-15] MEDS: Cyclobenzaprine TAB* 10 MG PO PRN (09:49)
[2017-08-15] MEDS: Multivitamins/Minerals TAB PO SCH (09:49)
[2017-08-15] MEDS: Docusate CAP* 100 MG PO SCH ×2 (09:50→20:54)
[2017-08-15] MEDS: Thiamine TAB* 100 MG TAB PO SCH (09:50)
[2017-08-15] MEDS: traMADol TAB* 50 MG PO PRN ×3 (09:50→20:54)
[2017-08-15] MEDS: Diltiazem CD CAP* 120 MG PO SCH (09:50)
[2017-08-15] MEDS: Aspirin EC TAB* 81 MG TAB.EC PO SCH (09:51)
[2017-08-15] MEDS: Lidocaine PATCH 5%* 1 PATCH TRANSDERM SCH (09:52)
[2017-08-15] MEDS: Analgesic BALM* 114 GM TOPICAL SCH (09:54)
--- NOTE | 2017-08-15 17:47 | PN ---
Subjective Date of Service: 08/15/17 Interval History: Pt is upset because his bengay cream was discontinue, per pharmacy he has been using it too much. He is also upset that the psychiatrist took his capacity away stating "thats ridiculous I can handle my meds. I am going to stop drinking ". He also stated "you admitted me against my will". He reports his back pain is better controlled. Family History: Unchanged from Admission Social History: Unchanged from Admission Past Medical History: Unchanged from Admission Objective Active Medications: Acetaminophen (Tylenol Tab*) 650 mg PO Q6H [facility] Last Admin: 08/15/17 15:19 Dose: 650 mg Albuterol (Ventolin 2.5 Mg/3 Ml Neb.Jessica*) 2.5 mg INH Q2H PRN PRN Reason: SOB/WHEEZING Aspirin (Aspirin Ec Tab*) 81 mg PO DAILY [facility] Last Admin: 08/15/17 09:51 Dose: 81 mg Cyclobenzaprine HCl (Flexeril Tab*) 10 mg PO TID PRN PRN Reason: pain/spasm hold for sedation Last Admin: 08/15/17 09:49 Dose: 10 mg Device (Tiotropium Inhaler Device*) 1 each .SEE ORDER .USE w/ SPIRIVA CAPS [facility] Device (Nicotine Mouth Piece*) 1 each INH .USE WITH NICOTROL PRN PRN Reason: CRAVING Last Admin: 08/12/17 18:58 Dose: 1 each Diltiazem HCl (Cardizem Cd Cap*) 120 mg PO DAILY [facility] Last Admin: 08/15/17 09:50 Dose: 120 mg Docusate Sodium (Colace Cap*) 200 mg PO BID [facility] Last Admin: 08/15/17 09:50 Dose: 200 mg Folic Acid (Folvite Tab*) 1 mg PO DAILY [facility] Last Admin: 08/15/17 09:49 Dose: 1 mg Gabapentin (Neurontin Cap(*)) 600 mg PO TID [facility] Last Admin: 08/15/17 15:19 Dose: 600 mg Heparin Sodium (Porcine) (Heparin Vial(*)) 5,000 units SUBCUT Q8HR [facility] Last Admin: 08/15/17 15:19 Dose: 5,000 units Lidocaine (Lidoderm 5% Patch*) 1 patch TRANSDERM DAILY [facility] Last Admin: 08/15/17 09:52 Dose: 1 patch Magnesium Oxide (Magox 400 Tab*) 400 mg PO BID [facility] Last Admin: 08/15/17 09:49 Dose: 400 mg Metoprolol Tartrate (Lopressor Tab*) 75 mg PO BID [facility] Last Admin: 08/15/17 09:47 Dose: 75 mg Multivitamins/Minerals (Theragran/Minerals Tab*) 1 tab PO DAILY [facility] Last Admin: 08/15/17 09:49 Dose: 1 tab Nicotine (Nicotine Inhaler*) 10 mg INH Q2H PRN PRN Reason: CRAVINGS Last Admin: 08/12/17 18:56 Dose: 10 mg Omeprazole (Prilosec Cap*) 40 mg PO BID [facility] Last Admin: 08/15/17 09:49 Dose: 40 mg Pharmacy Profile Note (Lidocaine Patch Remove*) 1 note N/A 2100 [facility] Last Admin: 08/14/17 21:30 Dose: 1 note Ropinirole HCl (Requip Tab*) 0.5 mg PO BEDTIME [facility] Last Admin: 08/14/17 21:31 Dose: 0.5 mg Senna (Senokot Tab*) 1 tab PO DAILY [facility] Last Admin: 08/15/17 09:48 Dose: 1 tab Thiamine HCl (Vitamin B-1 Tab*) 100 mg PO DAILY [facility] Last Admin: 08/15/17 09:50 Dose: 100 mg Tiotropium [place] (Spiriva Cap.Inh*) 1 cap INH DAILY [facility] Last Admin: 08/15/17 08:01 Dose: 1 cap Tramadol HCl (Ultram*) 100 mg PO Q6H PRN PRN Reason: PAIN - MODERATE Last Admin: 08/15/17 15:20 Dose: 100 mg Vital Signs - 8 hr 08/15/17 08/15/17 08/15/17 09:46 09:49 09:50 Temperature Pulse Rate Respiratory 18 16 16 Rate Blood Pressure (mmHg) O2 Sat by Pulse Oximetry 08/15/17 08/15/17 08/15/17 11:11 12:36 15:19 Temperature 98.8 F Pulse Rate 55 Respiratory 18 18 17 Rate Blood Pressure 131/78 (mmHg) O2 Sat by Pulse 100 Oximetry 08/15/17 08/15/17 08/15/17 15:20 15:35 17:07 Temperature 98.3 F Pulse Rate 56 Respiratory 17 16 18 Rate Blood Pressure 102/56 (mmHg) O2 Sat by Pulse 98 Oximetry Oxygen Devices in Use Now: None Appearance: 61 yo chronically ill male A+O Eyes: No Scleral Icterus, PERRLA Ears/Nose/Mouth/Throat: NL Teeth, Lips, Gums, Mucous Membranes Moist Neck: NL Appearance and Movements; NL JVP Respiratory: Symmetrical Chest Expansion and Respiratory Effort, Clear to Auscultation Cardiovascular: NL Sounds; No Murmurs; No JVD, RRR, No Edema Abdominal: NL Sounds; No Tenderness; No Distention Extremities: No Edema, No Clubbing, Cyanosis Neurological: NL Sensation, NL Muscle Strength and Tone, - - A+O; stable gait Lines/Tubes/Other Access: Clean, Dry and Intact Peripheral IV Nutrition: Taking PO's Result Diagrams: 08/11/17 07:41 08/11/17 07:41 Additional Lab and Data: . Microbiology and Other Data: . Diagnostic Imaging: . EKG Data: . Assess/Plan/Problems-Billing Assessment: Mr Conway is a 61 yo M who has a h/o chronic back pain, past overdoses, HTN, afib and COPD who presented to the ER with c/o altered mental status found to be in rapid afib in the ER who has hard to control pain and needs placement due to medication compliance concerns. - Patient Problems (1) Altered mental state Comment: - Resolved. - No clear cause to the AMS. Likely toxic encaphalopathy from polypharmacy. - Continued concerns about discharge to home, per PCP pt has hx of OD on meds multiple times. Appreciate consult from psych who note that he lacks capacity to refuse long term placement. (2) Chronic back pain Comment: Appreciate Pain Management consult Pain increased today with spasms and allodynia. Continue Tramadol, APAP, Flexeril. Lidoderm patch. Reintroduce Gabapentin. Dose increased today. Previously took 2,700mg daily. MRI 2017 - showing degenrative disc disease and osteoarthritis, right sided disc protrusion L2-L3 and mild narrowing of central charlie at L3-L4 and L4-L5 (3) Paroxysmal atrial fibrillation Comment: - Pt has h/o afib, rate controlled. Continue metoprolol and diltiazem at reduced doses. - His CHADS-vasc score is 1. He is a poor candidate for full anticoagulation with the ETOH abuse and medication noncompliance. Continue aspirin. (4) COPD (chronic obstructive pulmonary disease) Comment: - No signs of exacerbation. (5) Tobacco abuse Comment: - Encourage smoking cessation. - Nicotine replacement therapy available. (6) Full code status Comment: (7) DVT prophylaxis Comment: SQ heparin Status and Disposition: Inpatient. Anticipate discharge to [facility] when bed available and approved per insurance, patient lacks decision-making capacity to refuse placement, previously homeless.
[2017-08-15] MEDS: Ropinirole TAB* 0.5 MG TAB PO SCH (20:55)
[2017-08-15] MEDS: Lidocaine Patch REMOVE* 1 NOTE MISC SCH (20:56)
[2017-08-16] MEDS: Acetaminophen TAB* 325 MG PO SCH ×4 (04:41→22:03)
[2017-08-16] MEDS: Heparin VIAL(*) 5000 UNITS/ML VIAL (FIVE THOUSAND) SUBCUT SCH ×2 (05:10→13:05)
[2017-08-16] MEDS: Lidocaine PATCH 5%* 1 PATCH TRANSDERM SCH (08:53)
[2017-08-16] MEDS: Magnesium Oxide TAB* 400 MG PO SCH ×2 (08:53→19:51)
[2017-08-16] MEDS: Folic Acid TAB* 1 MG PO SCH (08:53)
[2017-08-16] MEDS: Diltiazem CD CAP* 120 MG PO SCH (08:54)
[2017-08-16] MEDS: Multivitamins/Minerals TAB PO SCH (08:54)
[2017-08-16] MEDS: Docusate CAP* 100 MG PO SCH ×2 (08:54→19:51)
[2017-08-16] MEDS: Senna TAB PO SCH (08:54)
[2017-08-16] MEDS: Gabapentin CAP(*) 300 MG PO SCH ×2 (08:54→19:49)
[2017-08-16] MEDS: Thiamine TAB* 100 MG TAB PO SCH (08:54)
[2017-08-16] MEDS: Aspirin EC TAB* 81 MG TAB.EC PO SCH (08:54)
[2017-08-16] MEDS: Omeprazole CAP* 20 MG PO SCH ×2 (08:54→19:50)
[2017-08-16] MEDS: traMADol TAB* 50 MG PO PRN (08:55)
[2017-08-16] MEDS: Metoprolol Tartrate TAB* 25 MG PO SCH ×2 (08:57→19:49)
[2017-08-16] MEDS: Tiotropium CAP.INH* CAP.INH/18 MCG (USE ORDER SET !) INH SCH (09:04)
--- NOTE | 2017-08-16 11:58 | PN ---
Subjective Date of Service: 08/16/17 Interval History: Pt is in much better spirits today and able to have a calm conversation. He is agreeable to [facility] or assisted living at this time. He reports his back pain is better today though it is still bothering him. He reports he wants to "join the gym to get stronger" Family History: Unchanged from Admission Social History: Unchanged from Admission Past Medical History: Unchanged from Admission Objective Active Medications: Acetaminophen (Tylenol Tab*) 650 mg PO Q6H [facility] Last Admin: 08/16/17 08:54 Dose: 650 mg Albuterol (Ventolin 2.5 Mg/3 Ml Neb.Jessica*) 2.5 mg INH Q2H PRN PRN Reason: SOB/WHEEZING Aspirin (Aspirin Ec Tab*) 81 mg PO DAILY [facility] Last Admin: 08/16/17 08:54 Dose: 81 mg Cyclobenzaprine HCl (Flexeril Tab*) 10 mg PO TID PRN PRN Reason: pain/spasm hold for sedation Last Admin: 08/15/17 09:49 Dose: 10 mg Device (Tiotropium Inhaler Device*) 1 each .SEE ORDER .USE w/ SPIRIVA CAPS [facility] Device (Nicotine Mouth Piece*) 1 each INH .USE WITH NICOTROL PRN PRN Reason: CRAVING Last Admin: 08/12/17 18:58 Dose: 1 each Diltiazem HCl (Cardizem Cd Cap*) 120 mg PO DAILY [facility] Last Admin: 08/16/17 08:54 Dose: 120 mg Docusate Sodium (Colace Cap*) 200 mg PO BID [facility] Last Admin: 08/16/17 08:54 Dose: 200 mg Folic Acid (Folvite Tab*) 1 mg PO DAILY [facility] Last Admin: 08/16/17 08:53 Dose: 1 mg Gabapentin (Neurontin Cap(*)) 600 mg PO TID [facility] Last Admin: 08/16/17 08:54 Dose: 600 mg Heparin Sodium (Porcine) (Heparin Vial(*)) 5,000 units SUBCUT Q8HR [facility] Last Admin: 08/16/17 05:10 Dose: 5,000 units Lidocaine (Lidoderm 5% Patch*) 1 patch TRANSDERM DAILY [facility] Last Admin: 08/16/17 08:53 Dose: 1 patch Magnesium Oxide (Magox 400 Tab*) 400 mg PO BID [facility] Last Admin: 08/16/17 08:53 Dose: 400 mg Metoprolol Tartrate (Lopressor Tab*) 75 mg PO BID [facility] Last Admin: 08/16/17 08:57 Dose: Not Given Multivitamins/Minerals (Theragran/Minerals Tab*) 1 tab PO DAILY [facility] Last Admin: 08/16/17 08:54 Dose: 1 tab Nicotine (Nicotine Inhaler*) 10 mg INH Q2H PRN PRN Reason: CRAVINGS Last Admin: 08/12/17 18:56 Dose: 10 mg Omeprazole (Prilosec Cap*) 40 mg PO BID [facility] Last Admin: 08/16/17 08:54 Dose: 40 mg Pharmacy Profile Note (Lidocaine Patch Remove*) 1 note N/A 2100 [facility] Last Admin: 08/15/17 20:56 Dose: 1 note Ropinirole HCl (Requip Tab*) 0.5 mg PO BEDTIME [facility] Last Admin: 08/15/17 20:55 Dose: 0.5 mg Senna (Senokot Tab*) 1 tab PO DAILY [facility] Last Admin: 08/16/17 08:54 Dose: 1 tab Thiamine HCl (Vitamin B-1 Tab*) 100 mg PO DAILY [facility] Last Admin: 08/16/17 08:54 Dose: 100 mg Tiotropium [place] (Spiriva Cap.Inh*) 1 cap INH DAILY [facility] Last Admin: 08/16/17 09:04 Dose: 1 cap Tramadol HCl (Ultram*) 100 mg PO Q6H PRN PRN Reason: PAIN - MODERATE Last Admin: 08/16/17 08:55 Dose: 100 mg Vital Signs - 8 hr 08/16/17 08/16/17 08/16/17 07:47 08:00 08:54 Temperature 98.3 F Pulse Rate 53 Respiratory 17 20 20 Rate Blood Pressure 107/69 (mmHg) O2 Sat by Pulse 98 Oximetry 08/16/17 08/16/17 08/16/17 08:55 09:07 10:43 Temperature Pulse Rate 76 Respiratory 20 16 16 Rate Blood Pressure (mmHg) O2 Sat by Pulse 98 Oximetry Oxygen Devices in Use Now: None Appearance: 61 yo chronically ill male laying in bed in NAD. A+Ox3, slightly anxious Eyes: No Scleral Icterus, PERRLA Ears/Nose/Mouth/Throat: Mucous Membranes Moist Neck: NL Appearance and Movements; NL JVP Respiratory: Symmetrical Chest Expansion and Respiratory Effort, Clear to Auscultation Cardiovascular: NL Sounds; No Murmurs; No JVD, RRR, No Edema Abdominal: NL Sounds; No Tenderness; No Distention Extremities: No Edema, No Clubbing, Cyanosis Neurological: Alert and Oriented x 3, NL Sensation, NL Gait, NL Muscle Strength and Tone Lines/Tubes/Other Access: Clean, Dry and Intact Peripheral IV Nutrition: Taking PO's Result Diagrams: 08/11/17 07:41 08/11/17 07:41 Additional Lab and Data: . Microbiology and Other Data: . Diagnostic Imaging: . EKG Data: . Assess/Plan/Problems-Billing Assessment: Mr Conway is a 61 yo M who has a h/o chronic back pain, past overdoses, HTN, afib and COPD who presented to the ER with c/o altered mental status found to be in rapid afib in the ER who has hard to control pain and needs placement due to medication compliance concerns. - Patient Problems (1) Altered mental state Comment: - Resolved. - No clear cause to the AMS. Likely toxic encaphalopathy from polypharmacy. - Continued concerns about discharge to home, per PCP pt has hx of OD on meds multiple times. Appreciate consult from psych who note that he lacks capacity to refuse custodial placement. (2) Chronic back pain Comment: Appreciate Pain Management consult Pain increased today with spasms and allodynia. Continue Tramadol, APAP, Flexeril. Lidoderm patch. Reintroduce Gabapentin, dose recently increased. Previously took 2,700mg daily. MRI 2017 - showing degenrative disc disease and osteoarthritis, right sided disc protrusion L2-L3 and mild narrowing of central charlie at L3-L4 and L4-L5 (3) Paroxysmal atrial fibrillation Comment: - Pt has h/o afib, rate controlled. Continue metoprolol and diltiazem at reduced doses. - His CHADS-vasc score is 1. He is a poor candidate for full anticoagulation with the ETOH abuse and medication noncompliance. Continue aspirin. (4) COPD (chronic obstructive pulmonary disease) Comment: - No signs of exacerbation. (5) Tobacco abuse Comment: - Encourage smoking cessation. - Nicotine replacement therapy available. (6) Full code status Comment: (7) DVT prophylaxis Comment: SQ heparin Status and Disposition: Inpatient. Anticipate discharge to [facility] when bed available and approved per insurance, patient lacks decision-making capacity to refuse placement, previously homeless.
[2017-08-16] MEDS: Cyclobenzaprine TAB* 10 MG PO PRN ×2 (13:05→22:02)
[2017-08-16] MEDS: Ropinirole TAB* 0.5 MG TAB PO SCH (19:50)
[2017-08-16] MEDS: Lidocaine Patch REMOVE* 1 NOTE MISC SCH (19:51)
[2017-08-16] MEDS ORDERED: Gabapentin CAP(*) 300 MG PO SCH (21:00)
[2017-08-17] MEDS: Acetaminophen TAB* 325 MG PO SCH ×2 (05:59→10:36)
[2017-08-17] MEDS: traMADol TAB* 50 MG PO PRN (05:59)
[2017-08-17 06:38] LABS: ABS Basophils 0 10^3/ul (0-0.2); ABS Eosinophils 0.5 10^3/ul (0-0.6); ABS Lymphocytes 1.7 10^3/ul (1.0-4.8); ABS Monocytes 0.8 10^3/ul (0-0.8); ABS Neutrophils 4.2 10^3/ul (1.5-7.7); ABS Nucleated RBC 0 10^3/ul; Hematocrit 40 % (42-52); Hemoglobin 13.8 g/dl (14.0-18.0); Mean Corpuscular HGB Conc 35 g/dl (31-36); Mean Corpuscular Hemoglobin 31 pg (27-31); Mean Corpuscular Volume 90 fL (80-94); Mean Platelet Volume 7.7 um3 (7.4-10.4); Nucleated Red Blood Cells % 0.1; Platelet Count 275 10^3/ul (150-450); Red Blood Count 4.45 10^6/ul (4.0-5.4); Red Cell Distribution Width 15 % (10.5-15); White Blood Count 7.2 10^3/ul (3.5-10.8)
[2017-08-17 07:02] LABS: EGFR Non-African American 104.3 (>60)
[2017-08-17] MEDS: Lidocaine PATCH 5%* 1 PATCH TRANSDERM SCH (07:33)
[2017-08-17] MEDS: Multivitamins/Minerals TAB PO SCH (07:34)
[2017-08-17] MEDS: Docusate CAP* 100 MG PO SCH (07:34)
[2017-08-17] MEDS: Senna TAB PO SCH (07:34)
[2017-08-17] MEDS: Diltiazem CD CAP* 120 MG PO SCH (07:34)
[2017-08-17] MEDS: Thiamine TAB* 100 MG TAB PO SCH (07:34)
[2017-08-17] MEDS: Gabapentin CAP(*) 300 MG PO SCH (07:35)
[2017-08-17] MEDS: Magnesium Oxide TAB* 400 MG PO SCH (07:35)
[2017-08-17] MEDS: Aspirin EC TAB* 81 MG TAB.EC PO SCH (07:35)
[2017-08-17] MEDS: Cyclobenzaprine TAB* 10 MG PO PRN (07:35)
[2017-08-17] MEDS: Folic Acid TAB* 1 MG PO SCH (07:35)
[2017-08-17 07:42] VITALS: BP 129/90
[2017-08-17] MEDS: Omeprazole CAP* 20 MG PO SCH (07:42)
[2017-08-17] MEDS: Metoprolol Tartrate TAB* 25 MG PO SCH (07:43)
[2017-08-17] MEDS: Tiotropium CAP.INH* CAP.INH/18 MCG (USE ORDER SET !) INH SCH (08:20)
--- NOTE | 2017-08-17 12:07 | DCNOTE ---
Subjective Date of Service: 08/17/17 Interval History: pt reports he feels that his back pain is getting better overall. He continues to have some pain but more intermittent and not as severe. Agrees to DC to [facility] today. Offers no other complaints Family History: Unchanged from Admission Social History: Unchanged from Admission Past Medical History: Unchanged from Admission Objective Active Medications: Acetaminophen (Tylenol Tab*) 650 mg PO Q6H [facility] Last Admin: 08/17/17 10:36 Dose: 650 mg Albuterol (Ventolin 2.5 Mg/3 Ml Neb.Jessica*) 2.5 mg INH Q2H PRN PRN Reason: SOB/WHEEZING Aspirin (Aspirin Ec Tab*) 81 mg PO DAILY [facility] Last Admin: 08/17/17 07:35 Dose: 81 mg Cyclobenzaprine HCl (Flexeril Tab*) 10 mg PO TID PRN PRN Reason: pain/spasm hold for sedation Last Admin: 08/17/17 07:35 Dose: 10 mg Device (Tiotropium Inhaler Device*) 1 each .SEE ORDER .USE w/ SPIRIVA CAPS [facility] Device (Nicotine Mouth Piece*) 1 each INH .USE WITH NICOTROL PRN PRN Reason: CRAVING Last Admin: 08/12/17 18:58 Dose: 1 each Diltiazem HCl (Cardizem Cd Cap*) 120 mg PO DAILY [facility] Last Admin: 08/17/17 07:34 Dose: 120 mg Docusate Sodium (Colace Cap*) 200 mg PO BID [facility] Last Admin: 08/17/17 07:34 Dose: 200 mg Folic Acid (Folvite Tab*) 1 mg PO DAILY [facility] Last Admin: 08/17/17 07:35 Dose: 1 mg Gabapentin (Neurontin Cap(*)) 600 mg PO TID [facility] Last Admin: 08/17/17 07:35 Dose: 600 mg Lidocaine (Lidoderm 5% Patch*) 1 patch TRANSDERM DAILY [facility] Last Admin: 08/17/17 07:33 Dose: 1 patch Magnesium Oxide (Magox 400 Tab*) 400 mg PO BID [facility] Last Admin: 08/17/17 07:35 Dose: 400 mg Metoprolol Tartrate (Lopressor Tab*) 75 mg PO BID [facility] Last Admin: 08/17/17 07:43 Dose: 75 mg Multivitamins/Minerals (Theragran/Minerals Tab*) 1 tab PO DAILY [facility] Last Admin: 08/17/17 07:34 Dose: 1 tab Nicotine (Nicotine Inhaler*) 10 mg INH Q2H PRN PRN Reason: CRAVINGS Last Admin: 08/12/17 18:56 Dose: 10 mg Omeprazole (Prilosec Cap*) 40 mg PO BID [facility] Last Admin: 08/17/17 07:42 Dose: 40 mg Pharmacy Profile Note (Lidocaine Patch Remove*) 1 note N/A 2100 [facility] Last Admin: 08/16/17 19:51 Dose: 1 note Ropinirole HCl (Requip Tab*) 0.5 mg PO BEDTIME [facility] Last Admin: 08/16/17 19:50 Dose: 0.5 mg Senna (Senokot Tab*) 1 tab PO DAILY [facility] Last Admin: 08/17/17 07:34 Dose: 1 tab Thiamine HCl (Vitamin B-1 Tab*) 100 mg PO DAILY [facility] Last Admin: 08/17/17 07:34 Dose: 100 mg Tiotropium Sawyer (Spiriva Cap.Inh*) 1 cap INH DAILY [facility] Last Admin: 08/17/17 08:20 Dose: Not Given Tramadol HCl (Ultram*) 100 mg PO Q6H PRN PRN Reason: PAIN - MODERATE Last Admin: 08/17/17 05:59 Dose: 100 mg Vital Signs - 8 hr 08/17/17 08/17/17 08/17/17 05:59 07:35 07:40 Temperature 98.5 F Pulse Rate 78 Respiratory 18 20 17 Rate Blood Pressure 129/90 (mmHg) O2 Sat by Pulse 98 Oximetry 08/17/17 08/17/17 08:00 10:37 Temperature Pulse Rate Respiratory 20 16 Rate Blood Pressure (mmHg) O2 Sat by Pulse Oximetry Oxygen Devices in Use Now: None Appearance: 61 yo chronically ill male sitting up on the side of bed eating in NAD A+O x3 Eyes: No Scleral Icterus, PERRLA Ears/Nose/Mouth/Throat: NL Teeth, Lips, Gums, Mucous Membranes Moist Neck: NL Appearance and Movements; NL JVP Respiratory: Symmetrical Chest Expansion and Respiratory Effort, Clear to Auscultation Cardiovascular: NL Sounds; No Murmurs; No JVD, RRR, No Edema Abdominal: NL Sounds; No Tenderness; No Distention Lymphatic: No Cervical Adenopathy Extremities: No Edema, No Clubbing, Cyanosis Skin: No Rash or Ulcers, No Nodules or Sclerosis Neurological: Alert and Oriented x 3, NL Sensation, NL Gait, NL Muscle Strength and Tone Lines/Tubes/Other Access: Clean, Dry and Intact Peripheral IV Nutrition: Taking PO's Result Diagrams: 08/17/17 06:27 08/17/17 06:27 Additional Lab and Data: . Microbiology and Other Data: . Diagnostic Imaging: . EKG Data: . Assess/Plan/Problems-Billing Assessment: Mr Conway is a 61 yo M who has a h/o chronic back pain, past overdoses, HTN, afib and COPD who presented to the ER with c/o altered mental status found to be in rapid afib in the ER who has hard to control pain and needs placement due to medication compliance concerns. - Patient Problems (1) Altered mental state Comment: - Resolved. - No clear cause to the AMS. Likely toxic encaphalopathy from polypharmacy. - Continued concerns about discharge to home, per PCP pt has hx of OD on meds multiple times. Appreciate consult from psych who note that he lacks capacity to refuse intermediate placement. (2) Chronic back pain Comment: Appreciate Pain Management consult Pain increased today with spasms and allodynia. Continue Tramadol, APAP, Flexeril. Lidoderm patch. Reintroduce Gabapentin, dose recently increased. Previously took 2,700mg daily. MRI 2017 - showing degenrative disc disease and osteoarthritis, right sided disc protrusion L2-L3 and mild narrowing of central canal at L3-L4 and L4-L5 continue PT (3) Paroxysmal atrial fibrillation Comment: - Pt has h/o afib, rate controlled. Continue metoprolol and diltiazem at reduced doses. - His CHADS-vasc score is 1. He is a poor candidate for full anticoagulation with the ETOH abuse and medication noncompliance. Continue aspirin. (4) COPD (chronic obstructive pulmonary disease) Comment: - No signs of exacerbation. (5) Tobacco abuse Comment: - Encourage smoking cessation. - Nicotine replacement therapy available. (6) Full code status Comment: (7) DVT prophylaxis Comment: SQ heparin Status and Disposition: Inpatient. discharge to [facility] today
--- NOTE | 2017-08-17 16:25 | DS ---
AMENDED REPORT NOW INCLUDES COSIGNER DESIGNATION - ESIGNED BEFORE ADJUSTMENTS DISCHARGE SUMMARY: DATE OF ADMISSION: 07/23/17 DATE OF DISCHARGE: 08/17/17 PROVIDER: Anjel Gallegos NP. ATTENDING PHYSICIAN: Dr. Santos * (report dictated by Anjel Gallegos NP). PRIMARY CARE PROVIDER: Dr. Guru Pappas. DISCHARGE DIAGNOSES: 1. Altered mental status, thought to be secondary to polysubstance abuse and EtOH abuse presenting with encephalopathy. 2. History of polysubstance abuse with multiple overdoses in the past as well as alcohol abuse. 3. Chronic back pain. 4. Tobacco abuse. 5. Left small adrenal nodule, (not new and stable from previous imaging) SECONDARY DIAGNOSES: 1. History of erosive esophagitis. 2. Hyperlipidemia. 3. Hypertension. 4. History of nephrolithiasis. 5. History of deep vein thrombosis. 6. Chronic obstructive pulmonary disease. 7. History of atrial fibrillation. 8. History of delirium in the past. DISCHARGE MEDICATIONS: 1. Acetaminophen 650 mg p.o. q. 6 hours. 2. Aspirin 81 mg p.o. daily. 3. Flexeril 10 mg p.o. t.i.d. p.r.n. 4. Cardizem CD 120 mg p.o. daily. 5. Colace 200 mg p.o. b.i.d. 6. Folic acid 1 mg p.o. daily. 7. Gabapentin 600 mg p.o. t.i.d. 8. Lidocaine patch 5%, 1 patch transderm daily to back. 9. Multivitamin with minerals 1 tab p.o. daily. 10. Requip 0.5 mg p.o. at bedtime. 11. Spiriva cap inhalation once daily. 12. Thiamine 100 mg p.o. daily. 13. Tramadol 100 mg p.o. q. 6 hours p.r.n. max daily dose 4. 14. Omeprazole 40 mg p.o. b.i.d. 15. Metoprolol tartrate 75 mg p.o. b.i.d. HISTORY OF PRESENT ILLNESS AND HOSPITAL COURSE: Please see history and physical by Gus Vega NP, for full admission details, but in summary this is a 61-year-old male with the past medical history as stated above who presented to the emergency department on 07/23/17 with altered mental status. At the time of admission, he was not able to give much history. All he was able to report were that the trimmer operator were called by the nurse today as there was a concern he took the wrong meds and was noted to have an altered mental state. Per the nurse's note, apparently the primary care provider's office called the transportation supervisor's office to evaluate him and he was brought to the emergency department for further evaluation. The patient has a history of presenting with altered mental status with suspected polysubstance abuse and overdoses on his medications. His tox screen and alcohol level were negative. As well on admission, he was also noted to be in AFib with RVR and reported he had not taken his home metoprolol, which he was restarted on, which controlled his rate well. He is not on anticoagulation due to his polysubstance and alcohol abuse due to being a high fall risk and is only on a daily aspirin. He underwent EEG and was seen in consultation by neurologist, Dr. Marcum, which noted there appears to be small vessel ischemic disease on a CT scan. An awake EEG was abnormal secondary to diffuse slowing and consistent with generalized encephalopathy, but was nonspecific to etiology reporting the medications the patient is consuming may contribute to the slowing. The patient 's encephalopathy slowly resolved and it was thought to be secondary to polysubstance abuse. The patient has had consistent complaints of back pain since admission. I did discuss this with his primary care provider who reports that he has had chronic back pain for many years and he frequently presents the same with reporting excruciating back pain, rolling around on the ground, yelling out. He has had the same behavior in the hospital setting and Dr. Ramirez who specializes in pain management was asked to consult and see the patient. Dr. Ramirez started on tramadol 50 mg q. 6 hours p.r.n. Initially, his gabapentin was held as well as the Flexeril; however, the patient continued to be in excruciating pain and these were added back and he overall has improved with out any sedating effects. The patient did undergo an MRI of his lumbar spine in May 2016 showing degenerative disk disease and a small disk protrusion at L2-3. No nerve root compression was seen. His neurological exam has been within normal limits. Over the course of his hospitalization, his back pain and mental state have greatly improved. He continues to intermittently complain of back pain, but he is no longer consistently yelling out in pain. He is currently ambulating with a walker and walking the halls several times a day. The patient's labs throughout hospitalization have been fairly unremarkable. He has had electrolytes replaced multiple times. He did have his ammonia checked, which was slightly elevated around 59. However, his mentation has greatly improved. He was tested for hepatitis C, HIV 1 and 2 antibodies were both negative. Urinalysis was negative. He underwent a transthoracic echocardiogram due to him having some noted bradycardia with a heart rate in the 50s. Echo showed "global left ventricular wall motion contractility within normal limits. There is normal left ventricular systolic function. The estimated ejection fraction is 60% to 65%. The right ventricular global systolic function is mildly reduced. There is no evidence of aortic stenosis. There is no evidence of mitral regurgitation. There is trace tricuspid regurgitation. Unable to estimate the right ventricular systolic pressure. There is no significant pericardial effusion." On admission, he also underwent a chest-thorax CTA, which showed impression: No aortic aneurysmal dilatation or intimal flap to suggest dissection. There was noted to be a left small adrenal nodule, stable when compared to 2014. The patient was seen in consultation by Dr. Warner on 08/10/17, a psychiatrist from our behavioral health unit. He was asked to consult for medical decision making capacity in which the patient was found to lack capacity to refuse SNF placement stating "although he is cognitively intact at this time, he demonstrates not the slightest understanding of the possible risks involved in leaving the hospital against medical advice. My sense is that he can easily be coaxed back into accepting SNF placement given his homeless status, but either way lacks true capacity to make an informed decision about this." The patient's behavior has fluctuated throughout hospitalization; however, any time the patient is upset and agitated, he has been able to be reasonable and spoken to. At this time, he agrees to rehab for his back and is looking forward to "hopefully getting better and being in less pain." He also states that he "promised my sister, I won't drink any more." The patient should continue daily physical therapy. The patient may be served best in an assisted living situation. He also would benefit from AA meetings and rug and alcohol counseling DISCHARGE PLAN: 1. Plan to discharge to [facility] today. 2. Follow up with Dr. Guru Pappas after discharge from [facility]. 3. The patient would have continued benefit from psychiatric counseling or counseling with a therapist. 4. If the patient has continued back pain, he could follow up as an outpatient at the pain clinic with Dr. Ramirez. 5. Left small adrenal nodule, (not new and stable from previous imaging) - follow up with PCP TIME SPENT: Approximately 60 minutes was spent on this discharge. ANJEL GALLEGOS, JOE [id number]/CPS #: [id number] STEPH
== END 2017-08-17 14:05 | DRG 52 ==
LOC: ED 17:06 → MEDTELE 22:03 → MED 08-02 20:00
PROVIDERS: ADMIT Hospitalist; ATTEND Internal Medicine
PROC: 4A00X4Z Measurement of Central Nervous Electrical Activity, External Approach (ICD-10-PCS; principal; 2017-07-24)
DX: G92 Toxic encephalopathy (principal); I67.82 Cerebral ischemia; F10.231 Alcohol dependence with withdrawal delirium; F19.10 Other psychoactive substance abuse, uncomplicated; G89.29 Other chronic pain; M54.9 Dorsalgia, unspecified; Z86.718 Personal history of other venous thrombosis and embolism; I10 Essential (primary) hypertension; J44.9 Chronic obstructive pulmonary disease, unspecified; Z87.01 Personal history of pneumonia (recurrent); K21.9 Gastro-esophageal reflux disease without esophagitis; Z87.11 Personal history of peptic ulcer disease; N20.0 Calculus of kidney; M19.90 Unspecified osteoarthritis, unspecified site; M41.9 Scoliosis, unspecified; H91.90 Unspecified hearing loss, unspecified ear; Z72.89 Other problems related to lifestyle; F17.210 Nicotine dependence, cigarettes, uncomplicated; R45.1 Restlessness and agitation; Z80.0 Family history of malignant neoplasm of digestive organs; E78.5 Hyperlipidemia, unspecified; E87.6 Hypokalemia; Z59.0 Homelessness; E27.8 Other specified disorders of adrenal gland; Z79.82 Long term (current) use of aspirin; R00.1 Bradycardia, unspecified; I07.1 Rheumatic tricuspid insufficiency; Z91.14 Patient's other noncompliance with medication regimen; I48.0 Paroxysmal atrial fibrillation; M51.36 Other intervertebral disc degeneration, lumbar region; M51.26 Other intervertebral disc displacement, lumbar region; F12.90 Cannabis use, unspecified, uncomplicated
CPT/HCPCS: 36415; 70450; 71045; 71275; 80048; 80053; 80307; 80320; 80329; 81003; 82140; 82565; 83605; 83735; 84443; 84484; 84520; 85025; 85027; 85610; 85730; 86703; 86803; 87641; 93005; 93306; 94640; 95816; 99285; A9270-GY; C8929; G0480; G8978-GP-CH; G8979-GP-CH; G8980-GP-CH; J1630; J1644; J1885; J2060; J2405; J3475; J3480

== ENCOUNTER 2017-10-12 11:53 | Emergency (ER) | payer OTHER ==
[2017-10-12] MEDS ORDERED: oxyCODONE/Acetamin 5/325 MG* TAB PO ONE (12:10)
[2017-10-12] MEDS ORDERED: LORazepam TAB(*) 1 MG PO ONE (12:10)
--- NOTE | 2017-10-12 12:13 | ED ---
Back Pain - HPI Summary HPI Summary: This is meri Denton documenting for attending Darius Hilton MD. Patient is a 62 y/o M w/ c/o acute back pain onsetting three days ago. Back pain is located at mid/lower back down to hips. On triage, pain is rated 10/10. He reports dealing with chronic back pain, "for a long time". Patient states he has recently had his medications changed, which has aggravated pain. Patient claims he goes to physical therapy at [facility] in [place]. Last week, he states he was going to see PCP but had issues with Medicaid. On triage, movement is also noted to aggravate pain with nothing alleviating pain. Home medications and allergies are reviewed. - History of Current Complaint Chief Complaint: EDBackInjuryPain Stated Complaint: BACK PAIN Time Seen by Provider: 10/12/17 11:54 Hx Obtained From: Patient Onset/Duration: Lasting Days - onset of current back pain 3 days ago Onset/Duration: Started Days Ago - onset of current back pain 3 days ago Timing: Constant Back Pain Location: Is Diffuse - pain is described to be from lower/mid back to hips Severity Currently: Severe Pain Intensity: 10 Pain Scale Used: 0-10 Numeric - 10/10 Aggravating Symptom(s): Movement, Other - not having the right medications Alleviating Symptom(s): Nothing - Allergies/Home Medications Allergies/Adverse Reactions: Allergies Allergy/AdvReac Type Severity Reaction Status Date / Time No Known Allergies Allergy Verified 07/23/17 17:13 PMH/Surg Hx/FS Hx/Imm Hx Endocrine/Hematology History: Denies: Hx Diabetes, Hx Thyroid Disease Cardiovascular History: Reports: Hx Atrial Fibrillation - not on anticoagulants , Hx Deep Vein Thrombosis - right arm , Hx Hypercholesterolemia, Hx Hypertension , Hx Syncope, Other Cardiovascular Problems/Disorders - SEPTRIC THROMBOPHLEBITIS Denies: Hx Pacemaker/ICD Respiratory History: Reports: Hx Asthma, Hx Chronic Obstructive Pulmonary Disease (COPD), Hx Pneumonia - several times, Other Respiratory Problems/ Disorders - COPD GI History: Reports: Hx Gastroesophageal Reflux Disease, Hx Ulcer Comment Only: Other GI Disorders - GERD History: Reports: Hx Acute Renal Failure, Hx Kidney Stones, Other Problems /Disorders - difficulty urinatiing Denies: Hx Renal Disease Musculoskeletal History: Reports: Hx Arthritis, Hx Back Problems, Hx Scoliosis Comment Only: Other Musculoskeletal History - chronic back pain Sensory History: Reports: Hx Contacts or Glasses, Hx Hearing Problem - mild hearing loss Denies: Hx Hearing Aid Opthamlomology History: Reports: Hx Contacts or Glasses Neurological History: Reports: Other Neuro Impairments/Disorders - delirium, inappropriate behavior Psychiatric History: Reports: Hx Substance Abuse, Other Psychiatric Issues/ Disorders - Possibly hx depression,but pt report inconsistent Denies: Hx Panic Disorder - Surgical History Surgery Procedure, Year, and Place: none Infectious Disease History: No Infectious Disease History: Denies: Traveled Outside the [place] in Last 30 Days - Family History Known Family History: Negative: Blood Disorder - Social History Alcohol Use: can not be determined Alcohol Amount: 2 drinks/day Substance Use Type: Reports: Marijuana Substance Use Comment - Amount & Last Used: unknown other drug use or last used Hx Tobacco Use: Yes Smoking Status (MU): Heavy Every Day Tobacco Smoker Type: Cigarettes Amount Used/How Often: 2 packs/day Length of Time of Smoking/Using Tobacco: 40 years Have You Smoked in the Last Year: Yes Review of Systems Negative: Fever - on vitals, temperature measured to be 97.7 F Positive: Other - low/mid back pain to hips All Other Systems Reviewed And Are Negative: Yes Physical Exam - Summary Physical Exam Summary: Appearance: The patient is well-nourished in no acute distress and in no acute pain. Skin: The skin is warm and dry and skin color reflects adequate perfusion. HEENT: The head is normocephalic and atraumatic. The pupils are equal and reactive. The conjunctivae are clear and without drainage. Nares are patent and without drainage. Mouth reveals moist mucous membranes and the throat is without erythema and exudate. The external ears are intact. The ear canals are patent and without drainage. The tympanic membranes are intact. Neck: The neck is supple with full range of motion and non-tender. There are no carotid bruits. There is no neck vein distension. Respiratory: Chest is non-tender. Lungs are clear to auscultation and breath sounds are symmetrical and equal. Cardiovascular: Heart is regular rate and rhythm. There is no murmur or rub auscultated. There is no peripheral edema and pulses are symmetrical and equal. Abdomen: The abdomen is soft and non-tender. There are normal bowel sounds heard in all four quadrants and there is no organomegaly palpated. Musculoskeletal: Tenderness to palpation at lower back and straight leg movement is noted. Extremities are non-tender with full range of motion. There is good capillary refill. There is no peripheral edema or calf tenderness elicited. Neurological: Patient is alert and oriented to person, place and time. The patient has symmetrical motor strength in all four extremities. Cranial nerves are grossly intact. Deep tendon reflexes are symmetrical and equal in all four extremities. Psychiatric: The patient has an appropriate affect and does not exhibit any anxiety or depression. Triage Information Reviewed: Yes Vital Signs On Initial Exam: Initial Vitals Temp Pulse Resp BP Pulse Ox 97.7 F 66 20 117/64 97 10/12/17 11:53 10/12/17 11:53 10/12/17 11:53 10/12/17 11:53 10/12/17 11:53 Vital Signs Reviewed: Yes Diagnostics - Vital Signs Vital Signs Temp Pulse Resp BP Pulse Ox 10/12/17 11:53 97.7 F 66 20 117/64 97 - Laboratory Lab Statement: Any lab studies that have been ordered have been reviewed, and results considered in the medical decision making process. Re-Evaluation - Re-Evaluation First Eval Re-Evaluation Time: 14:07 Change: Improved Comment: Patient is feeling better. After he demonstrates that he is capable of ambulation, he will be discharged to home and follow up with PCP within 3 days. Patient is agreeable with the plan. Back Pain Course/Dx - Course Course Of Treatment: Mr. Conway presented to the emergency department complaining that his chronic low back pain was much worse and that he was having continuous spasms. He was unclear distress on arrival although he was neurologically intact. He was given Ativan as a muscle relaxer as well as Percocet by mouth and was able to fall asleep. After allowing him to sleep for a while he was aroused he was again completely neurologically intact and felt much improved. He was able to ambulate about the department. I checked I stop and strangely enough do not find any scheduled medications for him although tramadol is listed as one of his medications. I will give him a short course of [place] and refer him back to his PCP. He is already on Flexeril. - Diagnoses Provider Diagnoses: Lower back pain Discharge - Sign-Out/Discharge Documenting (check all that apply): Patient Departure - discharge - Discharge Plan Condition: Stable Disposition: HOME Prescriptions: HYDROcodone/ACETAMIN 5-325 MG* [[place] 5-325 TAB*] 1 tab PO Q6H PRN #20 tab MDD 4 PRN Reason: Pain Patient Education Materials: Back Pain (ED) Referrals: Guru Pappas MD [Primary Care Provider] - 3 Days Additional Instructions: Follow up with PCP within 3 days. Return to ED for any new or worsening symptoms. - Billing Disposition and Condition Condition: STABLE Disposition: Home
[2017-10-12 14:41] VITALS: BP 134/98
== END 2017-10-12 14:40 | disposition home or self-care (01) ==
LOC: ED 11:53
DX: M54.5 Low back pain (principal); G89.29 Other chronic pain; F17.210 Nicotine dependence, cigarettes, uncomplicated
CPT/HCPCS: 99283; A9270-GY

== ENCOUNTER 2017-10-20 07:11 | Emergency (ER) | payer OTHER ==
[2017-10-20] MEDS ORDERED: predniSONE TAB* 20 MG PO ONE (08:00)
[2017-10-20] MEDS ORDERED: HYDROcodone/ACETAMIN 5-325 MG* 1 TAB PO ONE (08:00)
[2017-10-20] MEDS ORDERED: Ketorolac INJ* 60 MG/2 ML VIAL IM ONE (08:00)
--- NOTE | 2017-10-20 08:21 | ED ---
Back Pain - HPI Summary HPI Summary: Pt here w/ acute on chronic LBP. Was seen here a few days ago and given norco for his chronic back pain. Gary is now out of medication and so returned to ED for pain control. He reports he has a h/o scoliosis and is in PT which helps sometimes but also states it makes pain worse. Additionally, he reports he was "in" for rehab against his will for a awhile and this made him weaker - PCP weaned him off oif his pain meds and now his pain is worse and he can't do what he used to be able to do. Was on 900mg gabapentin 4 x day, cyclobenzaprine and other medications he does not recall. He reports he's now "only on tramadol 4 x day". I could not access [facility] but previous note from ED provider a few days ago reports ISTOP showed no recent controlled substance fills. Pt reports norco helps his pain and function. He's tried to get in w/ other pain management specialists in the past but has multiple reasons why he is no longer allowed - he admits to a h/o cocaine use, he missed group session as his pain was a distraction to others in the group, and another facility did not take his insurance. He would like to try pain management as he feels like his PCP took him off of everything that helped and PT is making his pain worse. CT's of his spine reveal multi-level DDD and disc hernations as of 02/2017. Will trial a steroid, NSAID and 1 norco here in ED w/ ongoing anti-inflammatory therapy. Additionally offered pt a lidoderm pain patch but he states "that won' t do anything". - History of Current Complaint Chief Complaint: EDBackInjuryPain Stated Complaint: BACK PAIN Time Seen by Provider: 10/20/17 07:15 Hx Obtained From: Patient Pain Intensity: 10 - Allergies/Home Medications Allergies/Adverse Reactions: Allergies Allergy/AdvReac Type Severity Reaction Status Date / Time No Known Allergies Allergy Verified 10/20/17 07:32 PMH/Surg Hx/FS Hx/Imm Hx Previously Healthy: Yes Endocrine/Hematology History: Denies: Hx Diabetes, Hx Thyroid Disease, Autoimmune Disease Cardiovascular History: Reports: Hx Atrial Fibrillation - not on anticoagulants , Hx Deep Vein Thrombosis - right arm , Hx Hypercholesterolemia, Hx Hypertension , Hx Syncope, Other Cardiovascular Problems/Disorders - SEPTIC THROMBOPHLEBITIS Denies: Hx Pacemaker/ICD Respiratory History: Reports: Hx Asthma, Hx Chronic Obstructive Pulmonary Disease (COPD), Hx Pneumonia - several times, Other Respiratory Problems/ Disorders - COPD GI History: Reports: Hx Gastroesophageal Reflux Disease, Hx Ulcer Comment Only: Other GI Disorders - GERD History: Reports: Hx Acute Renal Failure, Hx Kidney Stones, Other Problems /Disorders - difficulty urinatiing Denies: Hx Renal Disease Musculoskeletal History: Reports: Hx Arthritis, Hx Back Problems, Hx Scoliosis Comment Only: Other Musculoskeletal History - chronic back pain Sensory History: Reports: Hx Contacts or Glasses, Hx Hearing Problem - mild hearing loss Denies: Hx Hearing Aid Opthamlomology History: Reports: Hx Contacts or Glasses Neurological History: Reports: Other Neuro Impairments/Disorders - delirium, inappropriate behavior Psychiatric History: Reports: Hx Substance Abuse, Other Psychiatric Issues/ Disorders - Possibly hx depression,but pt report inconsistent Denies: Hx Panic Disorder - Surgical History Surgery Procedure, Year, and Place: none Infectious Disease History: No Infectious Disease History: Denies: Traveled Outside the [place] in Last 30 Days - Family History Known Family History: Positive: Unknown Negative: Blood Disorder - Social History Alcohol Use: Daily Alcohol Amount: 2 drinks/day Substance Use Type: Reports: Cocaine, Marijuana, Prescribed Hx Tobacco Use: Yes Smoking Status (MU): Heavy Every Day Tobacco Smoker Type: Cigarettes Amount Used/How Often: 2 packs/day Length of Time of Smoking/Using Tobacco: 40 years Have You Smoked in the Last Year: Yes Review of Systems Constitutional: Negative Negative: Fever, Chills, Fatigue Negative: incontinence Positive: Arthralgia, Myalgia Skin: Other - skin over back is midly bruised from rubbing to ease his pain Neurological: Negative Negative: Headache, Weakness, Paresthesia, Numbness, Syncope Positive: Anxious All Other Systems Reviewed And Are Negative: Yes Physical Exam Triage Information Reviewed: Yes Vital Signs On Initial Exam: Initial Vitals Temp Pulse Resp BP Pulse Ox 98.3 F 83 20 164/103 96 10/20/17 07:13 10/20/17 07:13 10/20/17 07:13 10/20/17 07:13 10/20/17 07:13 Vital Signs Reviewed: Yes Appearance: Positive: Pain Distress - moaning - changes positions to get comfortable - tearful and drooling at times, however he is consolable Skin: Positive: Warm, Skin Color Reflects Adequate Perfusion, Dry - early signs of lichen simplex over back - superficial, diffuse bruising - no flaking/scaling , no skin breakdown ENT: Positive: Hearing grossly normal Dental: Positive: Other - edentulous Cardiovascular: Positive: Pulses are Symmetrical in both Upper and Lower Extremities. Negative: Leg Edema Left, Leg Edema Right Musculoskeletal: Positive: Other - strength of extremities intact - limited spine ROM d/t pain - pt reports scoliosis and pain w/ trying to stand upright ( baseline but has been better momentarly during PT sessions per pt) Neurological: Positive: Sensory/Motor Intact, Alert, Oriented to Person Place, Time Psychiatric: Positive: Anxious Diagnostics - Vital Signs Vital Signs Temp Pulse Resp BP Pulse Ox 10/20/17 07:13 98.3 F 83 20 164/103 96 - Laboratory Lab Statement: Any lab studies that have been ordered have been reviewed, and results considered in the medical decision making process. Back Pain Course/Dx - Course Course Of Treatment: Given pt's h/o disc herniation and DDD, will initiate anti- inflammatory tx w/ 1 time dose of norco to break pain cycle however given that his PCP has weaned him from narcotics and he has repeated difficulty getting into pain management clinics, will refrain from longer course of narcotic pain meds today. He will receive a course of prednisone which should improve function to some degree and encouraged ongoing PT, even if to give feedback that some things are helpful and some things are painful. If he feels he's regressing, encouraged to call insurance company to identify a pain management provider in the area who takes his insurance. Also encouraged f/u w/ PCP in the event he needs a MRI or neurosurg consult as PCP most likely has a plan for pt' s pain and biomechanical healing. Reviewed danger s/sx of when to return to ED. Pt agrees w/ plan. He is able to ambulate indepently prior to d/c. - Diagnoses Provider Diagnoses: Acute exacerbation of chronic low back pain Discharge - Sign-Out/Discharge Documenting (check all that apply): Patient Departure - Discharge Plan Condition: Stable Disposition: HOME Prescriptions: predniSONE TAB* [Deltasone 20 MG TAB*] 60 mg PO DAILY #15 tab Patient Education Materials: Lumbar Disc Herniation (ED), Cervical Disc Herniation (ED), Degenerative Disc Disease (ED) Referrals: Guru Pappas MD [Primary Care Provider] - Additional Instructions: You appear to have acute on chronic back pain. This may be managed by your PCP or a painter interior finish. Call the number on the back of your insurance card to see which provider in the area takes your insurance. Once you have a provider, call to schedule an appointment. You have been given a copy of your CT reports today. You may also have your PCP refer you as they will also be able to share your PT notes and past medications. You may also be a candidate for an MRI and neurosurgery consult depending on the progression of your condition. Call your PCP for guidance through this process as necessary. Today you have been given a pain medication to reduce inflammation most likely causing pain in your spine due to arthritis and disc herniations. Complete the course but follow-up with PCP prior to completion in an effort to control your pain on an outpatient basis. NSAID's were not prescribed as you reported issues with heartburn and possibly an ulcer - instead you may take extra strength tylenol, 650mg, EVERY 6 HOURS FOR PAIN. Try heat alternating with ice and gentle stretches as recommended by PT. *If you develop numbness, weakness or change in your bowel/bladder habits, return to the ED - Billing Disposition and Condition Condition: STABLE Disposition: Home
[2017-10-20 08:38] VITALS: BP 162/99
== END 2017-10-20 08:37 | disposition home or self-care (01) ==
LOC: ED 07:11
DX: M54.5 Low back pain (principal); G89.29 Other chronic pain; F14.11 Cocaine abuse, in remission; M41.9 Scoliosis, unspecified; F17.210 Nicotine dependence, cigarettes, uncomplicated
CPT/HCPCS: 96372; 99282; J1885; J7512

== ENCOUNTER 2017-12-18 15:44 | Emergency (ER) | payer OTHER ==
[2017-12-18 15:50] VITALS: BP 170/77
== END 2017-12-18 16:17 | disposition left against medical advice (07) ==
LOC: ED 15:44
DX: M54.9 Dorsalgia, unspecified (principal); Z53.21 Procedure and treatment not carried out due to patient leaving prior to being seen by health care provider

== ENCOUNTER 2017-12-18 16:23 | Emergency (ER) | payer OTHER ==
--- NOTE | 2017-12-18 18:50 | ED ---
Back Pain - HPI Summary HPI Summary: 62-year-old male presents with acute on chronic back pain today. he is currently rolling around in the bed in face track. He states he is having spasms in his back. Location of pain is in the same location as previous. Denies any fevers. No saddle anaesthesia or loss of bowel or bladder. He denies any pain into his legs. No numbness or tingling. No difficulties walking. He states he is out of all his pain medication and cannot get into his primary for 2 weeks. He has that appointment with the pain clinic tomorrow for cortisone shot. He is requesting tramadol and ibuprofen. He states that he has been out of tramadol for 2 days. I-stop consulted and this is correct with patient's statement. He states that Dr. Pappas did not want to give him pain medication as he was taking it with alcohol. He states he is no longer drinking except for a beer twice a week. - History of Current Complaint Chief Complaint: EDBackInjuryPain Stated Complaint: BACK PAIN Time Seen by Provider: 12/18/17 18:33 Pain Intensity: 10 - Allergies/Home Medications Allergies/Adverse Reactions: Allergies Allergy/AdvReac Type Severity Reaction Status Date / Time No Known Allergies Allergy Verified 12/18/17 16:47 PMH/Surg Hx/FS Hx/Imm Hx Endocrine/Hematology History: Denies: Hx Diabetes, Hx Thyroid Disease Cardiovascular History: Reports: Hx Atrial Fibrillation - not on anticoagulants , Hx Deep Vein Thrombosis - right arm , Hx Hypercholesterolemia, Hx Hypertension , Hx Syncope, Other Cardiovascular Problems/Disorders - SEPTIC THROMBOPHLEBITIS Denies: Hx Pacemaker/ICD Respiratory History: Reports: Hx Asthma, Hx Chronic Obstructive Pulmonary Disease (COPD), Hx Pneumonia - several times, Other Respiratory Problems/ Disorders - COPD GI History: Reports: Hx Gastroesophageal Reflux Disease, Hx Ulcer Comment Only: Other GI Disorders - GERD History: Reports: Hx Acute Renal Failure, Hx Kidney Stones, Other Problems /Disorders - difficulty urinatiing Denies: Hx Renal Disease Musculoskeletal History: Reports: Hx Arthritis, Hx Back Problems, Hx Scoliosis Comment Only: Other Musculoskeletal History - chronic back pain Sensory History: Reports: Hx Contacts or Glasses, Hx Hearing Problem - mild hearing loss Denies: Hx Hearing Aid Opthamlomology History: Reports: Hx Contacts or Glasses Neurological History: Reports: Other Neuro Impairments/Disorders - delirium, inappropriate behavior Psychiatric History: Reports: Hx Substance Abuse, Other Psychiatric Issues/ Disorders - Possibly hx depression,but pt report inconsistent Denies: Hx Panic Disorder - Surgical History Surgery Procedure, Year, and Place: none Infectious Disease History: No Infectious Disease History: Denies: Traveled Outside the [place] in Last 30 Days - Family History Known Family History: Positive: Unknown Negative: Blood Disorder - Social History Alcohol Use: Weekly Alcohol Amount: 4-7 DRINKS A WEEK Substance Use Type: Reports: None Substance Use Comment - Amount & Last Used: unknown other drug use or last used Hx Tobacco Use: Yes Smoking Status (MU): Heavy Every Day Tobacco Smoker Type: Cigarettes Amount Used/How Often: 2 packs/day Length of Time of Smoking/Using Tobacco: 40 years Have You Smoked in the Last Year: Yes Review of Systems Negative: Fever Negative: Chest Pain Negative: Shortness Of Breath Positive: Myalgia - back pain All Other Systems Reviewed And Are Negative: Yes Physical Exam Triage Information Reviewed: Yes Vital Signs On Initial Exam: Initial Vitals Temp Pulse Resp BP Pulse Ox 98.5 F 71 16 148/80 98 12/18/17 16:43 12/18/17 16:43 12/18/17 16:43 12/18/17 16:43 12/18/17 16:43 Vital Signs Reviewed: Yes Appearance: Positive: Well-Appearing Skin: Positive: Warm, Dry Head/Face: Positive: Normal Head/Face Inspection Eyes: Positive: Normal, Conjunctiva Clear ENT: Positive: Pharynx normal Respiratory/Lung Sounds: Positive: Clear to Auscultation, Breath Sounds Present Cardiovascular: Positive: Normal, RRR Musculoskeletal: Positive: Strength/ROM Intact - back, Other - tenderness lower back, good pulses, neg SLR, sensation grossly intact Neurological: Positive: Normal Psychiatric: Positive: Normal Diagnostics - Vital Signs Vital Signs Temp Pulse Resp BP Pulse Ox 12/18/17 16:43 98.5 F 71 16 148/80 98 - Laboratory Lab Statement: Any lab studies that have been ordered have been reviewed, and results considered in the medical decision making process. Back Pain Course/Dx - Course Course Of Treatment: 62-year-old male presents with acute on chronic back pain today. he is currently rolling around in the bed in face track. He states he is having spasms in his back. Location of pain is in the same location. Denies any fevers. No saddle anaesthesia or loss of bowel or bladder. He denies any pain into his legs. No numbness or tingling. No difficulties walking. He states he is out of all his pain medication and cannot get into his primary for 2 weeks. He has that appointment with the pain clinic tomorrow for cortisone shot. He is requesting tramadol and ibuprofen. He states that he has been out of tramadol for 2 days. I-stop consulted and this is correct with patient's statement. He states that Dr. Pappas did not want to give him pain medication as he was taking it with alcohol. He states he is no longer drinking except for a beer twice a week. on exam has tenderness in lower back. neg SLR. neurovascular intact. gave one dose of tramadol and will try different muscle relaxer. patient understand and agrees with plan. - Diagnoses Differential Diagnosis/HQI/PQRI: Positive: Herniated Disc, Strain, Sprain Provider Diagnoses: Back pain Discharge - Sign-Out/Discharge Documenting (check all that apply): Patient Departure - Discharge Plan Condition: Good Disposition: HOME Prescriptions: Ibuprofen TAB* [Motrin TAB* 600 MG] 600 mg PO Q6H PRN #30 tab PRN Reason: Pain Methocarbamol TAB* [Robaxin 500 MG TAB*] 750 mg PO TID PRN #21 tab PRN Reason: Pain Patient Education Materials: Back Pain (ED) Referrals: Guru Pappas MD [Primary Care Provider] - Additional Instructions: stop baclofen for now and start robaxin three times a day for 7 days Take ibuprofen every 6 hours Follow up with primary Return to ED if develop any new or worsening symptoms - Billing Disposition and Condition Condition: GOOD Disposition: Home
[2017-12-18] MEDS ORDERED: traMADol TAB* 50 MG PO ONE (18:53)
[2017-12-18 19:11] VITALS: BP 149/120
== END 2017-12-18 19:10 | disposition home or self-care (01) ==
LOC: ED 16:23
DX: M54.9 Dorsalgia, unspecified (principal); Z79.01 Long term (current) use of anticoagulants; I10 Essential (primary) hypertension; F17.210 Nicotine dependence, cigarettes, uncomplicated
CPT/HCPCS: 99282; A9270-GY

== ENCOUNTER 2018-02-17 21:38 | Inpatient (IN) | payer OTHER ==
[2018-02-17] MEDS ORDERED: Naloxone* 0.4 MG/ML 1 ML VIAL IV PUSH ONE (22:12)
[2018-02-17] MEDS ORDERED: NS 0.9% 1000 ML** 1,000 ML IV ONE (22:13)
[2018-02-17] MEDS ORDERED: Naloxone* 0.4 MG/ML 10 ML VIAL ONE (22:13)
[2018-02-17 23:02] LABS: ABS Basophils 0 10^3/ul (0-0.2); ABS Eosinophils 0.1 10^3/ul (0-0.6); ABS Lymphocytes 1.1 10^3/ul (1.0-4.8); ABS Monocytes 0.4 10^3/ul (0-0.8); ABS Neutrophils 7.3 10^3/ul (1.5-7.7); ABS Nucleated RBC 0 10^3/ul; Eosinophil % 0.6 %; Hematocrit 44 % (42-52); Hemoglobin 14.9 g/dl (14.0-18.0); Lymphocyte % 12.2 %; Mean Corpuscular HGB Conc 34 g/dl (31-36); Mean Corpuscular Hemoglobin 32 pg (27-31); Mean Corpuscular Volume 95 fL (80-94); Mean Platelet Volume 8.3 fL (7.4-10.4); Nucleated Red Blood Cells % 0.1; Platelet Count 263 10^3/ul (150-450); Red Blood Count 4.64 10^6/ul (4.00-5.40); Red Cell Distribution Width 14 % (10.5-15)
[2018-02-17 23:18] LABS: ALT 15 U/L (7-52); AST 15 U/L (13-39); Albumin 4.3 g/dL (3.2-5.2); Albumin/Globulin Ratio 1.3 (1-3); Alkaline Phosphatase 88 U/L (34-104); Anion Gap 9 mmol/L (2-11); Blood Urea Nitrogen 27 mg/dL (6-24); CO2 Carbon Dioxide 22 mmol/L (22-32); Calcium 9.7 mg/dL (8.6-10.3); Chloride 105 mmol/L (101-111); Creatine Kinase 66 U/L (10-223); EGFR African American 57.4 (>60); EGFR Non-African American 47.4 (>60); Globulin 3.2 g/dL (2-4); Glucose 133 mg/dL (70-100); Potassium 3.8 mmol/L (3.5-5.0); Sodium 136 mmol/L (135-145); Total Protein 7.5 g/dL (6.4-8.9)
[2018-02-17 23:21] LABS: Acetaminophen < 15 mcg/mL; Alcohol < 10 mg/dL (<10); Salicylate < 2.50 mg/dL (<30)
[2018-02-17 23:36] LABS: TSH (Thyroid Stimulating Horm) 1.64 mcIU/mL (0.34-5.60)
--- NOTE | 2018-02-17 23:50 | ED ---
Altered Mental Status - HPI Summary HPI Summary: Patient is a 62 y/o M presenting to ED via ambulance unresponsive. Per EMS, housemate had stated that patient went to [facility]', returned, and went into the bathroom. Patient did not come out for some time, housemate went in and found patient unresponsive. 911 was called. Fire department arrived, found patient with snoring respirations. Fire department attempted firm sternal rub which awoke patient. He was able to speak at this time, walked to EMS stretcher without any complications. Patient had vomited, upon arrival, patient is unresponsive. PMHx of alcohol intoxication, drug usage. Home medications and allergies reviewed. Level 5 caveat, unresponsive. - History Of Current Complaint Chief Complaint: EDAltMentalStatus Stated Complaint: UNRESPONSIVE Time Seen by Provider: 02/17/18 21:46 Hx Obtained From: EMS Onset/Duration: Unknown Timing: Constant Severity Currently: Severe Character: Responsiveness - unresponsive Aggravating Factor(s): Unknown Alleviating Factor(s): Unknown Associated Signs And Symptoms: Positive: Vomiting - Allergies/Home Medications Allergies/Adverse Reactions: Allergies Allergy/AdvReac Type Severity Reaction Status Date / Time No Known Allergies Allergy Verified 12/18/17 16:47 Home Medications: Home Medications Ibuprofen TAB* [Motrin TAB* 600 MG] 800 mg PO Q6H PRN 02/17/18 [History Confirmed 02/17/18] Umeclidinium [place] [Incruse Ellipta] 1 inh INH Q4H PRN 02/17/18 [History Confirmed 02/17/18] traMADol TAB* [Ultram*] 50 mg PO Q6H PRN MDD 4 02/17/18 [History Confirmed 02/17] PMH/Surg Hx/FS Hx/Imm Hx Endocrine/Hematology History: Denies: Hx Diabetes, Hx Thyroid Disease Cardiovascular History: Reports: Hx Atrial Fibrillation - not on anticoagulants , Hx Deep Vein Thrombosis - right arm , Hx Hypercholesterolemia, Hx Hypertension , Hx Syncope, Other Cardiovascular Problems/Disorders - SEPTIC THROMBOPHLEBITIS Denies: Hx Pacemaker/ICD Respiratory History: Reports: Hx Asthma, Hx Chronic Obstructive Pulmonary Disease (COPD), Hx Pneumonia - several times, Other Respiratory Problems/ Disorders - COPD GI History: Reports: Hx Gastroesophageal Reflux Disease, Hx Ulcer Comment Only: Other GI Disorders - GERD History: Reports: Hx Acute Renal Failure, Hx Kidney Stones, Other Problems /Disorders - difficulty urinatiing Denies: Hx Renal Disease Musculoskeletal History: Reports: Hx Arthritis, Hx Back Problems, Hx Scoliosis Comment Only: Other Musculoskeletal History - chronic back pain Sensory History: Reports: Hx Contacts or Glasses, Hx Hearing Problem - mild hearing loss Denies: Hx Hearing Aid Opthamlomology History: Reports: Hx Contacts or Glasses Neurological History: Comment Only: Other Neuro Impairments/Disorders - PAIN CLINIC PT Psychiatric History: Reports: Hx Substance Abuse, Other Psychiatric Issues/ Disorders - Possibly hx depression,but pt report inconsistent Denies: Hx Panic Disorder - Surgical History Surgery Procedure, Year, and Place: none - Immunization History Date of Tetanus Vaccine: unk Date of Influenza Vaccine: unk Infectious Disease History: Unable to Obtain/Confirm Infectious Disease History: Denies: Traveled Outside the [place] in Last 30 Days - Family History Known Family History: Negative: Blood Disorder - Social History Alcohol Use: Weekly Alcohol Amount: 5-7 drinks/week Substance Use Type: Reports: Marijuana Substance Use Comment - Amount & Last Used: hx polysubstance and alcohol abuse Hx Tobacco Use: Yes Smoking Status (MU): Heavy Every Day Tobacco Smoker Type: Cigarettes Amount Used/How Often: 1 packs/day Length of Time of Smoking/Using Tobacco: 40 years Have You Smoked in the Last Year: Yes Review of Systems - ROS Summary Review of Systems Summary: level 5 caveat, unresponsive Negative: Fever - on vitals, temp is 97.3 F Positive: Vomiting Neurological: Other - POSITIVE - UNRESPONSIVE All Other Systems Reviewed And Are Negative: Yes - Comments Additional Review of Systems Comments: level 5 caveat, unresponsive Physical Exam - Summary Physical Exam Summary: VITAL SIGNS: Reviewed. GENERAL: Patient is a well-developed and nourished male who is lying comfortable in the stretcher. Patient is not in any acute respiratory distress. HEAD AND FACE: Swelling of left upper lip. No hematomas or skull depressions. No sinus tenderness. EYES: PERRLA, EOMI x 2, No injected conjunctiva, no nystagmus. EARS: Hearing grossly intact. Ear canals and tympanic membranes are within normal limits. MOUTH: Oropharynx within normal limits. Tongue is not swollen. NECK: Supple, trachea is midline, no adenopathy, no JVD, no carotid bruit, no c- spine tenderness, neck with full ROM. CHEST: Symmetric, no tenderness at palpation LUNGS: Decreased breath sounds bilaterally. No wheezing or crackles. CVS: Regular rate and rhythm, S1 and S2 present, no murmurs or gallops appreciated. ABDOMEN: Soft, non-tender. No signs of distention. No rebound no guarding, and no masses palpated. Bowel sounds are normal. EXTREMITIES: FROM in all major joints, no edema, no cyanosis or clubbing. NEURO: Only responsive to deep painful stimuli by moving his body in the stretcher, flopping his arms SKIN: Dry and warm; reticular rash over the back Triage Information Reviewed: Yes Vital Signs On Initial Exam: Initial Vitals Temp Pulse Resp BP Pulse Ox 97.3 F 58 18 129/83 93 02/17/18 21:49 02/17/18 21:49 02/17/18 21:49 02/17/18 21:49 02/17/18 21:49 Vital Signs Reviewed: Yes Diagnostics - Vital Signs Vital Signs Temp Pulse Resp BP Pulse Ox 02/17/18 21:49 97.3 F 58 18 129/83 93 - Laboratory Lab Results: Lab Results 02/17/18 02/17/18 02/17/18 Range/Units 22:50 22:50 22:50 WBC 9.0 (3.5-10.8) 10^3/ul RBC 4.64 (4.00-5.40) 10^6/ul Hgb 14.9 (14.0-18.0) g/dl Hct 44 (42-52) % MCV 95 H (80-94) fL MCH 32 H (27-31) pg MCHC 34 (31-36) g/dl RDW 14 (10.5-15) % Plt Count 263 (150-450) 10^3/ul MPV 8.3 (7.4-10.4) fL Neut % (Auto) 82.0 % Lymph % (Auto) 12.2 % [place] % (Auto) 4.7 % Eos % (Auto) 0.6 % Baso % (Auto) 0.5 % Absolute Neuts (auto) 7.3 (1.5-7.7) 10^3/ul Absolute Lymphs (auto) 1.1 (1.0-4.8) 10^3/ul Absolute Monos (auto) 0.4 (0-0.8) 10^3/ul Absolute Eos (auto) 0.1 (0-0.6) 10^3/ul Absolute Basos (auto) 0 (0-0.2) 10^3/ul Absolute Nucleated RBC 0 10^3/ul Nucleated RBC % 0.1 Sodium 136 (135-145) mmol/L Potassium 3.8 (3.5-5.0) mmol/L Chloride 105 (101-111) mmol/L Carbon Dioxide 22 (22-32) mmol/L Anion Gap 9 (2-11) mmol/L BUN 27 H (6-24) mg/dL Creatinine 1.50 H (0.67-1.17) mg/dL Est GFR ( Amer) 57.4 (>60) Est GFR (Non-Af Amer) 47.4 (>60) BUN/Creatinine Ratio 18.0 (8-20) Glucose 133 H (70-100) mg/dL Lactic Acid 1.0 (0.5-2.0) mmol/L Calcium 9.7 (8.6-10.3) mg/dL Total Bilirubin 0.40 (0.2-1.0) mg/dL AST 15 (13-39) U/L ALT 15 (7-52) U/L Alkaline Phosphatase 88 (34-104) U/L Total Creatine Kinase 66 (10-223) U/L Troponin I 0.00 (<0.04) ng/mL Total Protein 7.5 (6.4-8.9) g/dL Albumin 4.3 (3.2-5.2) g/dL Globulin 3.2 (2-4) g/dL Albumin/Globulin Ratio 1.3 (1-3) TSH 1.64 (0.34-5.60) mcIU/mL Salicylates < 2.50 (<30) mg/dL Acetaminophen < 15 mcg/mL Serum Alcohol < 10 (<10) mg/dL Result Diagrams: 02/17/18 22:50 02/17/18 22:50 Lab Statement: Any lab studies that have been ordered have been reviewed, and results considered in the medical decision making process. - Radiology CXR Radiology Interpretation Completed By: ED Physician Summary of Radiographic Findings: NO ACUTE PROCESS, NO PACEMAKER PENDING OFFICIAL REPORT ORBITAL X-RAY Radiology Interpretation Completed By: ED Physician Summary of Radiographic Findings: NO ORBITAL DEVICES, PENDING OFFICIAL REPORT. BRAIN MRI Radiology Interpretation Completed By: Radiologist Summary of Radiographic Findings: BRAIN MRI IMPRESSION: 1. No evidence of acute intracranial hemorrhage. No intracranial mass or mass. effect. 2. Areas of fluid signal located in the external capsule on the left side and. in the periventricular white matter next of the right occipital horn. These. most likely represent lacunar infarcts. This is associated with patchy areas of. altered relaxation the subcortical and periventricular areas consistent with a. microvascular leukoencephalopathy. THIS REPORT WAS REVIEWED BY ED PHYSICIAN. CERVICAL SPINE MRI Radiology Interpretation Completed By: Radiologist Summary of Radiographic Findings: CERVICAL MRI IMPRESSION: 1. The subluxation of C2 onto C3 with the apparent fracture caused by the. inferior facet of C2 to the superior facet of C3 is an artifact created by. motion on the CT scan. The MRI study shows no evidence of a fracture or. pathologic subluxation. 2. Multilevel degenerative cervical disc disease and facet disease. No. significant central canal stenosis. Variable degrees of neural foraminal. narrowing secondary to degenerative changes of the uncovertebral joints and. facet joints. 3. The appearance of the cervical cord is normal. 4. No evidence of an epidural hematoma. No paravertebral soft tissue edema. THIS REPORT WAS REVIEWED BY ED PHYSICIAN. - CT brain ct CT Interpretation Completed By: Radiologist Summary of CT Findings: BRAIN CT IMPRESSION: 1. Study is degraded by motion artifact. 2. No evidence of acute intracranial hemorrhage. 3. 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 left external capsule. Another area of infarction is in the periventricular. white matter adjacent to the right occipital horn. THIS REPORT WAS REVIEWED BY ED PHYSICIAN. CERVICAL SPINE CT CT Interpretation Completed By: Radiologist Summary of CT Findings: CERVICAL CT IMPRESSION: 1. New anterolisthesis of C2 onto C3 by 2 to 3 mm.. Impaction fracture of the. inferior facet of C2 into the superior facet of C3 bilaterally. No prevertebral. soft tissue swelling is seen. This area is degraded by motion artifact. Suggest. repeating the CT scan when the patient is able to hold still or consider an MRI. study. 2. Multilevel degenerative cervical disc disease and facet disease. From the. levels of C3-C4 to C7-T1, no significant central canal stenosis. Variable. degrees of neural foraminal narrowing secondary degenerative changes of the. uncovertebral joints and facet joints. THIS REPORT WAS REVIEWED BY ED PHYSICIAN. - EKG 2341 Cardiac Rate: Bradycardia - RATE OF 56 BPM EKG Rhythm: Sinus Bradycardia Summary of EKG Findings: EKG showed sinus bradycardia with rate of 56 BPM,. Normal axis. Normal interval. No ischemic changes Re-Evaluation - Re-Evaluation First Eval Re-Evaluation Time: 02:42 Change: Unchanged Comment: Patient's apartmentmate was called, he states that they walked to [facility] together, when they returned patient started vomiting and dry heaving. This went on for five minutes, patient is noted to be incoherent during this period. He reports patient did not experience injury, found later unresponsive. Second Eval Re-Evaluation Time: 03:41 Change: Unchanged Comment: 0341 - Patient was being evaluated for admission, noted upper lips diffusely swollen, asked Dr. Medina to evaluate, which was done, mild swelling of soft palette normal o2 sat, no drooling, no stridor, still responsive to painful stimulation, grimacing, moving extremities. Went through patient medications, appears to not be taking ciro inhibitor. No rash, no wheezing. Patient was given epinephrine x2 for angioedema. Patient was given hydroxyzine 50 mg IM, decadron 10 mg IV, which was ordered by hospitalist. Third Eval Re-Evaluation Time: 05:22 Change: Unchanged Comment: 0522 patient appears to have partial improvement of upper lip, patient respiratory status remains stable, his o2 sat is 96-97 on 3L. FBB was ordered initially in case he is taking ciro inhibitor, will be given FFB for possible ciro inhibitor angioedema. All of this information was passed to Dr. Bazzi. At this time, Dr. Bazzi is managing the patient. Patient is ready for admission to ICU. No further intervention need in ED at this time, Patient respiratory status remains stable at this time. Altered Mental Statu Course/Dx - Course Course Of Treatment: Patient is a 62 y/o M presenting to ED via ambulance unresponsive. Per EMS, housemate had stated that patient went to [facility], returned, and went into the bathroom. Patient did not come out for some time, housemate went in and found patient unresponsive. 911 was called. Fire department arrived, found patient with snoring respirations. Fire department attempted firm sternal rub which awoke patient. He was able to speak at this time, walked to EMS stretcher without any complications. Patient had vomited, upon arrival, patient is unresponsive. PMHx of alcohol intoxication, drug usage. On physical exam, patient is only responsive to deep painful stimuli by moving his body in the stretcher, flopping his arms. Swelling of left upper lip , patient has a reticular rash over the back. Decreased breath sounds bilaterally. Tongue is not swollen. CXR showed no acute process. EKG showed sinus bradycardia with rate of 56 BPM,. Normal axis. Normal interval. No ischemic changes. BRAIN CT IMPRESSION: 1. Study is degraded by motion artifact. 2. No evidence of acute intracranial hemorrhage. 3. 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 left external capsule. Another area of infarction is in the periventricular. white matter adjacent to the right occipital horn. CERVICAL CT IMPRESSION: 1. New anterolisthesis of C2 onto C3 by 2 to 3 mm.. Impaction fracture of the. inferior facet of C2 into the superior facet of C3 bilaterally. No prevertebral. soft tissue swelling is seen. This area is degraded by motion artifact. Suggest. repeating the CT scan when the patient is able to hold still or consider an MRI. study. 2. Multilevel degenerative cervical disc disease and facet disease. From the. levels of C3-C4 to C7-T1, no significant central canal stenosis. Variable. degrees of neural foraminal narrowing secondary degenerative changes of the. uncovertebral joints and facet joints. Patient's case was discussed with Dr. Bullock at 2341, he states that he will look at patient's scans. 0011 - Dr. Bullock called back, recommends stat MRI. 0019 - Dr. Godinez was contacted, agrees with MRI of brain and cervical spine. 0030 - Patient is unable to do screening for MRI due to unresponsiveness. Patient had lumbar MRI back in May of 2016. Dr. Godinez states that patient should receive x-rays to ensure no orbital devices or pacemaker is present. CXR SHOWED NO ACUTE PROCESS, NO PACEMAKER. ORBITAL X- RAY SHOWED NO ORBITAL DEVICES. BRAIN MRI IMPRESSION: 1. No evidence of acute intracranial hemorrhage. No intracranial mass or mass. effect. 2. Areas of fluid signal located in the external capsule on the left side and. in the periventricular white matter next of the right occipital horn. These. most likely represent lacunar infarcts. This is associated with patchy areas of. altered relaxation the subcortical and periventricular areas consistent with a. microvascular leukoencephalopathy. CERVICAL MRI IMPRESSION: 1. The subluxation of C2 onto C3 with the apparent fracture caused by the. inferior facet of C2 to the superior facet of C3 is an artifact created by. motion on the CT scan. The MRI study shows no evidence of a fracture or. pathologic subluxation. 2. Multilevel degenerative cervical disc disease and facet disease. No. significant central canal stenosis. Variable degrees of neural foraminal. narrowing secondary to degenerative changes of the uncovertebral joints and. facet joints. 3. The appearance of the cervical cord is normal. 4. No evidence of an epidural hematoma. No paravertebral soft tissue edema. Abnormal labs were MCV 95, MCH 32, BUN 27, creatinine 1.5, glucose 133, lactic acid 1, trop 0, ammonia 46, trop 0, TSH 1.64. UA showed trace ketones. Tox screen was negative. Blood gas showed pO2 76, base excess -2.5, pH 7.37, pCO2 39 , HCO3 22.8, o2 sat 96.6. During ED course, patient was given fluids, narcan 2 mg IV, Ativan 2 mg IV. Upon review of medical records, it is noted that patient was seen at [facility] [place] 07[place]23[place]17 with similar presentation, he was admitted and then discharged 08/17/17 with similar lack of explanation for presentation. 0310 - Patient's case was discussed with Dr. Bazzi, Dr. Bazzi to evaluate patient. 0341 - Patient was being evaluated for admission, noted upper lips diffusely swollen, asked Dr. Medina to evaluate, which was done, mild swelling of soft palette normal o2 sat, no drooling, no stridor, still responsive to painful stimulation, grimacing, moving extremities. Went through patient medications, appears to not be taking ciro inhibitor. No rash, no wheezing. Patient was given epinephrine x2 for angioedema. Patient was given hydroxyzine 50 mg IM, decadron 10 mg IV, which was ordered by hospitalist. 0522 patient appears to have partial improvement of upper lip, patient respiratory status remains stable, his o2 sat is 96-97 on 3L. FBB was ordered initially in case he is taking ciro inhibitor, will be given FFB for possible ciro inhibitor angioedema. All of this information was passed to Dr. Bazzi. At this time, Dr. Bazzi is managing the patient. Patient is ready for admission to ICU. No further intervention need in ED at this time, Patient respiratory status remains stable at this time. - Diagnoses Provider Diagnoses: Altered mental status, Angioedema - Provider Notifications Discussed Care Of Patient With: Nilesh Bullock Time Discussed With Above Provider: 23:41 Instructed by Provider To: Other - [id number] - Dr. Resendiz contacted Dr. Medina with results of CT cervical spine. Patient's case was discussed with Dr. Bullock at 2341, he states that he will look at patient's scans. 0011 - Dr. Bullock called back, recommends stat MRI. 0019 - Dr. Godinez was contacted, agrees with MRI of brain and cervical spine. 0030 - Patient is unable to do screening for MRI due to unresponsiveness. Patient had lumbar MRI back in May of 2016. Dr. Godinez states that patient should receive x-rays to ensure no orbital devices or pacemaker is present. 0310 - Patient's case was discussed with Dr. Bazzi, Dr. Bazzi to evaluate patient. - Critical Care Time Critical Care Time: 75-104 min - 90 minutes Discharge - Sign-Out/Discharge Documenting (check all that apply): Patient Departure - Discharge Plan Condition: Good Disposition: ADMITTED TO [facility] - Billing Disposition and Condition Condition: GOOD Disposition: Admitted to [facility] - Attestation Statements Document Initiated by Rosio: Yes Documenting Scribe: NASRA VALE Provider For Whom Rosio is Documenting (Include Credential): SANDY MEDINA MD Scribe Attestation: INASRA , scribed for SANDY MEDINA MD on 02/19/18 at 0619. Scribe Documentation Reviewed: Yes Provider Attestation: The documentation as recorded by the NASRA jerez accurately reflects the service I personally performed and the decisions made by , SANDY MEDINA MD Status of Scribe Document: Viewed
[2018-02-18] MEDS ORDERED: LORazepam INJ* 2 MG/ML 1 ML VIAL ONE (00:46)
[2018-02-18] MEDS ORDERED: LORazepam INJ* 2 MG/ML 1 ML VIAL IV PUSH ONE (00:48)
[2018-02-18] MEDS ORDERED: Midazolam* 1 MG/ML 5 ML VIAL (5 MG) SLOW PUSH ONE (01:03)
[2018-02-18] MEDS ORDERED: Midazolam* 1 MG/ML 5 ML VIAL (5 MG) ONE (01:06)
[2018-02-18 01:26] LABS: Urine Appearance Clear; Urine Bilirubin Negative (Negative); Urine Blood Negative (Negative); Urine Color Yellow; Urine Glucose Negative (Negative); Urine Ketones Trace (Negative); Urine Nitrite Negative (Negative); Urine Protein Negative (Negative); Urine Specific Gravity 1.013 (1.010-1.030); Urine Urobilinogen Negative (Negative)
[2018-02-18 01:38] LABS: Barbiturates Urine Screen None Detected (None Detect); Benzodiazepine Urine Screen None Detected (None Detect); Urine Cannabinoids Screen None Detected (None Detect)
[2018-02-18] MEDS ORDERED: Dexamethasone IV* 4 MG/ML 5 ML VIAL (20 MG) ONE (03:41)
[2018-02-18] MEDS ORDERED: EPINEPHRINE 1 MG/ML 1 ML VIAL ONE (03:46)
[2018-02-18] MEDS ORDERED: diPHENhydraMINE IV* 50 MG/ML 1 ml VIAL (BENADRYL) IV ONE (03:47)
[2018-02-18] MEDS ORDERED: Famotidine IV* 10 MG/ML 2 ML (20 mg) IV SLOW PU ONE (03:47)
[2018-02-18] MEDS: EPINEPHRINE 1 MG/ML 1 ML VIAL IM ONE ×2 (03:49→04:40)
[2018-02-18] MEDS ORDERED: hydrOXYzine IM* 50 MG/ML VIAL ONE (03:59)
[2018-02-18] MEDS ORDERED: hydrOXYzine IM* 50 MG/ML VIAL IM ONE (04:01)
[2018-02-18] MEDS ORDERED: Dexamethasone IV* 4 MG/ML 5 ML VIAL (20 MG) IVPB ONE (04:07)
[2018-02-18] MEDS ORDERED: EPINEPHRINE 1 MG/ML 1 ML VIAL IM ONE (04:40)
[2018-02-18] MEDS ORDERED: predniSONE TAB* 20 MG PO SCH (09:00)
[2018-02-18] MEDS ORDERED: Methocarbamol TAB* 500 MG PO PRN (09:06)
[2018-02-18] MEDS ORDERED: traMADol TAB* 50 MG PO PRN (09:08)
[2018-02-18] MEDS ORDERED: Acetaminophen TAB* 325 MG PO PRN (09:08)
--- NOTE | 2018-02-18 09:40 | HP ---
H&P (Free Text) History and Physical: [facility] History and Physical CC: AMS HPI: 62M with h/o chronic pain, polysubstance abuse, copd, afib, htn, hld, gerd initially presented with AMS. The patient went to [facility] and then came home and went into the bathroom. His roommate went into the bathroom because he had been in there for a long time and found the patient unresponsive. EMS was called and the patient was brought to the ER. In the ER the patient remained altered. It was noticed that he had swelling of his upper lip. He was given pepcid, benadryl, solumedrol and epi twice. He was seen by ENT and felt that his airway was not compromised. ROS - unable 2/2 AMS PMHx - htn, hld, afib, copd, gerd, chronic pain, polysubstance abuse PSHx - denies All - nkda SocHx - polysubtsance abuse FamHx - denies PE VS Vital Signs: Temp Pulse Resp BP Pulse Ox 98.4 F 92 35 134/71 93 02/18/18 09:00 02/18/18 09:00 02/18/18 09:19 02/18/18 09:00 02/18/18 09:00 Gen - snoring heent - +swollen upper lip, no tongue swelling neck - no jvd cv - s1/s2, no murmur lungs - cta abd - soft, nt ext - no cce neuro - moving all extremities. arousable to physical stimuli Labs Laboratory Results - last 24 hr 02/17/18 02/17/18 02/17/18 22:50 22:50 22:50 WBC 9.0 RBC 4.64 Hgb 14.9 Hct 44 MCV 95 H MCH 32 H MCHC 34 RDW 14 Plt Count 263 MPV 8.3 Neut % (Auto) 82.0 Lymph % (Auto) 12.2 Ada % (Auto) 4.7 Eos % (Auto) 0.6 Baso % (Auto) 0.5 Absolute Neuts (auto) 7.3 Absolute Lymphs (auto) 1.1 Absolute Monos (auto) 0.4 Absolute Eos (auto) 0.1 Absolute Basos (auto) 0 Absolute Nucleated RBC 0 Nucleated RBC % 0.1 Patient Temperature ABG pH ABG pH (Temp Correct) ABG pCO2 ABG pCO2 (Temp Corrct ABG pO2 ABG pO2 (Temp Correct ABG HCO3 ABG O2 Saturation ABG Base Excess Respiration Rate O2 Delivery Device Ventilator Type Vent Mode FiO2 Inspiratory Time PEEP Pressure Support Pressure Control EPAP IPAP BiPAP Sodium 136 Potassium 3.8 Chloride 105 Carbon Dioxide 22 Anion Gap 9 BUN 27 H Creatinine 1.50 H Est GFR ( Amer) 57.4 Est GFR (Non-Af Amer) 47.4 BUN/Creatinine Ratio 18.0 Glucose 133 H Lactic Acid 1.0 Calcium 9.7 Total Bilirubin 0.40 AST 15 ALT 15 Alkaline Phosphatase 88 Ammonia Total Creatine Kinase 66 Troponin I 0.00 Total Protein 7.5 Albumin 4.3 Globulin 3.2 Albumin/Globulin Ratio 1.3 TSH 1.64 Urine Color Urine Appearance Urine pH Ur Specific Strum Urine Protein Urine Ketones Urine Blood Urine Nitrate Urine Bilirubin Urine Urobilinogen Ur Leukocyte Esterase Urine Glucose Salicylates < 2.50 Urine Opiates Screen Acetaminophen < 15 Ur Barbiturates Screen Ur Phencyclidine Scrn Ur Amphetamines Screen U Benzodiazepines Scrn Urine Cocaine Screen U Cannabinoids Screen Serum Alcohol < 10 Blood Type Antibody Screen 02/18/18 02/18/18 02/18/18 00:28 01:12 01:12 WBC RBC Hgb Hct MCV MCH MCHC RDW Plt Count MPV Neut % (Auto) Lymph % (Auto) Ada % (Auto) Eos % (Auto) Baso % (Auto) Absolute Neuts (auto) Absolute Lymphs (auto) Absolute Monos (auto) Absolute Eos (auto) Absolute Basos (auto) Absolute Nucleated RBC Nucleated RBC % Patient Temperature Not Reportable ABG pH 7.37 ABG pH (Temp Correct) Not Reportable ABG pCO2 39 ABG pCO2 (Temp Corrct Not Reportable ABG pO2 76 L ABG pO2 (Temp Correct Not Reportable ABG HCO3 22.8 ABG O2 Saturation 96.6 ABG Base Excess -2.5 L Respiration Rate Not Reportable O2 Delivery Device 2.5lpm nc Ventilator Type Not Reportable Vent Mode Not Reportable FiO2 Not Reportable Inspiratory Time Not Reportable PEEP Not Reportable Pressure Support Not Reportable Pressure Control Not Reportable EPAP Not Reportable IPAP Not Reportable BiPAP Not Reportable Sodium Potassium Chloride Carbon Dioxide Anion Gap BUN Creatinine Est GFR ( Amer) Est GFR (Non-Af Amer) BUN/Creatinine Ratio Glucose Lactic Acid Calcium Total Bilirubin AST ALT Alkaline Phosphatase Ammonia Total Creatine Kinase Troponin I Total Protein Albumin Globulin Albumin/Globulin Ratio TSH Urine Color Yellow Urine Appearance Clear Urine pH 5.0 Ur Specific Strum 1.013 Urine Protein Negative Urine Ketones Trace A Urine Blood Negative Urine Nitrate Negative Urine Bilirubin Negative Urine Urobilinogen Negative Ur Leukocyte Esterase Negative Urine Glucose Negative Salicylates Urine Opiates Screen None detected Acetaminophen Ur Barbiturates Screen None detected Ur Phencyclidine Scrn None detected Ur Amphetamines Screen None detected U Benzodiazepines Scrn None detected Urine Cocaine Screen None detected U Cannabinoids Screen None detected Serum Alcohol Blood Type Antibody Screen 02/18/18 02/18/18 03:37 04:01 WBC RBC Hgb Hct MCV MCH MCHC RDW Plt Count MPV Neut % (Auto) Lymph % (Auto) Ada % (Auto) Eos % (Auto) Baso % (Auto) Absolute Neuts (auto) Absolute Lymphs (auto) Absolute Monos (auto) Absolute Eos (auto) Absolute Basos (auto) Absolute Nucleated RBC Nucleated RBC % Patient Temperature ABG pH ABG pH (Temp Correct) ABG pCO2 ABG pCO2 (Temp Corrct ABG pO2 ABG pO2 (Temp Correct ABG HCO3 ABG O2 Saturation ABG Base Excess Respiration Rate O2 Delivery Device Ventilator Type Vent Mode FiO2 Inspiratory Time PEEP Pressure Support Pressure Control EPAP IPAP BiPAP Sodium Potassium Chloride Carbon Dioxide Anion Gap BUN Creatinine Est GFR ( Amer) Est GFR (Non-Af Amer) BUN/Creatinine Ratio Glucose Lactic Acid Calcium Total Bilirubin AST ALT Alkaline Phosphatase Ammonia 46 Total Creatine Kinase Troponin I Total Protein Albumin Globulin Albumin/Globulin Ratio TSH Urine Color Urine Appearance Urine pH Ur Specific Strum Urine Protein Urine Ketones Urine Blood Urine Nitrate Urine Bilirubin Urine Urobilinogen Ur Leukocyte Esterase Urine Glucose Salicylates Urine Opiates Screen Acetaminophen Ur Barbiturates Screen Ur Phencyclidine Scrn Ur Amphetamines Screen U Benzodiazepines Scrn Urine Cocaine Screen U Cannabinoids Screen Serum Alcohol Blood Type A Positive Antibody Screen Negative Imaging MRI Cervical Spine 02/18 IMPRESSION: 1. The subluxation of C2 onto C3 with the apparent fracture caused by the inferior facet of C2 to the superior facet of C3 is an artifact created by motion on the CT scan. The MRI study shows no evidence of a fracture or pathologic subluxation. 2. Multilevel degenerative cervical disc disease and facet disease. No significant central canal stenosis. Variable degrees of neural foraminal narrowing secondary to degenerative changes of the uncovertebral joints and facet joints. 3. The appearance of the cervical cord is normal. 4. No evidence of an epidural hematoma. No paravertebral soft tissue edema. MRI Brain 02/18 IMPRESSION: 1. No evidence of acute intracranial hemorrhage. No intracranial mass or mass effect. 2. Areas of fluid signal located in the external capsule on the left side and in the periventricular white matter next of the right occipital horn. These most likely represent lacunar infarcts. This is associated with patchy areas of altered relaxation the subcortical and periventricular areas consistent with a microvascular leukoencephalopathy. Xray Orbit 02/18 IMPRESSION: No radiopaque foreign body attributable to the orbits. CXR 02/17 IMPRESSION: In the correct clinical setting chest x-ray findings could be compatible with pulmonary vascular congestion. CT Neck 02/17 IMPRESSION: 1. New anterolisthesis of C2 onto C3 by 2 to 3 mm.. Impaction fracture of the inferior facet of C2 into the superior facet of C3 bilaterally. No prevertebral soft tissue swelling is seen. This area is degraded by motion artifact. Suggest repeating the CT scan when the patient is able to hold still or consider an MRI study 2. Multilevel degenerative cervical disc disease and facet disease. From the levels of C3-C4 to C7-T1, no significant central canal stenosis. Variable degrees of neural foraminal narrowing secondary degenerative changes of the uncovertebral joints and facet joints. Brain CT 02/17 IMPRESSION: 1. Study is degraded by motion artifact. 2. No evidence of acute intracranial hemorrhage. 3. 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 Another area of infarction is in the periventricular white matter adjacent to the right occipital horn. Impression 62M with htn, hld, afib, copd, gerd, chronic pain, polysubstance abuse presents with AMS. Also with Lip swelling. Neuro - AMS - 2/2 substance abuse - patient now becoming more arousable - restart home chronic pain meds - monitor for withdrawal CV - htn, hld, afib - restart beta eliud and ccb - currently in sinus Pulm - copd - no wheezing on exam - spriva - albuterol prn id - no evidence of infection gi - gerd - pepcid renal - monitor bmp heme - monitor cbc Allergy - angioedema? - does have swollen lip but airway is not compromised - 5 days of prednisone/benadryl/pepcid - swallow eval endo - no issue lines - piv ppx - gi/dvt full code Critical Care Time: 55 mins
[2018-02-18] MEDS ORDERED: diPHENhydraMINE PO* 25 MG PO PRN (09:48)
[2018-02-18] MEDS ORDERED: Gabapentin CAP(*) 300 MG PO SCH (10:00)
[2018-02-18] MEDS ORDERED: Diltiazem CD CAP* 120 MG PO SCH (10:00)
[2018-02-18] MEDS ORDERED: Metoprolol Tartrate TAB* 50 mg PO SCH (10:00)
[2018-02-18] MEDS ORDERED: Spiriva Inhaler DEVICE* 1 EACH DEVICE SCH (10:00)
--- NOTE | 2018-02-18 10:29 | CONS ---
CC: Dr. Dixon * CONSULTATION REPORT: DATE OF CONSULT: 02/18/18 REQUESTING PHYSICIAN IN CONSULT: Dr. Medina. MY ATTENDING PHYSICIAN WHILE IN THE HOSPITAL: Dr. Yessica Bazzi. REASON FOR MEDICAL CONSULTATION: Evaluation for admission. HISTORY OF PRESENT ILLNESS: I would like to preface the report by saying that the patient has a significant amount of altered mental status. He is really unable to give much history at all. Most of his reports is obtained from discussion with the nursing staff and also review of the ambulance records. The patient apparently today went shopping with a friend, he lives at the [place], he had an episode where he became nauseated, he was dry heaving, he went into the bathroom, he was in there for a prolonged period of time. The friend was concerned and summoned 911. It was noted when the fire department was initially there, he was unresponsive. When EMS got there, apparently according to the patient's friend, he walked [facility]. He by the time getting into the hospital, he was altered again. He was not really responding to pain. It is unclear what he had taken if anything, he has had several episodes like this in the past with altered mental status. It is unclear if he fell. It is unclear if he had any trauma. There has been no reports of new medications and again, there were no reports of an overdose. Because of the altered mental status, we were initially asked to evaluate for admission. PAST MEDICAL HISTORY: Significant for: 1. Polysubstance abuse. 2. Delirium. 3. Gabapentin overdose in the past. 4. AFib. 5. EtOH abuse. 6. COPD. 7. History of DVT. 8. Nephrolithiasis. 9. Hypertension. 10. Hyperlipidemia. 11. History of erosive esophagitis. 12. History of chest pain. PAST SURGICAL HISTORY: Unable to be obtained. MEDICATIONS: Home meds according to the list that is in the computer, I questioned the validity, include: 1. Lopressor 75 mg p.o. b.i.d. 2. Gabapentin 600 mg p.o. t.i.d. 3. Folic acid 1 mg p.o. daily. 4. Requip 0.5 mg p.o. at bedtime. 5. Multivitamin 1 tablet daily. 6. Aspirin 81 mg daily. 7. Tylenol 650 mg every 6 hours as needed. 8. Tramadol 50 mg every 6 hours as needed. 9. Diltiazem 120 mg p.o. daily. 10. Robaxin 750 mg p.o. t.i.d. as needed. 11. Incruse Ellipta 1 inhale every 4 hours as needed. 12. Thiamine 100 mg p.o. daily. 13. Colace 100 mg p.o. b.i.d. 14. Prilosec 40 mg daily. 15. Ibuprofen 800 mg every 6 hours as needed. ALLERGIES TO MEDICATIONS: No known drug allergies. FAMILY HISTORY: According to old records, both his parents in the car accident. SOCIAL HISTORY: He is a pack and half a day smoker. He has alluded in the past that he does drink daily and he has alluded in the past that he did smoke marijuana and has used cocaine. Surrogate decision maker in the past has been a sister, but is unable to appoint one at this point. REVIEW OF SYSTEMS: Unable to be obtained from the patient at this time. PHYSICAL EXAM: Vital Signs: Blood pressure 105/71, pulse 84, respirations 18, O2 saturation 95%, temperature 97.3. General: At this time, Mr. Conway is a 62- year-old male patient. He is sitting in the ED stretcher. He does not appear to be in any acute distress. He appears to be older than stated age. HEENT: Head: Atraumatic, normocephalic. Eyes: EOMs are intact. Sclerae anicteric and not pale. Neck was supple. Throat: Oral mucosa appears to be dry. It is difficult to get a look at his pharynx given the fact that he has a significant amount of altered mental status. It is noted on my initial exam that his upper lip is significantly swollen. He had no stridor. Heart: Sounds S1, S2. He had a regular rate and rhythm. No murmurs, rubs, or gallops. Lungs: Clear to auscultation. No wheezes, rales, or rhonchi. No stridor. Abdomen was soft, flat, nontender. Bowel sounds were present. Extremities: Pulses were 2+ throughout. He is moving all 4 extremities with 5/ 5 strength. Neurologically, he responds to noxious stimuli only. He will withdraw to pain. He will open his eyes to pain. He will not respond to verbal stimuli. He had no gross focal deficits. His skin was intact. DIAGNOSTIC STUDIES/LAB DATA: WBC of 9.0, RBC of 4.64, hemoglobin 14.9, hematocrit of 44, platelet count of 263. PH was 7.37, pCO2 of 39, pO2 of 76. Sodium of 136, potassium of 3.8, chloride of 105, bicarb 22. BUN 27, creatinine of 1.50, glucose 133, lactic 1, calcium 9.7. Total bili 0.4, AST 15 , ALT 15, alk phos 88. Ammonia 46. CK 56, troponin 0. TSH normal, albumin 4.3. Trace ketones in the blood. Toxicology screen negative. He had multiple imaging here in the ED, starting out with brain CT. Study is denigrated by motion artifact. No evidence of acute intracranial hemorrhage. Areas of old infarct in the area next to left frontal horn and in the left external capsule. Another area of infarct is in the periventricular white matter adjacent to the right horn. Cervical spine CT, new anterolisthesis of C2 on the C3 by 2 to 4 mm impaction fracture of the inferior facet of C2 into the superior facet of C3 bilaterally. No paravertebral soft tissue swelling was seen and the areas denigrated by motion artifact suggest repeating the CT scan when the patient is able to hold still or consider an MRI. Multilevel degenerative cervical disc disease and facet disease from the level of the C3-4, C7-T1. No significant central canal stenosis. Variable degrees of neural foraminal narrowing secondary to degenerative changes of the uncovertebral joints and facet joints. He had an EKG obtained today showed sinus bradycardia, no ST elevations or T- wave inversions. It was reviewed with the previous EKG, it is similar. Brain MRI showed no evidence of acute intracranial hemorrhage, no intracranial mass or mass effect. Areas of fluid signal located to the external capsule on the left side and in the periventricular white matter and next to the right occipital horn most likely represent lacunar infarcts. This is associated with patchy areas of altered relaxation in subcortical and periventricular consistent with microvascular leukoencephalopathy. He had a cervical spine MRI, which showed the subluxation of C2 on C3 with the apparent fracture caused by the inferior facet of C2 into the superior facet of C3. It is an artifact created by motion on the CT. MRI shows no evidence of fracture or pathologic subluxation. Multilevel degenerative cervical disc disease and facet disease. No significant central canal stenosis. Variable degree of neural foraminal narrowing secondary to degenerative changes of the uncovertebral joints and facet joints. The appearance of the cervical cord is normal. There is no evidence of epidural hematoma. No paravertebral soft tissue edema. Old medical records were reviewed. ASSESSMENT AND PLAN: Mr. Conway is a 62-year-old male patient coming into the emergency department today with complaints of altered mental status, again of which etiology is unclear. He has done this several times in the past. We were asked to evaluate for admission. My recommendations at this point are: 1. Again, possible angioedema and I did touch base with my attending when I noticed this on my initial exam at 4 in the morning and I also brought to the attention of Dr. Medina. At that point, treatment was initiated by the ER and the ER attending had stated to us that to allow him an hour to see if his swelling is improved with dexamethasone. He received 2 rounds of epinephrine. He also got fresh frozen plasma. He received an H2 eliud down in the ED and also Atarax IM and again, it was brought to the attention of again my attending and also brought to the attention of Dr. Medina. After an hour of this, it was noted that the swelling did not subside. There was concern for possible airway. Dr. Medina felt that this was not a concern, but my attending felt it was, she had touched base with the on-call asset protection detective who felt that the patient should be evaluated by ENT, which is being obtained currently. The patient has noted that the swelling has spread to his lower lip. It is difficult to obtain an accurate exam on the patient because of his underlying mental status. Again, he did receive initial treatment, but despite this, the swelling did not improve. He does not have any stridor. The plan at this point would be to await ENT evaluation for possible intubation. He is hemodynamically stable currently with no stridor. It was again felt by our speciality services that he should be evaluated by ENT in case the patient needed aggressive procedures like a tracheostomy. Again, I did update my attending the patient is being seen in the ER, I did update Dr. Mdeina what the plan of care. In terms of his altered mental status, I will continue with supportive care. Again, this could be from polysubstance abuse. I will state that as the night has gone on, he has become more responsive with less tactile stimuli. He is more verbal now for the time being and again, I will continue supportive care, consider EEG and I would also consider possible neurological input, but I would avoid narcotics. 2. Chronic obstructive pulmonary disease. Again, I would recommend p.r.n. albuterol. Continue with aggressive pulmonary toileting. Continue with nebulizers. 3. History of polysubstance abuse. I offered counseling. 4. DVT prophylaxis. He is at high risk. I would recommend starting heparin after we know that intubation is not going to be pursued. 5. Code status. Full code. 6. Fluids, electrolytes, and nutrition. He is n.p.o. pending ENT evaluation. TIME SPENT: Time spent on the consult was 70 minutes, greater than half that time was spent [id number] with the patient obtaining my history and physical, other half time was spent going over plan of care with the patient, implementing the plan of care. I did discuss the plan of care with my attending, Dr. Bazzi; she is in agreement. PATRICIA DONOHUE NP [id number]/CPS #: [id number] STEPH
[2018-02-18 14:13] VITALS: BP 113/78
--- NOTE | 2018-02-18 15:00 | DS ---
Discharge Summary Date of Admission: 02/18/18 Date of Discharge: 02/18/18 Admitting Diagnosis: Angioedema Discharge Diagnosis: Altered mental state (Acute) R41.82 Angioedema (Acute) T78.3XXA Encephalopathy (Acute) G93.40 Hypertension (Acute) I10 COPD (chronic obstructive pulmonary disease) (Chronic) J44.9 Chronic pain (Chronic) G89.29 HLD (hyperlipidemia) (Chronic) E78.5 Tobacco abuse (Chronic) Z72.0 Procedures: MRI Cervical Spine 02/18 IMPRESSION: 1. The subluxation of C2 onto C3 with the apparent fracture caused by the inferior facet of C2 to the superior facet of C3 is an artifact created by motion on the CT scan. The MRI study shows no evidence of a fracture or pathologic subluxation. 2. Multilevel degenerative cervical disc disease and facet disease. No significant central canal stenosis. Variable degrees of neural foraminal narrowing secondary to degenerative changes of the uncovertebral joints and facet joints. 3. The appearance of the cervical cord is normal. 4. No evidence of an epidural hematoma. No paravertebral soft tissue edema. MRI Brain 02/18 IMPRESSION: 1. No evidence of acute intracranial hemorrhage. No intracranial mass or mass effect. 2. Areas of fluid signal located in the external capsule on the left side and in the periventricular white matter next of the right occipital horn. These most likely represent lacunar infarcts. This is associated with patchy areas of altered relaxation the subcortical and periventricular areas consistent with a microvascular leukoencephalopathy. Xray Orbit 02/18 IMPRESSION: No radiopaque foreign body attributable to the orbits. CXR 02/17 IMPRESSION: In the correct clinical setting chest x-ray findings could be compatible with pulmonary vascular congestion. CT Neck 02/17 IMPRESSION: 1. New anterolisthesis of C2 onto C3 by 2 to 3 mm.. Impaction fracture of the inferior facet of C2 into the superior facet of C3 bilaterally. No prevertebral soft tissue swelling is seen. This area is degraded by motion artifact. Suggest repeating the CT scan when the patient is able to hold still or consider an MRI study 2. Multilevel degenerative cervical disc disease and facet disease. From the levels of C3-C4 to C7-T1, no significant central canal stenosis. Variable degrees of neural foraminal narrowing secondary degenerative changes of the uncovertebral joints and facet joints. Brain CT 02/17 IMPRESSION: 1. Study is degraded by motion artifact. 2. No evidence of acute intracranial hemorrhage. 3. 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 Another area of infarction is in the periventricular white matter adjacent to the right occipital horn Consultations: ENT ([facility]) History of Present Illness: 62M with h/o chronic pain, polysubstance abuse, copd, afib, htn, hld, gerd initially presented with AMS. The patient went to [facility] and then came home and went into the bathroom. His roommate went into the bathroom because he had been in there for a long time and found the patient unresponsive. EMS was called and the patient was brought to the ER. In the ER the patient remained altered. It was noticed that he had swelling of his upper lip. He was given pepcid, benadryl, solumedrol and epi twice. He was seen by ENT and felt that his airway was not compromised. Hospital Course: The patient was admitted to the ICU for observation. He became more awake and stated that he probably took some bad stuff yesterday and he doesn't remember any details. The patient lip swelling started to improve. He became increasingly agitated and requested to be discharged. I spoke with him at length about the risks of leaving that could include worsening of his swelling, aspiration, pneumonia and possibly . The patient stated that he understood the risks and that he still wanted to leave against medical adive. I called in prescriptions for benadryl, pepcid, and prednisone to his pharmacy. I intructed him to call 911 or come back to the emergency room if any of his symptoms became worse. I also recommended that the patient see his primary care doctor within the next 2 days. He agreed to these conditions and was discharged home. Condition: Stable. Eat slowly and chew food carefully. Disposition: Against medical advice to home. Discharge Medications: Acetaminophen (Tylenol Tab*) 650 mg PO Q6H PRN Aspirin (Aspirin Ec Tab*) 81 mg PO DAILY [facility] Diltiazem HCl (Cardizem Cd Cap*) 120 mg PO DAILY [facility] Last Admin: 02/18/18 09:27 Dose: 120 mg Diphenhydramine HCl (Benadryl Po*) 25 mg PO Q6H PRN PRN Reason: ITCHING Famotidine (Pepcid Tab*) 20 mg PO BID [facility] Folic Acid (Folvite Tab*) 1 mg PO DAILY [facility] Gabapentin (Neurontin Cap(*)) 600 mg PO TID [facility] Last Admin: 02/18/18 09:27 Dose: 600 mg Influenza Virus Vaccine (Fluarix *Quad* 2018-*) 0.5 ml IM .ONCE ONE Stop: 02/19/18 09:01 Methocarbamol (Robaxin Tab*) 750 mg PO TID PRN PRN Reason: PAIN Metoprolol Tartrate (Lopressor Tab*) 75 mg PO Q12HR [facility] Last Admin: 02/18/18 09:27 Dose: 75 mg Multivitamins/Minerals (Theragran/Minerals Tab*) 1 tab PO DAILY [facility] Prednisone (Deltasone Tab*) 40 mg PO DAILY [facility] Stop: 02/23/18 08:59 Last Admin: 02/18/18 10:26 Dose: 40 mg Ropinirole HCl (Requip Tab*) 0.5 mg PO BEDTIME [facility] Thiamine HCl (Vitamin B-1 Tab*) 100 mg PO DAILY [facility] Tiotropium Shaniko (Spiriva Cap.Inh*) 1 cap INH DAILY [facility] Tramadol HCl (Ultram*) 50 mg PO Q6H PRN PRN Reason: PAIN Last Admin: 02/18/18 09:26 Dose: 50 mg Discharge Instructions: Activity: As tolerated Diet: Low fat, Low sodium. Eat slowly and chew food carefully. Recommendations: Please abstain from drugs, alcohol, and tobacco. Please call 911 or return to the ER if your lip swelling becomes worse. Follow-up: Please follow up with your PMD within 2 days.
[2018-02-18] MEDS ORDERED: Famotidine TAB* 20 MG PO SCH (21:00)
[2018-02-18] MEDS ORDERED: Ropinirole TAB* 0.5 MG TAB PO SCH (21:00)
[2018-02-19] MEDS ORDERED: Multivitamins/Minerals TAB PO SCH (09:00)
[2018-02-19] MEDS ORDERED: Tiotropium CAP.INH* CAP.INH/18 MCG (USE ORDER SET !) INH SCH (09:00)
[2018-02-19] MEDS ORDERED: Thiamine TAB* 100 MG TAB PO SCH (09:00)
[2018-02-19] MEDS ORDERED: Folic Acid TAB* 1 MG PO SCH (09:00)
[2018-02-19] MEDS ORDERED: Aspirin EC TAB* 81 MG TAB.EC PO SCH (09:00)
== END 2018-02-18 15:15 | disposition left against medical advice (07) | DRG 811 ==
LOC: ED 21:38 → ICU 02-18 07:24
PROVIDERS: ADMIT Internal Medicine; ATTEND Internal Medicine
PROC: 3E033XZ Introduction of Vasopressor into Peripheral Vein, Percutaneous Approach (ICD-10-PCS; principal; 2018-02-18)
PROC: 30233L1 Transfusion of Nonautologous Fresh Plasma into Peripheral Vein, Percutaneous Approach (ICD-10-PCS; 2018-02-18)
PROC: 30233K1 Transfusion of Nonautologous Frozen Plasma into Peripheral Vein, Percutaneous Approach (ICD-10-PCS; 2018-02-18)
DX: T78.3XXA Angioneurotic edema, initial encounter (principal); G93.49 Other encephalopathy; I48.91 Unspecified atrial fibrillation; I10 Essential (primary) hypertension; J44.9 Chronic obstructive pulmonary disease, unspecified; K21.9 Gastro-esophageal reflux disease without esophagitis; M19.90 Unspecified osteoarthritis, unspecified site; M41.9 Scoliosis, unspecified; G89.29 Other chronic pain; M54.9 Dorsalgia, unspecified; H91.90 Unspecified hearing loss, unspecified ear; F17.210 Nicotine dependence, cigarettes, uncomplicated; R00.1 Bradycardia, unspecified; M50.31 Other cervical disc degeneration, high cervical region; E78.5 Hyperlipidemia, unspecified; Z86.718 Personal history of other venous thrombosis and embolism; Z86.72 Personal history of thrombophlebitis; Z87.01 Personal history of pneumonia (recurrent); Z87.442 Personal history of urinary calculi; Z79.82 Long term (current) use of aspirin; Z72.89 Other problems related to lifestyle; Z79.52 Long term (current) use of systemic steroids
CPT/HCPCS: 36415; 70030; 70450; 70551; 71045; 72125; 72141; 80053; 80307; 80320; 80329; 81003; 82140; 82550; 82803; 83605; 84443; 84484; 85025; 86850; 86900; 86901; 86927; 87641; 93005; 99285; A9270-GY; G0480; J1100; J2060; J2250; J2310; J3410; J7512; P9017

== ENCOUNTER 2018-04-22 09:42 | Emergency (ER) | payer OTHER ==
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
[2018-04-22] MEDS ORDERED: LORazepam TAB(*) 1 MG PO ONE (10:49)
[2018-04-22] MEDS ORDERED: LORazepam TAB(*) 1 MG ONE (10:52)
[2018-04-22] MEDS ORDERED: Mouth Piece, Nicotine* 1 EACH CARTRIDGE ONE (11:06)
[2018-04-22] MEDS ORDERED: Nicotine Inhaler* 10 MG AMP ONE ×2 (11:07→11:08)
[2018-04-22] MEDS ORDERED: Nicotine Inhaler* 10 MG AMP INH ONE (11:10)
[2018-04-22] MEDS ORDERED: oxyCODONE/Acetamin 5/325 MG* TAB PO ONE (13:02)
[2018-04-22 13:11] VITALS: BP 160/91
== END 2018-04-22 13:10 | disposition home or self-care (01) ==
LOC: ED 09:42
DX: M54.5 Low back pain (principal); R55 Syncope and collapse; R07.89 Other chest pain; K21.9 Gastro-esophageal reflux disease without esophagitis; Z88.8 Allergy status to other drugs, medicaments and biological substances; F17.210 Nicotine dependence, cigarettes, uncomplicated
CPT/HCPCS: 99282; A9270-GY

== ENCOUNTER 2018-07-11 14:52 | Emergency (ER) | payer OTHER ==
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
[2018-07-11] MEDS ORDERED: Ketorolac INJ* 30 MG/ML 1 ML VIAL IM ONE (15:33)
[2018-07-11 15:58] VITALS: BP 115/68
== END 2018-07-11 15:57 | disposition home or self-care (01) ==
LOC: ED 14:52
DX: G89.29 Other chronic pain (principal); I10 Essential (primary) hypertension; I48.91 Unspecified atrial fibrillation; E78.00 Pure hypercholesterolemia, unspecified; J44.9 Chronic obstructive pulmonary disease, unspecified; K21.9 Gastro-esophageal reflux disease without esophagitis; F32.9 Major depressive disorder, single episode, unspecified; F17.210 Nicotine dependence, cigarettes, uncomplicated; Z88.3 Allergy status to other anti-infective agents; Z86.718 Personal history of other venous thrombosis and embolism
CPT/HCPCS: 96374; 99282; J1885

== ENCOUNTER 2019-05-13 04:44 | Emergency (ER) | payer OTHER ==
--- NOTE | 2019-05-13 04:58 | ED ---
Back Pain - HPI Summary HPI Summary: 63 year old M presenting to [facility] via EMS with a chief complaint of chronic throbbing back pain worse since today. The patient rates the pain 10/10 in severity. Symptoms aggravated by palpation. Symptoms alleviated by nothing. Patient reports that he ran out of his Tramadol 2.5 days ago and has been unable to have it refilled although it is supposed to be filled today. He normally takes Tramadol, ibuprofen, and gabapentin for his pain. Patient denies hematuria. He states that he stopped drinking liquor 10 days ago. Medication list reviewed. Allergy list reviewed. - History of Current Complaint Chief Complaint: EDBackInjuryPain Stated Complaint: BACK PAIN PER EMS Time Seen by Provider: 05/13/19 04:51 Hx Obtained From: Patient, EMS Onset/Duration: Lasting Days Onset/Duration: Started Days Ago Timing: Constant Back Pain Location: Is Diffuse Severity Initially: Severe Severity Currently: Severe Pain Intensity: 10 Pain Scale Used: 0-10 Numeric Character: Throbbing Aggravating Symptom(s): Other - Palpation Alleviating Symptom(s): Nothing Associated Signs And Symptoms: Positive: Negative - Hematuria - Allergies/Home Medications Allergies/Adverse Reactions: Allergies Allergy/AdvReac Type Severity Reaction Status Date / Time No Known Allergies Allergy Verified 05/13/19 04:48 Home Medications: Home Medications Docusate CAP* [Colace Cap*] 100 mg PO BID 09/04/12 [History Confirmed 05/13/19] Acetaminophen TAB* [Tylenol TAB*] 650 mg PO Q6H tab 08/17/17 [Rx Confirmed 05/29] Aspirin EC TAB* [Ecotrin EC Low Dose 81 MG*] 81 mg PO DAILY tab.ec 08/17/17 [ Rx Confirmed 05/13/19] Gabapentin CAP(*) [Neurontin 300 CAP(*)] 600 mg PO TID cap 08/17/17 [Rx Confirmed 05/13/19] Ropinirole TAB* [Requip TAB*] 0.5 mg PO BEDTIME tab 08/17/17 [Rx Confirmed 05/29] Ibuprofen TAB* [Motrin TAB* 600 MG] 600 mg PO Q6H PRN 02/17/18 [History Confirmed 05/13/19] traMADol TAB* [Ultram*] 100 mg PO Q6H PRN MDD 4 12/09/18 [History Confirmed 05/29] Omeprazole 40 mg PO DAILY 04/22/18 [History Confirmed 05/13/19] Cyclobenzaprine TAB* [Flexeril 10 MG TAB*] 10 mg PO TID PRN 03/20/19 [History Confirmed 05/13/19] Mesa-3 Fatty Acids/Fish Oil [Fish Oil 1,000 mg Softgel] 1 each PO DAILY [History Confirmed 05/13/19] Thiamine TAB* [Vitamin B-1 TAB*] 100 mg PO DAILY 03/20/19 [History Confirmed 05/29] Vitamin E 100 unit PO DAILY 03/20/19 [History Confirmed 05/13/19] Cyclobenzaprine TAB* [Flexeril 10 MG TAB*] 10 mg PO TID PRN #15 tab 05/13/19 [Rx ] PMH/Surg Hx/FS Hx/Imm Hx Endocrine/Hematology History: Denies: Hx Diabetes, Hx Thyroid Disease Cardiovascular History: Reports: Hx Atrial Fibrillation - not on anticoagulants , Hx Deep Vein Thrombosis - right arm , Hx Hypercholesterolemia, Hx Hypertension , Hx Syncope, Other Cardiovascular Problems/Disorders - SEPTIC THROMBOPHLEBITIS Denies: Hx Pacemaker/ICD Respiratory History: Reports: Hx Asthma, Hx Chronic Obstructive Pulmonary Disease (COPD), Hx Pneumonia - several times, Other Respiratory Problems/ Disorders - COPD GI History: Reports: Hx Gastroesophageal Reflux Disease, Hx Ulcer Comment Only: Other GI Disorders - GERD History: Reports: Hx Acute Renal Failure, Hx Kidney Stones, Other Problems /Disorders - difficulty urinatiing Denies: Hx Renal Disease Musculoskeletal History: Reports: Hx Arthritis, Hx Back Problems, Hx Scoliosis Comment Only: Other Musculoskeletal History - chronic back pain Sensory History: Reports: Hx Contacts or Glasses, Hx Hearing Problem - mild hearing loss Denies: Hx Hearing Aid Opthamlomology History: Reports: Hx Contacts or Glasses Neurological History: Comment Only: Other Neuro Impairments/Disorders - PAIN CLINIC PT Psychiatric History: Reports: Hx Depression, Hx Substance Abuse, Other Psychiatric Issues/Disorders - Possibly hx depression,but pt report inconsistent Denies: Hx Panic Disorder - Surgical History Surgery Procedure, Year, and Place: none - Immunization History Date of Tetanus Vaccine: unk Date of Influenza Vaccine: unk - Family History Known Family History: Negative: Blood Disorder - Social History Alcohol Use: None Alcohol Amount: 3-4 per week Hx Substance Use: Yes Substance Use Type: Reports: None Substance Use Comment - Amount & Last Used: hx polysubstance and alcohol abuse Hx Tobacco Use: Yes Smoking Status (MU): Heavy Every Day Tobacco Smoker Type: Cigarettes Amount Used/How Often: 1/2- 3/4 packs/day Length of Time of Smoking/Using Tobacco: 40 years Have You Smoked in the Last Year: Yes Review of Systems Negative: hematuria Positive: Other - Back pain All Other Systems Reviewed And Are Negative: Yes Physical Exam - Summary Physical Exam Summary: Constitutional: Well-developed, Well-nourished, Alert. (-) Distressed; appears uncomfortable. Skin: Warm, Dry HENT: Normocephalic; Atraumatic Eyes: Conjunctiva normal Neck: Musculoskeletal ROM normal neck. (-) JVD, (-) Stridor, (-) Tracheal deviation Cardio: Rhythm regular, rate normal, Heart sounds normal; Intact distal pulses; The pedal pulses are 2+ and symmetric. Radial pulses are 2+ and symmetric. (-) Murmur Pulmonary/Chest wall: Effort normal. (-) Respiratory distress, (-) Wheezes, (-) Rales Abd: Soft, (-) tenderness, (-) Distension, (-) Guarding, (-) Rebound Musculoskeletal: (-) Edema; Pain with range of motion of back; pain in back with palpation of abdomen; neurovascularly intact bilaterally; no loss of sensation; good strength in legs bilaterally. Lymph: (-) Cervical adenopathy Neuro: Alert, Oriented x3 Psych: Mood and affect Normal Triage Information Reviewed: Yes Vital Signs On Initial Exam: Initial Vitals Temp Pulse Resp Pulse Ox 97.2 F 114 22 97 05/13/19 04:45 05/13/19 04:45 05/13/19 04:45 05/13/19 04:45 Vital Signs Reviewed: Yes Procedures - Sedation Patient Received Moderate/Deep Sedation with Procedure: No Diagnostics - Vital Signs Vital Signs Temp Pulse Resp BP Pulse Ox 05/13/19 04:51 148/102 05/13/19 04:45 97.2 F 114 22 97 - Laboratory Lab Statement: Any lab studies that have been ordered have been reviewed, and results considered in the medical decision making process. Re-Evaluation - Re-Evaluation First Eval Re-Evaluation Time: 05:50 Change: Improved Comment: Patient is feeling better with medications. Discussed plan for PCP follow up. Back Pain Course/Dx - Course Course Of Treatment: 63 year old M presenting to [facility] via EMS with a chief complaint of chronic throbbing back pain worse since today. Physical exam findings: appears uncomfortable; pain with range of motion of back; pain in back with palpation of abdomen; neurovascularly intact bilaterally; no loss of sensation; good strength in legs bilaterally. In the ED course, the patient was given Norflex, Toradol, and Tramadol. Since patient's pain is chronic, there is not an acute need for imaging or further testing at this point. Patient will be discharged with follow up from his PCP with Rx for Flexeril. The patient is agreeable with this plan. - Diagnoses Provider Diagnoses: Chronic back pain Discharge ED - Sign-Out/Discharge Documenting (check all that apply): Patient Departure - discharge - Discharge Plan Condition: Stable Disposition: HOME Prescriptions: Cyclobenzaprine TAB* [Flexeril 10 MG TAB*] 10 mg PO TID PRN #15 tab PRN Reason: Pain - Moderate Patient Education Materials: Back Pain (ED) Print Language: AMHARIC Referrals: Fatuma Chase MD [Primary Care Provider] - - Billing Disposition and Condition Condition: STABLE Disposition: Home - Attestation Statements Document Initiated by Rosio: Yes Documenting Scribe: Lizy Joe Provider For Whom Rosio is Documenting (Include Credential): Janessa Lopez MD Scribe Attestation: Madeline Espino Natalie George, scribed for Janessa Callahan MD on 05/13/19 at 0609. Scribe Documentation Reviewed: Yes Provider Attestation: The documentation as recorded by the Madeline jerez Natalie George accurately reflects the service I personally performed and the decisions made by me, Janessa Callahan MD Status of Scribe Document: Viewed
[2019-05-13] MEDS ORDERED: traMADol TAB* 50 MG PO ONE (05:02)
[2019-05-13] MEDS ORDERED: Orphenadrine Citrate IV* 30 MG/ML 2 ML VIAL IM ONE (05:03)
[2019-05-13] MEDS: Ketorolac INJ* 30 MG/ML 1 ML VIAL IM ONE (05:11)
[2019-05-13 05:54] VITALS: BP 143/108
== END 2019-05-13 05:53 | disposition home or self-care (01) ==
LOC: ED 04:44
DX: G89.29 Other chronic pain (principal); M54.9 Dorsalgia, unspecified; I10 Essential (primary) hypertension; K21.9 Gastro-esophageal reflux disease without esophagitis; N17.9 Acute kidney failure, unspecified; Z79.82 Long term (current) use of aspirin; Z79.899 Other long term (current) drug therapy; F17.210 Nicotine dependence, cigarettes, uncomplicated
CPT/HCPCS: 96372; 99283; A9270-GY; J1885; J2360

== ENCOUNTER 2022-09-29 15:09 | Inpatient (IN) ==
[~2022-09-29 15:09] MED LIST: Etomidate 20 mg/10 ml 2 MG/ML 10 ml VIAL ONE; Rocuronium 50 mg VIAL 10 mg/ml 5 ml VIAL (50 mg) ONE
[2022-09-29] MEDS ORDERED: NS 0.9% 1000 ml BAG 1,000 ML IV ONE ×2 (15:18)
[2022-09-29] MEDS ORDERED: Piperacillin/Tazobac 3.375 BAG 3.375 GM/100 ML BAG IV ONE (15:19)
[2022-09-29] MEDS ORDERED: Rocuronium 50 mg VIAL 10 mg/ml 5 ml VIAL (50 mg) ONE (15:20)
[2022-09-29] MEDS ORDERED: Propofol 10 mg/ml 100 ML BTL 1,000 MG/100 ML BTL ONE (15:20)
[2022-09-29] MEDS: Lactated Ringers 1000 ml BAG 1,000 ML IV SCH ×2 (15:24→15:56)
[2022-09-29 15:29] LABS: Hematocrit 49.7 % (38-53); Hemoglobin 16.9 g/dL (13.2-16.3); Mean Corpuscular Hemoglobin 29.6 pg (27-33); Mean Corpuscular Hgb Conc 33.9 g/dL (31-36); Mean Corpuscular Volume 87.1 fL (80-97); Platelet Count 218 10^3/uL (150-450); Red Blood Count 5.71 10^6/uL (4.06-5.63); Red Cell Distribution Width 14.7 % (12-17)
[2022-09-29] MEDS: Propofol 10 mg/ml 100 ML BTL 1,000 MG/100 ML BTL IV SCH ×2 (15:30→23:40)
[2022-09-29 15:39] LABS: INR 1.56 (0.88-1.18)
[2022-09-29 15:46] LABS: Resp Rate 16
[2022-09-29 15:48] LABS: PCO2 Arterial 38 mmHg (35-45); PO2 Arterial 101 mmHg (80-100)
[2022-09-29] MEDS ORDERED: Rocuronium 50 mg VIAL 10 mg/ml 5 ml VIAL (50 mg) IV ONE (15:52)
[2022-09-29] MEDS ORDERED: Etomidate 20 mg/10 ml 2 MG/ML 10 ml VIAL IV ONE (15:52)
[2022-09-29 15:57] LABS: ALT 55 U/L (7-52); AST 334 U/L (13-39); Albumin 4.1 g/dL (3.2-5.2); Albumin/Globulin Ratio 1.1 (1-3); Alkaline Phosphatase 73 U/L (35-149); Anion Gap 16 mmol/L (2-16); Blood Urea Nitrogen 33 mg/dL (6-24); C Reactive Protein 14.99 mg/L (<8.01); CO2 Carbon Dioxide 15 mmol/L (22-32); Chloride 108 mmol/L (101-111); Creatinine, Serum 1.73 mg/dL (0.67-1.17); Globulin 3.6 g/dL (2-4); Glucose 163 mg/dL (70-100); High Sens Troponin Baseline 531 pg/mL (<20); Lipase 13 U/L (11.0-82.0); Magnesium 1.9 mg/dL (1.9-2.7); Phosphorus 2.4 mg/dL (2.5-5.0); Potassium 3.2 mmol/L (3.5-5.0); Sodium 139 mmol/L (135-145); Total Protein 7.7 g/dL (6.4-8.9); eGFR CKD-EPI 42.7 (>60)
[2022-09-29 15:59] LABS: Urine Appearance Cloudy; Urine Bilirubin Negative (Negative); Urine Blood 3+ (Negative); Urine Color Amber; Urine Glucose Negative (Negative); Urine Ketones 1+ (Negative); Urine Nitrite Negative (Negative); Urine Protein 3+(>=500 mg/dL) (Negative); Urine Specific Gravity 1.025 (1.002-1.030); Urine Urobilinogen Negative (Negative)
[2022-09-29] MEDS ORDERED: Acetaminophen IV 1 GM/100ML 1,000 MG/100 ML BAG IV ONE (16:03)
[2022-09-29 16:11] LABS: Urine Bacteria 1+ (Absent); Urine Granular Casts Present (Absent); Urine Red Blood Cell 2+(6-10/hpf) (Absent); Urine White Blood Cell 1+(6-10/hpf) (Absent)
[2022-09-29 16:14] LABS: ABS Lymphocytes 0.6 10^3/uL (1.0-4.8); ABS Monocytes 1.2 10^3/uL (0.0-1.1); ABS Neutrophils 10.2 10^3/uL (1.5-7.6); ABS Nucleated RBC 0.02 10^3/ul; Nucleated Red Blood Cells % 0.1 /100 WBC (0.0-0.4)
[2022-09-29] MEDS ORDERED: Iodixanol (CONTRAST) 320 MG/ML 100 ML SDV IV ONE (16:26)
[2022-09-29 16:40] LABS: Creatine Kinase 15762 U/L (10-223)
[2022-09-29 16:41] LABS: Urine Benzodiazepine Screen None Detected (None Detect); Urine Cannabinoids Screen None Detected (None Detect); Urine Opiates Screen None Detected (None Detect)
[2022-09-29 17:21] LABS: Acetaminophen < 15 mcg/mL; Salicylate < 2.50 mg/dL (<30)
[2022-09-29 17:34] LABS: High Sensitivity Troponin 1 Hr 818 pg/mL (<20)
[2022-09-29 17:36] LABS: TSH Ultra Thyroid Stim Horm 0.43 mcIU/mL (0.34-5.60)
[2022-09-29 17:38] LABS: Free T4 0.93 ng/dL (0.61-1.12)
[2022-09-29] MEDS ORDERED: Vancomycin 1,000 MG in NS 0.9% 250 ml 250 ML IVPB ONE (18:05)
[2022-09-29] MEDS ORDERED: Vancomycin 1,500 MG in NS 0.9% 250 ml 250 ML IVPB ONE (18:10)
[2022-09-29] MEDS: Pantoprazole VIAL 40 MG VIAL IV SCH (18:54)
[2022-09-29] MEDS ORDERED: Vancomycin per Pharmacy 1 EA NOTE FOLLOW UP SCH (19:00)
[2022-09-29] MEDS ORDERED: Zosyn per Pharmacy NOTE FOLLOW UP SCH (21:00)
[2022-09-29] MEDS ORDERED: fentaNYL INFUSION 50 mcg/mL VL 2,500 MCG/50 ML VIAL IV SCH ×2 (21:00→22:54)
[2022-09-29] MEDS ORDERED: KCL 20 MEQ/100 ML IVPREMIX 20 MEQ/100 ML BAG IV SCH (21:00)
[2022-09-29] MEDS: NORMOSOL-R pH 7.4 1000 mL BAG 1,000 ML IV SCH ×2 (21:00→22:27)
[2022-09-29] MEDS ORDERED: Lactated Ringers 1000 ml BAG 1,000 ML IV SCH (21:00)
[2022-09-29] MEDS ORDERED: Lactated Ringers 1000 ml BAG 1,000 ML IV ONE (21:36)
[2022-09-29] MEDS ORDERED: Clindamycin 600 MG/D5W BAG 600 MG/50 ML BAG IV SCH (22:00)
[2022-09-29] MEDS: Clindamycin 300 MG/D5W BAG 300 MG/50 ML BAG IV SCH ×2 (22:45→23:15)
[2022-09-29] MEDS ORDERED: Lorazepam PYXIS KEY PRN (22:55)
[2022-09-29] MEDS ORDERED: LORazepam 2 mg VIAL 1 ml IV PUSH PRN (22:55)
[2022-09-29] MEDS: fentaNYL INFUSION 50 mcg/mL VL 2,500 MCG/50 ML VIAL IV SCH (23:06)
[2022-09-29 23:31] LABS: Hematocrit 44.1 % (38-53); Hemoglobin 15.1 g/dL (13.2-16.3); Mean Corpuscular Hemoglobin 29.4 pg (27-33); Mean Corpuscular Hgb Conc 34.2 g/dL (31-36); Mean Corpuscular Volume 85.9 fL (80-97); Mean Platelet Volume 8.5 fL (7.5-11.2); Platelet Count 147 10^3/uL (150-450); Red Blood Count 5.14 10^6/uL (4.06-5.63); Red Cell Distribution Width 15.1 % (12-17); White Blood Count 17.1 10^3/uL (3.6-10.2)
[2022-09-29] MEDS: Chlorhexidine MOUTHWASH 0.12% 15 ML UDC TOPICAL SCH (23:33)
[2022-09-29] MEDS: LORazepam 2 mg VIAL 1 ml IV PUSH PRN (23:44)
[2022-09-29] MEDS: Enoxaparin 40 MG/0.4 ML SYR SUBCUT SCH (23:46)
[2022-09-29 23:49] LABS: Albumin 3.2 g/dL (3.2-5.2); Albumin/Globulin Ratio 1.2 (1-3); Calcium 7.7 mg/dL (8.6-10.3); Creatinine, Serum 2.14 mg/dL (0.67-1.17); Globulin 2.7 g/dL (2-4); Potassium 3.4 mmol/L (3.5-5.0); Total Bilirubin 0.7 mg/dL (0.2-1.0); Total Protein 5.9 g/dL (6.4-8.9); eGFR CKD-EPI 33.1 (>60)
[2022-09-29] MEDS ORDERED: KCL 20 MEQ/100 ML IVPREMIX 20 MEQ/100 ML BAG IV ONE (23:52)
[2022-09-29] MEDS: metroNIDAZOLE IV 500 MG/100ML 500 MG/100 ML BAG IVPB SCH (23:55)
[2022-09-30] MEDS: Cefepime 2 GM in Dextrose 2 GM/50 ML BAG IV SCH ×3 (00:03→21:23)
[2022-09-30 00:38] LABS: ABS Basophils 0.1 10^3/uL (0.0-0.1); ABS Lymphocytes 1.9 10^3/uL (1.0-4.8); ABS Monocytes 1.8 10^3/uL (0.0-1.1); ABS Neutrophils 13.4 10^3/uL (1.5-7.6); ABS Nucleated RBC 0.01 10^3/ul; Lymphocyte % 11.3 %; Nucleated Red Blood Cells % 0.1 /100 WBC (0.0-0.4)
[2022-09-30] MEDS: Lactated Ringers 1000 ml BAG 1,000 ML IV SCH ×2 (00:39→05:47)
[2022-09-30] MEDS: Chlorhexidine MOUTHWASH 0.12% 15 ML UDC TOPICAL SCH ×6 (01:12→21:27)
[2022-09-30] MEDS: NORMOSOL-R pH 7.4 1000 mL BAG 1,000 ML IV SCH ×5 (03:43→18:17)
[2022-09-30 04:14] LABS: ABS Lymphocytes 1.5 10^3/uL (1.0-4.8); ABS Monocytes 1.8 10^3/uL (0.0-1.1); ABS Neutrophils 13.6 10^3/uL (1.5-7.6); ABS Nucleated RBC 0.01 10^3/ul; Hematocrit 40.9 % (38-53); Hemoglobin 14.1 g/dL (13.2-16.3); Mean Corpuscular Hemoglobin 29.8 pg (27-33); Mean Corpuscular Hgb Conc 34.4 g/dL (31-36); Mean Corpuscular Volume 86.6 fL (80-97); Mean Platelet Volume 8.6 fL (7.5-11.2); Platelet Count 124 10^3/uL (150-450); Red Blood Count 4.72 10^6/uL (4.06-5.63)
[2022-09-30 04:30] LABS: Albumin 2.8 g/dL (3.2-5.2); Albumin/Globulin Ratio 1.1 (1-3); Calcium 7.3 mg/dL (8.6-10.3); Creatinine, Serum 2.19 mg/dL (0.67-1.17); Globulin 2.6 g/dL (2-4); Magnesium 2.2 mg/dL (1.9-2.7); Potassium 3.7 mmol/L (3.5-5.0); Total Bilirubin 0.7 mg/dL (0.2-1.0); Total Protein 5.4 g/dL (6.4-8.9); eGFR CKD-EPI 32.2 (>60)
[2022-09-30] MEDS: metroNIDAZOLE IV 500 MG/100ML 500 MG/100 ML BAG IVPB SCH ×3 (04:48→21:23)
[2022-09-30] MEDS: Clindamycin 300 MG/D5W BAG 300 MG/50 ML BAG IV SCH ×3 (05:52→12:40)
[2022-09-30] MEDS: Midazolam 50 MG PREMIX IV DRIP 50 ML IV SCH ×2 (07:10→23:10)
[2022-09-30] MEDS: fentaNYL INFUSION 50 mcg/mL VL 2,500 MCG/50 ML VIAL IV SCH (08:12)
[2022-09-30 13:06] LABS: Albumin 2.5 g/dL (3.2-5.2); Albumin/Globulin Ratio 1.1 (1-3); Calcium 7.1 mg/dL (8.6-10.3); Creatinine, Serum 2.18 mg/dL (0.67-1.17); Globulin 2.3 g/dL (2-4); Potassium 3.7 mmol/L (3.5-5.0); Total Bilirubin 0.7 mg/dL (0.2-1.0); Total Protein 4.8 g/dL (6.4-8.9); eGFR CKD-EPI 32.4 (>60)
[2022-09-30] MEDS: Pantoprazole VIAL 40 MG VIAL IV SCH (17:03)
[2022-09-30] MEDS ORDERED: Vancomycin 1,250 MG in NS 0.9% 250 ml 250 ML IVPB SCH (18:00)
[2022-09-30] MEDS: Enoxaparin 40 MG/0.4 ML SYR SUBCUT SCH (21:27)
[2022-10-01] MEDS: Chlorhexidine MOUTHWASH 0.12% 15 ML UDC TOPICAL SCH ×4 (00:26→10:12)
[2022-10-01] MEDS: NORMOSOL-R pH 7.4 1000 mL BAG 1,000 ML IV SCH ×3 (01:16→16:52)
[2022-10-01] MEDS: fentaNYL INFUSION 50 mcg/mL VL 2,500 MCG/50 ML VIAL IV SCH (04:14)
[2022-10-01 04:23] LABS: Hematocrit 33.1 % (38-53); Hemoglobin 11.6 g/dL (13.2-16.3); Mean Corpuscular Hgb Conc 34.9 g/dL (31-36); Mean Corpuscular Volume 85.8 fL (80-97); Red Blood Count 3.86 10^6/uL (4.06-5.63); Red Cell Distribution Width 14.8 % (12-17); White Blood Count 11.5 10^3/uL (3.6-10.2)
[2022-10-01 04:34] LABS: Albumin 2.2 g/dL (3.2-5.2); Calcium 7.1 mg/dL (8.6-10.3); Creatinine, Serum 1.99 mg/dL (0.67-1.17); Globulin 2.2 g/dL (2-4); Magnesium 2.4 mg/dL (1.9-2.7); Phosphorus 5.2 mg/dL (2.5-5.0); Potassium 3.8 mmol/L (3.5-5.0); Total Bilirubin 0.6 mg/dL (0.2-1.0); Total Protein 4.4 g/dL (6.4-8.9); eGFR CKD-EPI 36.1 (>60)
[2022-10-01 04:48] LABS: ABS Lymphocytes 0.8 10^3/uL (1.0-4.8); ABS Monocytes 0.8 10^3/uL (0.0-1.1); ABS Neutrophils 9.8 10^3/uL (1.5-7.6); ABS Nucleated RBC 0.01 10^3/ul; Eosinophil % 0.1 %; Lymphocyte % 7.1 %; Mean Platelet Volume 8.7 fL (7.5-11.2); Nucleated Red Blood Cells % 0.1 /100 WBC (0.0-0.4); Platelet Count 89 10^3/uL (150-450)
[2022-10-01] MEDS: metroNIDAZOLE IV 500 MG/100ML 500 MG/100 ML BAG IVPB SCH (05:10)
[2022-10-01] MEDS: Cefepime 2 GM in Dextrose 2 GM/50 ML BAG IV SCH (07:24)
[2022-10-01] MEDS: Acetaminophen IV 1 GM/100ML 1,000 MG/100 ML BAG IV PRN ×2 (12:07→20:44)
[2022-10-01] MEDS ORDERED: Metoprolol Tartrate 5 mg VIAL 5 ml VIAL (1 mg/ml) IV ONE ×2 (12:41→17:12)
[2022-10-01] MEDS: oxyCODONE/Acetamin 5/325 mg TAB PO PRN (16:18)
[2022-10-01] MEDS: cefTRIAXone 1 gm/50 mL D5W 1 GM/50 ML BAG IV SCH (16:52)
[2022-10-01] MEDS: Enoxaparin 40 MG/0.4 ML SYR SUBCUT SCH (20:53)
[2022-10-02] MEDS: NORMOSOL-R pH 7.4 1000 mL BAG 1,000 ML IV SCH ×2 (02:51→12:02)
[2022-10-02] MEDS: Metoprolol Tartrate 5 mg VIAL 5 ml VIAL (1 mg/ml) IV PRN ×2 (03:01→11:34)
[2022-10-02 04:22] LABS: ABS Eosinophils 0.1 10^3/uL (0.0-0.5); ABS Lymphocytes 1.1 10^3/uL (1.0-4.8); ABS Monocytes 0.5 10^3/uL (0.0-1.1); ABS Neutrophils 7.8 10^3/uL (1.5-7.6); Eosinophil % 0.7 %; Hematocrit 29.6 % (38-53); Hemoglobin 10.5 g/dL (13.2-16.3); Lymphocyte % 11.6 %; Mean Corpuscular Hemoglobin 30.4 pg (27-33); Mean Corpuscular Hgb Conc 35.4 g/dL (31-36); Mean Platelet Volume 8.8 fL (7.5-11.2); Platelet Count 76 10^3/uL (150-450); Red Blood Count 3.45 10^6/uL (4.06-5.63); Red Cell Distribution Width 14.6 % (12-17); White Blood Count 9.5 10^3/uL (3.6-10.2)
[2022-10-02 04:29] LABS: Calcium 7.5 mg/dL (8.6-10.3); Creatinine, Serum 1.51 mg/dL (0.67-1.17); Magnesium 2.3 mg/dL (1.9-2.7); Potassium 3.2 mmol/L (3.5-5.0); eGFR CKD-EPI 50.3 (>60)
[2022-10-02] MEDS: oxyCODONE/Acetamin 5/325 mg TAB PO PRN (09:56)
[2022-10-02] MEDS: CMC:FLUTICAS/UMECLI/VILANT 100-62.5-25 MDI (NF) INH SCH (10:18)
[2022-10-02] MEDS ORDERED: Potassium EFFERVES 25 meq TAB PO ONE (10:19)
[2022-10-02] MEDS: Fluticasone NASAL SPRAY 50MCG 16 gm SPRAY BTL INTRANASAL SCH (10:19)
[2022-10-02] MEDS ORDERED: Senna TAB 8.6 mg TAB PO PRN (12:22)
[2022-10-02] MEDS: Polyethylene Glycol 3350 17 GM PACKET PO SCH (14:32)
[2022-10-02] MEDS ORDERED: Vancomycin Trough Check NOTE FOLLOW UP ONE (17:30)
[2022-10-02] MEDS: cefTRIAXone 1 gm/50 mL D5W 1 GM/50 ML BAG IV SCH (17:37)
[2022-10-02] MEDS: Acetaminophen IV 1 GM/100ML 1,000 MG/100 ML BAG IV PRN (19:15)
[2022-10-02] MEDS: Enoxaparin 40 MG/0.4 ML SYR SUBCUT SCH (19:15)
[2022-10-02] MEDS: LORazepam 2 mg VIAL 1 ml IV PUSH PRN (20:39)
[2022-10-03] MEDS: NORMOSOL-R pH 7.4 1000 mL BAG 1,000 ML IV SCH (00:26)
[2022-10-03 05:05] LABS: Hematocrit 31.7 % (38-53); Mean Corpuscular Hemoglobin 30.1 pg (27-33); Mean Corpuscular Hgb Conc 34.6 g/dL (31-36); Mean Platelet Volume 9.8 fL (7.5-11.2); Platelet Count 114 10^3/uL (150-450); Red Blood Count 3.64 10^6/uL (4.06-5.63); Red Cell Distribution Width 14.7 % (12-17); White Blood Count 10.8 10^3/uL (3.6-10.2)
[2022-10-03 05:19] LABS: Albumin 2.3 g/dL (3.2-5.2); Calcium 7.6 mg/dL (8.6-10.3); Creatinine, Serum 1.31 mg/dL (0.67-1.17); Globulin 2.2 g/dL (2-4); Potassium 3.1 mmol/L (3.5-5.0); Total Bilirubin 0.6 mg/dL (0.2-1.0); Total Protein 4.5 g/dL (6.4-8.9); eGFR CKD-EPI 59.7 (>60)
[2022-10-03 05:42] LABS: ABS Eosinophils 0.2 10^3/uL (0.0-0.5); ABS Lymphocytes 1.5 10^3/uL (1.0-4.8); ABS Monocytes 0.7 10^3/uL (0.0-1.1); ABS Nucleated RBC 0.01 10^3/ul; Eosinophil % 2.3 %; Lymphocyte % 14.6 %; Nucleated Red Blood Cells % 0.1 /100 WBC (0.0-0.4); RBC Morphology Normal (Normal)
[2022-10-03] MEDS ORDERED: Potassium EFFERVES 25 meq TAB PO ONE (07:15)
[2022-10-03] MEDS ORDERED: Albumin Human 5% 12.5 GM/250 ML BTL IV ONE (07:51)
[2022-10-03] MEDS: KCL 20 MEQ/100 ML IVPREMIX 20 MEQ/100 ML BAG IV SCH ×3 (08:20→12:44)
[2022-10-03] MEDS: CMC:FLUTICAS/UMECLI/VILANT 100-62.5-25 MDI (NF) INH SCH (08:26)
[2022-10-03] MEDS: Metoprolol Tartrate 5 mg VIAL 5 ml VIAL (1 mg/ml) IV PRN ×4 (08:44→23:47)
[2022-10-03] MEDS: Acetaminophen IV 1 GM/100ML 1,000 MG/100 ML BAG IV PRN ×2 (09:45→19:50)
[2022-10-03] MEDS: Polyethylene Glycol 3350 17 GM PACKET PO SCH (10:06)
[2022-10-03] MEDS: Nicotine PATCH 14 MG/24 HR PATCH TRANSDERM SCH (10:34)
[2022-10-03] MEDS: Fluticasone NASAL SPRAY 50MCG 16 gm SPRAY BTL INTRANASAL SCH (10:40)
[2022-10-03] MEDS: cefTRIAXone 1 gm/50 mL D5W 1 GM/50 ML BAG IV SCH (17:44)
[2022-10-03] MEDS: Enoxaparin 40 MG/0.4 ML SYR SUBCUT SCH (19:58)
[2022-10-04] MEDS: Metoprolol Tartrate 5 mg VIAL 5 ml VIAL (1 mg/ml) IV PRN ×2 (03:26→07:47)
[2022-10-04 05:21] LABS: ABS Eosinophils 0.4 10^3/uL (0.0-0.5); ABS Lymphocytes 1.1 10^3/uL (1.0-4.8); ABS Neutrophils 8.7 10^3/uL (1.5-7.6); Eosinophil % 3.2 %; Hematocrit 31.2 % (38-53); Hemoglobin 10.8 g/dL (13.2-16.3); Lymphocyte % 9.6 %; Mean Corpuscular Hemoglobin 30.1 pg (27-33); Mean Corpuscular Hgb Conc 34.6 g/dL (31-36); Mean Corpuscular Volume 87.2 fL (80-97); Mean Platelet Volume 9.6 fL (7.5-11.2); Platelet Count 164 10^3/uL (150-450); Red Blood Count 3.57 10^6/uL (4.06-5.63); Red Cell Distribution Width 14.7 % (12-17); White Blood Count 11.1 10^3/uL (3.6-10.2)
[2022-10-04 05:44] LABS: Albumin 2.5 g/dL (3.2-5.2); Albumin/Globulin Ratio 1.1 (1-3); Calcium 8.2 mg/dL (8.6-10.3); Creatinine, Serum 1.14 mg/dL (0.67-1.17); Globulin 2.3 g/dL (2-4); Potassium 3.4 mmol/L (3.5-5.0); Total Bilirubin 0.7 mg/dL (0.2-1.0); Total Protein 4.8 g/dL (6.4-8.9); eGFR CKD-EPI 70.5 (>60)
[2022-10-04] MEDS: Polyethylene Glycol 3350 17 GM PACKET PO SCH ×2 (07:51→07:56)
[2022-10-04] MEDS: Nicotine PATCH 14 MG/24 HR PATCH TRANSDERM SCH (07:51)
[2022-10-04] MEDS: CMC:FLUTICAS/UMECLI/VILANT 100-62.5-25 MDI (NF) INH SCH (08:52)
[2022-10-04] MEDS: KCL 20 MEQ/100 ML IVPREMIX 20 MEQ/100 ML BAG IV SCH ×3 (09:03→13:38)
[2022-10-04] MEDS ORDERED: Metoprolol Tartrate 5 mg VIAL 5 ml VIAL (1 mg/ml) IV ONE (09:49)
[2022-10-04] MEDS: Fluticasone NASAL SPRAY 50MCG 16 gm SPRAY BTL INTRANASAL SCH (11:11)
[2022-10-04] MEDS ORDERED: Metoprolol Tartrate 5 mg VIAL 5 ml VIAL (1 mg/ml) IV PRN (13:27)
[2022-10-04] MEDS: cefTRIAXone 1 gm/50 mL D5W 1 GM/50 ML BAG IV SCH (17:19)
[2022-10-04] MEDS: Enoxaparin 40 MG/0.4 ML SYR SUBCUT SCH (20:25)
[2022-10-05] MEDS: oxyCODONE/Acetamin 5/325 mg TAB PO PRN ×3 (00:31→18:29)
[2022-10-05] MEDS ORDERED: Metoprolol Tartrate 5 mg VIAL 5 ml VIAL (1 mg/ml) IV PRN (03:40)
[2022-10-05] MEDS: Metoprolol Tartrate 5 mg VIAL 5 ml VIAL (1 mg/ml) IV PRN ×3 (03:45→04:14)
[2022-10-05] MEDS: Acetaminophen IV 1 GM/100ML 1,000 MG/100 ML BAG IV PRN ×2 (05:11→18:20)
[2022-10-05] MEDS: CMC:FLUTICAS/UMECLI/VILANT 100-62.5-25 MDI (NF) INH SCH (08:01)
[2022-10-05] MEDS: Polyethylene Glycol 3350 17 GM PACKET PO SCH (08:33)
[2022-10-05] MEDS: Nicotine PATCH 14 MG/24 HR PATCH TRANSDERM SCH (08:34)
[2022-10-05] MEDS: Fluticasone NASAL SPRAY 50MCG 16 gm SPRAY BTL INTRANASAL SCH (08:34)
[2022-10-05] MEDS ORDERED: Amiodarone 150 mg IVPREMIX 150 MG/100 ML BAG IV ONE (08:43)
[2022-10-05] MEDS ORDERED: Amiodarone 360 MG IVPREMIX 360 MG/200 ML BAG IV SCH (09:00)
[2022-10-05 10:30] LABS: ABS Basophils 0.1 10^3/uL (0.0-0.1); ABS Eosinophils 0.4 10^3/uL (0.0-0.5); ABS Lymphocytes 1.2 10^3/uL (1.0-4.8); ABS Monocytes 1.1 10^3/uL (0.0-1.1); ABS Neutrophils 6.4 10^3/uL (1.5-7.6); Eosinophil % 4.6 %; Hematocrit 30.2 % (38-53); Hemoglobin 10.3 g/dL (13.2-16.3); Lymphocyte % 13.5 %; Mean Corpuscular Hemoglobin 29.9 pg (27-33); Mean Corpuscular Hgb Conc 34.1 g/dL (31-36); Mean Corpuscular Volume 87.8 fL (80-97); Mean Platelet Volume 9.1 fL (7.5-11.2); Platelet Count 227 10^3/uL (150-450); Red Blood Count 3.44 10^6/uL (4.06-5.63); Red Cell Distribution Width 14.9 % (12-17); White Blood Count 9.2 10^3/uL (3.6-10.2)
[2022-10-05 10:47] LABS: Calcium 8.5 mg/dL (8.6-10.3); Creatinine, Serum 1.03 mg/dL (0.67-1.17); Potassium 3.8 mmol/L (3.5-5.0); eGFR CKD-EPI 79.6 (>60)
[2022-10-05] MEDS: Amiodarone 360 MG IVPREMIX 360 MG/200 ML BAG IV SCH (16:29)
[2022-10-05] MEDS: Albuterol 2.5mg/3 ml (0.083%) NEB.SOLN INH PRN (18:11)
[2022-10-05] MEDS: Morphine 2 MG/ML SYRINGE IV PRN (18:19)
[2022-10-05] MEDS: cefTRIAXone 1 gm/50 mL D5W 1 GM/50 ML BAG IV SCH (18:32)
[2022-10-05 19:02] LABS: JO-1 Antibody <0.2 U
[2022-10-05] MEDS: Enoxaparin 40 MG/0.4 ML SYR SUBCUT SCH (21:48)
[2022-10-05 23:43] LABS: ANA Pattern: Homogeneous
[2022-10-06] MEDS: Morphine 2 MG/ML SYRINGE IV PRN (03:00)
[2022-10-06] MEDS: oxyCODONE/Acetamin 5/325 mg TAB PO PRN ×4 (03:02→21:36)
[2022-10-06] MEDS: Amiodarone 360 MG IVPREMIX 360 MG/200 ML BAG IV SCH (04:13)
[2022-10-06 04:28] LABS: Hemoglobin 9.4 g/dL (13.2-16.3); Mean Corpuscular Hgb Conc 34.9 g/dL (31-36); Mean Platelet Volume 8.8 fL (7.5-11.2); Platelet Count 277 10^3/uL (150-450); Red Blood Count 3.14 10^6/uL (4.06-5.63); Red Cell Distribution Width 14.8 % (12-17); White Blood Count 8.4 10^3/uL (3.6-10.2)
[2022-10-06 04:43] LABS: Albumin 2.4 g/dL (3.2-5.2); Calcium 8.1 mg/dL (8.6-10.3); Creatinine, Serum 1.02 mg/dL (0.67-1.17); Globulin 2.3 g/dL (2-4); Potassium 3.7 mmol/L (3.5-5.0); Total Bilirubin 0.5 mg/dL (0.2-1.0); Total Protein 4.7 g/dL (6.4-8.9); eGFR CKD-EPI 80.6 (>60)
[2022-10-06 06:05] LABS: ABS Basophils 0.1 10^3/uL (0.0-0.1); ABS Eosinophils 0.5 10^3/uL (0.0-0.5); ABS Lymphocytes 1.6 10^3/uL (1.0-4.8); ABS Monocytes 1.1 10^3/uL (0.0-1.1); ABS Neutrophils 5.2 10^3/uL (1.5-7.6); ABS Nucleated RBC 0.01 10^3/ul; Eosinophil % 5.4 %; Lymphocyte % 18.6 %; Nucleated Red Blood Cells % 0.1 /100 WBC (0.0-0.4)
[2022-10-06] MEDS: Fluticasone NASAL SPRAY 50MCG 16 gm SPRAY BTL INTRANASAL SCH (07:49)
[2022-10-06] MEDS: Nicotine PATCH 14 MG/24 HR PATCH TRANSDERM SCH (07:49)
[2022-10-06] MEDS: Polyethylene Glycol 3350 17 GM PACKET PO SCH (07:51)
[2022-10-06] MEDS ORDERED: IVPREMIX IV ONE (09:50)
[2022-10-06] MEDS ORDERED: AMIODARONE 150 MG IV ONE (09:50)
[2022-10-06] MEDS ORDERED: Amiodarone IV 150 mg/3 ml VIAL IV SLOW PU ONE (10:00)
[2022-10-06] MEDS ORDERED: Polyethylene Glycol 3350 17 GM PACKET PO PRN (13:43)
[2022-10-06] MEDS: Albuterol 2.5mg/3 ml (0.083%) NEB.SOLN INH PRN (14:43)
[2022-10-06] MEDS: Enoxaparin 40 MG/0.4 ML SYR SUBCUT SCH (21:30)
[2022-10-07 05:48] LABS: Hematocrit 26.1 % (38-53); Mean Corpuscular Hemoglobin 29.9 pg (27-33); Mean Corpuscular Hgb Conc 34.6 g/dL (31-36); Mean Corpuscular Volume 86.3 fL (80-97); Mean Platelet Volume 8.5 fL (7.5-11.2); Platelet Count 342 10^3/uL (150-450); Red Blood Count 3.02 10^6/uL (4.06-5.63); Red Cell Distribution Width 15.3 % (12-17); White Blood Count 7.2 10^3/uL (3.6-10.2)
[2022-10-07 06:00] LABS: Calcium 8.2 mg/dL (8.6-10.3); Potassium 4.3 mmol/L (3.5-5.0)
[2022-10-07 06:06] LABS: Creatinine, Serum 0.98 mg/dL (0.67-1.17); eGFR CKD-EPI 84.5 (>60)
[2022-10-07 07:57] LABS: ABS Eosinophils 0.4 10^3/uL (0.0-0.5); ABS Lymphocytes 1.5 10^3/uL (1.0-4.8); ABS Monocytes 0.9 10^3/uL (0.0-1.1); ABS Neutrophils 4.3 10^3/uL (1.5-7.6); ABS Nucleated RBC 0.01 10^3/ul; Eosinophil % 5.7 %; Lymphocyte % 20.5 %; Nucleated Red Blood Cells % 0.1 /100 WBC (0.0-0.4)
[2022-10-07] MEDS: Acetaminophen IV 1 GM/100ML 1,000 MG/100 ML BAG IV PRN ×2 (08:05→17:39)
[2022-10-07] MEDS: Fluticasone NASAL SPRAY 50MCG 16 gm SPRAY BTL INTRANASAL SCH (08:05)
[2022-10-07] MEDS: Nicotine PATCH 14 MG/24 HR PATCH TRANSDERM SCH (08:05)
[2022-10-07] MEDS: oxyCODONE/Acetamin 5/325 mg TAB PO PRN (14:42)
[2022-10-07] MEDS: Morphine 2 MG/ML SYRINGE IV PRN ×2 (17:38→20:49)
[2022-10-07] MEDS: Enoxaparin 40 MG/0.4 ML SYR SUBCUT SCH (19:26)
[2022-10-08] MEDS: oxyCODONE/Acetamin 5/325 mg TAB PO PRN (00:49)
[2022-10-08] MEDS: Acetaminophen IV 1 GM/100ML 1,000 MG/100 ML BAG IV PRN (02:38)
[2022-10-08 04:06] LABS: Hematocrit 24.9 % (38-53); Hemoglobin 8.8 g/dL (13.2-16.3); Mean Corpuscular Hemoglobin 30.8 pg (27-33); Mean Corpuscular Hgb Conc 35.5 g/dL (31-36); Mean Corpuscular Volume 86.8 fL (80-97); Mean Platelet Volume 7.9 fL (7.5-11.2); Platelet Count 379 10^3/uL (150-450); Red Blood Count 2.87 10^6/uL (4.06-5.63); Red Cell Distribution Width 15.1 % (12-17); White Blood Count 7.7 10^3/uL (3.6-10.2)
[2022-10-08 04:21] LABS: Calcium 8.4 mg/dL (8.6-10.3); Creatinine, Serum 0.95 mg/dL (0.67-1.17); Magnesium 1.3 mg/dL (1.9-2.7); Potassium 4.4 mmol/L (3.5-5.0); eGFR CKD-EPI 87.7 (>60)
[2022-10-08 04:23] LABS: ABS Eosinophils 0.3 10^3/uL (0.0-0.5); ABS Lymphocytes 1.3 10^3/uL (1.0-4.8); ABS Monocytes 0.8 10^3/uL (0.0-1.1); ABS Neutrophils 5.3 10^3/uL (1.5-7.6); ABS Nucleated RBC 0.01 10^3/ul; Eosinophil % 3.6 %; Lymphocyte % 16.4 %; Nucleated Red Blood Cells % 0.1 /100 WBC (0.0-0.4)
[2022-10-08] MEDS: Nicotine PATCH 14 MG/24 HR PATCH TRANSDERM SCH (09:19)
[2022-10-08] MEDS: Fluticasone NASAL SPRAY 50MCG 16 gm SPRAY BTL INTRANASAL SCH (10:02)
[2022-10-08] MEDS ORDERED: Magnesium Sulf 4 GM/100 ML IV 4,000 MG/100 ML BAG IVPB ONE (13:13)
[2022-10-08] MEDS: Morphine 2 MG/ML SYRINGE IV PRN ×2 (16:23→20:38)
[2022-10-08] MEDS: Enoxaparin 40 MG/0.4 ML SYR SUBCUT SCH (20:38)
[2022-10-09] MEDS ORDERED: Magnesium Sulfate 2 gm BAG 2 GM/50 ML BAG IVPB ONE (08:30)
[2022-10-09] MEDS: Morphine 2 MG/ML SYRINGE IV PRN ×3 (09:43→20:12)
[2022-10-09] MEDS: Nicotine PATCH 14 MG/24 HR PATCH TRANSDERM SCH (09:50)
[2022-10-09] MEDS: Fluticasone NASAL SPRAY 50MCG 16 gm SPRAY BTL INTRANASAL SCH (09:54)
[2022-10-09] MEDS: Enoxaparin 40 MG/0.4 ML SYR SUBCUT SCH (20:13)
[2022-10-10] MEDS: Morphine 2 MG/ML SYRINGE IV PRN ×3 (01:17→14:38)
[2022-10-10] MEDS: Nicotine PATCH 14 MG/24 HR PATCH TRANSDERM SCH (08:00)
[2022-10-10] MEDS: Fluticasone NASAL SPRAY 50MCG 16 gm SPRAY BTL INTRANASAL SCH (08:01)
[2022-10-10] MEDS ORDERED: oxyCODONE/Acetamin 10/325(NF) TAB PO PRN (16:20)
[2022-10-10] MEDS ORDERED: DULoxetine DR 60 mg CAP PO ONE (16:22)
[2022-10-10] MEDS: Albuterol HFA INHALER 8 gm MDI INH PRN (20:18)
[2022-10-10] MEDS: oxyCODONE/Acetamin 5/325 mg TAB PO PRN (20:30)
[2022-10-10] MEDS: Enoxaparin 40 MG/0.4 ML SYR SUBCUT SCH (20:30)
[2022-10-11] MEDS: Morphine 2 MG/ML SYRINGE IV PRN (02:07)
[2022-10-11 07:30] LABS: ABS Eosinophils 0.3 10^3/uL (0.0-0.5); ABS Lymphocytes 1.9 10^3/uL (1.0-4.8); ABS Neutrophils 6.2 10^3/uL (1.5-7.6); Eosinophil % 3.3 %; Hematocrit 29.2 % (38-53); Lymphocyte % 20.3 %; Mean Corpuscular Hemoglobin 30.2 pg (27-33); Mean Corpuscular Hgb Conc 34.3 g/dL (31-36); Mean Corpuscular Volume 88.2 fL (80-97); Mean Platelet Volume 8.1 fL (7.5-11.2); Platelet Count 491 10^3/uL (150-450); Red Blood Count 3.31 10^6/uL (4.06-5.63); Red Cell Distribution Width 15.7 % (12-17); White Blood Count 9.5 10^3/uL (3.6-10.2)
[2022-10-11 07:43] LABS: Calcium 8.2 mg/dL (8.6-10.3); Creatinine, Serum 0.82 mg/dL (0.67-1.17); Magnesium 1.6 mg/dL (1.9-2.7); Potassium 4.4 mmol/L (3.5-5.0); eGFR CKD-EPI 96.3 (>60)
[2022-10-11] MEDS: oxyCODONE/Acetamin 5/325 mg TAB PO PRN ×3 (08:03→23:22)
[2022-10-11] MEDS: Fluticasone NASAL SPRAY 50MCG 16 gm SPRAY BTL INTRANASAL SCH (08:05)
[2022-10-11] MEDS ORDERED: Magnesium Sulf 4 GM/100 ML IV 4,000 MG/100 ML BAG IVPB ONE (10:23)
[2022-10-11] MEDS: Nicotine PATCH 14 MG/24 HR PATCH TRANSDERM SCH (10:37)
[2022-10-11] MEDS: Lidocaine PATCH 4% TOPICAL PRN ×2 (11:37→22:39)
[2022-10-11] MEDS: Enoxaparin 40 MG/0.4 ML SYR SUBCUT SCH (21:11)
[2022-10-12] MEDS: Nicotine PATCH 14 MG/24 HR PATCH TRANSDERM SCH (08:18)
[2022-10-12] MEDS: Fluticasone NASAL SPRAY 50MCG 16 gm SPRAY BTL INTRANASAL SCH (11:26)
[2022-10-12] MEDS ORDERED: Collagenase 250 units/gm OINT 1 tube TOPICAL SCH ×2 (11:30→12:00)
[2022-10-12] MEDS: oxyCODONE/Acetamin 5/325 mg TAB PO PRN ×2 (14:28→22:46)
[2022-10-12] MEDS: Morphine 2 MG/ML SYRINGE IV PRN ×2 (15:30→21:04)
[2022-10-12] MEDS: Enoxaparin 40 MG/0.4 ML SYR SUBCUT SCH (21:03)
[2022-10-12] MEDS: Albuterol HFA INHALER 8 gm MDI INH PRN (22:35)
[2022-10-13] MEDS: Morphine 2 MG/ML SYRINGE IV PRN ×3 (05:38→19:24)
[2022-10-13 06:18] LABS: Calcium 8.9 mg/dL (8.6-10.3); Creatinine, Serum 0.95 mg/dL (0.67-1.17); Magnesium 1.7 mg/dL (1.9-2.7); Potassium 4.5 mmol/L (3.5-5.0); eGFR CKD-EPI 87.7 (>60)
[2022-10-13] MEDS: Nicotine PATCH 14 MG/24 HR PATCH TRANSDERM SCH (08:24)
[2022-10-13] MEDS: oxyCODONE/Acetamin 5/325 mg TAB PO PRN ×2 (08:26→17:27)
[2022-10-13] MEDS: Fluticasone NASAL SPRAY 50MCG 16 gm SPRAY BTL INTRANASAL SCH (08:36)
[2022-10-13] MEDS ORDERED: Magnesium Sulfate 2 gm BAG 2 GM/50 ML BAG IVPB ONE (11:16)
[2022-10-13] MEDS: Albuterol HFA INHALER 8 gm MDI INH PRN (19:31)
[2022-10-13] MEDS: Enoxaparin 40 MG/0.4 ML SYR SUBCUT SCH (21:32)
[2022-10-14] MEDS: oxyCODONE/Acetamin 5/325 mg TAB PO PRN ×3 (01:28→17:29)
[2022-10-14] MEDS: Morphine 2 MG/ML SYRINGE IV PRN ×3 (02:35→12:05)
[2022-10-14] MEDS: Nicotine PATCH 14 MG/24 HR PATCH TRANSDERM SCH (08:49)
[2022-10-14] MEDS: Fluticasone NASAL SPRAY 50MCG 16 gm SPRAY BTL INTRANASAL SCH (09:33)
[2022-10-14] MEDS: DULoxetine DR 60 mg CAP PO SCH (11:56)
[2022-10-14] MEDS: CMC:FLUTICAS/UMECLI/VILANT 100-62.5-25 MDI (NF) INH SCH (12:07)
[2022-10-14] MEDS: Albuterol HFA INHALER 8 gm MDI INH PRN (12:08)
[2022-10-14] MEDS: Enoxaparin 40 MG/0.4 ML SYR SUBCUT SCH (21:53)
[2022-10-15] MEDS: oxyCODONE/Acetamin 5/325 mg TAB PO PRN ×3 (02:02→20:32)
[2022-10-15] MEDS: CMC:FLUTICAS/UMECLI/VILANT 100-62.5-25 MDI (NF) INH SCH (07:09)
[2022-10-15] MEDS: DULoxetine DR 60 mg CAP PO SCH (09:57)
[2022-10-15] MEDS: Fluticasone NASAL SPRAY 50MCG 16 gm SPRAY BTL INTRANASAL SCH (09:58)
[2022-10-15] MEDS: Nicotine PATCH 14 MG/24 HR PATCH TRANSDERM SCH (09:58)
[2022-10-15] MEDS: Albuterol HFA INHALER 8 gm MDI INH PRN (10:04)
[2022-10-15] MEDS ORDERED: Magnesium Sulfate 2 gm BAG 2 GM/50 ML BAG IVPB ONE (13:19)
[2022-10-15] MEDS: Morphine 2 MG/ML SYRINGE IV PRN (18:32)
[2022-10-15] MEDS: Enoxaparin 40 MG/0.4 ML SYR SUBCUT SCH (20:31)
[2022-10-16] MEDS: oxyCODONE/Acetamin 5/325 mg TAB PO PRN ×3 (04:12→17:37)
[2022-10-16] MEDS: Albuterol HFA INHALER 8 gm MDI INH PRN (07:25)
[2022-10-16] MEDS: CMC:FLUTICAS/UMECLI/VILANT 100-62.5-25 MDI (NF) INH SCH (07:25)
[2022-10-16 07:40] LABS: ABS Basophils 0.1 10^3/uL (0.0-0.1); ABS Eosinophils 0.2 10^3/uL (0.0-0.5); ABS Lymphocytes 2.1 10^3/uL (1.0-4.8); ABS Monocytes 0.8 10^3/uL (0.0-1.1); ABS Neutrophils 4.3 10^3/uL (1.5-7.6); Eosinophil % 3.2 %; Hematocrit 30.6 % (38-53); Hemoglobin 10.4 g/dL (13.2-16.3); Lymphocyte % 27.9 %; Mean Corpuscular Volume 88.2 fL (80-97); Mean Platelet Volume 7.7 fL (7.5-11.2); Platelet Count 509 10^3/uL (150-450); Red Blood Count 3.47 10^6/uL (4.06-5.63); Red Cell Distribution Width 15.9 % (12-17); White Blood Count 7.6 10^3/uL (3.6-10.2)
[2022-10-16 07:56] LABS: Calcium 9.2 mg/dL (8.6-10.3); Creatinine, Serum 0.91 mg/dL (0.67-1.17); Potassium 4.4 mmol/L (3.5-5.0); eGFR CKD-EPI 92.4 (>60)
[2022-10-16] MEDS: DULoxetine DR 60 mg CAP PO SCH (09:20)
[2022-10-16] MEDS: Fluticasone NASAL SPRAY 50MCG 16 gm SPRAY BTL INTRANASAL SCH (09:21)
[2022-10-16] MEDS: Nicotine PATCH 14 MG/24 HR PATCH TRANSDERM SCH (09:21)
[2022-10-16 12:29] LABS: Magnesium 1.8 mg/dL (1.9-2.7)
[2022-10-16] MEDS: Enoxaparin 40 MG/0.4 ML SYR SUBCUT SCH (23:25)
[2022-10-17] MEDS: oxyCODONE/Acetamin 5/325 mg TAB PO PRN ×2 (00:40→08:30)
[2022-10-17] MEDS: CMC:FLUTICAS/UMECLI/VILANT 100-62.5-25 MDI (NF) INH SCH (07:17)
[2022-10-17] MEDS: DULoxetine DR 60 mg CAP PO SCH (08:33)
[2022-10-17] MEDS: Fluticasone NASAL SPRAY 50MCG 16 gm SPRAY BTL INTRANASAL SCH (08:38)
[2022-10-17] MEDS ORDERED: Magnesium Sulfate 2 gm BAG 2 GM/50 ML BAG IVPB ONE (09:00)
[2022-10-17] MEDS: Nicotine PATCH 14 MG/24 HR PATCH TRANSDERM SCH (09:40)
[2022-10-17 12:56] VITALS: BP 116/63
== END 2022-10-17 14:10 | disposition home or self-care (01) | DRG 871 ==
LOC: ED 15:09 → ICU 15:17 → EDHOLD 17:57 → SUATTDRO 17:57 → ICU 19:01 → MEDTELE 10-08 08:16
PROVIDERS: ADMIT Student in an Organized Health Care Education/Training Program; ATTEND Hospitalist

== ENCOUNTER 2023-08-21 16:12 | Inpatient (IN) ==
[2023-08-21 17:05] LABS: INR 1.22 (0.83-1.13)
[2023-08-21 17:08] LABS: ABS Eosinophils 0.3 10^3/uL (0.0-0.5); ABS Lymphocytes 1.7 10^3/uL (1.0-4.8); ABS Monocytes 0.6 10^3/uL (0.0-1.1); ABS Neutrophils 3.3 10^3/uL (1.5-7.6); ABS Nucleated RBC 0.01 10^3/ul; Hematocrit 35.5 % (38-53); Hemoglobin 11.1 g/dL (13.2-16.3); Lymphocyte % 29.5 %; Mean Corpuscular Hemoglobin 24.9 pg (27-33); Mean Corpuscular Hgb Conc 31.2 g/dL (31-36); Mean Corpuscular Volume 79.9 fL (80-97); Mean Platelet Volume 9.1 fL (7.5-11.2); Nucleated Red Blood Cells % 0.1 %/100WBC (0.0-0.8); Platelet Count 252 10^3/uL (150-450); Red Blood Count 4.44 10^6/uL (4.06-5.63); White Blood Count 5.9 10^3/uL (3.6-10.2)
[2023-08-21] MEDS: NS 0.9% 1000 ml BAG 1,000 ML IV ONE (17:22)
[2023-08-21] MEDS: Albuterol/Ipratropium NEB.SOL (2.5/0.5 MG) 3 ML NEB.SOLN INH ONE (17:25)
[2023-08-21 17:42] LABS: Potassium 4.7 mmol/L (3.5-5.0)
[2023-08-21 17:43] LABS: Albumin 3.3 g/dL (3.2-5.2); Albumin/Globulin Ratio 0.9 (1-3); Calcium 8.7 mg/dL (8.6-10.3); Creatinine, Serum 0.78 mg/dL (0.67-1.17); Globulin 3.5 g/dL (2-4); Total Bilirubin 0.4 mg/dL (0.2-1.0); Total Protein 6.8 g/dL (6.4-8.9); eGFR CKD-EPI 97.7 (>60)
[2023-08-21 18:17] LABS: High Sensitivity Troponin 1 Hr 2214 pg/mL (<20)
[2023-08-21] MEDS: Heparin 5000 UNITS/ML 1 mL VIAL IV SCH (19:15)
[2023-08-21] MEDS: Heparin DRIP 25,000 UNITS BAG 25,000 UNITS/250 ML BAG IV SCH (19:16)
[2023-08-21] MEDS: Furosemide 40 mg/4 ml IV VIAL IV ONE (19:19)
[2023-08-21] MEDS: Aspirin EC 325 mg TAB.EC PO ONE (19:19)
[2023-08-21 19:27] LABS: ABS Eosinophils 0.1 10^3/uL (0.0-0.5); ABS Lymphocytes 1.3 10^3/uL (1.0-4.8); ABS Monocytes 0.4 10^3/uL (0.0-1.1); ABS Neutrophils 2.8 10^3/uL (1.5-7.6); Eosinophil % 2.8 %; Hematocrit 29.6 % (38-53); Hemoglobin 9.7 g/dL (13.2-16.3); Lymphocyte % 27.5 %; Mean Corpuscular Hemoglobin 25.4 pg (27-33); Mean Corpuscular Hgb Conc 32.7 g/dL (31-36); Mean Corpuscular Volume 77.6 fL (80-97); Nucleated Red Blood Cells % 0.1 %/100WBC (0.0-0.8); Platelet Count 228 10^3/uL (150-450); Red Blood Count 3.82 10^6/uL (4.06-5.63); White Blood Count 4.6 10^3/uL (3.6-10.2)
[2023-08-21 20:01] LABS: Creatinine, Serum 0.67 mg/dL (0.67-1.17); eGFR CKD-EPI 102.3 (>60)
[2023-08-21] MEDS: oxyCODONE/Acetamin 5/325 mg TAB PO ONE (20:27)
[2023-08-21] MEDS: Metoprolol Tartrate 5 mg VIAL 5 ml VIAL (1 mg/ml) IV ONE (20:29)
[2023-08-21] MEDS: Iodixanol (CONTRAST) 320 MG/ML 100 ML SDV IV ONE (20:44)
[2023-08-21] MEDS: Esmolol 10 MG/ML IVPREMIX 2,500 MG/250 ML BAG IV SCH (21:56)
[2023-08-21] MEDS: Lactated Ringers 1000 ml BAG 1,000 ML IV ONE (22:10)
[2023-08-22] MEDS ORDERED: oxyCODONE/Acetamin 10/325(NF) TAB PO PRN (00:28)
[2023-08-22] MEDS ORDERED: Albuterol HFA INHALER 8 gm MDI INH PRN (00:28)
[2023-08-22] MEDS ORDERED: Polyethylene Glycol 3350 17 GM PACKET PO PRN (00:31)
[2023-08-22] MEDS ORDERED: Magnesium Hydroxide LIQ 30 ML UDC PO PRN (00:31)
[2023-08-22] MEDS: cefTRIAXone 1 gm/50 mL D5W 1 GM/50 ML BAG IV SCH (01:00)
[2023-08-22 01:07] LABS: C Reactive Protein 8.34 mg/L (<8.01)
[2023-08-22] MEDS: DOXYcycline 100 MG in NS 0.9% 250 ml 250 ML IVPB SCH (01:42)
[2023-08-22] MEDS: Magnesium Hydroxide LIQ 30 ML UDC PO SCH (01:48)
[2023-08-22] MEDS: oxyCODONE/Acetamin 5/325 mg TAB PO PRN (03:34)
[2023-08-22] MEDS: Benzocaine/Menthol LOZ PO PRN (04:25)
[2023-08-22 05:28] LABS: Hepatitis C Antibody Negative (Negative)
[2023-08-22 05:45] LABS: Hematocrit 27.3 % (38-53); Hemoglobin 8.6 g/dL (13.2-16.3); Mean Corpuscular Hemoglobin 24.9 pg (27-33); Mean Corpuscular Hgb Conc 31.5 g/dL (31-36); Mean Corpuscular Volume 78.9 fL (80-97); Mean Platelet Volume 10.3 fL (7.5-11.2); Platelet Count 207 10^3/uL (150-450); Red Blood Count 3.46 10^6/uL (4.06-5.63); White Blood Count 4.3 10^3/uL (3.6-10.2)
[2023-08-22 05:55] LABS: Urine Appearance Clear; Urine Bilirubin Negative (Negative); Urine Blood 2+ (Negative); Urine Color Yellow; Urine Glucose Negative (Negative); Urine Ketones Negative (Negative); Urine Nitrite Negative (Negative); Urine Protein Trace (Negative); Urine Specific Gravity 1.038 (1.002-1.030); Urine Urobilinogen Negative (Negative)
[2023-08-22 06:56] LABS: ABS Eosinophils 0.2 10^3/uL (0.0-0.5); ABS Lymphocytes 2.1 10^3/uL (1.0-4.8); ABS Monocytes 0.3 10^3/uL (0.0-1.1); ABS Neutrophils 1.6 10^3/uL (1.5-7.6); Eosinophil % 5.5 %; Lymphocyte % 48.4 %; Nucleated Red Blood Cells % 0.1 %/100WBC (0.0-0.8)
[2023-08-22] MEDS: Pneumococcal 20-Valent Conj 0.5 ML SYR Vaccine IM ONE (07:41)
[2023-08-22] MEDS: Nicotine PATCH 14 MG/24 HR PATCH TRANSDERM SCH (07:46)
[2023-08-22] MEDS: DULoxetine DR 60 mg CAP PO SCH (07:50)
[2023-08-22] MEDS: Fluticasone NASAL SPRAY 50MCG 16 gm SPRAY BTL INTRANASAL SCH (07:51)
[2023-08-22 08:04] LABS: Urine Bacteria Absent /HPF (Absent); Urine Red Blood Cell 3+(>10/hpf) /HPF (0-Trace); Urine White Blood Cell 2+(11-20/hpf) /HPF (0-Trace)
[2023-08-22 08:21] LABS: % Iron Saturation 9 % (15-55); .Transferrin 158 mg/dL (203-362); Anion Gap 5 mmol/L (2-16); Blood Urea Nitrogen 12 mg/dL (6-24); CO2 Carbon Dioxide 15 mmol/L (22-32); Chloride 115 mmol/L (101-111); Creatinine, Serum 0.54 mg/dL (0.67-1.17); Glucose 73 mg/dL (70-100); Iron < 20 ug/dL (50-212); Magnesium 0.9 mg/dL (1.9-2.7); Potassium 4.4 mmol/L (3.5-5.0); Sodium 135 mmol/L (135-145); Total Iron Binding Capacity 221 mcg/dL (250-450); Unsaturated Iron Binding 201 ug/dL; eGFR CKD-EPI 109.2 (>60)
[2023-08-22] MEDS: Magnesium Sulf 4 GM/100 ML IV 4,000 MG/100 ML BAG IVPB ONE (08:40)
[2023-08-22 08:48] LABS: Cholesterol 50 mg/dL; HDL Cholesterol 26.5 mg/dL; LDL Cholesterol 18 mg/dL; Triglycerides 30 mg/dL
[2023-08-22 08:57] LABS: Hematocrit 32.4 % (38-53); Hemoglobin 10.4 g/dL (13.2-16.3); Mean Corpuscular Hemoglobin 24.9 pg (27-33); Mean Corpuscular Hgb Conc 32.2 g/dL (31-36); Mean Corpuscular Volume 77.5 fL (80-97); Mean Platelet Volume 9.6 fL (7.5-11.2); Platelet Count 259 10^3/uL (150-450); Red Blood Count 4.18 10^6/uL (4.06-5.63); Red Cell Distribution Width 21.5 % (12-17); White Blood Count 5.5 10^3/uL (3.6-10.2)
[2023-08-22 09:33] LABS: Ferritin 20.5 ng/mL (24-336)
[2023-08-22] MEDS: Esmolol 10 MG/ML IVPREMIX 2,500 MG/250 ML BAG IV SCH (10:34)
[2023-08-22] MEDS: Digoxin IV 0.5 MG/2 ML AMP (0.25 MG/ML) IV SLOW PU ONE ×2 (10:44→18:00)
[2023-08-22 11:04] LABS: High Sensitivity Troponin 1 Hr 7476 pg/mL (<20)
[2023-08-22 11:48] LABS: Calcium 8.1 mg/dL (8.6-10.3); Creatinine, Serum 0.93 mg/dL (0.67-1.17); Magnesium 1.7 mg/dL (1.9-2.7); Potassium 4.4 mmol/L (3.5-5.0)
[2023-08-22] MEDS: Sulfur Hexaflouride MICROSPHR 25 MG VIAL IV ONE (11:54)
[2023-08-22] MEDS: Furosemide 20 mg/2 ml IV VIAL IV SLOW PU ONE (14:17)
[2023-08-22] MEDS: Magnesium Sulfate 2 gm BAG 2 GM/50 ML BAG IVPB ONE (14:18)
[2023-08-22] MEDS: COVID VAC 23-24(12+)(Moderna) SYR 0.5 ML IM ONE (14:23)
[2023-08-22 15:46] LABS: TSH Ultra Thyroid Stim Horm 1.58 mcIU/mL (0.34-5.60)
[2023-08-22] MEDS: Digoxin IV 0.5 MG/2 ML AMP (0.25 MG/ML) ONE (18:00)
[2023-08-22] MEDS: Senna TAB 8.6 mg TAB PO PRN (19:48)
[2023-08-22 23:30] LABS: High Sensitivity Troponin 1 Hr 4203 pg/mL (<20)
[2023-08-23] MEDS: Enoxaparin 80 MG/0.8 ML SYR SUBCUT SCH (02:45)
[2023-08-23 05:27] LABS: Calcium 8.3 mg/dL (8.6-10.3); Creatinine, Serum 0.72 mg/dL (0.67-1.17); Magnesium 1.8 mg/dL (1.9-2.7); Potassium 4.1 mmol/L (3.5-5.0); eGFR CKD-EPI 100.1 (>60)
[2023-08-23 06:12] LABS: Hematocrit 33.3 % (38-53); Hemoglobin 10.7 g/dL (13.2-16.3); Mean Corpuscular Hemoglobin 24.5 pg (27-33); Mean Corpuscular Hgb Conc 32.1 g/dL (31-36); Mean Corpuscular Volume 76.3 fL (80-97); Red Blood Count 4.36 10^6/uL (4.06-5.63); Red Cell Distribution Width 20.9 % (12-17)
[2023-08-23] MEDS ORDERED: Magnesium Sulfate 2 gm BAG 2 GM/50 ML BAG IVPB ONE (07:08)
[2023-08-23 07:40] LABS: ABS Basophils 0.1 10^3/uL (0.0-0.1); ABS Eosinophils 0.2 10^3/uL (0.0-0.5); ABS Lymphocytes 2.2 10^3/uL (1.0-4.8); ABS Monocytes 0.6 10^3/uL (0.0-1.1); ABS Nucleated RBC 0.01 10^3/ul; Eosinophil % 3.6 %; Lymphocyte % 37.2 %; Mean Platelet Volume 9.7 fL (7.5-11.2); Nucleated Red Blood Cells % 0.1 %/100WBC (0.0-0.8); Platelet Count 254 10^3/uL (150-450)
[2023-08-23 07:58] LABS: Phosphorus 3.8 mg/dL (2.5-5.0)
[2023-08-23] MEDS: Iron Sucrose 200 MG in NS 0.9% 100 ml BAG 100 ML IVPB SCH (08:03)
[2023-08-23] MEDS: Magnesium Sulfate 2 gm BAG 2 GM/50 ML BAG IVPB ONE (08:06)
[2023-08-23] MEDS ORDERED: Aspirin EC 81 mg TAB.EC (enteric coated) PO SCH (11:00)
[2023-08-23] MEDS: Digoxin IV 0.5 MG/2 ML AMP (0.25 MG/ML) IV SLOW PU ONE (12:32)
[2023-08-23] MEDS: Aspirin EC 81 mg TAB.EC (enteric coated) PO SCH (12:32)
[2023-08-23] MEDS: Metoprolol Tartrate 5 mg VIAL 5 ml VIAL (1 mg/ml) IV ONE ×2 (17:12→22:11)
[2023-08-24 05:02] LABS: Calcium 8.6 mg/dL (8.6-10.3); Creatinine, Serum 0.68 mg/dL (0.67-1.17); Magnesium 1.8 mg/dL (1.9-2.7); Potassium 4.8 mmol/L (3.5-5.0); eGFR CKD-EPI 101.9 (>60)
[2023-08-24 05:47] LABS: ABS Basophils 0.1 10^3/uL (0.0-0.1); ABS Eosinophils 0.2 10^3/uL (0.0-0.5); ABS Lymphocytes 1.8 10^3/uL (1.0-4.8); ABS Monocytes 0.6 10^3/uL (0.0-1.1); ABS Neutrophils 2.6 10^3/uL (1.5-7.6); ABS Nucleated RBC 0.01 10^3/ul; Hematocrit 36.5 % (38-53); Hemoglobin 11.6 g/dL (13.2-16.3); Large Platelets Present; Lymphocyte % 34.8 %; Mean Corpuscular Hemoglobin 24.4 pg (27-33); Mean Corpuscular Hgb Conc 31.8 g/dL (31-36); Mean Corpuscular Volume 76.6 fL (80-97); Nucleated Red Blood Cells % 0.1 %/100WBC (0.0-0.8); Platelet Count 253 10^3/uL (150-450); Red Blood Count 4.77 10^6/uL (4.06-5.63); Red Cell Distribution Width 20.6 % (12-17); White Blood Count 5.1 10^3/uL (3.6-10.2)
[2023-08-24] MEDS: Magnesium Sulfate 2 gm BAG 2 GM/50 ML BAG IVPB ONE (10:14)
[2023-08-24] MEDS ORDERED: VERAPAMIL 2.5 MG/ML 2 ML VIAL ** 5 mg/2 ml ONE (11:12)
[2023-08-24] MEDS ORDERED: Heparin 2 UNITS/ML 1000 mls 2,000 ML IV ONE (11:13)
[2023-08-24] MEDS ORDERED: Iohexol 350 (CONTRAST) 100 ML PAK IV ONE (11:13)
[2023-08-24] MEDS ORDERED: Lidocaine 1% MPF 5 ML VIAL ONE (11:13)
[2023-08-24] MEDS ORDERED: nitroGLYCERIN DRIP 25,000 MCG/250 ML BTL ONE (11:13)
[2023-08-24] MEDS ORDERED: Heparin 1,000 UNIT/ML 10 ml (10,000 UNITS) CATHLAB/DIALYSIS ONE (11:13)
[2023-08-24] MEDS ORDERED: Midazolam 5 mg/5 ml VIAL 1 mg/ml 5 ml VIAL (5 mg) ONE (11:17)
[2023-08-24] MEDS ORDERED: fentaNYL 100 mcg/2 ml 50 MCG/ML VIAL ONE (11:17)
[2023-08-24 12:04] LABS: Digoxin 0.8 ng/ml (0.8-2.0)
[2023-08-24 12:26] LABS: POC SO2 53 %
[2023-08-24 12:26] LABS: POC SO2 51 %
[2023-08-24 12:26] LABS: POC SO2 88 %
[2023-08-24] MEDS: NS 0.9% 1000 ml BAG 1,000 ML IV SCH (12:53)
[2023-08-24] MEDS ORDERED: Metoprolol Tartrate 5 mg VIAL 5 ml VIAL (1 mg/ml) IV PRN (13:03)
[2023-08-24] MEDS: Digoxin IV 0.5 MG/2 ML AMP (0.25 MG/ML) IV SLOW PU ONE (13:40)
[2023-08-25 08:20] LABS: Hematocrit 37.6 % (38-53); Hemoglobin 12.1 g/dL (13.2-16.3); Mean Corpuscular Hemoglobin 24.6 pg (27-33); Mean Corpuscular Hgb Conc 32.1 g/dL (31-36); Mean Corpuscular Volume 76.6 fL (80-97); Red Blood Count 4.91 10^6/uL (4.06-5.63); Red Cell Distribution Width 21.1 % (12-17); White Blood Count 5.3 10^3/uL (3.6-10.2)
[2023-08-25 08:51] LABS: Calcium 8.8 mg/dL (8.6-10.3); Creatinine, Serum 0.84 mg/dL (0.67-1.17); Magnesium 1.9 mg/dL (1.9-2.7); Potassium 5.1 mmol/L (3.5-5.0); eGFR CKD-EPI 95.6 (>60)
[2023-08-25 09:15] LABS: Mean Platelet Volume 9.5 fL (7.5-11.2); Platelet Count 265 10^3/uL (150-450)
[2023-08-25 09:16] LABS: ABS Basophils 0.1 10^3/uL (0.0-0.1); ABS Eosinophils 0.3 10^3/uL (0.0-0.5); ABS Lymphocytes 2.1 10^3/uL (1.0-4.8); ABS Neutrophils 1.7 10^3/uL (1.5-7.6); ABS Nucleated RBC 0.01 10^3/ul; Anisocytosis 2+; Lymphocyte % 40.5 %; Microcytosis 1+; Nucleated Red Blood Cells % 0.1 %/100WBC (0.0-0.8)
[2023-08-26 06:37] LABS: Hematocrit 38.5 % (38-53); Hemoglobin 12.9 g/dL (13.2-16.3); Mean Corpuscular Hemoglobin 25.5 pg (27-33); Mean Corpuscular Hgb Conc 33.5 g/dL (31-36); Mean Corpuscular Volume 76.2 fL (80-97); Red Blood Count 5.05 10^6/uL (4.06-5.63); Red Cell Distribution Width 20.9 % (12-17); White Blood Count 5.7 10^3/uL (3.6-10.2)
[2023-08-26 06:40] LABS: Calcium 9.3 mg/dL (8.6-10.3); Creatinine, Serum 0.67 mg/dL (0.67-1.17); Potassium 4.8 mmol/L (3.5-5.0); eGFR CKD-EPI 102.3 (>60)
[2023-08-26] MEDS: CMCS:FLUTICAS/UMECLI/VILANT 100-62.5-25 MDI (NF) INH SCH (07:36)
[2023-08-26 07:44] LABS: ABS Eosinophils 0.3 10^3/uL (0.0-0.5); ABS Lymphocytes 2.7 10^3/uL (1.0-4.8); ABS Monocytes 0.8 10^3/uL (0.0-1.1); ABS Neutrophils 1.8 10^3/uL (1.5-7.6); Eosinophil % 5.5 %; Lymphocyte % 47.5 %; Mean Platelet Volume 9.6 fL (7.5-11.2); Nucleated Red Blood Cells % 0.1 %/100WBC (0.0-0.8); Platelet Count 295 10^3/uL (150-450)
[2023-08-26] MEDS: Digoxin IV 0.5 MG/2 ML AMP (0.25 MG/ML) IV SLOW PU ONE (16:12)
[2023-08-26] MEDS: Digoxin IV 0.5 MG/2 ML AMP (0.25 MG/ML) IV SLOW PU SCH (21:43)
[2023-08-27 06:12] LABS: ABS Eosinophils 0.3 10^3/uL (0.0-0.5); ABS Lymphocytes 2.7 10^3/uL (1.0-4.8); ABS Monocytes 0.7 10^3/uL (0.0-1.1); ABS Neutrophils 3.6 10^3/uL (1.5-7.6); ABS Nucleated RBC 0.01 10^3/ul; Eosinophil % 4.5 %; Hematocrit 38.7 % (38-53); Hemoglobin 12.8 g/dL (13.2-16.3); Lymphocyte % 36.3 %; Mean Corpuscular Hemoglobin 25.1 pg (27-33); Mean Corpuscular Hgb Conc 32.9 g/dL (31-36); Mean Corpuscular Volume 76.4 fL (80-97); Mean Platelet Volume 9.5 fL (7.5-11.2); Nucleated Red Blood Cells % 0.1 %/100WBC (0.0-0.8); Platelet Count 307 10^3/uL (150-450); Red Blood Count 5.07 10^6/uL (4.06-5.63); Red Cell Distribution Width 20.9 % (12-17); White Blood Count 7.4 10^3/uL (3.6-10.2)
[2023-08-27 06:34] LABS: Calcium 9.6 mg/dL (8.6-10.3); Creatinine, Serum 0.81 mg/dL (0.67-1.17); Magnesium 1.9 mg/dL (1.9-2.7); Potassium 4.8 mmol/L (3.5-5.0); eGFR CKD-EPI 96.6 (>60)
[2023-08-27] MEDS ORDERED: KETAMINE HCL 10 MG/ML 20 ml VIAL (200 MG) ONE (10:41)
[2023-08-27] MEDS ORDERED: Midazolam 5 mg/5 ml VIAL 1 mg/ml 5 ml VIAL (5 mg) ONE (10:42)
[2023-08-27] MEDS ORDERED: Phenylephrine IV 10 MG/ML 1 ml VIAL ONE (11:30)
[2023-08-28 06:07] LABS: Calcium 9.2 mg/dL (8.6-10.3); Creatinine, Serum 0.79 mg/dL (0.67-1.17); Potassium 4.4 mmol/L (3.5-5.0); eGFR CKD-EPI 97.4 (>60)
[2023-08-28 06:14] LABS: PSA Screen Ultra Sensitive 3.294 ng/mL (0-4.000)
[2023-08-28 06:35] LABS: Urine Appearance Clear; Urine Bilirubin Negative (Negative); Urine Blood 2+ (Negative); Urine Color Light-Yellow; Urine Glucose 4+ (>=1000 mg/dL) (Negative); Urine Ketones Negative (Negative); Urine Nitrite Negative (Negative); Urine Protein Negative (Negative); Urine Specific Gravity 1.012 (1.002-1.030); Urine Urobilinogen Negative (Negative)
[2023-08-28 06:36] LABS: Urine Bacteria Absent /HPF (Absent); Urine Red Blood Cell 3+(>10/hpf) /HPF (0-Trace); Urine Squamous Epithelial Cell Present /HPF (Absent); Urine White Blood Cell Trace(0-5/hpf) /HPF (0-Trace)
[2023-08-28 07:12] LABS: ABS Eosinophils 0.2 10^3/uL (0.0-0.5); ABS Lymphocytes 2.5 10^3/uL (1.0-4.8); ABS Monocytes 0.5 10^3/uL (0.0-1.1); ABS Neutrophils 2.7 10^3/uL (1.5-7.6); Eosinophil % 3.8 %; Hematocrit 38.4 % (38-53); Hemoglobin 12.4 g/dL (13.2-16.3); Lymphocyte % 41.7 %; Mean Corpuscular Hemoglobin 24.6 pg (27-33); Mean Corpuscular Hgb Conc 32.2 g/dL (31-36); Mean Corpuscular Volume 76.5 fL (80-97); Mean Platelet Volume 9.2 fL (7.5-11.2); Platelet Count 285 10^3/uL (150-450); Red Blood Count 5.02 10^6/uL (4.06-5.63); Red Cell Distribution Width 20.8 % (12-17)
[2023-08-28] MEDS: PAIN RELIEVING RUB (MENTHOL/SALICYLATE) 1 APPLIC TUBE TOPICAL PRN (09:47)
[2023-08-28 14:06] VITALS: BP 97/57
== END 2023-08-28 17:00 | disposition home or self-care (01) | DRG 280 ==
LOC: ED 16:12 → EDHOLD 23:12 → SUATTDRO 23:12 → ICU 23:12 → MEDTELE 08-24 22:22
PROVIDERS: ADMIT Internal Medicine; ATTEND Family Medicine